=== PATIENT | male | born 1965 | race Two or more races ===

== ENCOUNTER 2018-05-19 11:34 | Emergency (ER) | payer MEDICAID ==
[~2018-05-19] VITALS: Ht 172.7 cm; Wt 121.5 kg
[~2018-05-19 11:34] MED LIST: BENA20TA82 PO; HCTZ25T PO; HYDR-4353 PO; POTA8CAP9 PO
[2018-05-19 11:40] VITALS: BP 173/113
[2018-05-19] MEDS ORDERED: normal saline 1000ML IV soln IVB ONE (12:20)
[2018-05-19] MEDS ORDERED: vancomycin/NS 1 GM ADD-VANTAGE 250 ML IV ONE (12:20)
--- NOTE | 2018-05-19 13:39 | NUR ---
CULTURE TAKEN FROM [facility] AND SENT TO LAB. PATIENT TOLLERATED ASPIRATION PROCEDURE WELL BY DR. TAPIA.
[2018-05-19] MEDS ORDERED: CEPH500C5 PO (13:45)
[2018-05-19] MEDS ORDERED: HYDROcodone/acetaminophen 10/325mg tab PO ONE (13:45)
[2018-05-19] MEDS ORDERED: HYDR-3965 PO (13:45)
[2018-05-19] MEDS ORDERED: SULF1TAB49 PO (13:45)
--- NOTE | 2018-05-19 14:39 | NUR ---
IV DC'D, DECREASED PAIN. IV DC'D CATH INTACT. DISCH TO HOME WITH SISTER DRIVING.
== END 2018-05-19 14:46 | disposition home or self-care (01) ==
LOC: ER 11:34
DX: L03.115 Cellulitis of right lower limb (principal); I10 Essential (primary) hypertension; E11.9 Type 2 diabetes mellitus without complications; F17.200 Nicotine dependence, unspecified, uncomplicated; Z98.890 Other specified postprocedural states; Z79.899 Other long term (current) drug therapy
CPT/HCPCS: 10060; 82948; 87070; 87077; 87186; 96365; 96366; 99284; J3370; J7030

== ENCOUNTER 2018-08-19 08:30 | Day surgery (SDC) | payer MEDICAID ==
[~2018-08-19 08:30] MED LIST changes: +CEPH500C5 PO; +SULF1TAB49 PO
--- NOTE | 2018-08-19 11:45 | NUR ---
Patient ambulated independently from [facility] and was admitted to outpatient wound care for physician visit with Naif Edwards MD. Dressing removed, wound cleansed and lidocaine applied per order. New patient assessment completed with review of patient's medical history and current medications. 0949 - blood glucose 245. Patient instructed that elevated blood sugars delay healing of the wound and can cause further complications including but not limited to amputation of toes or feet. 1025 - Dr. Edwards at bedside accompanied by RN. Wound assessed, time out performed by MD/RN. Wound debrided as detailed in the physician progress/procedure note. Plan of care discussed with patient. Dressings placed per MD orders. Pt instructed that they should not be disconnected from suction for more than 2 hours at a time. If they are not able to get the suction back on they need to remove the dressing and take all of the foam out of the wound, place hydrogel gauze on/in the wound, and change the dressing daily until someone can replace the dressing. Pt instructed to call the Wound Center or their Home Health Agency immediately if they notice a change in the color or amount of the fluid in the canister, their wound looks more red than usual or has a foul smell, the skin around their wound looks reddened or irritated, the dressing feels or appears loose, they experience pain or the alarm will not turn off. Pt instructed to call 911 or go to the ED if their canister fills rapidly with blood. Patient instructed on the signs and symptoms of infection and to call the Wound Center if any occur or to go to the ED if we are closed: Increased pain in wound Increase in drainage from the wound Redness in the skin surrounding the wound Bleeding from the wound Temperature of 101 or greater Patient instructed that the weight of their body puts a large amount of pressure on their wounds. This pressure keeps the new tissue from growing and inhibits new blood vessels from forming. Explained that, if they continue to bear weight on a body part that has a wound, the time it takes to heal the wound increases, the wound may get worse or the wound may not heal at all. Patient verbalized understanding of all discharge instructions and plan of care and ambulated independently out to [facility] in stable condition with no sign or symptom of distress at time of discharge
== END 2018-08-19 12:01 | disposition home or self-care (01) ==
LOC: WOUND CARE 08:30
PROVIDERS: ATTEND Surgery
DX: E11.622 Type 2 diabetes mellitus with other skin ulcer (principal); L98.492 Non-pressure chronic ulcer of skin of other sites with fat layer exposed; E11.65 Type 2 diabetes mellitus with hyperglycemia; I10 Essential (primary) hypertension; F12.90 Cannabis use, unspecified, uncomplicated; F17.200 Nicotine dependence, unspecified, uncomplicated; F15.90 Other stimulant use, unspecified, uncomplicated; Z98.890 Other specified postprocedural states; Z86.19 Personal history of other infectious and parasitic diseases
CPT/HCPCS: 36416; 82948; 97605

== ENCOUNTER 2018-08-23 08:59 | Day surgery (SDC) | payer OTHER, MEDICAID ==
[~2018-08-23 08:59] MED LIST changes: -CEPH500C5 PO; -HYDR-4353 PO
[2018-08-23] MEDS ORDERED: SULF1TAB49 PO (16:40)
--- NOTE | 2018-08-23 16:41 | NUR ---
Patient ambulated independently from [facility] and was admitted to outpatient wound care for physician visit with Naif Edwards MD. Dressing removed, wound cleansed and lidocaine applied per order. Patient assessed for changes in conditions, medications and medical history. 0910 - blood glucose 251. Patient instructed that elevated blood sugars delay healing of the wound and can cause further complications including but not limited to amputation of toes or feet. 1020 - Dr. Edwards at bedside accompanied by RN. Wound assessed, time out performed by MD/RN. Wound debrided as detailed in the physician progress/procedure note. Plan of care discussed with patient. Dressings placed per MD orders. Patient did not bring his wound vac dressing supplies so 1/2" iodoform was used as a dressing until next appointment . Per MD orders, procedure tech to bedside to place knee immobilizer. Patient instructed on the signs and symptoms of infection and to call the Wound Center if any occur or to go to the ED if we are closed: Increased pain in wound Increase in drainage from the wound Redness in the skin surrounding the wound Bleeding from the wound Temperature of 101 or greater Patient instructed that the weight of their body puts a large amount of pressure on their wounds. This pressure keeps the new tissue from growing and inhibits new blood vessels from forming. Explained that, if they continue to bear weight on a body part that has a wound, the time it takes to heal the wound increases, the wound may get worse or the wound may not heal at all. Patient verbalized understanding of all discharge instructions and plan of care and ambulated independently out to [facility] in stable condition with no sign or symptom of distress at time of discharge.
== END 2018-08-23 11:37 | disposition home or self-care (01) ==
LOC: WOUND CARE 08:59
PROVIDERS: ATTEND Surgery
DX: E11.622 Type 2 diabetes mellitus with other skin ulcer (principal); L98.492 Non-pressure chronic ulcer of skin of other sites with fat layer exposed; E11.65 Type 2 diabetes mellitus with hyperglycemia; I10 Essential (primary) hypertension; F12.90 Cannabis use, unspecified, uncomplicated; F17.200 Nicotine dependence, unspecified, uncomplicated; F15.90 Other stimulant use, unspecified, uncomplicated; Z98.890 Other specified postprocedural states; Z86.19 Personal history of other infectious and parasitic diseases
CPT/HCPCS: 11042; 36416; 82948; 97605; A6266; A6446

== ENCOUNTER 2018-08-26 08:36 | Day surgery (SDC) | payer MEDICAID, OTHER ==
--- NOTE | 2018-08-26 11:00 | NUR ---
Patient arrived from [facility] and was admitted to outpatient wound care for physician visit with Naif Edwards MD. Dressing removed, wound cleansed and lidocaine applied per order. Patient assessed for changes in conditions, medications and medical history. 0943 - blood glucose 216. Patient instructed that elevated blood sugars delay healing of the wound and can cause further complications including but not limited to amputation of toes or feet. 1000 - Dr. Edwards at bedside accompanied by RN. Wound assessed, time out performed by MD/RN. Wound debrided as detailed in the physician progress/procedure note. Plan of care discussed with patient. Dressings placed per MD orders. Pt instructed that they should not be disconnected from suction for more than 2 hours at a time. If they are not able to get the suction back on they need to remove the dressing and take all of the foam out of the wound, place hydrogel gauze on/in the wound, and change the dressing daily until someone can replace the dressing. Pt instructed to call the Wound Center or their Home Health Agency immediately if they notice a change in the color or amount of the fluid in the canister, their wound looks more red than usual or has a foul smell, the skin around their wound looks reddened or irritated, the dressing feels or appears loose, they experience pain or the alarm will not turn off. Pt instructed to call 911 or go to the ED if their canister fills rapidly with blood. Patient instructed on the signs and symptoms of infection and to call the Wound Center if any occur or to go to the ED if we are closed: Increased pain in wound Increase in drainage from the wound Redness in the skin surrounding the wound Bleeding from the wound Temperature of 101 or greater Patient instructed that the weight of their body puts a large amount of pressure on their wounds. This pressure keeps the new tissue from growing and inhibits new blood vessels from forming. Explained that, if they continue to bear weight on a body part that has a wound, the time it takes to heal the wound increases, the wound may get worse or the wound may not heal at all. Patient verbalized understanding of all discharge instructions and plan of care and exited independently out to [facility] in stable condition with no sign or symptom of distress at time of discharge.
== END 2018-08-26 11:15 | disposition home or self-care (01) ==
LOC: WOUND CARE 08:36
PROVIDERS: ATTEND Surgery
DX: E11.622 Type 2 diabetes mellitus with other skin ulcer (principal); L98.492 Non-pressure chronic ulcer of skin of other sites with fat layer exposed; E11.65 Type 2 diabetes mellitus with hyperglycemia; I10 Essential (primary) hypertension; F12.90 Cannabis use, unspecified, uncomplicated; F17.200 Nicotine dependence, unspecified, uncomplicated; F15.90 Other stimulant use, unspecified, uncomplicated; Z98.890 Other specified postprocedural states; Z86.19 Personal history of other infectious and parasitic diseases
CPT/HCPCS: 36416; 82948; 97605; A4456

== ENCOUNTER 2018-08-30 08:51 | Day surgery (SDC) | payer MEDICAID ==
--- NOTE | 2018-08-30 15:34 | NUR ---
0900 Patient ambulated safely into [facility]. Patient admitted to outpatient wound care clinic for follow-up visit with physician. Dressing removed, wound cleansed. Patient assessed for changes in conditions, medications and medical history. Patient showed no s/s of distress at time of assessment. 1045 at bedside accompanied by RN. Wounds assessed, time out performed and debridement done today as detailed in the physician progress/procedure note. Plan of care discussed with patient. Dressings placed per MD orders. Patient instructed on the signs and symptoms of infection and to call the Wound Center if any occur or to go to the ED if we are closed: Increased pain in wound Increase in drainage from the wound Redness in the skin surrounding the wound Bleeding from the wound Temperature of 101 or greater Pt instructed that they should not be disconnected from suction for more than 2 hours at a time. If they are not able to get the suction back on they need to remove the dressing and take all of the foam out of the wound, place hydrogel gauze on/in the wound, and change the dressing daily until someone can replace the dressing. Pt instructed to call the Wound Center or their Home Health Agency immediately if they notice a change in the color or amount of the fluid in the canister, their wound looks more red than usual or has a foul smell, the skin around their wound looks reddened or irritated, the dressing feels or appears loose, they experience pain or the alarm will not turn off. Pt instructed to call 911 or go to the ED if their canister fills rapidly with blood. Patient instructed that the weight of their body puts a large amount of pressure on their wounds. This pressure keeps the new tissue from growing and inhibits new blood vessels from forming. Explained that, if they continue to bear weight on a body part that has a wound, the time it takes to heal the wound increases, the wound may get worse or the wound may not heal at all. Patient verbalized understanding of all discharge instructions and plan of care. Patient ambulated independently out to [facility] and is in stable condition with no sign or symptom of distress at time of discharge.
== END 2018-08-30 11:46 | disposition home or self-care (01) ==
LOC: WOUND CARE 08:51
PROVIDERS: ATTEND Surgery
DX: E11.622 Type 2 diabetes mellitus with other skin ulcer (principal); L98.492 Non-pressure chronic ulcer of skin of other sites with fat layer exposed; E11.65 Type 2 diabetes mellitus with hyperglycemia; I10 Essential (primary) hypertension; F12.90 Cannabis use, unspecified, uncomplicated; F17.200 Nicotine dependence, unspecified, uncomplicated; F15.90 Other stimulant use, unspecified, uncomplicated; Z98.890 Other specified postprocedural states; Z86.19 Personal history of other infectious and parasitic diseases
CPT/HCPCS: 36416; 82948; 97605

== ENCOUNTER 2018-09-02 08:17 | Day surgery (SDC) | payer MEDICAID ==
--- NOTE | 2018-09-02 15:57 | NUR ---
Patient ambulated independently from [facility] and was admitted to outpatient wound care for physician visit with Naif Edwards MD. Dressing removed, wound cleansed and lidocaine applied per order. Patient assessed for changes in conditions, medications and medical history. Dr. Edwards at bedside accompanied by RN. Wound assessed, time out performed by MD/RN. Wound debrided as detailed in the physician progress/procedure note. Plan of care discussed with patient. Dressings placed per MD orders. Patient instructed on the signs and symptoms of infection and to call the Wound Center if any occur or to go to the ED if we are closed: Increased pain in wound Increase in drainage from the wound Redness in the skin surrounding the wound Bleeding from the wound Temperature of 101 or greater Patient instructed that elevated blood sugars delay healing of the wound and can cause further complications including but not limited to amputation of toes or feet. Patient instructed that the weight of their body puts a large amount of pressure on their wounds. This pressure keeps the new tissue from growing and inhibits new blood vessels from forming. Explained that, if they continue to bear weight on a body part that has a wound, the time it takes to heal the wound increases, the wound may get worse or the wound may not heal at all. Patient verbalized understanding of all discharge instructions and plan of care and ambulated independently out to [facility] in stable condition with no sign or symptom of distress at time of discharge. Addendum: 09/02/18 at 1557 by Bettie Rodríguez RN Amended: Links added.
== END 2018-09-02 10:34 | disposition home or self-care (01) ==
LOC: WOUND CARE 08:17
PROVIDERS: ATTEND Surgery
DX: E11.622 Type 2 diabetes mellitus with other skin ulcer (principal); L98.492 Non-pressure chronic ulcer of skin of other sites with fat layer exposed; E11.65 Type 2 diabetes mellitus with hyperglycemia; I10 Essential (primary) hypertension; F12.90 Cannabis use, unspecified, uncomplicated; F17.200 Nicotine dependence, unspecified, uncomplicated; F15.90 Other stimulant use, unspecified, uncomplicated; Z98.890 Other specified postprocedural states; Z86.19 Personal history of other infectious and parasitic diseases
CPT/HCPCS: 36416; 82948; 97597

== ENCOUNTER 2018-09-06 08:37 | Day surgery (SDC) | payer MEDICAID ==
--- NOTE | 2018-09-06 11:00 | NUR ---
Patient ambulated independently from [facility] and was admitted to outpatient wound care for physician visit with Naif Edwards MD. Dressing removed, wound cleansed and lidocaine applied per order. Patient assessed for changes in conditions, medications and medical history. 904 - blood glucose 198. Patient instructed that elevated blood sugars delay healing of the wound and can cause further complications including but not limited to amputation of toes or feet. 954 - Dr. Edwards at bedside accompanied by RN. Wound assessed, time out performed by MD/RN. Wound debrided as detailed in the physician progress/procedure note. Plan of care discussed with patient. Dressings placed per MD orders. Pt instructed that they should not be disconnected from suction for more than 2 hours at a time. If they are not able to get the suction back on they need to remove the dressing and take all of the foam out of the wound, place hydrogel gauze on/in the wound, and change the dressing daily until someone can replace the dressing. Pt instructed to call the Wound Center or their Home Health Agency immediately if they notice a change in the color or amount of the fluid in the canister, their wound looks more red than usual or has a foul smell, the skin around their wound looks reddened or irritated, the dressing feels or appears loose, they experience pain or the alarm will not turn off. Pt instructed to call 911 or go to the ED if their canister fills rapidly with blood. Patient instructed on the signs and symptoms of infection and to call the Wound Center if any occur or to go to the ED if we are closed: Increased pain in wound Increase in drainage from the wound Redness in the skin surrounding the wound Bleeding from the wound Temperature of 101 or greater Patient instructed that the weight of their body puts a large amount of pressure on their wounds. This pressure keeps the new tissue from growing and inhibits new blood vessels from forming. Explained that, if they continue to bear weight on a body part that has a wound, the time it takes to heal the wound increases, the wound may get worse or the wound may not heal at all. Patient verbalized understanding of all discharge instructions and plan of care and ambulated independently out to [facility] in stable condition with no sign or symptom of distress at time of discharge.
== END 2018-09-06 10:44 | disposition home or self-care (01) ==
LOC: WOUND CARE 08:37
PROVIDERS: ATTEND Surgery
DX: E11.622 Type 2 diabetes mellitus with other skin ulcer (principal); L98.492 Non-pressure chronic ulcer of skin of other sites with fat layer exposed; E11.65 Type 2 diabetes mellitus with hyperglycemia; I10 Essential (primary) hypertension; F12.90 Cannabis use, unspecified, uncomplicated; F17.200 Nicotine dependence, unspecified, uncomplicated; F15.90 Other stimulant use, unspecified, uncomplicated; Z98.890 Other specified postprocedural states; Z86.19 Personal history of other infectious and parasitic diseases
CPT/HCPCS: 36416; 82948; 97597; A4456

== ENCOUNTER 2018-09-09 08:15 | Day surgery (SDC) | payer MEDICAID ==
--- NOTE | 2018-09-09 14:22 | NUR ---
Patient ambulated independently from [facility] and was admitted to outpatient wound care for physician visit with Naif Edwards MD. Dressings and wound vac removed, wound cleansed and lidocaine applied per order. Patient assessed for changes in conditions, medications and medical history. Dr. Edwards at bedside accompanied by RN. Wound assessed, time out performed by MD/RN. Wound debrided as detailed in the physician progress/procedure note. Plan of care discussed with patient. Dressings placed per MD orders. Patient instructed on the signs and symptoms of infection and to call the Wound Center if any occur or to go to the ED if we are closed: Increased pain in wound Increase in drainage from the wound Redness in the skin surrounding the wound Bleeding from the wound Temperature of 101 or greater Patient instructed that elevated blood sugars delay healing of the wound and can cause further complications including but not limited to amputation of toes or feet. Pt instructed that they should not be disconnected from suction for more than 2 hours at a time. If they are not able to get the suction back on they need to remove the dressing and take all of the foam out of the wound, place hydrogel gauze on/in the wound, and change the dressing daily until someone can replace the dressing. Pt instructed to call the Wound Center or their Home Health Agency immediately if they notice a change in the color or amount of the fluid in the canister, their wound looks more red than usual or has a foul smell, the skin around their wound looks reddened or irritated, the dressing feels or appears loose, they experience pain or the alarm will not turn off. Pt instructed to call 911 or go to the ED if their canister fills rapidly with blood. Patient instructed that the weight of their body puts a large amount of pressure on their wounds. This pressure keeps the new tissue from growing and inhibits new blood vessels from forming. Explained that, if they continue to bear weight on a body part that has a wound, the time it takes to heal the wound increases, the wound may get worse or the wound may not heal at all. Patient verbalized understanding of all discharge instructions and plan of care and ambulated independently out to [facility] in stable condition with no sign or symptom of distress at time of discharge. Addendum: 09/09/18 at 1424 by Bettie Rodríguez RN Amended: Links added.
== END 2018-09-09 10:55 | disposition home or self-care (01) ==
LOC: WOUND CARE 08:15
PROVIDERS: ATTEND Surgery
DX: E11.622 Type 2 diabetes mellitus with other skin ulcer (principal); L98.492 Non-pressure chronic ulcer of skin of other sites with fat layer exposed; E11.65 Type 2 diabetes mellitus with hyperglycemia; I10 Essential (primary) hypertension; F12.90 Cannabis use, unspecified, uncomplicated; F17.200 Nicotine dependence, unspecified, uncomplicated; F15.90 Other stimulant use, unspecified, uncomplicated; Z98.890 Other specified postprocedural states; Z86.19 Personal history of other infectious and parasitic diseases
CPT/HCPCS: 36416; 82948; 97597; A4456; A6021

== ENCOUNTER 2018-09-13 09:50 | Day surgery (SDC) | payer MEDICAID ==
--- NOTE | 2018-09-13 16:22 | NUR ---
Patient ambulated independently from [facility] and was admitted to outpatient wound care for physician visit with Naif Edwards MD. Dressing removed, wound cleansed and Emla cream applied per order. Patient assessed for changes in conditions, medications and medical history. Dr. Edwards at bedside accompanied by RN. Wound assessed, time out performed by MD/RN. Wound debrided as detailed in the physician progress/procedure note. Plan of care discussed with patient. Dressings placed per MD orders. Patient instructed on the signs and symptoms of infection and to call the Wound Center if any occur or to go to the ED if we are closed: Increased pain in wound Increase in drainage from the wound Redness in the skin surrounding the wound Bleeding from the wound Temperature of 101 or greater Patient instructed that elevated blood sugars delay healing of the wound and can cause further complications including but not limited to amputation of toes or feet. Pt instructed that they should not be disconnected from suction for more than 2 hours at a time. If they are not able to get the suction back on they need to remove the dressing and take all of the foam out of the wound, place hydrogel gauze on/in the wound, and change the dressing daily until someone can replace the dressing. Pt instructed to call the Wound Center or their Home Health Agency immediately if they notice a change in the color or amount of the fluid in the canister, their wound looks more red than usual or has a foul smell, the skin around their wound looks reddened or irritated, the dressing feels or appears loose, they experience pain or the alarm will not turn off. Pt instructed to call 911 or go to the ED if their canister fills rapidly with blood. Patient instructed that the weight of their body puts a large amount of pressure on their wounds. This pressure keeps the new tissue from growing and inhibits new blood vessels from forming. Explained that, if they continue to bear weight on a body part that has a wound, the time it takes to heal the wound increases, the wound may get worse or the wound may not heal at all. Patient verbalized understanding of all discharge instructions and plan of care and ambulated independently out to [facility] in stable condition with no sign or symptom of distress at time of discharge. Addendum: 09/13/18 at 1624 by Bettie Rodríguez RN Amended: Links added.
== END 2018-09-13 12:36 | disposition home or self-care (01) ==
LOC: WOUND CARE 09:50
PROVIDERS: ATTEND Surgery
DX: E11.622 Type 2 diabetes mellitus with other skin ulcer (principal); L98.492 Non-pressure chronic ulcer of skin of other sites with fat layer exposed; E11.65 Type 2 diabetes mellitus with hyperglycemia; I10 Essential (primary) hypertension; F12.90 Cannabis use, unspecified, uncomplicated; F17.200 Nicotine dependence, unspecified, uncomplicated; F15.90 Other stimulant use, unspecified, uncomplicated; Z98.890 Other specified postprocedural states; Z86.19 Personal history of other infectious and parasitic diseases
CPT/HCPCS: 36416; 82948; 97605; A6021

== ENCOUNTER 2018-09-16 09:00 | Outpatient (CLI) | payer MEDICAID ==
--- NOTE | 2018-09-16 11:00 | NUR ---
Patient ambulated independently from [facility] and was admitted to outpatient wound care for nursing visit under the direct supervision of Naif Edwards MD. Dressing removed, wound cleansed and lidocaine applied per order. Patient assessed for changes in conditions, medications and medical history. Pt instructed that they should not be disconnected from suction for more than 2 hours at a time. If they are not able to get the suction back on they need to remove the dressing and take all of the foam out of the wound, place hydrogel gauze on/in the wound, and change the dressing daily until someone can replace the dressing. Pt instructed to call the Wound Center or their Home Health Agency immediately if they notice a change in the color or amount of the fluid in the canister, their wound looks more red than usual or has a foul smell, the skin around their wound looks reddened or irritated, the dressing feels or appears loose, they experience pain or the alarm will not turn off. Pt instructed to call 911 or go to the ED if their canister fills rapidly with blood. Dressings placed per MD orders. Patient instructed on the signs and symptoms of infection and to call the Wound Center if any occur or to go to the ED if we are closed: Increased pain in wound Increase in drainage from the wound Redness in the skin surrounding the wound Bleeding from the wound Temperature of 101 or greater Patient instructed that the weight of their body puts a large amount of pressure on their wounds. This pressure keeps the new tissue from growing and inhibits new blood vessels from forming. Explained that, if they continue to bear weight on a body part that has a wound, the time it takes to heal the wound increases, the wound may get worse or the wound may not heal at all. Patient verbalized understanding of all discharge instructions and plan of care and ambulated independently out to [facility] in stable condition with no sign or symptom of distress at time of discharge.
== END 2018-09-16 10:40 | disposition home or self-care (01) ==
LOC: WOUND CARE 09:00 → EDSTATUS 09:00 → WOUND CARE 10:40
PROVIDERS: ATTEND Surgery
DX: E11.622 Type 2 diabetes mellitus with other skin ulcer (principal); L98.492 Non-pressure chronic ulcer of skin of other sites with fat layer exposed; E11.65 Type 2 diabetes mellitus with hyperglycemia; I10 Essential (primary) hypertension; F12.90 Cannabis use, unspecified, uncomplicated; F17.200 Nicotine dependence, unspecified, uncomplicated; F15.90 Other stimulant use, unspecified, uncomplicated; Z98.890 Other specified postprocedural states; Z86.19 Personal history of other infectious and parasitic diseases
CPT/HCPCS: 97605; A4456; A6021

== ENCOUNTER 2018-09-21 08:30 | Day surgery (SDC) | payer MEDICAID ==
[~2018-09-21 08:30] MED LIST changes: -SULF1TAB49 PO
--- NOTE | 2018-09-21 10:45 | NUR ---
Patient ambulated independently from [facility] and was admitted to outpatient wound care for physician visit with Naif Edwards MD. Dressing removed, wound cleansed and lidocaine applied per order. Patient assessed for changes in conditions, medications and medical history. 1000 - Dr. Edwards at bedside accompanied by RN. Wound assessed, time out performed by MD/RN. Wound debrided as detailed in the physician progress/procedure note. Plan of care discussed with patient. Dressings placed per MD orders. Patient instructed on the signs and symptoms of infection and to call the Wound Center if any occur or to go to the ED if we are closed: Increased pain in wound Increase in drainage from the wound Redness in the skin surrounding the wound Bleeding from the wound Temperature of 101 or greater Patient instructed that the weight of their body puts a large amount of pressure on their wounds. This pressure keeps the new tissue from growing and inhibits new blood vessels from forming. Explained that, if they continue to bear weight on a body part that has a wound, the time it takes to heal the wound increases, the wound may get worse or the wound may not heal at all. Patient verbalized understanding of all discharge instructions and plan of care and ambulated independently out to [facility] in stable condition with no sign or symptom of distress at time of discharge.
[2018-09-21] MEDS ORDERED: mupirocin 2% ointment 22GM ONE (14:54)
[2018-09-21] MEDS ORDERED: CIPR-259 PO (15:06)
--- NOTE | 2018-09-21 15:08 | NUR ---
Blood glucose not assessed today. Addendum: 09/21/18 at 1508 by Sunitha Mcdonald RN Amended: Links added.
== END 2018-09-21 10:28 | disposition home or self-care (01) ==
LOC: WOUND CARE 08:30
PROVIDERS: ATTEND Surgery
DX: E11.622 Type 2 diabetes mellitus with other skin ulcer (principal); L98.492 Non-pressure chronic ulcer of skin of other sites with fat layer exposed; E11.65 Type 2 diabetes mellitus with hyperglycemia; I10 Essential (primary) hypertension; F12.90 Cannabis use, unspecified, uncomplicated; F17.200 Nicotine dependence, unspecified, uncomplicated; F15.90 Other stimulant use, unspecified, uncomplicated; Z98.890 Other specified postprocedural states; Z86.19 Personal history of other infectious and parasitic diseases
CPT/HCPCS: 97597; A6021; A6212

== ENCOUNTER 2018-09-27 08:36 | Day surgery (SDC) | payer MEDICAID ==
[~2018-09-27 08:36] MED LIST changes: +CIPR-259 PO
[2018-09-27] MEDS ORDERED: LIDOcaine/PRILOcaine 5gm cream TP ONE (09:26)
--- NOTE | 2018-09-27 11:00 | NUR ---
Patient ambulated independently from [facility] and was admitted to outpatient wound care for physician visit with Naif Edwards MD. Dressing removed, wound cleansed and Emla cream applied per order. Patient assessed for changes in conditions, medications and medical history. 09 - blood glucose 148. Patient instructed that elevated blood sugars delay healing of the wound and can cause further complications including but not limited to amputation of toes or feet. 1105 - Dr. Edwards at bedside accompanied by RN. Wound assessed, time out performed by MD/RN. Wound debrided as detailed in the physician progress/procedure note. Plan of care discussed with patient. Dressings placed per MD orders. Patient instructed on the signs and symptoms of infection and to call the Wound Center if any occur or to go to the ED if we are closed: Increased pain in wound Increase in drainage from the wound Redness in the skin surrounding the wound Bleeding from the wound Temperature of 101 or greater Patient instructed that the weight of their body puts a large amount of pressure on their wounds. This pressure keeps the new tissue from growing and inhibits new blood vessels from forming. Explained that, if they continue to bear weight on a body part that has a wound, the time it takes to heal the wound increases, the wound may get worse or the wound may not heal at all. Patient verbalized understanding of all discharge instructions and plan of care and ambulated independently out to [facility] in stable condition with no sign or symptom of distress at time of discharge.
== END 2018-09-27 10:35 | disposition home or self-care (01) ==
LOC: WOUND CARE 08:36
PROVIDERS: ATTEND Surgery
DX: E11.622 Type 2 diabetes mellitus with other skin ulcer (principal); L98.492 Non-pressure chronic ulcer of skin of other sites with fat layer exposed; S81.002D Unspecified open wound, left knee, subsequent encounter; E11.65 Type 2 diabetes mellitus with hyperglycemia; I10 Essential (primary) hypertension; F12.90 Cannabis use, unspecified, uncomplicated; F17.200 Nicotine dependence, unspecified, uncomplicated; F15.90 Other stimulant use, unspecified, uncomplicated; Z98.890 Other specified postprocedural states; Z86.19 Personal history of other infectious and parasitic diseases; X58.XXXD Exposure to other specified factors, subsequent encounter
CPT/HCPCS: 36416; 82948; 97597; A6021

== ENCOUNTER 2018-10-04 08:56 | Day surgery (SDC) | payer MEDICAID ==
--- NOTE | 2018-10-04 10:44 | NUR ---
Patient ambulated independently from [facility] and was admitted to outpatient wound care for physician visit with Naif Edwards MD. Dressing removed, wound cleansed and lidocaine applied per order. Patient assessed for changes in conditions, medications and medical history. 0935 - blood glucose 172. Patient instructed that elevated blood sugars delay healing of the wound and can cause further complications including but not limited to amputation of toes or feet. 1015 - Dr. Edwards at bedside accompanied by RN. Wound assessed, time out performed by MD/RN. Wound debrided as detailed in the physician progress/procedure note. Plan of care discussed with patient. Dressings placed per MD orders. Patient instructed on the signs and symptoms of infection and to call the Wound Center if any occur or to go to the ED if we are closed: Increased pain in wound Increase in drainage from the wound Redness in the skin surrounding the wound Bleeding from the wound Temperature of 101 or greater Patient instructed that the weight of their body puts a large amount of pressure on their wounds. This pressure keeps the new tissue from growing and inhibits new blood vessels from forming. Explained that, if they continue to bear weight on a body part that has a wound, the time it takes to heal the wound increases, the wound may get worse or the wound may not heal at all. Patient verbalized understanding of all discharge instructions and plan of care and ambulated independently out to [facility] in stable condition with no sign or symptom of distress at time of discharge.
== END 2018-10-04 10:56 | disposition home or self-care (01) ==
LOC: WOUND CARE 08:56
PROVIDERS: ATTEND Surgery
DX: E11.622 Type 2 diabetes mellitus with other skin ulcer (principal); L98.492 Non-pressure chronic ulcer of skin of other sites with fat layer exposed; S81.002D Unspecified open wound, left knee, subsequent encounter; E11.65 Type 2 diabetes mellitus with hyperglycemia; I10 Essential (primary) hypertension; F12.90 Cannabis use, unspecified, uncomplicated; F17.200 Nicotine dependence, unspecified, uncomplicated; F15.90 Other stimulant use, unspecified, uncomplicated; Z98.890 Other specified postprocedural states; Z86.19 Personal history of other infectious and parasitic diseases; Z87.442 Personal history of urinary calculi; X58.XXXD Exposure to other specified factors, subsequent encounter
CPT/HCPCS: 36416; 82948; 97597; A6021; A6212

== ENCOUNTER 2018-10-11 08:25 | Day surgery (SDC) | payer MEDICAID ==
[~2018-10-11 08:25] MED LIST changes: -CIPR-259 PO
[2018-10-11] MEDS ORDERED: LIDOcaine/PRILOcaine 5gm cream TP ONE (09:25)
--- NOTE | 2018-10-11 12:58 | NUR ---
Patient ambulated independently [facility] and was admitted to outpatient wound care for physician visit with Naif Edwards MD. Dressing removed, wound cleansed and Emla cream applied per order. Patient assessed for changes in conditions, medications and medical history. Dr. Edwards at bedside accompanied by RN. Wound assessed, time out performed by MD/RN. Wound debrided as detailed in the physician progress/procedure note. Plan of care discussed with patient. Dressings placed per MD orders. Patient instructed on the signs and symptoms of infection and to call the Wound Center if any occur or to go to the ED if we are closed: Increased pain in wound Increase in drainage from the wound Redness in the skin surrounding the wound Bleeding from the wound Temperature of 101 or greater Patient instructed that elevated blood sugars delay healing of the wound and can cause further complications including but not limited to amputation of toes or feet. Patient instructed that the weight of their body puts a large amount of pressure on their wounds. This pressure keeps the new tissue from growing and inhibits new blood vessels from forming. Explained that, if they continue to bear weight on a body part that has a wound, the time it takes to heal the wound increases, the wound may get worse or the wound may not heal at all. Patient verbalized understanding of all discharge instructions and plan of care and ambulated independently out to [facility] in stable condition with no sign or symptom of distress at time of discharge. Addendum: 10/11/18 at 1259 by Bettie Rodríguez RN Amended: Links added.
== END 2018-10-11 10:30 | disposition home or self-care (01) ==
LOC: WOUND CARE 08:25
PROVIDERS: ATTEND Surgery
DX: E11.622 Type 2 diabetes mellitus with other skin ulcer (principal); L98.492 Non-pressure chronic ulcer of skin of other sites with fat layer exposed; S81.002D Unspecified open wound, left knee, subsequent encounter; E11.65 Type 2 diabetes mellitus with hyperglycemia; I10 Essential (primary) hypertension; F12.90 Cannabis use, unspecified, uncomplicated; F17.200 Nicotine dependence, unspecified, uncomplicated; F15.90 Other stimulant use, unspecified, uncomplicated; Z98.890 Other specified postprocedural states; Z86.19 Personal history of other infectious and parasitic diseases; Z87.442 Personal history of urinary calculi; X58.XXXD Exposure to other specified factors, subsequent encounter
CPT/HCPCS: 36416; 82948; 97597; A6212; A6446

== ENCOUNTER 2019-04-05 18:08 | Emergency (ER) | payer MEDICAID ==
[~2019-04-05] VITALS: Ht 172.7 cm; Wt 105.0 kg
[~2019-04-05 18:08] MED LIST changes: +POTA8CAP20 PO; -POTA8CAP9 PO
[2019-04-05] MEDS ORDERED: sulfamethoxazole/trimethoprim DS (800/160mg) tablet PO ONE (19:50)
[2019-04-05] MEDS ORDERED: CefTRIAXone 2gm/D5W 50ml 50 ML IV ONE (19:50)
[2019-04-05] MEDS ORDERED: CefTRIAXone 1000mg IM Kit (w/lidocaine diluent) IM ONE (19:55)
[2019-04-05] MEDS ORDERED: BACDS PO (19:57)
[2019-04-05 20:07] VITALS: BP 238/119
== END 2019-04-05 20:10 | disposition home or self-care (01) ==
LOC: ER 18:09
DX: L03.116 Cellulitis of left lower limb (principal); I10 Essential (primary) hypertension; E11.9 Type 2 diabetes mellitus without complications; F10.99 Alcohol use, unspecified with unspecified alcohol-induced disorder; F12.90 Cannabis use, unspecified, uncomplicated; F15.90 Other stimulant use, unspecified, uncomplicated; Z86.19 Personal history of other infectious and parasitic diseases; Z98.890 Other specified postprocedural states; Z79.899 Other long term (current) drug therapy; Y90.9 Presence of alcohol in blood, level not specified
CPT/HCPCS: 96372; 99284; J0696

== ENCOUNTER 2019-08-19 22:05 | Emergency (ER) | payer MEDICAID ==
[~2019-08-19] VITALS: Ht 172.7 cm; Wt 109.1 kg
[2019-08-19] MEDS ORDERED: TETanus/Pertussis (Acell)/Diphther VAC/PF (Tdap-Adult) 0.5ml syringe IMVAC ONE (22:30)
[2019-08-19] MEDS ORDERED: LIDOcaine 1% W/epiNEPHrine 1:200,000 10ml vial IJ ONE ×2 (22:30→22:35)
--- NOTE | 2019-08-19 22:50 | NUR ---
aware of elevated BP. Pt. has hx. of HTN and ceased taking blood pressure/anti-diabetic medications. Education provided to pt. re med compliance. Pt. states that he needs to start going back to his primary care provider.
[2019-08-19 22:52] VITALS: BP 180/108
== END 2019-08-19 22:53 | disposition home or self-care (01) ==
LOC: ER 22:06
DX: S81.811A Laceration without foreign body, right lower leg, initial encounter (principal); I10 Essential (primary) hypertension; E11.9 Type 2 diabetes mellitus without complications; F12.90 Cannabis use, unspecified, uncomplicated; F15.90 Other stimulant use, unspecified, uncomplicated; Z98.890 Other specified postprocedural states; Z79.899 Other long term (current) drug therapy; W18.09XA Striking against other object with subsequent fall, initial encounter; Y93.89 Activity, other specified; Y92.89 Other specified places as the place of occurrence of the external cause; Y99.9 Unspecified external cause status
CPT/HCPCS: 12002; 90471; 90715; 99283

== ENCOUNTER 2019-09-02 12:12 | Emergency (ER) | payer MEDICAID ==
[~2019-09-02] VITALS: Ht 172.7 cm; Wt 106.0 kg
[2019-09-02 12:20] VITALS: BP 176/110
[2019-09-02] MEDS ORDERED: SULF1TAB49 PO (13:06)
[2019-09-02] MEDS ORDERED: CEPH500C5 PO (13:06)
[2019-09-02] MEDS ORDERED: CefTRIAXone 1000mg IM Kit (w/lidocaine diluent) IM ONE (13:10)
== END 2019-09-02 13:46 | disposition home or self-care (01) ==
LOC: ER 12:12
DX: T81.33XA Disruption of traumatic injury wound repair, initial encounter (principal); L03.115 Cellulitis of right lower limb; I10 Essential (primary) hypertension; E11.9 Type 2 diabetes mellitus without complications; F17.200 Nicotine dependence, unspecified, uncomplicated; F12.90 Cannabis use, unspecified, uncomplicated; F15.90 Other stimulant use, unspecified, uncomplicated; Z86.19 Personal history of other infectious and parasitic diseases; Z98.890 Other specified postprocedural states; Z79.2 Long term (current) use of antibiotics; Z79.899 Other long term (current) drug therapy; Y83.9 Surgical procedure, unspecified as the cause of abnormal reaction of the patient, or of later complication, without mention of misadventure at the time of the procedure; Y92.89 Other specified places as the place of occurrence of the external cause
CPT/HCPCS: 96372; 99284; J0696

== ENCOUNTER 2019-09-04 20:57 | Emergency (ER) | payer MEDICAID ==
[~2019-09-04] VITALS: Ht 172.7 cm; Wt 109.0 kg
[~2019-09-04 20:57] MED LIST changes: +CEPH500C5 PO; +SULF1TAB49 PO
[2019-09-04 21:49] VITALS: BP 179/115
== END 2019-09-04 21:54 | disposition home or self-care (01) ==
LOC: ER 20:57
DX: L03.818 Cellulitis of other sites (principal); I10 Essential (primary) hypertension; E11.9 Type 2 diabetes mellitus without complications; F17.200 Nicotine dependence, unspecified, uncomplicated; F12.90 Cannabis use, unspecified, uncomplicated; F15.90 Other stimulant use, unspecified, uncomplicated; Z48.02 Encounter for removal of sutures; Z86.19 Personal history of other infectious and parasitic diseases; Z98.890 Other specified postprocedural states; Z72.89 Other problems related to lifestyle; Z79.2 Long term (current) use of antibiotics; Z79.899 Other long term (current) drug therapy
CPT/HCPCS: 99281

== ENCOUNTER 2019-09-06 20:02 | Emergency (ER) | payer MEDICAID ==
[~2019-09-06] VITALS: Ht 172.7 cm; Wt 104.5 kg
[2019-09-06 20:08] VITALS: BP 144/75
[2019-09-06] MEDS ORDERED: CEPH500C5 PO (20:42)
[2019-09-06] MEDS ORDERED: DOXY100C76 PO (20:42)
== END 2019-09-06 20:57 | disposition home or self-care (01) ==
LOC: ER 20:03
DX: L53.9 Erythematous condition, unspecified (principal); I10 Essential (primary) hypertension; E11.9 Type 2 diabetes mellitus without complications; F12.90 Cannabis use, unspecified, uncomplicated; F15.90 Other stimulant use, unspecified, uncomplicated; Z98.890 Other specified postprocedural states; Z72.89 Other problems related to lifestyle; Z89.611 Acquired absence of right leg above knee; Z48.00 Encounter for change or removal of nonsurgical wound dressing; Z79.899 Other long term (current) drug therapy
CPT/HCPCS: 99281; 99283

== ENCOUNTER 2019-09-09 12:20 | Day surgery (SDC) | payer MEDICAID ==
[~2019-09-09 12:20] MED LIST changes: +DOXY100C76 PO
[2019-09-09] MEDS ORDERED: LIDOcaine 2% 5ml jelly ONE (12:46)
== END 2019-09-09 14:23 | disposition home or self-care (01) ==
LOC: WOUND CARE 12:20
PROVIDERS: ATTEND Nurse Practitioner
DX: E11.622 Type 2 diabetes mellitus with other skin ulcer (principal); L97.812 Non-pressure chronic ulcer of other part of right lower leg with fat layer exposed; E11.65 Type 2 diabetes mellitus with hyperglycemia; I10 Essential (primary) hypertension; F17.200 Nicotine dependence, unspecified, uncomplicated; F12.90 Cannabis use, unspecified, uncomplicated; F15.90 Other stimulant use, unspecified, uncomplicated; Z89.611 Acquired absence of right leg above knee; Z79.899 Other long term (current) drug therapy; Z98.890 Other specified postprocedural states; Z79.2 Long term (current) use of antibiotics; Z86.19 Personal history of other infectious and parasitic diseases
CPT/HCPCS: 11042; 11045; 36416; 82948; 93971

== ENCOUNTER 2019-09-15 09:03 | Day surgery (SDC) | payer MEDICAID ==
[2019-09-15] MEDS ORDERED: LIDOcaine 2% 5ml jelly ONE (09:37)
== END 2019-09-15 10:04 | disposition home or self-care (01) ==
LOC: WOUND CARE 09:03
PROVIDERS: ATTEND Nurse Practitioner
DX: E11.622 Type 2 diabetes mellitus with other skin ulcer (principal); L97.812 Non-pressure chronic ulcer of other part of right lower leg with fat layer exposed; E11.65 Type 2 diabetes mellitus with hyperglycemia; I10 Essential (primary) hypertension; F17.200 Nicotine dependence, unspecified, uncomplicated; F12.90 Cannabis use, unspecified, uncomplicated; F15.90 Other stimulant use, unspecified, uncomplicated; Z89.611 Acquired absence of right leg above knee; Z79.899 Other long term (current) drug therapy; Z98.890 Other specified postprocedural states; Z79.2 Long term (current) use of antibiotics; Z86.19 Personal history of other infectious and parasitic diseases
CPT/HCPCS: 82948; 97597

== ENCOUNTER 2019-09-20 09:52 | Day surgery (SDC) | payer MEDICAID ==
[~2019-09-20 09:52] MED LIST changes: -DOXY100C76 PO; -SULF1TAB49 PO
[2019-09-20] MEDS ORDERED: LIDOcaine 2% 5ml jelly ONE (10:06)
== END 2019-09-20 11:10 | disposition home or self-care (01) ==
LOC: WOUND CARE 09:52
PROVIDERS: ATTEND Nurse Practitioner
DX: E11.622 Type 2 diabetes mellitus with other skin ulcer (principal); L97.812 Non-pressure chronic ulcer of other part of right lower leg with fat layer exposed; E11.65 Type 2 diabetes mellitus with hyperglycemia; I10 Essential (primary) hypertension; F17.200 Nicotine dependence, unspecified, uncomplicated; F12.90 Cannabis use, unspecified, uncomplicated; F15.90 Other stimulant use, unspecified, uncomplicated; Z89.611 Acquired absence of right leg above knee; Z79.899 Other long term (current) drug therapy; Z98.890 Other specified postprocedural states; Z79.2 Long term (current) use of antibiotics; Z86.19 Personal history of other infectious and parasitic diseases
CPT/HCPCS: 82948; 97597

== ENCOUNTER 2019-09-26 08:35 | Day surgery (SDC) | payer MEDICAID ==
[2019-09-26] MEDS ORDERED: LIDOcaine 2% 5ml jelly ONE (09:04)
== END 2019-09-26 09:42 | disposition home or self-care (01) ==
LOC: WOUND CARE 08:35
PROVIDERS: ATTEND Nurse Practitioner
DX: E11.622 Type 2 diabetes mellitus with other skin ulcer (principal); L97.812 Non-pressure chronic ulcer of other part of right lower leg with fat layer exposed; E11.65 Type 2 diabetes mellitus with hyperglycemia; I10 Essential (primary) hypertension; F17.200 Nicotine dependence, unspecified, uncomplicated; F12.90 Cannabis use, unspecified, uncomplicated; F15.90 Other stimulant use, unspecified, uncomplicated; Z89.611 Acquired absence of right leg above knee; Z79.899 Other long term (current) drug therapy; Z98.890 Other specified postprocedural states; Z79.2 Long term (current) use of antibiotics; Z86.19 Personal history of other infectious and parasitic diseases
CPT/HCPCS: 36416; 82948; 97597

== ENCOUNTER 2019-09-30 09:17 | Day surgery (SDC) | payer MEDICAID ==
[2019-09-30] MEDS ORDERED: LIDOcaine 2% 5ml jelly ONE (09:56)
== END 2019-09-30 10:34 | disposition home or self-care (01) ==
LOC: WOUND CARE 09:17
PROVIDERS: ATTEND Nurse Practitioner
DX: E11.622 Type 2 diabetes mellitus with other skin ulcer (principal); L97.812 Non-pressure chronic ulcer of other part of right lower leg with fat layer exposed; E11.621 Type 2 diabetes mellitus with foot ulcer; L97.521 Non-pressure chronic ulcer of other part of left foot limited to breakdown of skin; E11.65 Type 2 diabetes mellitus with hyperglycemia; I10 Essential (primary) hypertension; F17.200 Nicotine dependence, unspecified, uncomplicated; F12.90 Cannabis use, unspecified, uncomplicated; F15.90 Other stimulant use, unspecified, uncomplicated; Z89.611 Acquired absence of right leg above knee; Z79.899 Other long term (current) drug therapy; Z98.890 Other specified postprocedural states; Z79.2 Long term (current) use of antibiotics; Z86.12 Personal history of poliomyelitis
CPT/HCPCS: 97597

== ENCOUNTER 2019-10-07 09:50 | Day surgery (SDC) | payer MEDICAID | END 2019-10-07 10:40 | disposition home or self-care (01) | LOC: WOUND CARE 09:50 | PROVIDERS: ATTEND Nurse Practitioner | DX: E11.622 Type 2 diabetes mellitus with other skin ulcer (principal); L97.812 Non-pressure chronic ulcer of other part of right lower leg with fat layer exposed; L84 Corns and callosities; B07.0 Plantar wart; E11.65 Type 2 diabetes mellitus with hyperglycemia; I10 Essential (primary) hypertension; F17.200 Nicotine dependence, unspecified, uncomplicated; F12.90 Cannabis use, unspecified, uncomplicated; F15.90 Other stimulant use, unspecified, uncomplicated; Z89.611 Acquired absence of right leg above knee; Z79.899 Other long term (current) drug therapy; Z98.890 Other specified postprocedural states; Z79.2 Long term (current) use of antibiotics; Z86.12 Personal history of poliomyelitis | CPT/HCPCS: 36416; 82948; 97597 ==

== ENCOUNTER 2019-10-14 10:07 | Day surgery (SDC) | payer MEDICAID ==
[2019-10-14] MEDS ORDERED: LIDOcaine 2% 5ml jelly ONE (10:38)
== END 2019-10-14 11:38 | disposition home or self-care (01) ==
LOC: WOUND CARE 10:07
PROVIDERS: ATTEND Nurse Practitioner
DX: E11.622 Type 2 diabetes mellitus with other skin ulcer (principal); L97.812 Non-pressure chronic ulcer of other part of right lower leg with fat layer exposed; L84 Corns and callosities; B07.0 Plantar wart; E11.65 Type 2 diabetes mellitus with hyperglycemia; I10 Essential (primary) hypertension; F17.200 Nicotine dependence, unspecified, uncomplicated; F12.90 Cannabis use, unspecified, uncomplicated; F15.90 Other stimulant use, unspecified, uncomplicated; Z89.611 Acquired absence of right leg above knee; Z79.899 Other long term (current) drug therapy; Z79.890 Hormone replacement therapy; Z79.2 Long term (current) use of antibiotics; Z86.12 Personal history of poliomyelitis
CPT/HCPCS: 36416; 82948; 97597

== ENCOUNTER 2019-10-16 05:54 | Inpatient (IN) | payer MEDICAID ==
[~2019-10-16] VITALS: Ht 172.7 cm; Wt 111.3 kg
[2019-10-16 07:08] LABS: BASOPHILS # (AUTO) 0.1 X10'3 (0-0.2); BASOPHILS % (AUTO) 1.1 % (0-1); EOSINOPHILS # (AUTO) 0.2 X10'3 (0-0.9); EOSINOPHILS % (AUTO) 3.3 % (0-6); HEMATOCRIT 43.2 % (42.0-52.0); HEMOGLOBIN 14.4 g/dl (14.0-17.9); LYMPHOCYTES # (AUTO) 0.9 X10'3 (1.1-4.8); LYMPHOCYTES % (AUTO) 16.8 % (21-51); MEAN CORPUSCULAR HEMOGLOBIN 31.4 PG (27.0-31.0); MEAN CORPUSCULAR HGB CONC 33.3 g/dL (33.0-36.5); MEAN CORPUSCULAR VOLUME 94.2 FL (78-98); MEAN PLATELET VOLUME 8.3 FL (7.4-10.4); MONOCYTES # (AUTO) 0.5 X10'3 (0-0.9); MONOCYTES % (AUTO) 9.3 % (2-12); NEUTROPHILS # (AUTO) 3.9 X10'3 (1.8-7.7); NEUTROPHILS % (AUTO) 69.5 % (42-75); PLATELET COUNT 92 X10'3 (140-440); RED BLOOD COUNT 4.59 X10'6 (4.70-6.10); RED CELL DISTRIBUTION WIDTH 13.7 % (11.5-14.5); WHITE BLOOD COUNT 5.5 X10'3 (4.5-11.0)
[2019-10-16 07:23] LABS: PARTIAL THROMBOPLASTIN TIME 30 SECONDS (22-32)
[2019-10-16 07:24] LABS: ALANINE AMINOTRANSFERASE 32 U/L (12-78); ALBUMIN 3.3 G/DL (3.4-5.0); ALBUMIN/GLOBULIN RATIO 0.8 (1.1-1.5); ALKALINE PHOSPHATASE 84 IU/L (46-116); ANION GAP 6 (8-16); ASPARTATE AMINO TRANSFERASE 35 U/L (10-37); BILIRUBIN,TOTAL 1.3 MG/DL (0.1-1.0); BLOOD UREA NITROGEN 8 MG/DL (7-18); BUN/CREATININE RATIO 7.8 (5.4-32.0); CALCIUM 8.6 MG/DL (8.5-10.1); CHLORIDE 106 MMOL/L (99-107); CREATININE 1.03 MG/DL (0.60-1.10); GLUCOSE 105 MG/DL (70-104); POTASSIUM 3.8 MMOL/L (3.5-5.1); SODIUM 143 MMOL/L (135-145); TOTAL CARBON DIOXIDE 31.3 MMOL/L (24-32); TOTAL PROTEIN 7.2 G/DL (6.4-8.2); eGFR 76 ML/MIN
[2019-10-16 07:32] LABS: LIPASE 77 U/L (73-393)
[2019-10-16] MEDS ORDERED: lisinopril 10 MG tablet PO ONE (07:50)
[2019-10-16] MEDS ORDERED: furosemide 10 MG/1 ML 10ml inj IV ONE (07:50)
[2019-10-16] MEDS ORDERED: magnesium Cl slow-release 64mg tablet PO PRN (08:25)
[2019-10-16] MEDS ORDERED: potassium CL 10mEq/100ml bag 100 ML IV PRN ×2 (08:25)
[2019-10-16] MEDS ORDERED: potassium Cl 20 mEq SR tablet PO PRN ×2 (08:25)
[2019-10-16] MEDS ORDERED: ondansetron/PF 4mg/2ml inj IV PRN (08:25)
[2019-10-16] MEDS ORDERED: magnesium 2GM in 50ml NS 50 ML IV PRN (08:25)
[2019-10-16] MEDS ORDERED: acetaminophen 325mg tablet PO PRN ×2 (08:25)
[2019-10-16] MEDS ORDERED: magnesium 4gm in 100ml NS 100 ML IV PRN (08:25)
[2019-10-16] MEDS ORDERED: bisacodyl 10mg suppository rectal RC PRN (08:25)
[2019-10-16] MEDS ORDERED: mag hydrox/Alum hydrox/simeth 30ml oral suspension PO PRN (08:25)
[2019-10-16 08:31] LABS: CLARITY,URINE CLEAR (Clear); COLOR,URINE YELLOW (Yellow); GLUCOSE, URINE NEGATIVE (Neg); KETONES,URINE NEGATIVE (Neg); LEUKOCYTE ESTERASE ,URINE NEGATIVE (Neg); NITRITES, URINE NEGATIVE (Neg); OCCULT BLOOD,URINE NEGATIVE (Neg); PH,URINE 7.5 (4.8-8.0); PROTEIN,URINE 30 mg/dl (Neg)
[2019-10-16 08:32] LABS: UA COLLECTION TYPE CLN CATCH MIDSTREAM
[2019-10-16 08:45] LABS: BACTERIA,URINE NONE SEEN /HPF (Neg); MUCUS STRANDS NONE SEEN /LPF (Neg); RBC,URINE NONE SEEN /HPF (0-2); SQUAMOUS EPITHELIAL CELL,UR FEW /LPF (FEW); WBC,URINE 0-4 /HPF (0-4)
[2019-10-16 09:07] LABS: HEMOGLOBIN A1C 5.9 % (4.5-6.2)
--- NOTE | 2019-10-16 10:51 | NUR ---
RECEIVED TELEPHONE REPORT FROM JESSE SHABAZZ
[2019-10-16 11:00] VITALS: BP 179/109
[2019-10-16] MEDS ORDERED: NO HOME MEDS (11:59)
[2019-10-16 15:00] VITALS: BP 158/89
[2019-10-16 18:00] VITALS: BP 164/100
--- NOTE | 2019-10-16 18:00 | NUR ---
Patient in room PCU 3019. I have received report from Maikel MOLINA and had the opportunity to ask questions and assume patient care.
--- NOTE | 2019-10-16 18:25 | NUR ---
Problems reprioritized. Patient report given, questions answered & plan of care reviewed with JESSE ZHENG.
[2019-10-16] MEDS: K and/or MAG REPLACEMENT MC SCH (20:00)
[2019-10-16] MEDS: furosemide 10 MG/1 ML 10ml inj IV SCH (20:00)
[2019-10-16] MEDS ORDERED: heparin, porcine 5000 units/ml vial SQ SCH (20:00)
[2019-10-16] MEDS: docusate sod 100mg capsule PO SCH (20:00)
[2019-10-16 22:00] VITALS: BP 160/106
[2019-10-16] MEDS: temazepam 15mg capsule PO PRN (22:05)
[2019-10-17 02:00] VITALS: BP 173/110
--- NOTE | 2019-10-17 03:26 | NUR ---
high blood pressure MD Quinteros notified of the 173/110 blood pressure, patient states that he "lives in the 160s and feels fine", patient is in no distress. No orders received, will continue to monitor patient.
[2019-10-17 06:01] LABS: BASOPHILS # (AUTO) 0.1 X10'3 (0-0.2); BASOPHILS % (AUTO) 0.9 % (0-1); EOSINOPHILS # (AUTO) 0.2 X10'3 (0-0.9); EOSINOPHILS % (AUTO) 3.5 % (0-6); HEMATOCRIT 46.3 % (42.0-52.0); HEMOGLOBIN 15.6 g/dl (14.0-17.9); LYMPHOCYTES % (AUTO) 16.8 % (21-51); MEAN CORPUSCULAR HEMOGLOBIN 31.5 PG (27.0-31.0); MEAN CORPUSCULAR HGB CONC 33.7 g/dL (33.0-36.5); MEAN CORPUSCULAR VOLUME 93.5 FL (78-98); MEAN PLATELET VOLUME 8.5 FL (7.4-10.4); MONOCYTES # (AUTO) 0.7 X10'3 (0-0.9); MONOCYTES % (AUTO) 11.3 % (2-12); NEUTROPHILS # (AUTO) 4.1 X10'3 (1.8-7.7); NEUTROPHILS % (AUTO) 67.5 % (42-75); PLATELET COUNT 93 X10'3 (140-440); RED BLOOD COUNT 4.96 X10'6 (4.70-6.10); RED CELL DISTRIBUTION WIDTH 13.6 % (11.5-14.5); WHITE BLOOD COUNT 6.1 X10'3 (4.5-11.0)
[2019-10-17 06:16] LABS: ALANINE AMINOTRANSFERASE 27 U/L (12-78); ALBUMIN 3.2 G/DL (3.4-5.0); ALBUMIN/GLOBULIN RATIO 0.8 (1.1-1.5); ALKALINE PHOSPHATASE 84 IU/L (46-116); ANION GAP 7 (8-16); ASPARTATE AMINO TRANSFERASE 35 U/L (10-37); BILIRUBIN,TOTAL 1.4 MG/DL (0.1-1.0); BLOOD UREA NITROGEN 9 MG/DL (7-18); CALCIUM 8.7 MG/DL (8.5-10.1); CHLORIDE 104 MMOL/L (99-107); CHOL/HDL RATIO 2.3 (0.00-4.99); CHOLESTEROL 152 MG/DL (0-200); CREATININE 1.12 MG/DL (0.60-1.10); GLUCOSE 108 MG/DL (70-104); HDL CHOLESTEROL 65 MG/DL (35-60); LDL CHOLESTEROL 81 MG/DL (50-100); POTASSIUM 3.5 MMOL/L (3.5-5.1); SODIUM 143 MMOL/L (135-145); TOTAL CARBON DIOXIDE 32.1 MMOL/L (24-32); TOTAL PROTEIN 7.1 G/DL (6.4-8.2); TRIGLYCERIDES 51 MG/DL (20-135); eGFR 69 ML/MIN
--- NOTE | 2019-10-17 06:20 | NUR ---
Problems reprioritized. Patient report given, questions answered & plan of care reviewed with Celso MOLINA.
--- NOTE | 2019-10-17 06:33 | NUR ---
Patient in room PCU 3019. I have received report from Shila MOLINA and had the opportunity to ask questions and assume patient care.
[2019-10-17 07:00] VITALS: BP 178/113
[2019-10-17] MEDS: docusate sod 100mg capsule PO SCH ×2 (07:20→20:00)
[2019-10-17] MEDS: furosemide 10 MG/1 ML 10ml inj IV SCH ×2 (07:21→20:00)
[2019-10-17] MEDS: nicotine 14mg patch - 24hr TD SCH (07:23)
[2019-10-17] MEDS: K and/or MAG REPLACEMENT MC SCH ×2 (08:00→20:00)
[2019-10-17 11:00] VITALS: BP 173/110
--- NOTE | 2019-10-17 12:09 | NUR ---
Sent page to Dr. Chambers: PAGER ID: [phone] MESSAGE: [phone] Marcel Houston: Patient is hypertensive, BP is 173/110. He received 60mg Lasix @ 0800, its ordered BID but no PRN's available. Please advise. Thanks, Carlee [phone]
[2019-10-17 15:00] VITALS: BP 148/98
[2019-10-17 18:00] VITALS: BP 169/101
--- NOTE | 2019-10-17 18:00 | NUR ---
Patient in room PCU 3019. I have received report from Celso MOLINA and had the opportunity to ask questions and assume patient care.
--- NOTE | 2019-10-17 18:22 | NUR ---
Problems reprioritized. Patient report given, questions answered & plan of care reviewed with Shila MOLINA.
[2019-10-17] MEDS: lisinopril 20mg tablet PO SCH (21:52)
[2019-10-17] MEDS: spironolactone 25 MG tablet PO SCH (21:52)
[2019-10-17 22:00] VITALS: BP 138/87
[2019-10-17] MEDS: temazepam 15mg capsule PO PRN (22:09)
[2019-10-17 22:18] LABS: URINE AMPHETAMINE SCREEN POSITIVE (Neg); URINE BARBITUATE SCREEN NEGATIVE (Neg); URINE BENZODIAZEPINES SCREEN NEGATIVE (Neg); URINE CANNABINOID SCREEN NEGATIVE (Neg); URINE COCAINE SCREEN NEGATIVE (Neg); URINE METHADONE SCREEN NEGATIVE (Neg); URINE OPIATE SCREEN NEGATIVE (Neg); URINE PHENCYCLIDINE SCREEN NEGATIVE (Neg)
[2019-10-18 02:00] VITALS: BP 143/104
[2019-10-18 05:47] LABS: BASOPHILS # (AUTO) 0.1 X10'3 (0-0.2); BASOPHILS % (AUTO) 1.1 % (0-1); EOSINOPHILS # (AUTO) 0.2 X10'3 (0-0.9); EOSINOPHILS % (AUTO) 3.4 % (0-6); HEMATOCRIT 46.7 % (42.0-52.0); LYMPHOCYTES % (AUTO) 18.2 % (21-51); MEAN CORPUSCULAR HEMOGLOBIN 31.7 PG (27.0-31.0); MEAN CORPUSCULAR HGB CONC 34.3 g/dL (33.0-36.5); MEAN CORPUSCULAR VOLUME 92.4 FL (78-98); MEAN PLATELET VOLUME 8.6 FL (7.4-10.4); MONOCYTES # (AUTO) 0.5 X10'3 (0-0.9); MONOCYTES % (AUTO) 9.3 % (2-12); NEUTROPHILS # (AUTO) 3.6 X10'3 (1.8-7.7); PLATELET COUNT 81 X10'3 (140-440); RED BLOOD COUNT 5.05 X10'6 (4.70-6.10); RED CELL DISTRIBUTION WIDTH 13.4 % (11.5-14.5); WHITE BLOOD COUNT 5.3 X10'3 (4.5-11.0)
[2019-10-18 05:57] LABS: ALANINE AMINOTRANSFERASE 24 U/L (12-78); ALBUMIN/GLOBULIN RATIO 0.8 (1.1-1.5); ALKALINE PHOSPHATASE 81 IU/L (46-116); ANION GAP 5 (8-16); ASPARTATE AMINO TRANSFERASE 30 U/L (10-37); BILIRUBIN,TOTAL 1.4 MG/DL (0.1-1.0); BLOOD UREA NITROGEN 12 MG/DL (7-18); BUN/CREATININE RATIO 11.7 (5.4-32.0); CALCIUM 8.8 MG/DL (8.5-10.1); CHLORIDE 104 MMOL/L (99-107); CREATININE 1.03 MG/DL (0.60-1.10); GLUCOSE 100 MG/DL (70-104); MAGNESIUM 1.8 MG/DL (1.5-2.4); POTASSIUM 3.5 MMOL/L (3.5-5.1); SODIUM 140 MMOL/L (135-145); TOTAL CARBON DIOXIDE 31.3 MMOL/L (24-32); eGFR 76 ML/MIN
[2019-10-18 06:00] VITALS: BP 161/104
--- NOTE | 2019-10-18 06:34 | NUR ---
Problems reprioritized. Patient report given, questions answered & plan of care reviewed with Inna MOLINA.
[2019-10-18] MEDS: K and/or MAG REPLACEMENT MC SCH (08:00)
[2019-10-18] MEDS ORDERED: metoprolol succinate 25mg (24-HOUR) SR. Tablet PO SCH (08:00)
[2019-10-18 08:46] VITALS: BP 147/90
[2019-10-18] MEDS: docusate sod 100mg capsule PO SCH (08:48)
[2019-10-18] MEDS: furosemide 10 MG/1 ML 10ml inj IV SCH (08:48)
[2019-10-18] MEDS: spironolactone 25 MG tablet PO SCH (08:48)
[2019-10-18] MEDS: nicotine 14mg patch - 24hr TD SCH (08:49)
[2019-10-18] MEDS: lisinopril 20mg tablet PO SCH (08:49)
[2019-10-18] MEDS ORDERED: ATOR20TA66 PO (10:00)
[2019-10-18] MEDS ORDERED: LISI-600 PO (10:00)
[2019-10-18] MEDS ORDERED: SPIR25TA PO (10:00)
[2019-10-18] MEDS ORDERED: ASPI-611 PO (10:00)
[2019-10-18] MEDS ORDERED: METO-395 PO (10:00)
[2019-10-18] MEDS ORDERED: NICO-631 TD (10:00)
[2019-10-18 11:00] VITALS: BP 145/96
[2019-10-18 13:11] LABS: HEP B CORE AB, IGM Negative (Negative)
== END 2019-10-18 13:27 | disposition home health service (06) | DRG 194 ==
LOC: ER 05:54 → ED HOLD 08:24 → EDBEDREQ 10:35 → PCU 3S 10:55
PROVIDERS: ADMIT Internal Medicine; ATTEND Family Medicine
DX: I11.0 Hypertensive heart disease with heart failure (principal); D69.6 Thrombocytopenia, unspecified; I27.81 Cor pulmonale (chronic); K76.6 Portal hypertension; L97.909 Non-pressure chronic ulcer of unspecified part of unspecified lower leg with unspecified severity; I50.21 Acute systolic (congestive) heart failure; K70.31 Alcoholic cirrhosis of liver with ascites; E11.9 Type 2 diabetes mellitus without complications; F17.210 Nicotine dependence, cigarettes, uncomplicated; Z83.3 Family history of diabetes mellitus; Z91.19 Patient's noncompliance with other medical treatment and regimen; F12.90 Cannabis use, unspecified, uncomplicated; F15.90 Other stimulant use, unspecified, uncomplicated; B19.20 Unspecified viral hepatitis C without hepatic coma; K56.41 Fecal impaction; I42.9 Cardiomyopathy, unspecified
CPT/HCPCS: 36415; 71045; 74176; 80053; 80061; 80305; 81001; 82948; 83036; 83690; 83735; 83880; 85025; 85610; 85730; 86705; 86706; 87081; 93306; 96374; 97110; 97161; 97530; 99285; G0378; J1940

== ENCOUNTER 2020-03-01 17:54 | Inpatient (IN) | payer MEDICAID ==
[~2020-03-01] VITALS: Ht 172.7 cm; Wt 112.0 kg
[~2020-03-01 17:54] MED LIST changes: +ATOR20TA66 PO; -BENA20TA82 PO; -CEPH500C5 PO; -HCTZ25T PO; +LISI-600 PO; +METO-395 PO; +NICO-631 TD; -POTA8CAP20 PO; +SPIR25TA PO
[2020-03-01 19:02] LABS: BASOPHILS # (AUTO) 0.1 X10'3 (0-0.2); EOSINOPHILS # (AUTO) 0.1 X10'3 (0-0.9); EOSINOPHILS % (AUTO) 2.1 % (0-6); HEMATOCRIT 39.8 % (42.0-52.0); HEMOGLOBIN 13.7 g/dl (14.0-17.9); LYMPHOCYTES # (AUTO) 0.7 X10'3 (1.1-4.8); LYMPHOCYTES % (AUTO) 12.7 % (21-51); MEAN CORPUSCULAR HEMOGLOBIN 32.2 PG (27.0-31.0); MEAN CORPUSCULAR HGB CONC 34.4 g/dL (33.0-36.5); MEAN CORPUSCULAR VOLUME 93.6 FL (78-98); MEAN PLATELET VOLUME 8.1 FL (7.4-10.4); MONOCYTES # (AUTO) 0.6 X10'3 (0-0.9); MONOCYTES % (AUTO) 10.7 % (2-12); NEUTROPHILS # (AUTO) 4.2 X10'3 (1.8-7.7); NEUTROPHILS % (AUTO) 73.5 % (42-75); PLATELET COUNT 101 X10'3 (140-440); RED BLOOD COUNT 4.25 X10'6 (4.70-6.10); RED CELL DISTRIBUTION WIDTH 13.2 % (11.5-14.5); WHITE BLOOD COUNT 5.7 X10'3 (4.5-11.0)
[2020-03-01 19:19] LABS: ALANINE AMINOTRANSFERASE 32 U/L (12-78); ALBUMIN 3.5 G/DL (3.4-5.0); ALBUMIN/GLOBULIN RATIO 0.9 (1.1-1.5); ALKALINE PHOSPHATASE 87 IU/L (46-116); ANION GAP 9 (8-16); ASPARTATE AMINO TRANSFERASE 45 U/L (10-37); BLOOD UREA NITROGEN 14 MG/DL (7-18); BUN/CREATININE RATIO 12.3 (5.4-32.0); CALCIUM 9.1 MG/DL (8.5-10.1); CHLORIDE 105 MMOL/L (99-107); CREATININE 1.14 MG/DL (0.60-1.10); GLUCOSE 89 MG/DL (70-104); POTASSIUM 3.7 MMOL/L (3.5-5.1); SODIUM 142 MMOL/L (135-145); TOTAL CARBON DIOXIDE 28.4 MMOL/L (24-32); TOTAL PROTEIN 7.6 G/DL (6.4-8.2); eGFR 67 ML/MIN
[2020-03-01] MEDS ORDERED: carVEDilol 12.5mg tablet PO SCH (21:15)
[2020-03-01] MEDS ORDERED: furosemide 10 MG/1 ML 10ml inj IV ONE (21:15)
[2020-03-01 21:42] LABS: PARTIAL THROMBOPLASTIN TIME 29 SECONDS (22-32)
[2020-03-01 21:43] LABS: TROPONIN I < 0.04 NG/ML (0.0-0.05)
[2020-03-01] MEDS ORDERED: magnesium 4gm in 100ml NS 100 ML IV PRN (22:30)
[2020-03-01] MEDS ORDERED: potassium CL 10mEq/100ml bag 100 ML IV PRN ×2 (22:30)
[2020-03-01] MEDS ORDERED: magnesium Cl slow-release 64mg tablet PO PRN (22:30)
[2020-03-01] MEDS ORDERED: ondansetron/PF 4mg/2ml inj IV PRN (22:30)
[2020-03-01] MEDS ORDERED: HYDROcodone/acetaminophen 10/325mg tab PO PRN (22:30)
[2020-03-01] MEDS ORDERED: potassium Cl 20 mEq SR tablet PO PRN (22:30)
[2020-03-01] MEDS ORDERED: HYDROcodone/acetaminophen 5mg/325mg tablet PO PRN (22:30)
[2020-03-01] MEDS ORDERED: magnesium 2GM in 50ml NS 50 ML IV PRN (22:30)
[2020-03-01] MEDS ORDERED: acetaminophen 325mg tablet PO PRN (22:30)
--- NOTE | 2020-03-02 02:29 | NUR ---
Brian stanley in [facility] - 03/02/20 at 0231 by OLEG pt moved onto a hospital bed. I gave her an extra warmed blanket.
--- NOTE | 2020-03-02 02:37 | NUR ---
pt moved onto a hospital bed, extra warmed blankets. He is hungry, so he was given food and drink.
[2020-03-02 03:11] LABS: BASOPHILS # (AUTO) 0.1 X10'3 (0-0.2); BASOPHILS % (AUTO) 1.4 % (0-1); EOSINOPHILS # (AUTO) 0.1 X10'3 (0-0.9); EOSINOPHILS % (AUTO) 2.6 % (0-6); HEMATOCRIT 37.8 % (42.0-52.0); HEMOGLOBIN 12.8 g/dl (14.0-17.9); LYMPHOCYTES # (AUTO) 0.7 X10'3 (1.1-4.8); LYMPHOCYTES % (AUTO) 17.7 % (21-51); MEAN CORPUSCULAR HEMOGLOBIN 32.1 PG (27.0-31.0); MEAN CORPUSCULAR VOLUME 94.6 FL (78-98); MEAN PLATELET VOLUME 7.9 FL (7.4-10.4); MONOCYTES # (AUTO) 0.4 X10'3 (0-0.9); MONOCYTES % (AUTO) 10.3 % (2-12); NEUTROPHILS # (AUTO) 2.6 X10'3 (1.8-7.7); PLATELET COUNT 82 X10'3 (140-440); RED CELL DISTRIBUTION WIDTH 13.5 % (11.5-14.5); WHITE BLOOD COUNT 3.8 X10'3 (4.5-11.0)
[2020-03-02 03:27] LABS: ANION GAP 5 (8-16); BLOOD UREA NITROGEN 12 MG/DL (7-18); BUN/CREATININE RATIO 10.6 (5.4-32.0); CALCIUM 8.6 MG/DL (8.5-10.1); CHLORIDE 108 MMOL/L (99-107); CREATININE 1.13 MG/DL (0.60-1.10); GLUCOSE 100 MG/DL (70-104); MAGNESIUM 1.8 MG/DL (1.5-2.4); SODIUM 144 MMOL/L (135-145); TOTAL CARBON DIOXIDE 30.9 MMOL/L (24-32); eGFR 68 ML/MIN
--- NOTE | 2020-03-02 06:55 | NUR ---
patient awake,sitting at the edge of the bed,denies discomfort.
[2020-03-02] MEDS: potassium Cl 20 mEq SR tablet PO PRN ×3 (07:44→17:09)
[2020-03-02] MEDS ORDERED: K and/or MAG REPLACEMENT MC SCH (08:00)
[2020-03-02] MEDS ORDERED: heparin, porcine 5000 units/ml vial SQ SCH (08:00)
[2020-03-02] MEDS ORDERED: furosemide 40mg/4ml inj IV SCH (08:00)
[2020-03-02 09:30] VITALS: BP 135/82
[2020-03-02 11:00] VITALS: BP 134/98
[2020-03-02] MEDS ORDERED: NO HOME MEDS (14:50)
[2020-03-02 14:55] VITALS: BP 148/108
[2020-03-02 15:00] VITALS: BP 141/82
[2020-03-02 15:13] LABS: HEMOGLOBIN A1C 5.6 % (4.5-6.2)
--- NOTE | 2020-03-02 15:59 | NUR ---
PAGER ID: [phone] MESSAGE: rm [phone]. pt. Marcel Houston. took pt. on walk and he was asymptomatic. BP upon return was 148/108. pt. BP at rest now is 141/82. MAP is in 100s even at rest. please advise. Soco [phone]
[2020-03-02] MEDS ORDERED: LISI-600 PO (17:15)
[2020-03-02] MEDS ORDERED: NICO1PAT36 TOP (17:15)
[2020-03-02] MEDS ORDERED: POTA20TA19 PO (17:15)
[2020-03-02] MEDS ORDERED: METO-395 PO (17:15)
[2020-03-02] MEDS ORDERED: FURO20TA4 PO (17:15)
--- NOTE | 2020-03-02 17:40 | NUR ---
PATIENT STATED HE FAILED TO ESTABLISH WITH [facility] POST LAST ADMISSION/DISCHARGE DUE TO INCREASED DEPRESSION/ANXIETY, RAN OUT OF MEDICATION DUE TO ONLY RECEIVING 1 MONTH SUPPLY UPON D/C. PATIENT STATED HE WILL CALL Thursday03/05/2020 FOR APPOINTMENT Addendum: 03/02/20 at 1742 by Adilia Orta RN Amended: Links added.
--- NOTE | 2020-03-02 18:29 | NUR ---
Patient in room MED 317. I have received report from Soco MOLINA and had the opportunity to ask questions and assume patient care.
--- NOTE | 2020-03-02 18:30 | NUR ---
Problems reprioritized. Patient report given, questions answered & plan of care reviewed with JESSE Salazar.
== END 2020-03-02 18:55 | disposition home or self-care (01) | DRG 194 ==
LOC: ER 17:54 → ED HOLD 22:30 → MED 3N 03-02 09:15
PROVIDERS: ADMIT Internal Medicine; ATTEND Family Medicine
DX: I11.0 Hypertensive heart disease with heart failure (principal); E11.9 Type 2 diabetes mellitus without complications; F15.10 Other stimulant abuse, uncomplicated; F17.210 Nicotine dependence, cigarettes, uncomplicated; I50.43 Acute on chronic combined systolic (congestive) and diastolic (congestive) heart failure; I42.0 Dilated cardiomyopathy; K74.60 Unspecified cirrhosis of liver; I42.7 Cardiomyopathy due to drug and external agent; B19.20 Unspecified viral hepatitis C without hepatic coma
CPT/HCPCS: 36415; 71045; 80048; 80053; 82948; 83036; 83735; 83880; 84484; 85025; 85610; 85730; 87081; 93005; 93306; 93308; 96372; 96374; 96376; 99285; G0378; J1644; J1940

== ENCOUNTER 2020-04-21 05:02 | Emergency (ER) | payer MEDICAID ==
[~2020-04-21] VITALS: Ht 172.7 cm; Wt 87.3 kg
[~2020-04-21 05:02] MED LIST changes: -ATOR20TA66 PO; +FURO20TA4 PO; -LISI-600 PO; -NICO-631 TD; +NICO1PAT36 TOP; +POTA20TA19 PO; -SPIR25TA PO
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
[2020-04-21] MEDS ORDERED: metoprolol succinate 25mg (24-HOUR) SR. Tablet PO SCH (05:45)
[2020-04-21] MEDS ORDERED: metoprolol succinate 25mg (24-HOUR) SR. Tablet PO ONE (05:45)
[2020-04-21] MEDS ORDERED: furosemide 20MG tablet PO ONE (05:45)
[2020-04-21] MEDS ORDERED: lisinopril 10 MG tablet PO ONE ×2 (05:45→06:00)
[2020-04-21] MEDS ORDERED: naproxen 500mg tablet PO ONE (05:45)
[2020-04-21] MEDS ORDERED: LORazepam 1 MG tablet PO ONE (05:45)
[2020-04-21] MEDS ORDERED: magnesium oxide 400mg tablet PO ONE (05:45)
[2020-04-21] MEDS ORDERED: potassium Cl 20 mEq SR tablet PO STA (05:45)
[2020-04-21] MEDS ORDERED: METO-395 PO (05:53)
[2020-04-21] MEDS ORDERED: FURO20TA4 PO (05:53)
[2020-04-21] MEDS ORDERED: POTA20TA19 PO (05:53)
[2020-04-21] MEDS ORDERED: LISI-600 PO (05:53)
[2020-04-21] MEDS ORDERED: NAPR-56 PO (05:53)
[2020-04-21] MEDS ORDERED: NICO1PAT36 TOP (06:40)
[2020-04-21 06:41] VITALS: BP 166/100
== END 2020-04-21 06:44 | disposition home or self-care (01) ==
LOC: ER 05:03
DX: S00.83XA Contusion of other part of head, initial encounter (principal); S20.212A Contusion of left front wall of thorax, initial encounter; I11.0 Hypertensive heart disease with heart failure; I50.9 Heart failure, unspecified; R10.12 Left upper quadrant pain; M54.2 Cervicalgia; F32.9 Major depressive disorder, single episode, unspecified; F12.90 Cannabis use, unspecified, uncomplicated; F15.90 Other stimulant use, unspecified, uncomplicated; Z91.14 Patient's other noncompliance with medication regimen; Z86.19 Personal history of other infectious and parasitic diseases; Z98.890 Other specified postprocedural states; Z72.89 Other problems related to lifestyle; Z79.899 Other long term (current) drug therapy; X58.XXXA Exposure to other specified factors, initial encounter; Y93.89 Activity, other specified; Y92.89 Other specified places as the place of occurrence of the external cause; Y99.8 Other external cause status
CPT/HCPCS: 71045; 99284

== ENCOUNTER 2020-05-21 06:13 | Inpatient (IN) | payer MEDICAID ==
[~2020-05-21] VITALS: Ht 170.2 cm; Wt 104.5 kg
[~2020-05-21 06:13] MED LIST changes: +LISI-600 PO; +NAPR-56 PO
[2020-05-21 07:10] LABS: BASOPHILS # (AUTO) 0.1 X10'3 (0-0.2); BASOPHILS % (AUTO) 1.2 % (0-1); EOSINOPHILS # (AUTO) 0.1 X10'3 (0-0.9); EOSINOPHILS % (AUTO) 1.3 % (0-6); HEMATOCRIT 41.1 % (42.0-52.0); HEMOGLOBIN 14.3 g/dl (14.0-17.9); LYMPHOCYTES # (AUTO) 0.5 X10'3 (1.1-4.8); LYMPHOCYTES % (AUTO) 5.5 % (21-51); MEAN CORPUSCULAR HEMOGLOBIN 31.9 PG (27.0-31.0); MEAN CORPUSCULAR HGB CONC 34.7 g/dL (33.0-36.5); MEAN CORPUSCULAR VOLUME 91.9 FL (78-98); MONOCYTES # (AUTO) 1.4 X10'3 (0-0.9); MONOCYTES % (AUTO) 15.6 % (2-12); NEUTROPHILS # (AUTO) 6.8 X10'3 (1.8-7.7); NEUTROPHILS % (AUTO) 76.4 % (42-75); PLATELET COUNT 195 X10'3 (140-440); RED BLOOD COUNT 4.47 X10'6 (4.70-6.10); RED CELL DISTRIBUTION WIDTH 13.8 % (11.5-14.5); WHITE BLOOD COUNT 8.9 X10'3 (4.5-11.0)
[2020-05-21 07:24] LABS: ALANINE AMINOTRANSFERASE 24 U/L (12-78); ALBUMIN 2.3 G/DL (3.4-5.0); ALBUMIN/GLOBULIN RATIO 0.5 (1.1-1.5); ALKALINE PHOSPHATASE 134 IU/L (46-116); ANION GAP 5 (8-16); BILIRUBIN,TOTAL 1.3 MG/DL (0.1-1.0); BLOOD UREA NITROGEN 16 MG/DL (7-18); BUN/CREATININE RATIO 18.2 (5.4-32.0); CALCIUM 8.4 MG/DL (8.5-10.1); CHLORIDE 102 MMOL/L (99-107); CREATININE 0.88 MG/DL (0.60-1.10); GLUCOSE 126 MG/DL (70-104); SODIUM 138 MMOL/L (135-145); TOTAL CARBON DIOXIDE 31.4 MMOL/L (24-32); TOTAL PROTEIN 7.1 G/DL (6.4-8.2); eGFR > 90 ML/MIN
[2020-05-21 07:31] LABS: ASPARTATE AMINO TRANSFERASE 43 U/L (10-37); POTASSIUM 4.5 MMOL/L (3.5-5.1)
[2020-05-21 08:13] LABS: PLATELET ESTIMATE NORMAL; TOTAL CELLS COUNTED 100
[2020-05-21] MEDS ORDERED: CefTRIAXone/D5W-Rocephin 1gm 50 ML IV ONE (08:55)
[2020-05-21] MEDS ORDERED: acetaminophen 325mg tablet PO PRN (09:15)
[2020-05-21] MEDS ORDERED: mag hydrox/Alum hydrox/simeth 30ml oral suspension PO PRN (09:15)
[2020-05-21] MEDS ORDERED: magnesium hydroxide 30ml (MOM) UD suspension PO PRN (09:15)
[2020-05-21] MEDS ORDERED: ondansetron/PF 4mg/2ml inj IV PRN (09:15)
[2020-05-21 10:03] LABS: LDH,BODY FLUID 121 U/L
[2020-05-21 10:23] LABS: BFAPPEAR HAZY
[2020-05-21 10:24] LABS: BFVOLUME 22 ML
[2020-05-21 10:27] LABS: BF MESOTHELIAL CELLS OCCASIONAL; BF RBC COUNT 7875 /CU MM; BF WBC COUNT 605 /CU MM (0-1000); EOSINOPHILS,BODY FLUID 1 %; MONOCYTES,BODY FLUID 21 %; NEUTROPHILS,BODY FLUID 52 %
[2020-05-21 10:28] LABS: OTHER CELLS,BODY FLUID MACROPHAGES
[2020-05-21 10:31] LABS: LYMPHOCYTES,BODY FLUID 26 %
[2020-05-21] MEDS ORDERED: NAPR-996 PO (12:45)
--- NOTE | 2020-05-21 12:53 | NUR ---
phoned ER for report, RN busy and will phone back.
--- NOTE | 2020-05-21 13:26 | NUR ---
Patient in room ED 12. I have received report from JESSE Allen and had the opportunity to ask questions and awaiting pt's arrival from ED.
--- NOTE | 2020-05-21 13:49 | NUR ---
RECEIVED REPORT FROM DERRICK MOLINA. PT ARRIVED TO PCU VIA GURNEY TO ROOM 3015X. PT A&OX4, DENIES PAIN/DISCOMFORT. NO S/SX DISTRESS. PT ORIENTED TO ROOM. PT ASSESSED.
[2020-05-21 13:50] VITALS: BP 129/83
--- NOTE | 2020-05-21 15:15 | NUR ---
pt refused 1500 VS. Pt educated on need for routine vitals, continues to refuse at this time. will continue to monitor.
[2020-05-21 18:00] VITALS: BP 163/95
--- NOTE | 2020-05-21 18:37 | NUR ---
Problems reprioritized. Patient report given, questions answered & plan of care reviewed with Nakia MOLINA.
[2020-05-21 20:27] LABS: HEMOGLOBIN A1C 5.8 % (4.5-6.2)
[2020-05-21] MEDS: HYDROcodone/acetaminophen 10/325mg tab PO PRN (20:59)
[2020-05-21 22:00] VITALS: BP 148/93
[2020-05-22] VITALS (8 sets, daily range): BP systolic 115–132; BP diastolic 62–88
[2020-05-22] MEDS: HYDROcodone/acetaminophen 10/325mg tab PO PRN ×2 (03:50→19:41)
--- NOTE | 2020-05-22 06:14 | NUR ---
Report given to Jamia MOLINA.
--- NOTE | 2020-05-22 06:14 | NUR ---
Patient in room PCU 3016. I have received report from servando chau and had the opportunity to ask questions and assume patient care.
[2020-05-22 06:32] LABS: BASOPHILS # (AUTO) 0.1 X10'3 (0-0.2); EOSINOPHILS # (AUTO) 0.1 X10'3 (0-0.9); EOSINOPHILS % (AUTO) 1.6 % (0-6); HEMATOCRIT 39.1 % (42.0-52.0); HEMOGLOBIN 13.5 g/dl (14.0-17.9); LYMPHOCYTES # (AUTO) 0.6 X10'3 (1.1-4.8); LYMPHOCYTES % (AUTO) 7.1 % (21-51); MEAN CORPUSCULAR HEMOGLOBIN 31.7 PG (27.0-31.0); MEAN CORPUSCULAR HGB CONC 34.5 g/dL (33.0-36.5); MEAN CORPUSCULAR VOLUME 91.9 FL (78-98); MEAN PLATELET VOLUME 7.6 FL (7.4-10.4); MONOCYTES # (AUTO) 1.1 X10'3 (0-0.9); MONOCYTES % (AUTO) 13.5 % (2-12); NEUTROPHILS # (AUTO) 6.3 X10'3 (1.8-7.7); NEUTROPHILS % (AUTO) 76.8 % (42-75); PLATELET COUNT 175 X10'3 (140-440); RED BLOOD COUNT 4.25 X10'6 (4.70-6.10); RED CELL DISTRIBUTION WIDTH 13.4 % (11.5-14.5); WHITE BLOOD COUNT 8.2 X10'3 (4.5-11.0)
[2020-05-22 06:48] LABS: ALANINE AMINOTRANSFERASE 21 U/L (12-78); ALBUMIN 2.1 G/DL (3.4-5.0); ALBUMIN/GLOBULIN RATIO 0.5 (1.1-1.5); ALKALINE PHOSPHATASE 124 IU/L (46-116); ANION GAP 5 (8-16); ASPARTATE AMINO TRANSFERASE 31 U/L (10-37); BILIRUBIN,TOTAL 1.3 MG/DL (0.1-1.0); BLOOD UREA NITROGEN 15 MG/DL (7-18); BUN/CREATININE RATIO 20.5 (5.4-32.0); CALCIUM 8.6 MG/DL (8.5-10.1); CHLORIDE 103 MMOL/L (99-107); CREATININE 0.73 MG/DL (0.60-1.10); GLUCOSE 124 MG/DL (70-104); POTASSIUM 4.4 MMOL/L (3.5-5.1); SODIUM 137 MMOL/L (135-145); TOTAL CARBON DIOXIDE 28.7 MMOL/L (24-32); TOTAL PROTEIN 6.6 G/DL (6.4-8.2); eGFR > 90 ML/MIN
[2020-05-22] MEDS: enoxaparin 40mg/0.4ml syringe SUBCUT SCH (07:56)
[2020-05-22] MEDS: metoprolol succinate 25mg (24-HOUR) SR. Tablet PO SCH (08:01)
[2020-05-22] MEDS: furosemide 20MG tablet PO SCH (08:01)
[2020-05-22] MEDS: lisinopril 20mg tablet PO SCH (08:01)
[2020-05-22] MEDS: CefTRIAXone/D5W-Rocephin 1gm 50 ML IV SCH (08:02)
[2020-05-22] MEDS: potassium Cl 20 mEq SR tablet PO SCH (08:02)
[2020-05-22] MEDS ORDERED: albumin (human) 25% 100 ML IV solution IV ONE ×2 (12:15)
--- NOTE | 2020-05-22 12:16 | NUR ---
PAGER ID: [phone] MESSAGE: BERHANE ON TELE@[phone], [facility] THE PARA IS DONE ON 3016B, 13L OFF, POSSIBLE TO DC?
--- NOTE | 2020-05-22 12:19 | NUR ---
PAGER ID: [phone] MESSAGE: BERHANE ON TELE@[phone], [facility] THE PARA IS DONE ON 3016B, 13L OFF, CAN HE DC?
--- NOTE | 2020-05-22 18:27 | NUR ---
Patient in room PCU 3017Q. I have received report from JESSE Lau and had the opportunity to ask questions and assume patient care.
--- NOTE | 2020-05-22 18:36 | NUR ---
Problems reprioritized. Patient report given, questions answered & plan of care reviewed with GREGORY MOLINA.
[2020-05-22] MEDS: lactobacillus rhamnosus 10,000 MMU CELLS/CAPSULE PO SCH (19:41)
[2020-05-23 02:00] VITALS: BP 127/69
[2020-05-23] MEDS: HYDROcodone/acetaminophen 10/325mg tab PO PRN ×3 (06:01→19:50)
--- NOTE | 2020-05-23 06:32 | NUR ---
Patient in room PCU 3016. I have received report from JESSE Woody and had the opportunity to ask questions and assume patient care.
--- NOTE | 2020-05-23 06:42 | NUR ---
Problems reprioritized. Patient report given, questions answered & plan of care reviewed with JESSE Gallagher.
[2020-05-23 06:43] LABS: BASOPHILS # (AUTO) 0.1 X10'3 (0-0.2); EOSINOPHILS # (AUTO) 0.2 X10'3 (0-0.9); EOSINOPHILS % (AUTO) 2.2 % (0-6); HEMATOCRIT 38.5 % (42.0-52.0); HEMOGLOBIN 13.4 g/dl (14.0-17.9); LYMPHOCYTES # (AUTO) 0.6 X10'3 (1.1-4.8); LYMPHOCYTES % (AUTO) 6.8 % (21-51); MEAN CORPUSCULAR HEMOGLOBIN 31.7 PG (27.0-31.0); MEAN CORPUSCULAR HGB CONC 34.9 g/dL (33.0-36.5); MEAN CORPUSCULAR VOLUME 90.9 FL (78-98); MEAN PLATELET VOLUME 7.6 FL (7.4-10.4); MONOCYTES # (AUTO) 1.3 X10'3 (0-0.9); MONOCYTES % (AUTO) 14.2 % (2-12); NEUTROPHILS # (AUTO) 6.8 X10'3 (1.8-7.7); NEUTROPHILS % (AUTO) 75.8 % (42-75); PLATELET COUNT 166 X10'3 (140-440); RED BLOOD COUNT 4.24 X10'6 (4.70-6.10); RED CELL DISTRIBUTION WIDTH 13.5 % (11.5-14.5)
[2020-05-23 07:00] VITALS: BP 116/74
[2020-05-23 07:01] LABS: ALANINE AMINOTRANSFERASE 16 U/L (12-78); ALBUMIN 2.4 G/DL (3.4-5.0); ALBUMIN/GLOBULIN RATIO 0.6 (1.1-1.5); ALKALINE PHOSPHATASE 105 IU/L (46-116); ANION GAP 6 (8-16); ASPARTATE AMINO TRANSFERASE 25 U/L (10-37); BILIRUBIN,TOTAL 0.9 MG/DL (0.1-1.0); BLOOD UREA NITROGEN 12 MG/DL (7-18); BUN/CREATININE RATIO 18.5 (5.4-32.0); CALCIUM 8.1 MG/DL (8.5-10.1); CHLORIDE 101 MMOL/L (99-107); CREATININE 0.65 MG/DL (0.60-1.10); GLUCOSE 141 MG/DL (70-104); POTASSIUM 4.2 MMOL/L (3.5-5.1); SODIUM 136 MMOL/L (135-145); TOTAL CARBON DIOXIDE 29.5 MMOL/L (24-32); TOTAL PROTEIN 6.2 G/DL (6.4-8.2); eGFR > 90 ML/MIN
[2020-05-23] MEDS: lactobacillus rhamnosus 10,000 MMU CELLS/CAPSULE PO SCH ×2 (08:44→19:51)
[2020-05-23] MEDS: potassium Cl 20 mEq SR tablet PO SCH (08:44)
[2020-05-23] MEDS: lisinopril 20mg tablet PO SCH (08:44)
[2020-05-23] MEDS: metoprolol succinate 25mg (24-HOUR) SR. Tablet PO SCH (08:44)
[2020-05-23] MEDS: furosemide 20MG tablet PO SCH (08:44)
[2020-05-23] MEDS: CefTRIAXone/D5W-Rocephin 1gm 50 ML IV SCH (08:45)
[2020-05-23] MEDS: enoxaparin 40mg/0.4ml syringe SUBCUT SCH (08:45)
[2020-05-23] MEDS: spironolactone 25 MG tablet PO SCH (09:45)
[2020-05-23 11:00] VITALS: BP 135/89
[2020-05-23 15:00] VITALS: BP 139/89
[2020-05-23 18:00] VITALS: BP 134/87
--- NOTE | 2020-05-23 18:19 | NUR ---
Problems reprioritized. Patient report given, questions answered & plan of care reviewed with JESSE Williamson.
[2020-05-23 22:00] VITALS: BP 110/75
[2020-05-24 02:00] VITALS: BP 119/78
[2020-05-24] MEDS: HYDROcodone/acetaminophen 10/325mg tab PO PRN ×3 (02:44→20:49)
[2020-05-24 06:00] VITALS: BP 122/79
[2020-05-24 06:20] LABS: BASOPHILS # (AUTO) 0.1 X10'3 (0-0.2); EOSINOPHILS # (AUTO) 0.3 X10'3 (0-0.9); EOSINOPHILS % (AUTO) 2.9 % (0-6); HEMATOCRIT 41.3 % (42.0-52.0); HEMOGLOBIN 14.2 g/dl (14.0-17.9); LYMPHOCYTES # (AUTO) 0.9 X10'3 (1.1-4.8); LYMPHOCYTES % (AUTO) 9.7 % (21-51); MEAN CORPUSCULAR HEMOGLOBIN 31.3 PG (27.0-31.0); MEAN CORPUSCULAR HGB CONC 34.4 g/dL (33.0-36.5); MEAN PLATELET VOLUME 7.5 FL (7.4-10.4); MONOCYTES # (AUTO) 1.5 X10'3 (0-0.9); MONOCYTES % (AUTO) 16.4 % (2-12); NEUTROPHILS # (AUTO) 6.6 X10'3 (1.8-7.7); PLATELET COUNT 190 X10'3 (140-440); RED BLOOD COUNT 4.54 X10'6 (4.70-6.10); RED CELL DISTRIBUTION WIDTH 13.3 % (11.5-14.5); WHITE BLOOD COUNT 9.4 X10'3 (4.5-11.0)
--- NOTE | 2020-05-24 06:31 | NUR ---
Problems reprioritized. Patient report given, questions answered & plan of care reviewed with Albert MOLINA. Patient sleeping comfortable and vitals are stable.
[2020-05-24 06:46] LABS: ALANINE AMINOTRANSFERASE 20 U/L (12-78); ALBUMIN 2.2 G/DL (3.4-5.0); ALBUMIN/GLOBULIN RATIO 0.5 (1.1-1.5); ALKALINE PHOSPHATASE 110 IU/L (46-116); ANION GAP 4 (8-16); ASPARTATE AMINO TRANSFERASE 29 U/L (10-37); BILIRUBIN,TOTAL 0.9 MG/DL (0.1-1.0); BLOOD UREA NITROGEN 13 MG/DL (7-18); BUN/CREATININE RATIO 20.6 (5.4-32.0); CALCIUM 8.4 MG/DL (8.5-10.1); CHLORIDE 102 MMOL/L (99-107); CREATININE 0.63 MG/DL (0.60-1.10); GLUCOSE 112 MG/DL (70-104); POTASSIUM 4.4 MMOL/L (3.5-5.1); SODIUM 136 MMOL/L (135-145); TOTAL PROTEIN 6.3 G/DL (6.4-8.2); eGFR > 90 ML/MIN
[2020-05-24] MEDS ORDERED: furosemide 40mg tablet PO SCH (08:00)
[2020-05-24 08:16] LABS: TOTAL CELLS COUNTED 100
[2020-05-24 08:18] LABS: PLATELET ESTIMATE NORMAL
[2020-05-24] MEDS: potassium Cl 20 mEq SR tablet PO SCH (08:56)
[2020-05-24] MEDS: CefTRIAXone/D5W-Rocephin 1gm 50 ML IV SCH (08:56)
[2020-05-24] MEDS: lactobacillus rhamnosus 10,000 MMU CELLS/CAPSULE PO SCH ×2 (08:57→20:49)
[2020-05-24] MEDS: lisinopril 20mg tablet PO SCH (08:57)
[2020-05-24] MEDS: spironolactone 25 MG tablet PO SCH (08:57)
[2020-05-24] MEDS: metoprolol succinate 25mg (24-HOUR) SR. Tablet PO SCH (08:57)
[2020-05-24] MEDS: enoxaparin 40mg/0.4ml syringe SUBCUT SCH (08:57)
[2020-05-24 11:47] VITALS: BP 127/80
[2020-05-24] MEDS: LORazepam 0.5 MG tablet PO PRN ×2 (12:37→20:49)
[2020-05-24 15:10] LABS: HIV ANTIBODY 1&2 RAPID NON-REACTIVE (Neg)
[2020-05-24 18:00] VITALS: BP 124/85
[2020-05-24] MEDS: furosemide 40mg/4ml inj IV SCH (20:49)
--- NOTE | 2020-05-24 21:05 | NUR ---
PAGER ID: [phone] MESSAGE: Marcel Houston #[phone]- Pt admitted for Massive Ascites and is having severe abdominal pain that isn't relieved by [place] 10/325mg. NKDA. Can anything be ordered via IV for pain for pt? Tiffanie Zuniga RN
[2020-05-24 22:00] VITALS: BP 117/78
[2020-05-24] MEDS: HYDROmorphone 1 mg/ml syringe IV PRN (22:59)
--- NOTE | 2020-05-25 06:43 | NUR ---
Patient in room PCU 3026. I have received report from NOC Shift and had the opportunity to ask questions and assume patient care.
[2020-05-25 06:44] LABS: BASOPHILS # (AUTO) 0.1 X10'3 (0-0.2); EOSINOPHILS # (AUTO) 0.3 X10'3 (0-0.9); EOSINOPHILS % (AUTO) 2.5 % (0-6); HEMATOCRIT 41.3 % (42.0-52.0); HEMOGLOBIN 14.2 g/dl (14.0-17.9); LYMPHOCYTES # (AUTO) 0.8 X10'3 (1.1-4.8); LYMPHOCYTES % (AUTO) 7.9 % (21-51); MEAN CORPUSCULAR HEMOGLOBIN 31.7 PG (27.0-31.0); MEAN CORPUSCULAR HGB CONC 34.3 g/dL (33.0-36.5); MEAN CORPUSCULAR VOLUME 92.5 FL (78-98); MEAN PLATELET VOLUME 7.9 FL (7.4-10.4); MONOCYTES # (AUTO) 1.7 X10'3 (0-0.9); MONOCYTES % (AUTO) 16.5 % (2-12); NEUTROPHILS # (AUTO) 7.4 X10'3 (1.8-7.7); NEUTROPHILS % (AUTO) 72.1 % (42-75); PLATELET COUNT 206 X10'3 (140-440); RED BLOOD COUNT 4.46 X10'6 (4.70-6.10); RED CELL DISTRIBUTION WIDTH 13.4 % (11.5-14.5); WHITE BLOOD COUNT 10.2 X10'3 (4.5-11.0)
[2020-05-25 06:51] VITALS: BP 134/74
[2020-05-25 07:07] LABS: ALANINE AMINOTRANSFERASE 17 U/L (12-78); ALBUMIN 2.1 G/DL (3.4-5.0); ALBUMIN/GLOBULIN RATIO 0.5 (1.1-1.5); ALKALINE PHOSPHATASE 116 IU/L (46-116); ANION GAP 5 (8-16); ASPARTATE AMINO TRANSFERASE 26 U/L (10-37); BLOOD UREA NITROGEN 17 MG/DL (7-18); BUN/CREATININE RATIO 23.6 (5.4-32.0); CHLORIDE 100 MMOL/L (99-107); CREATININE 0.72 MG/DL (0.60-1.10); GLUCOSE 109 MG/DL (70-104); POTASSIUM 4.2 MMOL/L (3.5-5.1); SODIUM 135 MMOL/L (135-145); TOTAL CARBON DIOXIDE 30.1 MMOL/L (24-32); TOTAL PROTEIN 6.2 G/DL (6.4-8.2); eGFR > 90 ML/MIN
[2020-05-25] MEDS: potassium Cl 20 mEq SR tablet PO SCH (07:29)
[2020-05-25] MEDS: lactobacillus rhamnosus 10,000 MMU CELLS/CAPSULE PO SCH ×2 (07:29→20:45)
[2020-05-25] MEDS: CefTRIAXone/D5W-Rocephin 1gm 50 ML IV SCH (07:29)
[2020-05-25] MEDS: metoprolol succinate 25mg (24-HOUR) SR. Tablet PO SCH (07:30)
[2020-05-25] MEDS: lisinopril 20mg tablet PO SCH (07:30)
[2020-05-25] MEDS: furosemide 40mg/4ml inj IV SCH ×2 (07:31→20:45)
[2020-05-25] MEDS: HYDROcodone/acetaminophen 10/325mg tab PO PRN ×2 (07:33→18:37)
[2020-05-25] MEDS: spironolactone 25 MG tablet PO SCH (07:34)
[2020-05-25] MEDS: enoxaparin 40mg/0.4ml syringe SUBCUT SCH (07:35)
--- NOTE | 2020-05-25 10:31 | NUR ---
Patient states that he had a large BM x2 last night on NOC shift. Addendum: 05/25/20 at 1033 by Anai Ray RN Amended: Links added.
[2020-05-25 11:39] VITALS: BP 118/69
[2020-05-25 15:14] VITALS: BP 118/82
--- NOTE | 2020-05-25 15:18 | NUR ---
Initial: Pt presented with cirrhosis, CHF, bacterial peritonitis, and massive ascites, s/p paracentesis with 13.2L removed per MD notes. Pt seems constipated last BM 05/24.Pt PO intake is 75-100% average of meals, meeting nutrient needs, receiving heart healthy diet. During nutrition education, pt is awake, reports having good appetite but eating a lot of chips and fast food at home and not taking any multivitamins. college intern discussed importance of reducing salt intake, taking multivitamins, following fluid restriction recommended by MD and eating lean proteins. Pt also received written cirrhosis nutrition therapy education. Pt expressed understanding and willingness to participate by asking more questions regarding sodium restriction,and reading through the given handout. Pt also received low-sodium education handout with RD contact info attached and ONS coupons. Will continue to monitor. Recommend: 1. Continue heart healthy diet 2. Bowel care as needed 3. Weight per rx Addendum: 05/25/20 at 1520 by Jamil Moreno [address] Amended: Links added. Addendum: 05/25/20 at [address] RD agree with legal internship note
[2020-05-25] MEDS: HYDROmorphone 1 mg/ml syringe IV PRN ×2 (15:19→20:46)
[2020-05-25 15:58] LABS: HBSAG SCREEN Negative (Negative); HEP A AB, IGM Negative (Negative); HEPATITIS C ANTIBODY 2.5 s/co ratio (0.0-0.9)
--- NOTE | 2020-05-25 18:09 | NUR ---
Problems reprioritized. Patient report given, questions answered & plan of care reviewed with NOC shift.
[2020-05-25] MEDS: LORazepam 0.5 MG tablet PO PRN (18:37)
[2020-05-25 18:46] VITALS: BP 115/82
[2020-05-25 22:00] VITALS: BP 121/84
[2020-05-26 03:35] VITALS: BP 114/79
[2020-05-26] MEDS: HYDROcodone/acetaminophen 10/325mg tab PO PRN (04:08)
[2020-05-26 06:00] VITALS: BP 103/59
[2020-05-26 06:25] LABS: BASOPHILS # (AUTO) 0.1 X10'3 (0-0.2); BASOPHILS % (AUTO) 1.1 % (0-1); EOSINOPHILS # (AUTO) 0.3 X10'3 (0-0.9); EOSINOPHILS % (AUTO) 2.4 % (0-6); HEMATOCRIT 39.6 % (42.0-52.0); HEMOGLOBIN 13.8 g/dl (14.0-17.9); LYMPHOCYTES # (AUTO) 0.8 X10'3 (1.1-4.8); LYMPHOCYTES % (AUTO) 7.3 % (21-51); MEAN CORPUSCULAR HGB CONC 34.9 g/dL (33.0-36.5); MEAN CORPUSCULAR VOLUME 91.6 FL (78-98); MEAN PLATELET VOLUME 7.5 FL (7.4-10.4); MONOCYTES # (AUTO) 1.7 X10'3 (0-0.9); MONOCYTES % (AUTO) 16.5 % (2-12); NEUTROPHILS # (AUTO) 7.7 X10'3 (1.8-7.7); NEUTROPHILS % (AUTO) 72.7 % (42-75); PLATELET COUNT 217 X10'3 (140-440); RED BLOOD COUNT 4.32 X10'6 (4.70-6.10); RED CELL DISTRIBUTION WIDTH 13.5 % (11.5-14.5); WHITE BLOOD COUNT 10.6 X10'3 (4.5-11.0)
--- NOTE | 2020-05-26 06:39 | NUR ---
Patient in room PCU 3026. I have received report from JESSE Moreno and had the opportunity to ask questions and assume patient care.
[2020-05-26 06:41] LABS: ANION GAP 4 (8-16); CHLORIDE 101 MMOL/L (99-107); GLUCOSE 116 MG/DL (70-104); POTASSIUM 4.5 MMOL/L (3.5-5.1); SODIUM 137 MMOL/L (135-145); TOTAL CARBON DIOXIDE 31.7 MMOL/L (24-32)
[2020-05-26 06:42] LABS: ALANINE AMINOTRANSFERASE 18 U/L (12-78); ALBUMIN 2.1 G/DL (3.4-5.0); ALBUMIN/GLOBULIN RATIO 0.5 (1.1-1.5); ALKALINE PHOSPHATASE 120 IU/L (46-116); ASPARTATE AMINO TRANSFERASE 26 U/L (10-37); BILIRUBIN,TOTAL 0.9 MG/DL (0.1-1.0); BLOOD UREA NITROGEN 23 MG/DL (7-18); BUN/CREATININE RATIO 29.5 (5.4-32.0); CALCIUM 8.4 MG/DL (8.5-10.1); CREATININE 0.78 MG/DL (0.60-1.10); TOTAL PROTEIN 6.3 G/DL (6.4-8.2); eGFR > 90 ML/MIN
[2020-05-26] MEDS: CefTRIAXone/D5W-Rocephin 1gm 50 ML IV SCH (08:51)
[2020-05-26] MEDS: lactobacillus rhamnosus 10,000 MMU CELLS/CAPSULE PO SCH (08:51)
[2020-05-26] MEDS: lisinopril 20mg tablet PO SCH (08:51)
[2020-05-26] MEDS: potassium Cl 20 mEq SR tablet PO SCH (08:51)
[2020-05-26] MEDS: metoprolol succinate 25mg (24-HOUR) SR. Tablet PO SCH (08:51)
[2020-05-26] MEDS: furosemide 40mg/4ml inj IV SCH (08:51)
[2020-05-26] MEDS: spironolactone 25 MG tablet PO SCH (08:51)
[2020-05-26] MEDS: enoxaparin 40mg/0.4ml syringe SUBCUT SCH (08:52)
[2020-05-26] MEDS: HYDROmorphone 1 mg/ml syringe IV PRN (08:56)
[2020-05-26] MEDS ORDERED: FURO20TA4 PO (10:52)
[2020-05-26] MEDS ORDERED: SPIR25TA PO (10:52)
[2020-05-26] MEDS ORDERED: LISI-600 PO (10:52)
[2020-05-26] MEDS ORDERED: HYDR-3972 PO (10:52)
[2020-05-26 11:00] VITALS: BP 117/73
== END 2020-05-26 12:20 | disposition home or self-care (01) ==
LOC: ER 06:14 → ED HOLD 09:15 → PCU 3S 13:50
PROVIDERS: ADMIT Family Medicine; ATTEND Family Medicine
PROC: 0W9G3ZZ Drainage of Peritoneal Cavity, Percutaneous Approach (ICD-10-PCS; principal; 2020-05-22)
DX: K74.60 Unspecified cirrhosis of liver (principal); I11.0 Hypertensive heart disease with heart failure; I50.23 Acute on chronic systolic (congestive) heart failure; F17.210 Nicotine dependence, cigarettes, uncomplicated; I31.3 Pericardial effusion (noninflammatory); F15.10 Other stimulant abuse, uncomplicated; R18.8 Other ascites; Z91.19 Patient's noncompliance with other medical treatment and regimen; E11.9 Type 2 diabetes mellitus without complications
CPT/HCPCS: 36415; 49083; 71045; 76700; 80053; 80074; 82042; 83036; 83615; 83880; 84443; 84484; 85007; 85025; 85610; 86592; 86703; 87070; 87081; 89051; 93005; 96365; 97116; 97161; 97530; 99285; G0378; J0696; J1170; J1650; J1940; P9047

== ENCOUNTER 2020-06-07 08:47 | Emergency (ER) | payer MEDICAID ==
[~2020-06-07] VITALS: Ht 172.7 cm; Wt 106.0 kg
[~2020-06-07 08:47] MED LIST changes: +HYDR-3972 PO; -NAPR-56 PO; +NAPR-996 PO; -NICO1PAT36 TOP; +SPIR25TA PO
[2020-06-07] MEDS ORDERED: LIDOcaine 1% W/epiNEPHrine 1:100,000 20ml vial SQ ONE (10:50)
[2020-06-07 11:52] LABS: BASOPHILS # (AUTO) 0.1 X10'3 (0-0.2); BASOPHILS % (AUTO) 0.7 % (0-1); EOSINOPHILS # (AUTO) 0.1 X10'3 (0-0.9); EOSINOPHILS % (AUTO) 1.4 % (0-6); HEMATOCRIT 40.4 % (42.0-52.0); HEMOGLOBIN 13.7 g/dl (14.0-17.9); LYMPHOCYTES # (AUTO) 0.6 X10'3 (1.1-4.8); LYMPHOCYTES % (AUTO) 5.8 % (21-51); MEAN CORPUSCULAR HEMOGLOBIN 31.7 PG (27.0-31.0); MEAN CORPUSCULAR VOLUME 93.2 FL (78-98); MEAN PLATELET VOLUME 7.6 FL (7.4-10.4); MONOCYTES # (AUTO) 1.2 X10'3 (0-0.9); MONOCYTES % (AUTO) 12.4 % (2-12); NEUTROPHILS # (AUTO) 7.8 X10'3 (1.8-7.7); NEUTROPHILS % (AUTO) 79.7 % (42-75); PLATELET COUNT 201 X10'3 (140-440); RED BLOOD COUNT 4.34 X10'6 (4.70-6.10); RED CELL DISTRIBUTION WIDTH 13.6 % (11.5-14.5); WHITE BLOOD COUNT 9.8 X10'3 (4.5-11.0)
[2020-06-07 12:05] LABS: ALANINE AMINOTRANSFERASE 37 U/L (12-78); ALBUMIN/GLOBULIN RATIO 0.4 (1.1-1.5); ALKALINE PHOSPHATASE 153 IU/L (46-116); ANION GAP 6 (8-16); ASPARTATE AMINO TRANSFERASE 62 U/L (10-37); BLOOD UREA NITROGEN 16 MG/DL (7-18); BUN/CREATININE RATIO 18.8 (5.4-32.0); CALCIUM 8.6 MG/DL (8.5-10.1); CHLORIDE 103 MMOL/L (99-107); CREATININE 0.85 MG/DL (0.60-1.10); GLUCOSE 105 MG/DL (70-104); MAGNESIUM 1.7 MG/DL (1.5-2.4); POTASSIUM 4.2 MMOL/L (3.5-5.1); SODIUM 140 MMOL/L (135-145); TOTAL CARBON DIOXIDE 31.4 MMOL/L (24-32); TOTAL PROTEIN 6.8 G/DL (6.4-8.2); eGFR > 90 ML/MIN
[2020-06-07 12:44] LABS: ALBUMIN,BODY FLUID 0.8 G/DL; TOTAL PROTEIN,BODY FLUID 2.4 G/DL
[2020-06-07 12:49] LABS: CHOLESTEROL,BODY FLUID 11 MG/DL; GLUCOSE,BODY FLUID 147 MG/DL; LDH,BODY FLUID 102 U/L
[2020-06-07 13:12] LABS: BF RBC COUNT 3675 /CU MM; BF WBC COUNT 400 /CU MM (0-1000); BFAPPEAR CLOUDY; BFCOLOR STRAW; BFVOLUME 6 ML; LYMPHOCYTES,BODY FLUID 20 %; MONOCYTES,BODY FLUID 2 %; NEUTROPHILS,BODY FLUID 78 %
[2020-06-07 13:13] LABS: BF MESOTHELIAL CELLS OCCASIONAL
[2020-06-07 15:17] VITALS: BP 137/68
== END 2020-06-07 15:20 | disposition home or self-care (01) ==
LOC: ER 08:48
DX: R18.8 Other ascites (principal); R14.0 Abdominal distension (gaseous); R91.1 Solitary pulmonary nodule; I11.0 Hypertensive heart disease with heart failure; I50.9 Heart failure, unspecified; E11.9 Type 2 diabetes mellitus without complications; F32.9 Major depressive disorder, single episode, unspecified; F12.90 Cannabis use, unspecified, uncomplicated; F15.90 Other stimulant use, unspecified, uncomplicated; Z86.19 Personal history of other infectious and parasitic diseases; Z98.890 Other specified postprocedural states; Z72.89 Other problems related to lifestyle; Z79.899 Other long term (current) drug therapy
CPT/HCPCS: 36415; 49083; 71045; 71250; 74176; 80053; 82042; 82465; 82945; 83605; 83615; 83735; 84145; 84157; 85025; 87040; 87070; 89051; 93005; 99285

== ENCOUNTER 2020-06-17 11:28 | Emergency (ER) | payer MEDICAID ==
[~2020-06-17] VITALS: Ht 172.7 cm; Wt 98.3 kg
[~2020-06-17 11:28] MED LIST changes: -LISI-600 PO; +LISI20TA28 PO
[2020-06-17] MEDS ORDERED: LIDOcaine 1% 30ml preserv. free vial IJ STA (12:30)
[2020-06-17 14:30] VITALS: BP 146/87
== END 2020-06-17 14:31 | disposition home or self-care (01) ==
LOC: ER 11:29
DX: R18.8 Other ascites (principal); K74.60 Unspecified cirrhosis of liver; I25.10 Atherosclerotic heart disease of native coronary artery without angina pectoris; I10 Essential (primary) hypertension; E11.9 Type 2 diabetes mellitus without complications; F12.90 Cannabis use, unspecified, uncomplicated; F15.90 Other stimulant use, unspecified, uncomplicated; Z72.89 Other problems related to lifestyle; Z86.19 Personal history of other infectious and parasitic diseases; Z79.899 Other long term (current) drug therapy
CPT/HCPCS: 49083; 99285; J2001

== ENCOUNTER 2020-06-28 12:04 | Emergency (ER) | payer MEDICAID ==
[~2020-06-28] VITALS: Ht 172.7 cm; Wt 95.7 kg
--- NOTE | 2020-06-28 13:15 | NUR ---
Dr. Coyle at bedside for paracentesis procedure.
[2020-06-28 14:12] VITALS: BP 110/80
== END 2020-06-28 14:08 | disposition home or self-care (01) ==
LOC: ER 12:04
DX: S20.211A Contusion of right front wall of thorax, initial encounter (principal); R18.8 Other ascites; R10.84 Generalized abdominal pain; I11.0 Hypertensive heart disease with heart failure; I50.9 Heart failure, unspecified; E11.9 Type 2 diabetes mellitus without complications; F32.9 Major depressive disorder, single episode, unspecified; F12.90 Cannabis use, unspecified, uncomplicated; F15.90 Other stimulant use, unspecified, uncomplicated; Z86.19 Personal history of other infectious and parasitic diseases; Z98.890 Other specified postprocedural states; Z72.89 Other problems related to lifestyle; Z79.899 Other long term (current) drug therapy; X58.XXXA Exposure to other specified factors, initial encounter; Y93.89 Activity, other specified; Y92.89 Other specified places as the place of occurrence of the external cause; Y99.8 Other external cause status
CPT/HCPCS: 49083; 71101; 99285

== ENCOUNTER 2020-06-29 23:14 | Emergency (ER) | payer MEDICAID ==
[~2020-06-29] VITALS: Ht 172.7 cm; Wt 96.4 kg
--- NOTE | 2020-06-30 00:01 | NUR ---
PT ON LEFT SIDE. 02 SAT 98%. WILL CONTINUE TO MONITOR
[2020-06-30 01:10] VITALS: BP 132/77
== END 2020-06-30 01:15 | disposition home or self-care (01) ==
LOC: ER 23:15
DX: R07.89 Other chest pain (principal); R06.02 Shortness of breath; I11.0 Hypertensive heart disease with heart failure; I50.9 Heart failure, unspecified; E11.9 Type 2 diabetes mellitus without complications; F32.9 Major depressive disorder, single episode, unspecified; F12.90 Cannabis use, unspecified, uncomplicated; F15.90 Other stimulant use, unspecified, uncomplicated; Z86.19 Personal history of other infectious and parasitic diseases; Z98.890 Other specified postprocedural states; Z72.89 Other problems related to lifestyle; Z79.899 Other long term (current) drug therapy
CPT/HCPCS: 36415; 71045; 84484; 99284

== ENCOUNTER 2020-07-05 17:19 | Emergency (ER) | payer MEDICAID ==
[~2020-07-05] VITALS: Ht 172.7 cm; Wt 94.5 kg
[2020-07-05 19:47] LABS: BASOPHILS # (AUTO) 0.1 X10'3 (0-0.2); BASOPHILS % (AUTO) 0.9 % (0-1); EOSINOPHILS # (AUTO) 0.2 X10'3 (0-0.9); EOSINOPHILS % (AUTO) 1.7 % (0-6); HEMATOCRIT 48.7 % (42.0-52.0); HEMOGLOBIN 16.4 g/dl (14.0-17.9); LYMPHOCYTES % (AUTO) 9.5 % (21-51); MEAN CORPUSCULAR HEMOGLOBIN 31.4 PG (27.0-31.0); MEAN CORPUSCULAR HGB CONC 33.6 g/dL (33.0-36.5); MEAN CORPUSCULAR VOLUME 93.3 FL (78-98); MEAN PLATELET VOLUME 7.4 FL (7.4-10.4); MONOCYTES # (AUTO) 1.2 X10'3 (0-0.9); MONOCYTES % (AUTO) 11.2 % (2-12); NEUTROPHILS # (AUTO) 8.5 X10'3 (1.8-7.7); NEUTROPHILS % (AUTO) 76.7 % (42-75); PLATELET COUNT 186 X10'3 (140-440); RED BLOOD COUNT 5.22 X10'6 (4.70-6.10); RED CELL DISTRIBUTION WIDTH 13.7 % (11.5-14.5)
[2020-07-05 20:00] LABS: ALANINE AMINOTRANSFERASE 44 U/L (12-78); ALBUMIN 1.9 G/DL (3.4-5.0); ALBUMIN/GLOBULIN RATIO 0.3 (1.1-1.5); ALKALINE PHOSPHATASE 207 IU/L (46-116); ANION GAP 4 (8-16); ASPARTATE AMINO TRANSFERASE 50 U/L (10-37); BILIRUBIN,TOTAL 1.2 MG/DL (0.1-1.0); BLOOD UREA NITROGEN 23 MG/DL (7-18); CHLORIDE 102 MMOL/L (99-107); CREATININE 1.28 MG/DL (0.60-1.10); GLUCOSE 129 MG/DL (70-104); LIPASE 338 U/L (73-393); POTASSIUM 4.9 MMOL/L (3.5-5.1); SODIUM 136 MMOL/L (135-145); TOTAL CARBON DIOXIDE 29.9 MMOL/L (24-32); TOTAL PROTEIN 7.5 G/DL (6.4-8.2); eGFR 59 ML/MIN
[2020-07-05 20:05] LABS: CALCIUM 8.7 MG/DL (8.5-10.1)
[2020-07-05 21:43] LABS: CLARITY,URINE SLIGHTLY CLOUDY (Clear); COLOR,URINE ORANGE (Yellow); GLUCOSE, URINE NEGATIVE (Neg); KETONES,URINE NEGATIVE (Neg); LEUKOCYTE ESTERASE ,URINE NEGATIVE (Neg); NITRITES, URINE NEGATIVE (Neg); OCCULT BLOOD,URINE NEGATIVE (Neg); PROTEIN,URINE TRACE mg/dl (Neg)
[2020-07-05 21:46] LABS: UA COLLECTION TYPE VOIDED
[2020-07-05 22:00] LABS: RBC,URINE 0-2 /HPF (0-2); WBC,URINE 0-4 /HPF (0-4)
[2020-07-05 22:01] LABS: MUCUS STRANDS MODERATE /LPF (Neg); SQUAMOUS EPITHELIAL CELL,UR MANY /LPF (FEW)
[2020-07-05 22:04] LABS: BACTERIA,URINE NONE SEEN /HPF (Neg)
[2020-07-05 22:38] VITALS: BP 134/101
== END 2020-07-05 22:42 | disposition home or self-care (01) ==
LOC: ER 17:19
DX: R18.8 Other ascites (principal); R10.84 Generalized abdominal pain; R14.0 Abdominal distension (gaseous); I11.0 Hypertensive heart disease with heart failure; I50.9 Heart failure, unspecified; E11.9 Type 2 diabetes mellitus without complications; F32.9 Major depressive disorder, single episode, unspecified; F12.90 Cannabis use, unspecified, uncomplicated; F15.90 Other stimulant use, unspecified, uncomplicated; Z86.19 Personal history of other infectious and parasitic diseases; Z98.890 Other specified postprocedural states; Z72.89 Other problems related to lifestyle; Z79.899 Other long term (current) drug therapy
CPT/HCPCS: 36415; 80053; 81001; 83690; 85025; 99284

== ENCOUNTER 2020-07-08 13:22 | Emergency (ER) | payer MEDICAID ==
[~2020-07-08] VITALS: Ht 172.7 cm; Wt 95.5 kg
--- NOTE | 2020-07-08 14:25 | NUR ---
PATIENT HAS AN APPT WITH [facility] FOR PARACENTESIS ON . THIS WILL BE HIS FIRST OUTPATIENT PARACENTESIS. PER DR FIELDS PATIENT HAS BEEN EDUCATED NOW AND IN THE PAST THAT HIS PARACENTESIS ARE NOT AN EMERGENCY. PATIENT WAS ADVISED TO CALL [facility] FIRST TH[facility] IN THE AM TO DISCUSS OBTAINING A PARACENTESIS ON THURSDAY. PATIENT RR RATE IS WNL SPO2 ON RA 98%, SOME EXPIRATORY WH: MD AWARE
[2020-07-08 15:03] VITALS: BP 142/99
== END 2020-07-08 14:38 | disposition home or self-care (01) ==
LOC: ER 13:23
DX: R18.8 Other ascites (principal); I11.0 Hypertensive heart disease with heart failure; I50.9 Heart failure, unspecified; E11.9 Type 2 diabetes mellitus without complications; F32.9 Major depressive disorder, single episode, unspecified; F12.90 Cannabis use, unspecified, uncomplicated; F15.90 Other stimulant use, unspecified, uncomplicated; Z86.19 Personal history of other infectious and parasitic diseases; Z98.890 Other specified postprocedural states; Z72.89 Other problems related to lifestyle; Z79.899 Other long term (current) drug therapy
CPT/HCPCS: 99281

== ENCOUNTER 2020-07-12 06:21 | Day surgery (SDC) | payer MEDICAID ==
[~2020-07-12] VITALS: Ht 172.7 cm; Wt 103.5 kg
[2020-07-12] VITALS (16 sets, daily range): BP systolic 114–151; BP diastolic 54–100
[2020-07-12] MEDS ORDERED: FURO-150 PO (06:42)
[2020-07-12] MEDS ORDERED: CARV25TA PO (06:43)
[2020-07-12] MEDS ORDERED: POTA20TA19 PO (06:44)
[2020-07-12] MEDS: albumin 25% 100mL bottle x 1 IV PRN ×4 (08:31→11:14)
== END 2020-07-12 12:20 | disposition home or self-care (01) ==
LOC: SSTAY O 06:21
PROVIDERS: ATTEND Radiology Vascular & Interventional Radiology
DX: R18.8 Other ascites (principal); F15.90 Other stimulant use, unspecified, uncomplicated; E78.5 Hyperlipidemia, unspecified; I11.0 Hypertensive heart disease with heart failure; I50.20 Unspecified systolic (congestive) heart failure; F17.210 Nicotine dependence, cigarettes, uncomplicated; Z86.19 Personal history of other infectious and parasitic diseases; Z79.899 Other long term (current) drug therapy
CPT/HCPCS: 49083; P9047

== ENCOUNTER 2020-07-23 06:25 | Day surgery (SDC) | payer MEDICAID ==
[2020-07-23] VITALS (10 sets, daily range): BP systolic 125–142; BP diastolic 68–92
[~2020-07-23] VITALS: Ht 172.7 cm; Wt 100.5 kg
[~2020-07-23 06:25] MED LIST changes: +CARV25TA PO; +FURO-150 PO; -FURO20TA4 PO; -HYDR-3972 PO; -LISI20TA28 PO; -METO-395 PO; -NAPR-996 PO; -SPIR25TA PO
[2020-07-23] MEDS: albumin 25% 100mL bottle x 1 IV PRN ×3 (08:50→10:39)
== END 2020-07-23 11:25 | disposition home or self-care (01) ==
LOC: SSTAY O 06:25
PROVIDERS: ATTEND Radiology Vascular & Interventional Radiology
DX: R18.8 Other ascites (principal); K74.60 Unspecified cirrhosis of liver; I11.0 Hypertensive heart disease with heart failure; I50.20 Unspecified systolic (congestive) heart failure; F15.90 Other stimulant use, unspecified, uncomplicated; E78.5 Hyperlipidemia, unspecified; F17.210 Nicotine dependence, cigarettes, uncomplicated; Z86.19 Personal history of other infectious and parasitic diseases; Z79.899 Other long term (current) drug therapy
CPT/HCPCS: 49083; P9047

== ENCOUNTER 2020-07-31 06:33 | Day surgery (SDC) | payer MEDICAID ==
[~2020-07-31] VITALS: Ht 172.7 cm; Wt 93.6 kg
[2020-07-31] VITALS (11 sets, daily range): BP systolic 99–126; BP diastolic 51–76
[2020-07-31] MEDS: albumin 25% 100mL bottle x 1 IV PRN ×3 (08:33→10:20)
== END 2020-07-31 11:10 | disposition home or self-care (01) ==
LOC: SSTAY O 06:33
PROVIDERS: ATTEND Radiology Vascular & Interventional Radiology
DX: R18.8 Other ascites (principal); K74.60 Unspecified cirrhosis of liver; I11.0 Hypertensive heart disease with heart failure; I50.20 Unspecified systolic (congestive) heart failure; E78.5 Hyperlipidemia, unspecified; F15.11 Other stimulant abuse, in remission; F17.210 Nicotine dependence, cigarettes, uncomplicated; Z86.19 Personal history of other infectious and parasitic diseases; Z79.899 Other long term (current) drug therapy
CPT/HCPCS: 49083; P9047

== ENCOUNTER 2020-08-11 21:18 | Emergency (ER) | payer MEDICAID ==
[~2020-08-11] VITALS: Ht 172.7 cm; Wt 89.1 kg
[2020-08-11 22:06] LABS: BASOPHILS # (AUTO) 0.1 X10'3 (0-0.2); BASOPHILS % (AUTO) 1.2 % (0-1); EOSINOPHILS # (AUTO) 0.5 X10'3 (0-0.9); EOSINOPHILS % (AUTO) 4.8 % (0-6); HEMATOCRIT 47.1 % (42.0-52.0); HEMOGLOBIN 16.1 g/dl (14.0-17.9); LYMPHOCYTES # (AUTO) 0.9 X10'3 (1.1-4.8); MEAN CORPUSCULAR HEMOGLOBIN 31.6 PG (27.0-31.0); MEAN CORPUSCULAR HGB CONC 34.1 g/dL (33.0-36.5); MEAN CORPUSCULAR VOLUME 92.6 FL (78-98); MEAN PLATELET VOLUME 7.1 FL (7.4-10.4); MONOCYTES # (AUTO) 1.1 X10'3 (0-0.9); MONOCYTES % (AUTO) 11.6 % (2-12); NEUTROPHILS % (AUTO) 73.4 % (42-75); PLATELET COUNT 194 X10'3 (140-440); RED BLOOD COUNT 5.09 X10'6 (4.70-6.10); RED CELL DISTRIBUTION WIDTH 14.6 % (11.5-14.5); WHITE BLOOD COUNT 9.5 X10'3 (4.5-11.0)
[2020-08-11 22:12] LABS: ALANINE AMINOTRANSFERASE 38 U/L (12-78); ALBUMIN 2.3 G/DL (3.4-5.0); ALBUMIN/GLOBULIN RATIO 0.5 (1.1-1.5); ALKALINE PHOSPHATASE 154 IU/L (46-116); ANION GAP 3 (8-16); ASPARTATE AMINO TRANSFERASE 48 U/L (10-37); BILIRUBIN,TOTAL 0.9 MG/DL (0.1-1.0); BLOOD UREA NITROGEN 23 MG/DL (7-18); BUN/CREATININE RATIO 18.4 (5.4-32.0); CALCIUM 8.9 MG/DL (8.5-10.1); CHLORIDE 103 MMOL/L (99-107); CREATININE 1.25 MG/DL (0.60-1.10); GLUCOSE 107 MG/DL (70-104); POTASSIUM 5.1 MMOL/L (3.5-5.1); SODIUM 138 MMOL/L (135-145); TOTAL CARBON DIOXIDE 31.6 MMOL/L (24-32); TOTAL PROTEIN 6.5 G/DL (6.4-8.2); eGFR 60 ML/MIN
[2020-08-11 22:19] LABS: TROPONIN I < 0.04 NG/ML (0.0-0.05)
[2020-08-11] MEDS ORDERED: albumin (human) 25% 100 ML IV solution IV ONE (23:35)
--- NOTE | 2020-08-12 05:03 | NUR ---
PT UP FOR D/C, PT HYPOTENSIVE AT THIS TIME 80/47 AND UNSAFE TO D/C, MD AWARE, NO NEW ORDERS AT THIS TIME.
[2020-08-12 08:33] VITALS: BP 99/68
== END 2020-08-12 08:35 | disposition home or self-care (01) ==
LOC: ER 21:19
DX: R18.8 Other ascites (principal); R07.89 Other chest pain; I11.0 Hypertensive heart disease with heart failure; I50.9 Heart failure, unspecified; E11.9 Type 2 diabetes mellitus without complications; F32.9 Major depressive disorder, single episode, unspecified; F12.90 Cannabis use, unspecified, uncomplicated; F15.90 Other stimulant use, unspecified, uncomplicated; Z98.890 Other specified postprocedural states; Z86.19 Personal history of other infectious and parasitic diseases; Z79.899 Other long term (current) drug therapy
CPT/HCPCS: 36415; 49083; 80053; 83880; 84484; 85025; 93005; 96365; 96366; 99285; P9047

== ENCOUNTER 2020-08-13 06:09 | Day surgery (SDC) | payer MEDICAID ==
[~2020-08-13] VITALS: Ht 172.7 cm; Wt 87.4 kg
[2020-08-13] VITALS (8 sets, daily range): BP systolic 87–118; BP diastolic 46–90
[2020-08-13] MEDS ORDERED: albumin 25% 100mL bottle x 1 IV PRN (06:30)
[2020-08-13] MEDS ORDERED: normal saline 1000ml 1,000 ML IV PRN (06:30)
== END 2020-08-13 09:40 | disposition home or self-care (01) ==
LOC: SSTAY O 06:09
PROVIDERS: ATTEND Radiology Diagnostic Radiology
DX: R18.8 Other ascites (principal); I11.0 Hypertensive heart disease with heart failure; I50.20 Unspecified systolic (congestive) heart failure; F15.90 Other stimulant use, unspecified, uncomplicated; E78.5 Hyperlipidemia, unspecified; F17.210 Nicotine dependence, cigarettes, uncomplicated; Z86.19 Personal history of other infectious and parasitic diseases; Z79.899 Other long term (current) drug therapy
CPT/HCPCS: 49083; P9047

== ENCOUNTER 2020-08-20 06:24 | Day surgery (SDC) | payer MEDICAID ==
[2020-08-20] VITALS (8 sets, daily range): BP systolic 111–131; BP diastolic 56–92
[~2020-08-20] VITALS: Ht 172.7 cm; Wt 82.7 kg
[2020-08-20] MEDS ORDERED: LISI-790 PO (06:45)
[2020-08-20] MEDS ORDERED: ASPI-1265 PO (06:45)
[2020-08-20] MEDS ORDERED: NICO-631 TOP (06:47)
[2020-08-20] MEDS ORDERED: ATOR20TA PO (06:47)
[2020-08-20] MEDS ORDERED: CARV3.122 PO (06:47)
[2020-08-20] MEDS ORDERED: SPIR25TA5 PO (06:47)
[2020-08-20] MEDS ORDERED: albumin 25% 100mL bottle x 1 IV PRN (07:05)
== END 2020-08-20 10:30 | disposition home or self-care (01) ==
LOC: SSTAY O 06:24
PROVIDERS: ATTEND Radiology Vascular & Interventional Radiology
DX: R18.8 Other ascites (principal); K74.60 Unspecified cirrhosis of liver; I11.0 Hypertensive heart disease with heart failure; I50.20 Unspecified systolic (congestive) heart failure; F15.90 Other stimulant use, unspecified, uncomplicated; E78.5 Hyperlipidemia, unspecified; F17.210 Nicotine dependence, cigarettes, uncomplicated; Z86.19 Personal history of other infectious and parasitic diseases; Z79.899 Other long term (current) drug therapy
CPT/HCPCS: 49083; P9047

== ENCOUNTER 2020-09-11 08:13 | Day surgery (SDC) | payer MEDICAID ==
[2020-09-11] VITALS (17 sets, daily range): BP systolic 82–122; BP diastolic 46–85
[~2020-09-11] VITALS: Ht 172.7 cm; Wt 85.8 kg
[~2020-09-11 08:13] MED LIST changes: +ASPI-1265 PO; +ATOR20TA PO; -CARV25TA PO; +CARV3.122 PO; +LISI-790 PO; +NICO-631 TOP; +SPIR25TA5 PO
[2020-09-11] MEDS: albumin 25% 100mL bottle x 1 IV PRN ×3 (10:42→11:30)
--- NOTE | 2020-09-11 14:05 | NUR ---
Called MD in regards to pt's BP, recd MD orders.
== END 2020-09-11 14:40 | disposition home or self-care (01) ==
LOC: SSTAY O 08:13
PROVIDERS: ATTEND Radiology Diagnostic Radiology
DX: R18.8 Other ascites (principal); K74.60 Unspecified cirrhosis of liver; I11.0 Hypertensive heart disease with heart failure; I50.20 Unspecified systolic (congestive) heart failure; F15.90 Other stimulant use, unspecified, uncomplicated; E78.5 Hyperlipidemia, unspecified; F17.210 Nicotine dependence, cigarettes, uncomplicated; Z86.19 Personal history of other infectious and parasitic diseases; Z79.899 Other long term (current) drug therapy
CPT/HCPCS: 49083; P9047

== ENCOUNTER 2020-09-18 06:22 | Day surgery (SDC) | payer MEDICAID ==
[~2020-09-18] VITALS: Ht 172.7 cm; Wt 79.9 kg
[2020-09-18] VITALS (11 sets, daily range): BP systolic 114–148; BP diastolic 57–91
[~2020-09-18 06:22] MED LIST changes: -ASPI-1265 PO; -ATOR20TA PO; -LISI-790 PO; -NICO-631 TOP; -SPIR25TA5 PO
[2020-09-18] MEDS: albumin 25% 100mL bottle x 1 IV PRN ×2 (08:48→09:25)
== END 2020-09-18 10:45 | disposition home or self-care (01) ==
LOC: SSTAY O 06:22
PROVIDERS: ATTEND Radiology Diagnostic Radiology
DX: R18.8 Other ascites (principal); K74.60 Unspecified cirrhosis of liver; I11.0 Hypertensive heart disease with heart failure; I50.20 Unspecified systolic (congestive) heart failure; E78.5 Hyperlipidemia, unspecified; F17.210 Nicotine dependence, cigarettes, uncomplicated; F15.11 Other stimulant abuse, in remission; Z86.19 Personal history of other infectious and parasitic diseases
CPT/HCPCS: 49083; P9047

== ENCOUNTER 2020-10-04 06:30 | Day surgery (SDC) | payer MEDICAID ==
[2020-10-04] VITALS (11 sets, daily range): BP systolic 123–161; BP diastolic 65–99
[~2020-10-04] VITALS: Ht 172.7 cm; Wt 83.5 kg
[2020-10-04] MEDS: albumin 25% 100mL bottle x 1 IV PRN ×2 (09:05→09:08)
== END 2020-10-04 11:30 | disposition home or self-care (01) ==
LOC: SSTAY O 06:30
PROVIDERS: ATTEND Radiology Diagnostic Radiology
DX: R18.8 Other ascites (principal); I11.0 Hypertensive heart disease with heart failure; I50.20 Unspecified systolic (congestive) heart failure; E78.5 Hyperlipidemia, unspecified; F17.210 Nicotine dependence, cigarettes, uncomplicated; F15.10 Other stimulant abuse, uncomplicated; Z86.19 Personal history of other infectious and parasitic diseases
CPT/HCPCS: 49083; P9047

== ENCOUNTER 2020-10-10 07:00 | Emergency (ER) | payer MEDICAID ==
[~2020-10-10] VITALS: Ht 172.7 cm; Wt 77.3 kg
[2020-10-10 07:29] LABS: BASOPHILS # (AUTO) 0.1 X10'3 (0-0.2); BASOPHILS % (AUTO) 1.2 % (0-1); EOSINOPHILS # (AUTO) 0.2 X10'3 (0-0.9); EOSINOPHILS % (AUTO) 2.9 % (0-6); HEMATOCRIT 42.4 % (42.0-52.0); HEMOGLOBIN 14.5 g/dl (14.0-17.9); LYMPHOCYTES # (AUTO) 0.7 X10'3 (1.1-4.8); LYMPHOCYTES % (AUTO) 9.5 % (21-51); MEAN CORPUSCULAR HEMOGLOBIN 31.8 PG (27.0-31.0); MEAN CORPUSCULAR HGB CONC 34.1 g/dL (33.0-36.5); MEAN CORPUSCULAR VOLUME 93.2 FL (78-98); MEAN PLATELET VOLUME 6.6 FL (7.4-10.4); MONOCYTES # (AUTO) 0.9 X10'3 (0-0.9); MONOCYTES % (AUTO) 11.5 % (2-12); NEUTROPHILS # (AUTO) 5.8 X10'3 (1.8-7.7); NEUTROPHILS % (AUTO) 74.9 % (42-75); PLATELET COUNT 171 X10'3 (140-440); RED BLOOD COUNT 4.55 X10'6 (4.70-6.10); RED CELL DISTRIBUTION WIDTH 14.7 % (11.5-14.5); WHITE BLOOD COUNT 7.7 X10'3 (4.5-11.0)
[2020-10-10 07:43] LABS: ALBUMIN 2.2 G/DL (3.4-5.0); GLUCOSE 98 MG/DL (70-104); TOTAL CARBON DIOXIDE 26.8 MMOL/L (24-32)
[2020-10-10 07:45] LABS: CLARITY,URINE CLEAR (Clear); COLOR,URINE YELLOW (Yellow); GLUCOSE, URINE NEGATIVE (Neg); KETONES,URINE NEGATIVE (Neg); LEUKOCYTE ESTERASE ,URINE NEGATIVE (Neg); NITRITES, URINE NEGATIVE (Neg); OCCULT BLOOD,URINE NEGATIVE (Neg); PH,URINE 5.5 (4.8-8.0); PROTEIN,URINE NEGATIVE (Neg); UA COLLECTION TYPE URINAL
[2020-10-10 07:58] LABS: ANION GAP 4 (8-16); CHLORIDE 102 MMOL/L (99-107); POTASSIUM 4.6 MMOL/L (3.5-5.1); SODIUM 133 MMOL/L (135-145)
[2020-10-10 08:21] LABS: ALANINE AMINOTRANSFERASE 32 U/L (12-78); ALBUMIN/GLOBULIN RATIO 0.6 (1.1-1.5); ALKALINE PHOSPHATASE 92 IU/L (46-116); ASPARTATE AMINO TRANSFERASE 41 U/L (10-37); BILIRUBIN,TOTAL 0.5 MG/DL (0.1-1.0); BLOOD UREA NITROGEN 27 MG/DL (7-18); BUN/CREATININE RATIO 17.8 (5.4-32.0); CALCIUM 8.1 MG/DL (8.5-10.1); CREATININE 1.52 MG/DL (0.60-1.10); LIPASE 170 U/L (73-393); TOTAL PROTEIN 5.6 G/DL (6.4-8.2); eGFR 48 ML/MIN
[2020-10-10 09:11] LABS: PARTIAL THROMBOPLASTIN TIME 32 SECONDS (22-32)
[2020-10-10] MEDS ORDERED: albumin (human) 25% 100 ML IV solution IV ONE (11:30)
--- NOTE | 2020-10-10 12:02 | NUR ---
started albumin iv.
[2020-10-10 14:39] VITALS: BP 146/88
== END 2020-10-10 14:57 | disposition home or self-care (01) ==
LOC: ER 07:01
DX: K72.90 Hepatic failure, unspecified without coma (principal); K70.31 Alcoholic cirrhosis of liver with ascites; R10.84 Generalized abdominal pain; R14.0 Abdominal distension (gaseous); I11.0 Hypertensive heart disease with heart failure; I50.9 Heart failure, unspecified; E11.9 Type 2 diabetes mellitus without complications; F32.9 Major depressive disorder, single episode, unspecified; F12.90 Cannabis use, unspecified, uncomplicated; F15.90 Other stimulant use, unspecified, uncomplicated; Z86.19 Personal history of other infectious and parasitic diseases; Z98.890 Other specified postprocedural states; Z72.89 Other problems related to lifestyle; Z79.899 Other long term (current) drug therapy
CPT/HCPCS: 36415; 49083; 76705; 80053; 81003; 83690; 85025; 85610; 85730; 93005; 96365; 99285; P9047

== ENCOUNTER 2020-10-14 00:10 | Emergency (ER) | payer MEDICAID ==
[~2020-10-14] VITALS: Ht 172.7 cm; Wt 79.5 kg
[2020-10-14 00:50] VITALS: BP 142/98
== END 2020-10-14 00:54 | disposition home or self-care (01) ==
LOC: ER 00:10
DX: K40.90 Unilateral inguinal hernia, without obstruction or gangrene, not specified as recurrent (principal); R10.31 Right lower quadrant pain; I11.0 Hypertensive heart disease with heart failure; I50.9 Heart failure, unspecified; E11.9 Type 2 diabetes mellitus without complications; F32.9 Major depressive disorder, single episode, unspecified; F12.90 Cannabis use, unspecified, uncomplicated; F15.90 Other stimulant use, unspecified, uncomplicated; Z86.19 Personal history of other infectious and parasitic diseases; Z98.890 Other specified postprocedural states; Z72.89 Other problems related to lifestyle; Z59.0 Homelessness; Z79.899 Other long term (current) drug therapy
CPT/HCPCS: 99283

== ENCOUNTER 2020-10-17 04:08 | Emergency (ER) | payer MEDICAID ==
[~2020-10-17] VITALS: Ht 172.7 cm; Wt 77.3 kg
[2020-10-17 04:47] LABS: BASOPHILS # (AUTO) 0.1 X10'3 (0-0.2); BASOPHILS % (AUTO) 0.6 % (0-1); EOSINOPHILS # (AUTO) 0.1 X10'3 (0-0.9); EOSINOPHILS % (AUTO) 0.6 % (0-6); HEMATOCRIT 39.4 % (42.0-52.0); HEMOGLOBIN 13.9 g/dl (14.0-17.9); LYMPHOCYTES # (AUTO) 0.7 X10'3 (1.1-4.8); LYMPHOCYTES % (AUTO) 5.4 % (21-51); MEAN CORPUSCULAR HEMOGLOBIN 31.8 PG (27.0-31.0); MEAN CORPUSCULAR HGB CONC 35.2 g/dL (33.0-36.5); MEAN CORPUSCULAR VOLUME 90.3 FL (78-98); MEAN PLATELET VOLUME 6.9 FL (7.4-10.4); MONOCYTES # (AUTO) 1.5 X10'3 (0-0.9); MONOCYTES % (AUTO) 12.7 % (2-12); NEUTROPHILS # (AUTO) 9.8 X10'3 (1.8-7.7); NEUTROPHILS % (AUTO) 80.7 % (42-75); PLATELET COUNT 126 X10'3 (140-440); RED BLOOD COUNT 4.36 X10'6 (4.70-6.10); RED CELL DISTRIBUTION WIDTH 13.9 % (11.5-14.5); WHITE BLOOD COUNT 12.2 X10'3 (4.5-11.0)
[2020-10-17 04:56] LABS: ALANINE AMINOTRANSFERASE 32 U/L (12-78); ALBUMIN 2.3 G/DL (3.4-5.0); ALBUMIN/GLOBULIN RATIO 0.6 (1.1-1.5); ALKALINE PHOSPHATASE 116 IU/L (46-116); ANION GAP 7 (8-16); ASPARTATE AMINO TRANSFERASE 53 U/L (10-37); BILIRUBIN,TOTAL 1.2 MG/DL (0.1-1.0); BLOOD UREA NITROGEN 17 MG/DL (7-18); CALCIUM 8.2 MG/DL (8.5-10.1); CHLORIDE 97 MMOL/L (99-107); CREATININE 1.06 MG/DL (0.60-1.10); GLUCOSE 102 MG/DL (70-104); POTASSIUM 4.3 MMOL/L (3.5-5.1); SODIUM 131 MMOL/L (135-145); TOTAL CARBON DIOXIDE 27.3 MMOL/L (24-32); eGFR 73 ML/MIN
[2020-10-17 05:03] LABS: TROPONIN I < 0.04 NG/ML (0.0-0.05)
[2020-10-17] MEDS ORDERED: furosemide 10 MG/1 ML 10ml inj IV ONE (06:45)
[2020-10-17] MEDS ORDERED: carvedilol 6.25mg tablet PO SCH (06:45)
[2020-10-17] MEDS ORDERED: furosemide 40mg/4ml inj IV ONE (06:50)
[2020-10-17] MEDS ORDERED: dexamethasone sod phosphate 10mg/ml inj IV STA ×2 (07:31→14:06)
[2020-10-17] MEDS ORDERED: nitroGLYCERIN 0.2mg/hour patch TD ONE (07:35)
[2020-10-17] MEDS ORDERED: iohexol 300mg/ml 100ml inj. ONE (07:44)
--- NOTE | 2020-10-17 08:16 | NUR ---
BP 122/[address] nitro patch per Dr. Liu
[2020-10-17] MEDS ORDERED: piperacillin/tazo 3.375gm/50ml 50 ML IV ONE ×2 (09:00→14:10)
[2020-10-17 09:21] LABS: ETHANOL < 0.010 GM/DL (0.0-0.010); MAGNESIUM 1.8 MG/DL (1.5-2.4)
[2020-10-17 09:38] LABS: PARTIAL THROMBOPLASTIN TIME 34 SECONDS (22-32)
[2020-10-17 09:56] LABS: URINE AMPHETAMINE SCREEN NEGATIVE (Neg); URINE BARBITUATE SCREEN NEGATIVE (Neg); URINE BENZODIAZEPINES SCREEN NEGATIVE (Neg); URINE CANNABINOID SCREEN POSITIVE (Neg); URINE COCAINE SCREEN NEGATIVE (Neg); URINE METHADONE SCREEN NEGATIVE (Neg); URINE OPIATE SCREEN NEGATIVE (Neg); URINE PHENCYCLIDINE SCREEN NEGATIVE (Neg)
[2020-10-17] MEDS ORDERED: carVEDilol 3.125mg tablet PO SCH ×2 (15:05→20:00)
[2020-10-17] MEDS ORDERED: carVEDilol 3.125mg tablet PO ONE (15:05)
[2020-10-17 15:35] VITALS: BP 127/96
== END 2020-10-17 15:15 | disposition short-term general hospital (02) ==
LOC: ER 04:08
DX: J36 Peritonsillar abscess (principal); Z20.822 Contact with and (suspected) exposure to COVID-19; I50.33 Acute on chronic diastolic (congestive) heart failure; I50.9 Heart failure, unspecified; I11.0 Hypertensive heart disease with heart failure; E11.9 Type 2 diabetes mellitus without complications; F17.200 Nicotine dependence, unspecified, uncomplicated; F12.90 Cannabis use, unspecified, uncomplicated; F15.90 Other stimulant use, unspecified, uncomplicated; Z59.0 Homelessness; Z86.19 Personal history of other infectious and parasitic diseases; Z79.899 Other long term (current) drug therapy
CPT/HCPCS: 36415; 70491; 71045; 80053; 80305; 80320; 83605; 83735; 83880; 84145; 84484; 85025; 85610; 85730; 87040; 87635; 93005; 96365; 96375; 96376; 99291; C9803; J1100; J1940; J2543; Q9967

== ENCOUNTER 2020-10-21 20:50 | Emergency (ER) | payer MEDICAID ==
[~2020-10-21] VITALS: Ht 172.7 cm; Wt 79.0 kg
--- NOTE | 2020-10-21 21:43 | NUR ---
pt is resting quietly on gurney,
[2020-10-21] MEDS ORDERED: normal saline 1000ML IV soln IVB ONE (23:35)
[2020-10-22] MEDS ORDERED: normal saline 1000ml 1,000 ML IV ONE (00:05)
[2020-10-22 00:49] LABS: BASOPHILS # (AUTO) 0.2 X10'3 (0-0.2); BASOPHILS % (AUTO) 1.1 % (0-1); EOSINOPHILS # (AUTO) 0.5 X10'3 (0-0.9); EOSINOPHILS % (AUTO) 3.1 % (0-6); HEMATOCRIT 37.8 % (42.0-52.0); HEMOGLOBIN 13.4 g/dl (14.0-17.9); LYMPHOCYTES # (AUTO) 1.3 X10'3 (1.1-4.8); LYMPHOCYTES % (AUTO) 8.8 % (21-51); MEAN CORPUSCULAR HEMOGLOBIN 32.7 PG (27.0-31.0); MEAN CORPUSCULAR HGB CONC 35.6 g/dL (33.0-36.5); MEAN PLATELET VOLUME 7.2 FL (7.4-10.4); MONOCYTES % (AUTO) 13.4 % (2-12); NEUTROPHILS # (AUTO) 11.1 X10'3 (1.8-7.7); NEUTROPHILS % (AUTO) 73.6 % (42-75); PLATELET COUNT 225 X10'3 (140-440); RED BLOOD COUNT 4.11 X10'6 (4.70-6.10); RED CELL DISTRIBUTION WIDTH 14.3 % (11.5-14.5); WHITE BLOOD COUNT 15.1 X10'3 (4.5-11.0)
[2020-10-22 00:52] LABS: ALANINE AMINOTRANSFERASE 41 U/L (12-78); ALBUMIN 1.7 G/DL (3.4-5.0); ALBUMIN/GLOBULIN RATIO 0.5 (1.1-1.5); ALKALINE PHOSPHATASE 107 IU/L (46-116); ANION GAP 3 (8-16); ASPARTATE AMINO TRANSFERASE 39 U/L (10-37); BILIRUBIN,TOTAL 0.3 MG/DL (0.1-1.0); BLOOD UREA NITROGEN 45 MG/DL (7-18); BUN/CREATININE RATIO 23.6 (5.4-32.0); CALCIUM 7.6 MG/DL (8.5-10.1); CHLORIDE 102 MMOL/L (99-107); CREATININE 1.91 MG/DL (0.60-1.10); GLUCOSE 88 MG/DL (70-104); MAGNESIUM 2.1 MG/DL (1.5-2.4); POTASSIUM 4.5 MMOL/L (3.5-5.1); SODIUM 133 MMOL/L (135-145); TOTAL CARBON DIOXIDE 27.9 MMOL/L (24-32); eGFR 37 ML/MIN
[2020-10-22 00:54] LABS: LACTIC SEPSIS 1.4 MMOL/L (0.4-2.0)
[2020-10-22 01:38] LABS: URINE AMPHETAMINE SCREEN NEGATIVE (Neg); URINE BARBITUATE SCREEN NEGATIVE (Neg); URINE BENZODIAZEPINES SCREEN NEGATIVE (Neg); URINE CANNABINOID SCREEN POSITIVE (Neg); URINE COCAINE SCREEN NEGATIVE (Neg); URINE METHADONE SCREEN NEGATIVE (Neg); URINE OPIATE SCREEN NEGATIVE (Neg); URINE PHENCYCLIDINE SCREEN NEGATIVE (Neg)
[2020-10-22 01:48] LABS: CLARITY,URINE CLEAR (Clear); COLOR,URINE YELLOW (Yellow); GLUCOSE, URINE NEGATIVE (Neg); KETONES,URINE TRACE mg/dl (Neg); LEUKOCYTE ESTERASE ,URINE NEGATIVE (Neg); NITRITES, URINE NEGATIVE (Neg); OCCULT BLOOD,URINE NEGATIVE (Neg); PROTEIN,URINE TRACE mg/dl (Neg)
[2020-10-22 02:00] LABS: UA COLLECTION TYPE URINAL
[2020-10-22 02:01] LABS: BACTERIA,URINE FEW /HPF (Neg); HYALINE CASTS 0-3 /LPF (NEGATIVE); RBC,URINE 0-2 /HPF (0-2); SQUAMOUS EPITHELIAL CELL,UR FEW /LPF (FEW); WBC,URINE 0-4 /HPF (0-4)
--- NOTE | 2020-10-22 02:21 | NUR ---
Per MD patient SBP too low for therapeutic paracentisis. 1.5 L NS ordered, and fluid drawn from peritoneum for lab analysis and sent to lab. Pt tolerated procedure well.
[2020-10-22] MEDS ORDERED: magnesium hydroxide 30ml (MOM) UD suspension PO PRN (03:15)
[2020-10-22] MEDS ORDERED: ondansetron/PF 4mg/2ml inj IV PRN (03:15)
[2020-10-22] MEDS ORDERED: mag hydrox/Alum hydrox/simeth 30ml oral suspension PO PRN (03:15)
[2020-10-22] MEDS ORDERED: potassium Cl 20 mEq SR tablet PO PRN ×2 (03:15)
[2020-10-22] MEDS ORDERED: potassium Cl 40MEQ/1/2NS 520ml 520 ML IV PRN ×2 (03:15)
[2020-10-22] MEDS ORDERED: diphenhydrAMINE 50 mg/ml inj IV ONE (03:35)
[2020-10-22] MEDS ORDERED: LISI-790 PO (03:54)
[2020-10-22] MEDS ORDERED: AMOX-580 PO (03:54)
[2020-10-22 03:59] LABS: LYMPHOCYTES,BODY FLUID 61 %; MONOCYTES,BODY FLUID 8 %; NEUTROPHILS,BODY FLUID 31 %
[2020-10-22 04:02] LABS: BFAPPEAR CLOUDY
[2020-10-22 04:03] LABS: BF RBC COUNT 13750 /CU MM; BF WBC COUNT 120 /CU MM (0-1000); BFCOLOR YELLOW; BFVOLUME 30 ML
[2020-10-22 04:04] LABS: BF MESOTHELIAL CELLS FEW
[2020-10-22] MEDS ORDERED: potassium Cl 20 mEq SR tablet PO SCH (08:00)
[2020-10-22] MEDS ORDERED: amox tr/potassium clavulanate 875/125mg TAB PO SCH (08:00)
[2020-10-22] MEDS ORDERED: carVEDilol 3.125mg tablet PO SCH (08:00)
[2020-10-22] MEDS ORDERED: K and/or MAG REPLACEMENT MC SCH (08:00)
[2020-10-22] MEDS ORDERED: furosemide 20MG tablet PO SCH (08:00)
[2020-10-22] MEDS ORDERED: lisinopril 5mg tablet PO SCH (08:00)
[2020-10-22] MEDS ORDERED: PERFLUTREN PROTEIN-A MICROSPHR (Optison) 0.22 MG/ML 3ML VIAL IV ONE (10:00)
[2020-10-22 11:00] VITALS: BP 126/78
[2020-10-22] MEDS ORDERED: albumin (human) 25% 100 ML IV solution IV ONE (11:45)
[2020-10-22 11:55] VITALS: BP 92/56
--- NOTE | 2020-10-22 14:00 | NUR ---
Pt had paracentesis and is requesting to be dc'd. Hospitalist Dr. May called and MD to come and eval pt
[2020-10-22 14:09] VITALS: BP 102/63
--- NOTE | 2020-10-22 14:15 | NUR ---
Pt was seen by Dr. May and received report pt will be discharged. wood room supervisor notified of no need for bed assignment. Requested resource RN to assist with DC as unaware of admitted pt hospital discharge process
[2020-10-22] MEDS ORDERED: lactobacillus rhamnosus 10,000 MMU CELLS/CAPSULE PO SCH (20:00)
== END 2020-10-22 17:19 | disposition home or self-care (01) ==
LOC: ER 20:51 → UNDOADMOB 10-22 03:12 → ED HOLD 10-22 03:12 → UNDODISOB 10-22 17:19
DX: R18.8 Other ascites (principal); R06.02 Shortness of breath; I10 Essential (primary) hypertension; N25.89 Other disorders resulting from impaired renal tubular function; I50.9 Heart failure, unspecified; E11.9 Type 2 diabetes mellitus without complications; K74.60 Unspecified cirrhosis of liver; F17.200 Nicotine dependence, unspecified, uncomplicated; F12.90 Cannabis use, unspecified, uncomplicated; F15.90 Other stimulant use, unspecified, uncomplicated; Z86.19 Personal history of other infectious and parasitic diseases; Z98.890 Other specified postprocedural states; Z59.0 Homelessness; Z79.2 Long term (current) use of antibiotics; Z79.899 Other long term (current) drug therapy
CPT/HCPCS: 36415; 49083; 71045; 80053; 80305; 81001; 82140; 83605; 83735; 84145; 85025; 87040; 87070; 87081; 89051; 93005; 93306; 96361; 96365; 96375; 99285; J1200; J7030; P9047; 96366; G0378

== ENCOUNTER → 2020-10-27 | Emergency (ER) | payer MEDICAID ==
[~2020-10-27] VITALS: Ht 172.7 cm; Wt 80.0 kg
[~2020-10-27] MED LIST changes: +AMOX-580 PO; +LISI-790 PO
[2020-10-27 00:41] VITALS: BP 123/80
[2020-10-27 04:41] LABS: BASOPHILS # (AUTO) 0.1 X10'3 (0-0.2); BASOPHILS % (AUTO) 0.8 % (0-1); EOSINOPHILS # (AUTO) 0.4 X10'3 (0-0.9); EOSINOPHILS % (AUTO) 3.6 % (0-6); HEMATOCRIT 36.9 % (42.0-52.0); HEMOGLOBIN 12.6 g/dl (14.0-17.9); LYMPHOCYTES % (AUTO) 9.3 % (21-51); MEAN CORPUSCULAR HEMOGLOBIN 31.7 PG (27.0-31.0); MEAN CORPUSCULAR HGB CONC 34.2 g/dL (33.0-36.5); MEAN CORPUSCULAR VOLUME 92.6 FL (78-98); MEAN PLATELET VOLUME 6.8 FL (7.4-10.4); MONOCYTES # (AUTO) 1.1 X10'3 (0-0.9); MONOCYTES % (AUTO) 10.5 % (2-12); NEUTROPHILS # (AUTO) 8.2 X10'3 (1.8-7.7); NEUTROPHILS % (AUTO) 75.8 % (42-75); PLATELET COUNT 167 X10'3 (140-440); RED BLOOD COUNT 3.99 X10'6 (4.70-6.10); RED CELL DISTRIBUTION WIDTH 14.8 % (11.5-14.5); WHITE BLOOD COUNT 10.8 X10'3 (4.5-11.0)
[2020-10-27 04:48] LABS: ALANINE AMINOTRANSFERASE 53 U/L (12-78); ALBUMIN 2.3 G/DL (3.4-5.0); ALBUMIN/GLOBULIN RATIO 0.7 (1.1-1.5); ALKALINE PHOSPHATASE 109 IU/L (46-116); ANION GAP 3 (8-16); ASPARTATE AMINO TRANSFERASE 57 U/L (10-37); BILIRUBIN,TOTAL 0.4 MG/DL (0.1-1.0); BLOOD UREA NITROGEN 21 MG/DL (7-18); BUN/CREATININE RATIO 19.6 (5.4-32.0); CALCIUM 7.9 MG/DL (8.5-10.1); CHLORIDE 104 MMOL/L (99-107); CREATININE 1.07 MG/DL (0.60-1.10); GLUCOSE 110 MG/DL (70-104); POTASSIUM 4.6 MMOL/L (3.5-5.1); SODIUM 134 MMOL/L (135-145); TOTAL CARBON DIOXIDE 27.2 MMOL/L (24-32); TOTAL PROTEIN 5.4 G/DL (6.4-8.2); eGFR 72 ML/MIN
== END | disposition home or self-care (01) ==
LOC: ER 00:35
DX: R18.8 Other ascites (principal); R06.02 Shortness of breath; I11.0 Hypertensive heart disease with heart failure; I50.9 Heart failure, unspecified; E11.9 Type 2 diabetes mellitus without complications; F32.9 Major depressive disorder, single episode, unspecified; F12.90 Cannabis use, unspecified, uncomplicated; F15.90 Other stimulant use, unspecified, uncomplicated; Z59.0 Homelessness; Z72.89 Other problems related to lifestyle; Z86.19 Personal history of other infectious and parasitic diseases; Z98.890 Other specified postprocedural states; Z79.899 Other long term (current) drug therapy
CPT/HCPCS: 80053; 85025; 99283

== ENCOUNTER 2020-10-30 09:40 | Day surgery (SDC) | payer MEDICAID ==
[~2020-10-30] VITALS: Ht 172.7 cm; Wt 78.4 kg
[2020-10-30] VITALS (10 sets, daily range): BP systolic 119–167; BP diastolic 66–108
[2020-10-30] MEDS ORDERED: albumin 25% 100mL bottle x 1 IV PRN (10:05)
== END 2020-10-30 13:25 | disposition home or self-care (01) ==
LOC: SSTAY O 09:40
PROVIDERS: ATTEND Radiology Vascular & Interventional Radiology
DX: K70.31 Alcoholic cirrhosis of liver with ascites (principal); I11.0 Hypertensive heart disease with heart failure; I50.9 Heart failure, unspecified; E78.5 Hyperlipidemia, unspecified; F15.90 Other stimulant use, unspecified, uncomplicated; Z86.19 Personal history of other infectious and parasitic diseases; Z79.899 Other long term (current) drug therapy
CPT/HCPCS: 49083

== ENCOUNTER 2020-11-06 07:12 | Day surgery (SDC) | payer MEDICAID ==
[~2020-11-06] VITALS: Ht 172.7 cm; Wt 78.2 kg
[2020-11-06] VITALS (7 sets, daily range): BP systolic 126–141; BP diastolic 76–90
[2020-11-06] MEDS ORDERED: albumin 25% 100mL bottle x 1 IV PRN (07:40)
[2020-11-06] MEDS ORDERED: normal saline 1000ml 1,000 ML IV PRN (07:40)
== END 2020-11-06 10:25 | disposition home or self-care (01) ==
LOC: SSTAY O 07:12
PROVIDERS: ATTEND Radiology Vascular & Interventional Radiology
DX: R18.8 Other ascites (principal); K74.60 Unspecified cirrhosis of liver; I11.0 Hypertensive heart disease with heart failure; I50.20 Unspecified systolic (congestive) heart failure; F15.90 Other stimulant use, unspecified, uncomplicated; E78.5 Hyperlipidemia, unspecified; F17.210 Nicotine dependence, cigarettes, uncomplicated; Z86.19 Personal history of other infectious and parasitic diseases; Z79.899 Other long term (current) drug therapy
CPT/HCPCS: 49083; P9047

== ENCOUNTER 2020-11-13 07:13 | Day surgery (SDC) | payer MEDICAID ==
[2020-11-13] VITALS (8 sets, daily range): BP systolic 125–148; BP diastolic 68–111
[~2020-11-13] VITALS: Ht 172.7 cm; Wt 77.7 kg
[~2020-11-13 07:13] MED LIST changes: -AMOX-580 PO
[2020-11-13] MEDS ORDERED: albumin 25% 100mL bottle x 1 IV PRN (07:30)
== END 2020-11-13 10:55 | disposition short-term general hospital (02) ==
LOC: SSTAY O 07:13
PROVIDERS: ATTEND Radiology Diagnostic Radiology
DX: K70.31 Alcoholic cirrhosis of liver with ascites (principal); I11.0 Hypertensive heart disease with heart failure; I50.20 Unspecified systolic (congestive) heart failure; F15.90 Other stimulant use, unspecified, uncomplicated; E78.5 Hyperlipidemia, unspecified; Z86.19 Personal history of other infectious and parasitic diseases; F17.290 Nicotine dependence, other tobacco product, uncomplicated; Z79.899 Other long term (current) drug therapy
CPT/HCPCS: 49083; P9047

== ENCOUNTER 2020-11-21 06:22 | Day surgery (SDC) | payer MEDICAID ==
[~2020-11-21] VITALS: Ht 172.7 cm; Wt 82.0 kg
[2020-11-21] VITALS (10 sets, daily range): BP systolic 110–155; BP diastolic 57–94
[2020-11-21] MEDS ORDERED: normal saline 1000ml 1,000 ML IV PRN (06:55)
[2020-11-21] MEDS: albumin 25% 100mL bottle x 1 IV PRN ×2 (09:13→09:59)
== END 2020-11-21 11:00 | disposition home or self-care (01) ==
LOC: SSTAY O 06:22
PROVIDERS: ATTEND Radiology Diagnostic Radiology
DX: K70.31 Alcoholic cirrhosis of liver with ascites (principal); I11.0 Hypertensive heart disease with heart failure; I50.9 Heart failure, unspecified; F15.90 Other stimulant use, unspecified, uncomplicated; E78.5 Hyperlipidemia, unspecified; Z86.19 Personal history of other infectious and parasitic diseases; F17.210 Nicotine dependence, cigarettes, uncomplicated; Z79.899 Other long term (current) drug therapy
CPT/HCPCS: 49083; P9047

== ENCOUNTER 2020-11-29 06:12 | Day surgery (SDC) | payer MEDICAID ==
[2020-11-29] VITALS (10 sets, daily range): BP systolic 102–134; BP diastolic 53–94
[~2020-11-29] VITALS: Ht 172.7 cm; Wt 79.7 kg
[2020-11-29] MEDS ORDERED: SPIR100T5 PO (06:32)
[2020-11-29] MEDS: albumin 25% 100mL bottle x 1 IV PRN (09:15)
== END 2020-11-29 10:50 | disposition home or self-care (01) ==
LOC: SSTAY O 06:12
PROVIDERS: ATTEND Radiology Vascular & Interventional Radiology
DX: R18.8 Other ascites (principal); R14.0 Abdominal distension (gaseous); I11.0 Hypertensive heart disease with heart failure; I50.20 Unspecified systolic (congestive) heart failure; E78.5 Hyperlipidemia, unspecified; F15.90 Other stimulant use, unspecified, uncomplicated; F17.210 Nicotine dependence, cigarettes, uncomplicated; Z86.19 Personal history of other infectious and parasitic diseases
CPT/HCPCS: 49083; P9047

== ENCOUNTER 2020-12-06 06:13 | Day surgery (SDC) | payer MEDICAID ==
[~2020-12-06] VITALS: Ht 172.7 cm; Wt 80.5 kg
[2020-12-06] VITALS (9 sets, daily range): BP systolic 118–140; BP diastolic 74–95
[~2020-12-06 06:13] MED LIST changes: +SPIR100T5 PO
[2020-12-06] MEDS: albumin 25% 100mL bottle x 1 IV PRN ×2 (08:24→08:25)
== END 2020-12-06 10:45 | disposition home or self-care (01) ==
LOC: SSTAY O 06:13
PROVIDERS: ATTEND Radiology Diagnostic Radiology
DX: R18.8 Other ascites (principal); I11.0 Hypertensive heart disease with heart failure; I50.20 Unspecified systolic (congestive) heart failure; E78.5 Hyperlipidemia, unspecified; F15.10 Other stimulant abuse, uncomplicated; F17.210 Nicotine dependence, cigarettes, uncomplicated; Z86.19 Personal history of other infectious and parasitic diseases; Z79.899 Other long term (current) drug therapy
CPT/HCPCS: 49083; P9047

== ENCOUNTER → 2020-12-10 | Emergency (ER) | payer MEDICAID | END | disposition left against medical advice (07) | LOC: ER 00:11 | DX: Z53.21 Procedure and treatment not carried out due to patient leaving prior to being seen by health care provider (principal) ==

== ENCOUNTER 2020-12-13 07:16 | Day surgery (SDC) | payer MEDICAID ==
[~2020-12-13] VITALS: Ht 172.7 cm; Wt 80.1 kg
[2020-12-13] VITALS (9 sets, daily range): BP systolic 119–142; BP diastolic 68–86
[2020-12-13] MEDS ORDERED: albumin 25% 100mL bottle x 1 IV PRN (07:50)
== END 2020-12-13 11:05 | disposition home or self-care (01) ==
LOC: SSTAY O 07:16
PROVIDERS: ATTEND Radiology Diagnostic Radiology
DX: K70.31 Alcoholic cirrhosis of liver with ascites (principal); I11.0 Hypertensive heart disease with heart failure; I50.9 Heart failure, unspecified; F15.90 Other stimulant use, unspecified, uncomplicated; E78.5 Hyperlipidemia, unspecified; F17.210 Nicotine dependence, cigarettes, uncomplicated; Z86.19 Personal history of other infectious and parasitic diseases; Z79.899 Other long term (current) drug therapy
CPT/HCPCS: 49083; P9047

== ENCOUNTER 2020-12-28 08:32 | Day surgery (SDC) | payer MEDICAID ==
[2020-12-28] VITALS (9 sets, daily range): BP systolic 126–149; BP diastolic 74–91
[~2020-12-28] VITALS: Ht 172.7 cm; Wt 78.9 kg
[~2020-12-28 08:32] MED LIST changes: -LISI-790 PO
[2020-12-28] MEDS ORDERED: albumin 25% 100mL bottle x 1 IV PRN (08:50)
[2020-12-28] MEDS ORDERED: CEPH750C9 PO (09:03)
== END 2020-12-28 12:00 | disposition home or self-care (01) ==
LOC: SSTAY O 08:32
PROVIDERS: ATTEND Radiology Diagnostic Radiology
DX: R18.8 Other ascites (principal); R14.0 Abdominal distension (gaseous); I11.0 Hypertensive heart disease with heart failure; I50.20 Unspecified systolic (congestive) heart failure; E78.5 Hyperlipidemia, unspecified; F15.90 Other stimulant use, unspecified, uncomplicated; F17.210 Nicotine dependence, cigarettes, uncomplicated; Z72.89 Other problems related to lifestyle; Z79.899 Other long term (current) drug therapy
CPT/HCPCS: 49083; P9047

== ENCOUNTER 2021-01-04 08:07 | Day surgery (SDC) | payer MEDICAID ==
[2021-01-04] VITALS (9 sets, daily range): BP systolic 109–133; BP diastolic 69–84
[~2021-01-04] VITALS: Ht 172.7 cm; Wt 78.2 kg
[~2021-01-04 08:07] MED LIST changes: +CEPH750C9 PO
[2021-01-04] MEDS ORDERED: albumin 25% 100mL bottle x 1 IV PRN (08:50)
== END 2021-01-04 11:00 | disposition home or self-care (01) ==
LOC: SSTAY O 08:07
PROVIDERS: ATTEND Radiology Vascular & Interventional Radiology
DX: R18.8 Other ascites (principal); R14.0 Abdominal distension (gaseous); I11.0 Hypertensive heart disease with heart failure; I50.20 Unspecified systolic (congestive) heart failure; F15.90 Other stimulant use, unspecified, uncomplicated; E78.5 Hyperlipidemia, unspecified; F17.210 Nicotine dependence, cigarettes, uncomplicated; Z86.19 Personal history of other infectious and parasitic diseases; Z79.899 Other long term (current) drug therapy
CPT/HCPCS: 49083; P9047

== ENCOUNTER 2021-01-11 07:35 | Day surgery (SDC) | payer MEDICAID ==
[2021-01-11] VITALS (11 sets, daily range): BP systolic 108–136; BP diastolic 48–92
[~2021-01-11] VITALS: Ht 172.7 cm; Wt 82.5 kg
[~2021-01-11 07:35] MED LIST changes: -CEPH750C9 PO
[2021-01-11] MEDS ORDERED: albumin 25% 100mL bottle x 1 IV PRN (08:00)
== END 2021-01-11 11:25 | disposition home or self-care (01) ==
LOC: SSTAY O 07:35
PROVIDERS: ATTEND Radiology Vascular & Interventional Radiology
DX: R18.8 Other ascites (principal); R14.0 Abdominal distension (gaseous); I11.0 Hypertensive heart disease with heart failure; I50.20 Unspecified systolic (congestive) heart failure; E78.5 Hyperlipidemia, unspecified; F15.90 Other stimulant use, unspecified, uncomplicated; F17.210 Nicotine dependence, cigarettes, uncomplicated; Z86.19 Personal history of other infectious and parasitic diseases; Z79.899 Other long term (current) drug therapy
CPT/HCPCS: 49083; P9047

== ENCOUNTER 2021-01-18 07:29 | Day surgery (SDC) | payer MEDICAID ==
[2021-01-18] VITALS (10 sets, daily range): BP systolic 111–140; BP diastolic 54–94
[~2021-01-18] VITALS: Ht 172.7 cm; Wt 83.2 kg
[~2021-01-18 07:29] MED LIST changes: -SPIR100T5 PO
[2021-01-18] MEDS: albumin 25% 100mL bottle x 1 IV PRN ×2 (10:02→10:08)
== END 2021-01-18 12:00 | disposition home or self-care (01) ==
LOC: SSTAY O 07:29
PROVIDERS: ATTEND Radiology Diagnostic Radiology
DX: K70.31 Alcoholic cirrhosis of liver with ascites (principal); I11.0 Hypertensive heart disease with heart failure; I50.20 Unspecified systolic (congestive) heart failure; F15.90 Other stimulant use, unspecified, uncomplicated; E78.5 Hyperlipidemia, unspecified; F17.210 Nicotine dependence, cigarettes, uncomplicated; Z86.19 Personal history of other infectious and parasitic diseases; Z79.899 Other long term (current) drug therapy
CPT/HCPCS: 49083; P9047

== ENCOUNTER 2021-01-24 06:47 | Day surgery (SDC) | payer MEDICAID ==
[~2021-01-24] VITALS: Ht 172.7 cm; Wt 83.6 kg
[2021-01-24] VITALS (9 sets, daily range): BP systolic 131–160; BP diastolic 77–108
[2021-01-24] MEDS ORDERED: albumin 25% 100mL bottle x 1 IV PRN (07:40)
== END 2021-01-24 10:35 | disposition home or self-care (01) ==
LOC: SSTAY O 06:47
PROVIDERS: ATTEND Radiology Diagnostic Radiology
DX: R18.8 Other ascites (principal); R14.0 Abdominal distension (gaseous); I11.0 Hypertensive heart disease with heart failure; I50.20 Unspecified systolic (congestive) heart failure; E78.5 Hyperlipidemia, unspecified; F15.90 Other stimulant use, unspecified, uncomplicated; F17.210 Nicotine dependence, cigarettes, uncomplicated; Z86.19 Personal history of other infectious and parasitic diseases; Z79.899 Other long term (current) drug therapy
CPT/HCPCS: 49083; P9047

== ENCOUNTER 2021-02-01 06:18 | Day surgery (SDC) | payer MEDICAID ==
[2021-02-01] VITALS (11 sets, daily range): BP systolic 113–151; BP diastolic 62–99
[~2021-02-01] VITALS: Ht 172.7 cm; Wt 86.6 kg
[2021-02-01] MEDS: albumin 25% 100mL bottle x 1 IV PRN ×2 (08:36→09:15)
== END 2021-02-01 10:46 | disposition home or self-care (01) ==
LOC: SSTAY O 06:18
PROVIDERS: ATTEND Radiology Vascular & Interventional Radiology
DX: R18.8 Other ascites (principal); R14.0 Abdominal distension (gaseous); I11.0 Hypertensive heart disease with heart failure; I50.20 Unspecified systolic (congestive) heart failure; E78.5 Hyperlipidemia, unspecified; F12.90 Cannabis use, unspecified, uncomplicated; F17.210 Nicotine dependence, cigarettes, uncomplicated; Z79.899 Other long term (current) drug therapy
CPT/HCPCS: 49083; P9047

== ENCOUNTER 2021-02-08 06:05 | Day surgery (SDC) | payer MEDICAID ==
[2021-02-08] VITALS (9 sets, daily range): BP systolic 111–149; BP diastolic 65–99
[~2021-02-08] VITALS: Ht 172.7 cm; Wt 86.7 kg
[2021-02-08] MEDS ORDERED: normal saline 1000ml 1,000 ML IV PRN (06:25)
[2021-02-08] MEDS: albumin 25% 100mL bottle x 1 IV PRN ×2 (08:36→09:20)
== END 2021-02-08 10:28 | disposition home or self-care (01) ==
LOC: SSTAY O 06:05
PROVIDERS: ATTEND Preventive Medicine Aerospace Medicine
DX: R18.8 Other ascites (principal); R14.0 Abdominal distension (gaseous); I11.0 Hypertensive heart disease with heart failure; I50.20 Unspecified systolic (congestive) heart failure; E78.5 Hyperlipidemia, unspecified; F15.90 Other stimulant use, unspecified, uncomplicated; F17.210 Nicotine dependence, cigarettes, uncomplicated; Z86.19 Personal history of other infectious and parasitic diseases; Z79.899 Other long term (current) drug therapy
CPT/HCPCS: 49083; P9047

== ENCOUNTER 2021-02-15 06:13 | Day surgery (SDC) | payer MEDICAID ==
[2021-02-15] VITALS (7 sets, daily range): BP systolic 107–151; BP diastolic 73–93
[~2021-02-15] VITALS: Ht 172.7 cm; Wt 90.4 kg
[2021-02-15] MEDS ORDERED: albumin 25% 100mL bottle x 1 IV PRN (06:45)
[2021-02-15] MEDS ORDERED: normal saline 1000ml 1,000 ML IV PRN (06:45)
== END 2021-02-15 11:10 | disposition home or self-care (01) ==
LOC: SSTAY O 06:13
PROVIDERS: ATTEND Radiology Vascular & Interventional Radiology
DX: R18.8 Other ascites (principal); R14.0 Abdominal distension (gaseous); I11.0 Hypertensive heart disease with heart failure; I50.9 Heart failure, unspecified; E78.5 Hyperlipidemia, unspecified; F12.90 Cannabis use, unspecified, uncomplicated; F17.210 Nicotine dependence, cigarettes, uncomplicated; Z86.19 Personal history of other infectious and parasitic diseases; Z79.899 Other long term (current) drug therapy
CPT/HCPCS: 49083; P9047

== ENCOUNTER 2021-02-22 06:04 | Day surgery (SDC) | payer MEDICAID ==
[~2021-02-22] VITALS: Ht 172.7 cm; Wt 91.7 kg
[2021-02-22] VITALS (11 sets, daily range): BP systolic 117–154; BP diastolic 62–100
[~2021-02-22 06:04] MED LIST changes: +POTA-207 PO; -POTA20TA19 PO
[2021-02-22] MEDS: albumin 25% 100mL bottle x 1 IV PRN ×2 (08:40→09:52)
== END 2021-02-22 11:00 | disposition home or self-care (01) ==
LOC: SSTAY O 06:04
PROVIDERS: ATTEND Preventive Medicine Aerospace Medicine
DX: R18.8 Other ascites (principal); K74.69 Other cirrhosis of liver; I11.0 Hypertensive heart disease with heart failure; I50.20 Unspecified systolic (congestive) heart failure; F15.90 Other stimulant use, unspecified, uncomplicated; E78.5 Hyperlipidemia, unspecified; F17.210 Nicotine dependence, cigarettes, uncomplicated; Z86.19 Personal history of other infectious and parasitic diseases; Z79.899 Other long term (current) drug therapy
CPT/HCPCS: 49083; P9047

== ENCOUNTER 2021-03-01 08:43 | Day surgery (SDC) | payer MEDICAID ==
[2021-03-01] VITALS (10 sets, daily range): BP systolic 121–148; BP diastolic 61–96
[~2021-03-01] VITALS: Ht 172.7 cm; Wt 92.8 kg
[2021-03-01] MEDS ORDERED: LIDOcaine 1% 30ml preserv. free vial IJ STA (09:06)
[2021-03-01] MEDS ORDERED: normal saline 1000ml 1,000 ML IV PRN (09:10)
[2021-03-01] MEDS: albumin 25% 100mL bottle x 1 IV PRN ×2 (10:28→10:54)
== END 2021-03-01 12:30 | disposition home or self-care (01) ==
LOC: SSTAY O 08:43
PROVIDERS: ATTEND Radiology Vascular & Interventional Radiology
DX: R18.8 Other ascites (principal); R14.0 Abdominal distension (gaseous); K74.60 Unspecified cirrhosis of liver; E78.5 Hyperlipidemia, unspecified; I11.0 Hypertensive heart disease with heart failure; I50.20 Unspecified systolic (congestive) heart failure; F15.90 Other stimulant use, unspecified, uncomplicated; F17.210 Nicotine dependence, cigarettes, uncomplicated; Z79.899 Other long term (current) drug therapy; Z86.19 Personal history of other infectious and parasitic diseases
CPT/HCPCS: 49083; P9047

== ENCOUNTER 2021-03-08 05:46 | Day surgery (SDC) | payer MEDICAID ==
[~2021-03-08] VITALS: Ht 172.7 cm; Wt 93.4 kg
[2021-03-08] VITALS (11 sets, daily range): BP systolic 111–161; BP diastolic 67–103
[2021-03-08] MEDS ORDERED: normal saline 1000ml 1,000 ML IV PRN (06:10)
[2021-03-08] MEDS ORDERED: LIDOcaine 1% 30ml preserv. free vial IJ STA (06:32)
[2021-03-08] MEDS: albumin 25% 100mL bottle x 1 IV PRN ×3 (08:38→10:11)
== END 2021-03-08 11:10 | disposition home or self-care (01) ==
LOC: SSTAY O 05:46
PROVIDERS: ATTEND Radiology Vascular & Interventional Radiology
DX: R18.8 Other ascites (principal); R14.0 Abdominal distension (gaseous); I11.0 Hypertensive heart disease with heart failure; I50.20 Unspecified systolic (congestive) heart failure; E78.5 Hyperlipidemia, unspecified; F17.210 Nicotine dependence, cigarettes, uncomplicated; F15.90 Other stimulant use, unspecified, uncomplicated; Z86.19 Personal history of other infectious and parasitic diseases; Z79.899 Other long term (current) drug therapy
CPT/HCPCS: 49083; P9047

== ENCOUNTER 2021-03-15 05:51 | Day surgery (SDC) | payer MEDICAID ==
[2021-03-15] VITALS (9 sets, daily range): BP systolic 130–170; BP diastolic 77–98
[~2021-03-15] VITALS: Ht 172.7 cm; Wt 93.4 kg
[2021-03-15] MEDS ORDERED: LIDOcaine 1% 30ml preserv. free vial SQ STA (06:05)
[2021-03-15] MEDS: albumin 25% 100mL bottle x 1 IV PRN ×2 (06:21→06:22)
== END 2021-03-15 10:15 | disposition home or self-care (01) ==
LOC: SSTAY O 05:51
PROVIDERS: ATTEND Preventive Medicine Aerospace Medicine
DX: R18.8 Other ascites (principal); R14.0 Abdominal distension (gaseous); K74.69 Other cirrhosis of liver; I11.0 Hypertensive heart disease with heart failure; I50.20 Unspecified systolic (congestive) heart failure; E78.5 Hyperlipidemia, unspecified; F15.90 Other stimulant use, unspecified, uncomplicated; F17.210 Nicotine dependence, cigarettes, uncomplicated; Z79.899 Other long term (current) drug therapy
CPT/HCPCS: 49083; J2001; P9047

== ENCOUNTER 2021-03-25 06:20 | Day surgery (SDC) | payer MEDICAID ==
[~2021-03-25] VITALS: Ht 172.7 cm; Wt 97.1 kg
[2021-03-25] VITALS (11 sets, daily range): BP systolic 129–170; BP diastolic 75–103
[2021-03-25] MEDS ORDERED: LIDOcaine 1% 30ml preserv. free vial SQ STA (06:48)
[2021-03-25] MEDS ORDERED: normal saline 1000ml 1,000 ML IV PRN (06:50)
[2021-03-25] MEDS: albumin 25% 100mL bottle x 1 IV PRN ×2 (08:27→09:07)
--- NOTE | 2021-03-25 08:53 | NUR ---
Pt resting in bed with eyes closed, VS stable as charted. Draining from paracentesis and albumin infusing as ordered.
--- NOTE | 2021-03-25 10:04 | NUR ---
Pt albumin infusion complete. Pt sitting up in bed. VS stable as charted. Pt waiting for breakfast to arrive.
--- NOTE | 2021-03-25 10:27 | NUR ---
Pt sitting up in bed eat breakfast
== END 2021-03-25 10:45 | disposition home or self-care (01) ==
LOC: SSTAY O 06:20
PROVIDERS: ATTEND Preventive Medicine Aerospace Medicine
DX: R18.8 Other ascites (principal); R14.0 Abdominal distension (gaseous); I11.0 Hypertensive heart disease with heart failure; I50.20 Unspecified systolic (congestive) heart failure; F12.90 Cannabis use, unspecified, uncomplicated; E78.5 Hyperlipidemia, unspecified; F17.210 Nicotine dependence, cigarettes, uncomplicated; F15.90 Other stimulant use, unspecified, uncomplicated; Z72.89 Other problems related to lifestyle; Z86.19 Personal history of other infectious and parasitic diseases; Z79.899 Other long term (current) drug therapy
CPT/HCPCS: 49083; P9047

== ENCOUNTER 2021-04-01 05:51 | Day surgery (SDC) | payer MEDICAID ==
[~2021-04-01] VITALS: Ht 172.7 cm; Wt 96.2 kg
[2021-04-01] VITALS (8 sets, daily range): BP systolic 112–158; BP diastolic 60–103
[2021-04-01] MEDS ORDERED: LIDOcaine 1% 30ml preserv. free vial SQ STA (06:08)
[2021-04-01] MEDS: albumin 25% 100mL bottle x 1 IV PRN ×2 (08:27→09:04)
--- NOTE | 2021-04-01 09:34 | NUR ---
Pt sitting up in bed eating breakfast tray, watching TV.
== END 2021-04-01 10:05 | disposition home or self-care (01) ==
LOC: SSTAY O 05:51
PROVIDERS: ATTEND Preventive Medicine Aerospace Medicine
DX: R18.8 Other ascites (principal); R14.0 Abdominal distension (gaseous); K74.60 Unspecified cirrhosis of liver; I11.0 Hypertensive heart disease with heart failure; I50.9 Heart failure, unspecified; E78.5 Hyperlipidemia, unspecified; F15.90 Other stimulant use, unspecified, uncomplicated; F17.210 Nicotine dependence, cigarettes, uncomplicated; Z86.19 Personal history of other infectious and parasitic diseases; Z79.899 Other long term (current) drug therapy
CPT/HCPCS: 49083; J3490; P9047

== ENCOUNTER 2021-04-08 05:49 | Day surgery (SDC) | payer MEDICAID ==
[~2021-04-08] VITALS: Ht 172.7 cm; Wt 98.6 kg
[2021-04-08] VITALS (11 sets, daily range): BP systolic 124–156; BP diastolic 62–98
[2021-04-08] MEDS ORDERED: LIDOcaine 1% 30ml preserv. free vial SQ STA ×2 (06:26→09:01)
[2021-04-08] MEDS: albumin 25% 100mL bottle x 1 IV PRN ×2 (09:06→09:45)
--- NOTE | 2021-04-08 09:55 | NUR ---
Pt sitting up in bed, eating breakfast tray. 350ml oral fluid intake. IV fluids running as ordered.
== END 2021-04-08 11:05 | disposition home or self-care (01) ==
LOC: SSTAY O 05:49
PROVIDERS: ATTEND Preventive Medicine Aerospace Medicine
DX: R18.8 Other ascites (principal); R14.0 Abdominal distension (gaseous); K74.60 Unspecified cirrhosis of liver; I11.0 Hypertensive heart disease with heart failure; I50.20 Unspecified systolic (congestive) heart failure; F15.90 Other stimulant use, unspecified, uncomplicated; E78.5 Hyperlipidemia, unspecified; F17.210 Nicotine dependence, cigarettes, uncomplicated; Z79.899 Other long term (current) drug therapy
CPT/HCPCS: 49083; P9047

== ENCOUNTER 2021-04-15 05:49 | Day surgery (SDC) | payer MEDICAID ==
[~2021-04-15] VITALS: Ht 172.7 cm; Wt 94.9 kg
[2021-04-15] VITALS (8 sets, daily range): BP systolic 135–162; BP diastolic 70–105
[2021-04-15] MEDS: albumin 25% 100mL bottle x 1 IV PRN ×2 (08:25→08:58)
== END 2021-04-15 10:30 | disposition home or self-care (01) ==
LOC: SSTAY O 05:49
PROVIDERS: ATTEND Radiology Diagnostic Radiology
DX: R18.8 Other ascites (principal); R14.0 Abdominal distension (gaseous); I11.0 Hypertensive heart disease with heart failure; I50.20 Unspecified systolic (congestive) heart failure; F15.90 Other stimulant use, unspecified, uncomplicated; E78.5 Hyperlipidemia, unspecified; Z86.19 Personal history of other infectious and parasitic diseases; F17.210 Nicotine dependence, cigarettes, uncomplicated; Z79.899 Other long term (current) drug therapy
CPT/HCPCS: 49083; P9047

== ENCOUNTER 2021-04-23 06:16 | Day surgery (SDC) | payer MEDICAID ==
[2021-04-23] VITALS (10 sets, daily range): BP systolic 125–163; BP diastolic 68–112
[~2021-04-23] VITALS: Ht 172.7 cm; Wt 91.0 kg
[2021-04-23] MEDS ORDERED: LIDOcaine 1% 30ml preserv. free vial SQ STA (06:38)
[2021-04-23] MEDS ORDERED: normal saline 1000ml 1,000 ML IV PRN (06:40)
[2021-04-23] MEDS: albumin 25% 100mL bottle x 1 IV PRN ×2 (08:46→09:26)
== END 2021-04-23 10:55 | disposition home or self-care (01) ==
LOC: SSTAY O 06:16
PROVIDERS: ATTEND Radiology Diagnostic Radiology
DX: R18.8 Other ascites (principal); R14.0 Abdominal distension (gaseous); I11.0 Hypertensive heart disease with heart failure; I50.20 Unspecified systolic (congestive) heart failure; E78.5 Hyperlipidemia, unspecified; F15.90 Other stimulant use, unspecified, uncomplicated; F17.210 Nicotine dependence, cigarettes, uncomplicated; Z86.19 Personal history of other infectious and parasitic diseases
CPT/HCPCS: 49083; P9047

== ENCOUNTER 2021-05-03 06:29 | Day surgery (SDC) | payer MEDICAID ==
[2021-05-03] VITALS (13 sets, daily range): BP systolic 136–161; BP diastolic 70–110
[~2021-05-03] VITALS: Ht 172.7 cm; Wt 91.6 kg
[2021-05-03] MEDS ORDERED: LIDOcaine 1% 30ml preserv. free vial IJ STA (07:10)
[2021-05-03] MEDS: albumin 25% 100mL bottle x 1 IV PRN (08:22)
== END 2021-05-03 10:40 | disposition home or self-care (01) ==
LOC: SSTAY O 06:29
PROVIDERS: ATTEND Radiology Vascular & Interventional Radiology
DX: R18.8 Other ascites (principal); R14.0 Abdominal distension (gaseous); I11.0 Hypertensive heart disease with heart failure; I50.20 Unspecified systolic (congestive) heart failure; F12.90 Cannabis use, unspecified, uncomplicated; E78.5 Hyperlipidemia, unspecified; F17.210 Nicotine dependence, cigarettes, uncomplicated; Z86.19 Personal history of other infectious and parasitic diseases
CPT/HCPCS: 49083; J3490; P9047

== ENCOUNTER 2021-05-10 06:27 | Day surgery (SDC) | payer MEDICAID ==
[~2021-05-10] VITALS: Ht 172.7 cm; Wt 91.2 kg
[2021-05-10] VITALS (11 sets, daily range): BP systolic 110–162; BP diastolic 71–97
[2021-05-10] MEDS ORDERED: LIDOcaine 1% 30ml preserv. free vial SQ STA (07:49)
[2021-05-10] MEDS: albumin 25% 100mL bottle x 1 IV PRN ×2 (08:30→09:36)
== END 2021-05-10 11:05 | disposition home or self-care (01) ==
LOC: SSTAY O 06:27
PROVIDERS: ATTEND Radiology Vascular & Interventional Radiology
DX: R18.8 Other ascites (principal); R14.0 Abdominal distension (gaseous); I11.0 Hypertensive heart disease with heart failure; I50.20 Unspecified systolic (congestive) heart failure; E78.5 Hyperlipidemia, unspecified; F15.90 Other stimulant use, unspecified, uncomplicated; Z86.19 Personal history of other infectious and parasitic diseases; F17.210 Nicotine dependence, cigarettes, uncomplicated; Z79.899 Other long term (current) drug therapy
CPT/HCPCS: 49083; P9047

== ENCOUNTER 2021-05-17 06:05 | Day surgery (SDC) | payer MEDICAID ==
[~2021-05-17] VITALS: Ht 172.7 cm; Wt 93.1 kg
[2021-05-17] VITALS (7 sets, daily range): BP systolic 126–160; BP diastolic 67–95
[2021-05-17] MEDS ORDERED: albumin 25% 100mL bottle x 1 IV PRN (06:25)
[2021-05-17] MEDS: albumin 25% 100mL bottle x 1 IV PRN ×2 (09:07→09:53)
== END 2021-05-17 10:50 | disposition home or self-care (01) ==
LOC: SSTAY O 06:05
PROVIDERS: ATTEND Preventive Medicine Aerospace Medicine
DX: R18.8 Other ascites (principal); R14.0 Abdominal distension (gaseous); I11.0 Hypertensive heart disease with heart failure; I50.20 Unspecified systolic (congestive) heart failure; E78.5 Hyperlipidemia, unspecified; F17.210 Nicotine dependence, cigarettes, uncomplicated; F15.90 Other stimulant use, unspecified, uncomplicated; Z86.19 Personal history of other infectious and parasitic diseases; Z79.899 Other long term (current) drug therapy
CPT/HCPCS: 49083; P9047

== ENCOUNTER 2021-05-24 06:02 | Day surgery (SDC) | payer MEDICAID ==
[~2021-05-24] VITALS: Ht 172.7 cm; Wt 92.4 kg
[2021-05-24] VITALS (8 sets, daily range): BP systolic 130–158; BP diastolic 68–96
[2021-05-24] MEDS ORDERED: LIDOcaine 1% 30ml preserv. free vial SQ STA (06:28)
[2021-05-24] MEDS: albumin 25% 100mL bottle x 1 IV PRN ×2 (08:27→09:04)
== END 2021-05-24 10:21 | disposition home or self-care (01) ==
LOC: SSTAY O 06:02
PROVIDERS: ATTEND Preventive Medicine Aerospace Medicine
DX: R18.8 Other ascites (principal); R14.0 Abdominal distension (gaseous); I11.0 Hypertensive heart disease with heart failure; I50.20 Unspecified systolic (congestive) heart failure; E78.5 Hyperlipidemia, unspecified; F15.90 Other stimulant use, unspecified, uncomplicated; F17.210 Nicotine dependence, cigarettes, uncomplicated; Z86.19 Personal history of other infectious and parasitic diseases
CPT/HCPCS: 49083; J3490; P9047

== ENCOUNTER 2021-05-25 15:01 | Emergency (ER) | payer MEDICAID ==
[~2021-05-25] VITALS: Ht 172.7 cm; Wt 84.0 kg
[2021-05-25 15:34] LABS: BASOPHILS # (AUTO) 0.1 X10'3 (0-0.2); BASOPHILS % (AUTO) 0.9 % (0-1); EOSINOPHILS # (AUTO) 0.8 X10'3 (0-0.9); EOSINOPHILS % (AUTO) 11.4 % (0-6); HEMATOCRIT 39.7 % (42.0-52.0); HEMOGLOBIN 13.9 g/dl (14.0-17.9); LYMPHOCYTES # (AUTO) 0.5 X10'3 (1.1-4.8); LYMPHOCYTES % (AUTO) 6.4 % (21-51); MEAN CORPUSCULAR VOLUME 88.5 FL (78-98); MEAN PLATELET VOLUME 6.7 FL (7.4-10.4); MONOCYTES # (AUTO) 0.7 X10'3 (0-0.9); MONOCYTES % (AUTO) 9.2 % (2-12); NEUTROPHILS # (AUTO) 5.4 X10'3 (1.8-7.7); NEUTROPHILS % (AUTO) 72.1 % (42-75); PLATELET COUNT 160 X10'3 (140-440); RED BLOOD COUNT 4.48 X10'6 (4.70-6.10); RED CELL DISTRIBUTION WIDTH 14.3 % (11.5-14.5); WHITE BLOOD COUNT 7.4 X10'3 (4.5-11.0)
[2021-05-25 15:49] LABS: ALANINE AMINOTRANSFERASE 26 U/L (12-78); ALBUMIN 2.8 G/DL (3.4-5.0); ALBUMIN/GLOBULIN RATIO 0.7 (1.1-1.5); ALKALINE PHOSPHATASE 100 IU/L (46-116); ANION GAP 3 (8-16); ASPARTATE AMINO TRANSFERASE 33 U/L (10-37); BLOOD UREA NITROGEN 13 MG/DL (7-18); BUN/CREATININE RATIO 15.7 (5.4-32.0); CALCIUM 8.5 MG/DL (8.5-10.1); CHLORIDE 103 MMOL/L (99-107); CREATININE 0.83 MG/DL (0.60-1.10); GLUCOSE 110 MG/DL (70-104); LIPASE 97 U/L (73-393); POTASSIUM 3.9 MMOL/L (3.5-5.1); SODIUM 138 MMOL/L (135-145); TOTAL PROTEIN 6.6 G/DL (6.4-8.2); eGFR > 90 ML/MIN
[2021-05-25] MEDS ORDERED: morphine 4 MG/ML inj SYRINge IV ONE (16:05)
[2021-05-25 18:27] VITALS: BP 185/91
== END 2021-05-25 18:28 | disposition home or self-care (01) ==
LOC: ER 15:02
DX: K42.9 Umbilical hernia without obstruction or gangrene (principal); R18.8 Other ascites; K74.60 Unspecified cirrhosis of liver; I11.0 Hypertensive heart disease with heart failure; E11.9 Type 2 diabetes mellitus without complications; F12.10 Cannabis abuse, uncomplicated; F15.10 Other stimulant abuse, uncomplicated
CPT/HCPCS: 36415; 74176; 80053; 83690; 85025; 96374; 99284; J2270

== ENCOUNTER 2021-05-31 06:11 | Day surgery (SDC) | payer MEDICAID ==
[2021-05-31] VITALS (8 sets, daily range): BP systolic 127–162; BP diastolic 74–102
[~2021-05-31] VITALS: Ht 172.7 cm; Wt 93.9 kg
[2021-05-31] MEDS ORDERED: LIDOcaine 1% 30ml preserv. free vial SQ STA (06:34)
[2021-05-31] MEDS: albumin 25% 100mL bottle x 1 IV PRN ×2 (08:20→09:15)
== END 2021-05-31 10:25 | disposition home or self-care (01) ==
LOC: SSTAY O 06:11
PROVIDERS: ATTEND Radiology Diagnostic Radiology
DX: R18.8 Other ascites (principal); R14.0 Abdominal distension (gaseous); I11.0 Hypertensive heart disease with heart failure; I50.20 Unspecified systolic (congestive) heart failure; F15.90 Other stimulant use, unspecified, uncomplicated; E78.5 Hyperlipidemia, unspecified; F12.90 Cannabis use, unspecified, uncomplicated; F17.210 Nicotine dependence, cigarettes, uncomplicated; Z86.19 Personal history of other infectious and parasitic diseases; Z79.899 Other long term (current) drug therapy
CPT/HCPCS: 49083; P9047

== ENCOUNTER 2021-06-07 06:04 | Day surgery (SDC) | payer MEDICAID ==
[~2021-06-07] VITALS: Ht 172.7 cm; Wt 95.1 kg
[2021-06-07] VITALS (11 sets, daily range): BP systolic 129–149; BP diastolic 65–97
[2021-06-07] MEDS ORDERED: famotidine 20mg tablet PO ONE (08:20)
[2021-06-07] MEDS: albumin 25% 100mL bottle x 1 IV PRN ×2 (08:27→08:33)
== END 2021-06-07 11:00 | disposition home or self-care (01) ==
LOC: SSTAY O 06:04
PROVIDERS: ATTEND Radiology Vascular & Interventional Radiology
DX: R18.8 Other ascites (principal); R14.0 Abdominal distension (gaseous); I11.0 Hypertensive heart disease with heart failure; I50.20 Unspecified systolic (congestive) heart failure; E78.5 Hyperlipidemia, unspecified; F15.90 Other stimulant use, unspecified, uncomplicated; F17.210 Nicotine dependence, cigarettes, uncomplicated; Z86.19 Personal history of other infectious and parasitic diseases; Z79.899 Other long term (current) drug therapy
CPT/HCPCS: 49083; P9047

== ENCOUNTER 2021-06-07 16:05 | Emergency (ER) | payer MEDICAID ==
[~2021-06-07] VITALS: Ht 172.7 cm; Wt 90.9 kg
[2021-06-07 16:07] VITALS: BP 156/122
== END 2021-06-07 16:35 | disposition home or self-care (01) ==
LOC: ER 16:05
DX: K42.9 Umbilical hernia without obstruction or gangrene (principal); R10.84 Generalized abdominal pain; F15.10 Other stimulant abuse, uncomplicated; I11.0 Hypertensive heart disease with heart failure; F32.9 Major depressive disorder, single episode, unspecified; E11.9 Type 2 diabetes mellitus without complications
CPT/HCPCS: 99283

== ENCOUNTER 2021-06-14 06:16 | Day surgery (SDC) | payer MEDICAID ==
[2021-06-14] VITALS (9 sets, daily range): BP systolic 137–165; BP diastolic 70–102
[~2021-06-14] VITALS: Ht 172.7 cm; Wt 95.8 kg
[2021-06-14] MEDS ORDERED: LIDOcaine 1% 30ml preserv. free vial IJ STA (06:32)
[2021-06-14] MEDS: albumin 25% 100mL bottle x 1 IV PRN ×2 (09:09→09:15)
== END 2021-06-14 10:41 | disposition home or self-care (01) ==
LOC: SSTAY O 06:16
PROVIDERS: ATTEND Radiology Vascular & Interventional Radiology
DX: R18.8 Other ascites (principal); R14.0 Abdominal distension (gaseous); K74.60 Unspecified cirrhosis of liver; I11.0 Hypertensive heart disease with heart failure; I50.20 Unspecified systolic (congestive) heart failure; E78.5 Hyperlipidemia, unspecified; F17.210 Nicotine dependence, cigarettes, uncomplicated; F15.90 Other stimulant use, unspecified, uncomplicated; Z86.19 Personal history of other infectious and parasitic diseases; Z79.899 Other long term (current) drug therapy
CPT/HCPCS: 49083; J3490; P9047

== ENCOUNTER 2021-06-25 06:09 | Day surgery (SDC) | payer MEDICAID ==
[2021-06-25] VITALS (8 sets, daily range): BP systolic 125–169; BP diastolic 71–95
[~2021-06-25] VITALS: Ht 172.7 cm; Wt 94.7 kg
[2021-06-25] MEDS ORDERED: albumin 25% 100mL bottle x 1 IV PRN (06:40)
[2021-06-25] MEDS ORDERED: CARV3.122 PO (06:48)
[2021-06-25] MEDS ORDERED: Clindamycin PO (06:51)
[2021-06-25] MEDS ORDERED: Bactrim PO (06:51)
[2021-06-25] MEDS ORDERED: LIDOcaine 1% 30ml preserv. free vial SQ STA (08:11)
== END 2021-06-25 10:55 | disposition home or self-care (01) ==
LOC: SSTAY O 06:09
PROVIDERS: ATTEND Radiology Vascular & Interventional Radiology
DX: R18.8 Other ascites (principal); R14.0 Abdominal distension (gaseous); I11.0 Hypertensive heart disease with heart failure; I50.20 Unspecified systolic (congestive) heart failure; E78.5 Hyperlipidemia, unspecified; F17.210 Nicotine dependence, cigarettes, uncomplicated; F15.10 Other stimulant abuse, uncomplicated
CPT/HCPCS: 49083; J3490; P9047

== ENCOUNTER 2021-06-26 02:59 | Emergency (ER) | payer MEDICAID ==
[~2021-06-26] VITALS: Ht 172.7 cm; Wt 90.9 kg
[~2021-06-26 02:59] MED LIST changes: +Bactrim PO; +Clindamycin PO
[2021-06-26 03:00] VITALS: BP 171/119
[2021-06-26] MEDS ORDERED: ondansetron/PF 4mg/2ml inj IV ONE (03:55)
[2021-06-26] MEDS ORDERED: morphine 4 MG/ML inj SYRINge IV PRN (03:55)
[2021-06-26] MEDS ORDERED: normal saline 1000ML IV soln IVB ONE (03:55)
[2021-06-26 04:54] LABS: URINE AMPHETAMINE SCREEN POSITIVE (Neg); URINE BARBITUATE SCREEN NEGATIVE (Neg); URINE BENZODIAZEPINES SCREEN NEGATIVE (Neg); URINE CANNABINOID SCREEN POSITIVE (Neg); URINE COCAINE SCREEN NEGATIVE (Neg); URINE METHADONE SCREEN NEGATIVE (Neg); URINE OPIATE SCREEN POSITIVE (Neg); URINE PHENCYCLIDINE SCREEN NEGATIVE (Neg)
[2021-06-26 05:07] LABS: CLARITY,URINE SLIGHTLY CLOUDY (Clear); GLUCOSE, URINE NEGATIVE (Neg); KETONES,URINE TRACE mg/dl (Neg); LEUKOCYTE ESTERASE ,URINE NEGATIVE (Neg); NITRITES, URINE NEGATIVE (Neg); OCCULT BLOOD,URINE NEGATIVE (Neg); PROTEIN,URINE NEGATIVE (Neg)
[2021-06-26 05:10] LABS: BASOPHILS % (AUTO) 0.5 % (0-1); EOSINOPHILS # (AUTO) 0.2 X10'3 (0-0.9); EOSINOPHILS % (AUTO) 2.5 % (0-6); HEMATOCRIT 39.3 % (42.0-52.0); HEMOGLOBIN 13.7 g/dl (14.0-17.9); LYMPHOCYTES # (AUTO) 0.3 X10'3 (1.1-4.8); LYMPHOCYTES % (AUTO) 3.8 % (21-51); MEAN CORPUSCULAR HEMOGLOBIN 30.8 PG (27.0-31.0); MEAN CORPUSCULAR HGB CONC 34.9 g/dL (33.0-36.5); MEAN CORPUSCULAR VOLUME 88.4 FL (78-98); MEAN PLATELET VOLUME 7.1 FL (7.4-10.4); MONOCYTES # (AUTO) 0.7 X10'3 (0-0.9); MONOCYTES % (AUTO) 8.8 % (2-12); NEUTROPHILS # (AUTO) 6.7 X10'3 (1.8-7.7); NEUTROPHILS % (AUTO) 84.4 % (42-75); PLATELET COUNT 178 X10'3 (140-440); RED BLOOD COUNT 4.45 X10'6 (4.70-6.10); RED CELL DISTRIBUTION WIDTH 13.4 % (11.5-14.5); WHITE BLOOD COUNT 7.9 X10'3 (4.5-11.0)
[2021-06-26 05:20] LABS: COLOR,URINE DARK YELLOW (Yellow); UA COLLECTION TYPE URINAL
[2021-06-26 05:21] LABS: ALANINE AMINOTRANSFERASE 21 U/L (12-78); ALBUMIN 2.5 G/DL (3.4-5.0); ALBUMIN/GLOBULIN RATIO 0.8 (1.1-1.5); ALKALINE PHOSPHATASE 104 IU/L (46-116); ANION GAP 5 (8-16); ASPARTATE AMINO TRANSFERASE 33 U/L (10-37); BILIRUBIN,TOTAL 0.9 MG/DL (0.1-1.0); BLOOD UREA NITROGEN 13 MG/DL (7-18); BUN/CREATININE RATIO 14.1 (5.4-32.0); CALCIUM 8.3 MG/DL (8.5-10.1); CHLORIDE 103 MMOL/L (99-107); CREATININE 0.92 MG/DL (0.60-1.10); GLUCOSE 120 MG/DL (70-104); LIPASE 58 U/L (73-393); POTASSIUM 4.2 MMOL/L (3.5-5.1); SODIUM 138 MMOL/L (135-145); TOTAL CARBON DIOXIDE 29.8 MMOL/L (24-32); TOTAL PROTEIN 5.8 G/DL (6.4-8.2); eGFR 85 ML/MIN
[2021-06-26 05:22] LABS: BACTERIA,URINE NONE SEEN /HPF (Neg); CAL OXALATE CRYSTALS 2+ /HPF (NEGATIVE); HYALINE CASTS 0-3 /LPF (NEGATIVE); MUCUS STRANDS MANY /LPF (Neg); RBC,URINE NONE SEEN /HPF (0-2); SQUAMOUS EPITHELIAL CELL,UR FEW /LPF (FEW); WBC,URINE 0-4 /HPF (0-4)
== END 2021-06-26 06:22 | disposition home or self-care (01) ==
LOC: ER 03:00
DX: K43.9 Ventral hernia without obstruction or gangrene (principal); K42.9 Umbilical hernia without obstruction or gangrene; K70.31 Alcoholic cirrhosis of liver with ascites; R10.84 Generalized abdominal pain; R20.0 Anesthesia of skin; I11.0 Hypertensive heart disease with heart failure; I50.9 Heart failure, unspecified; E11.9 Type 2 diabetes mellitus without complications; F32.A Depression, unspecified; F12.90 Cannabis use, unspecified, uncomplicated; Z86.19 Personal history of other infectious and parasitic diseases; Z98.890 Other specified postprocedural states; Z72.89 Other problems related to lifestyle; Z79.2 Long term (current) use of antibiotics; Z59.00 Homelessness unspecified; Z79.899 Other long term (current) drug therapy
CPT/HCPCS: 36415; 74176; 80053; 80305; 81001; 83605; 83690; 85025; 96374; 96375; 99284; J2270; J2405; J7030

== ENCOUNTER 2021-06-27 02:08 | Emergency (ER) | payer MEDICAID ==
[~2021-06-27] VITALS: Ht 170.2 cm; Wt 90.9 kg
[2021-06-27] MEDS ORDERED: ketorolac tromethamine 15mg/ml inj. IM ONE (02:15)
[2021-06-27 02:28] VITALS: BP 216/112
== END 2021-06-27 03:35 | disposition home or self-care (01) ==
LOC: ER 02:09
DX: K42.9 Umbilical hernia without obstruction or gangrene (principal); K43.9 Ventral hernia without obstruction or gangrene; I13.0 Hypertensive heart and chronic kidney disease with heart failure and stage 1 through stage 4 chronic kidney disease, or unspecified chronic kidney disease; E13.22 Other specified diabetes mellitus with diabetic chronic kidney disease; N18.9 Chronic kidney disease, unspecified; F32.9 Major depressive disorder, single episode, unspecified; F12.10 Cannabis abuse, uncomplicated
CPT/HCPCS: 96372; 99283; J1885

== ENCOUNTER 2021-07-12 14:05 | Emergency (ER) | payer MEDICAID ==
[~2021-07-12] VITALS: Ht 172.7 cm; Wt 81.0 kg
[2021-07-12 15:06] VITALS: BP 152/81
[2021-07-12] MEDS ORDERED: HYDROcodone/acetaminophen 10/325mg tab PO ONE (15:10)
[2021-07-12] MEDS ORDERED: HYDR-3973 PO (15:18)
== END 2021-07-12 15:45 | disposition home or self-care (01) ==
LOC: ER 14:06
DX: R10.9 Unspecified abdominal pain (principal); G89.18 Other acute postprocedural pain; I11.0 Hypertensive heart disease with heart failure; I50.9 Heart failure, unspecified; E11.9 Type 2 diabetes mellitus without complications; F32.A Depression, unspecified; F12.90 Cannabis use, unspecified, uncomplicated; Z86.19 Personal history of other infectious and parasitic diseases; Z98.890 Other specified postprocedural states; Z72.89 Other problems related to lifestyle; Z59.00 Homelessness unspecified; Z79.899 Other long term (current) drug therapy
CPT/HCPCS: 99283

== ENCOUNTER 2021-07-18 06:47 | Day surgery (SDC) | payer MEDICAID ==
[~2021-07-18] VITALS: Ht 172.7 cm; Wt 89.9 kg
[2021-07-18] VITALS (7 sets, daily range): BP systolic 141–172; BP diastolic 79–112
[~2021-07-18 06:47] MED LIST changes: +HYDR-3973 PO
[2021-07-18] MEDS ORDERED: HYDR-3972 PO (07:13)
[2021-07-18] MEDS ORDERED: LIDOcaine 1%/PF 5ML 10 MG/ML VIAL IJ ONE (08:15)
[2021-07-18] MEDS: albumin 25% 100mL bottle x 1 IV PRN ×2 (09:00→10:02)
== END 2021-07-18 11:28 | disposition home or self-care (01) ==
LOC: SSTAY O 06:47
PROVIDERS: ATTEND Preventive Medicine Aerospace Medicine
DX: R18.8 Other ascites (principal); R14.0 Abdominal distension (gaseous); K74.60 Unspecified cirrhosis of liver; I11.0 Hypertensive heart disease with heart failure; I50.20 Unspecified systolic (congestive) heart failure; F15.90 Other stimulant use, unspecified, uncomplicated; E78.5 Hyperlipidemia, unspecified; F17.210 Nicotine dependence, cigarettes, uncomplicated; Z79.899 Other long term (current) drug therapy; Z86.19 Personal history of other infectious and parasitic diseases
CPT/HCPCS: 49083; J3490; P9047

== ENCOUNTER 2021-07-24 05:38 | Emergency (ER) | payer MEDICAID ==
[~2021-07-24] VITALS: Ht 172.7 cm; Wt 88.0 kg
[~2021-07-24 05:38] MED LIST changes: -Bactrim PO; -CARV3.122 PO; -Clindamycin PO; +HYDR-3972 PO; -HYDR-3973 PO
[2021-07-24 05:46] VITALS: BP 181/105
== END 2021-07-24 06:05 | disposition home or self-care (01) ==
LOC: ER 05:39
DX: Z48.02 Encounter for removal of sutures (principal); I11.0 Hypertensive heart disease with heart failure; I50.9 Heart failure, unspecified; F32.A Depression, unspecified; E11.9 Type 2 diabetes mellitus without complications; F12.90 Cannabis use, unspecified, uncomplicated; Z86.19 Personal history of other infectious and parasitic diseases; Z98.890 Other specified postprocedural states; Z72.89 Other problems related to lifestyle; Z59.00 Homelessness unspecified; Z79.899 Other long term (current) drug therapy
CPT/HCPCS: 99281

== ENCOUNTER 2021-07-25 05:43 | Day surgery (SDC) | payer MEDICAID ==
[~2021-07-25] VITALS: Ht 172.7 cm; Wt 88.9 kg
[2021-07-25 06:30] VITALS: BP 157/104
[2021-07-25] MEDS ORDERED: albumin 25% 100mL bottle x 1 IV PRN (06:40)
[2021-07-25] MEDS ORDERED: LIDOcaine 1%/PF 5ML 10 MG/ML VIAL SQ ONE (07:40)
[2021-07-25 08:43] VITALS: BP 147/81
[2021-07-25 08:58] VITALS: BP 159/75
[2021-07-25 09:13] VITALS: BP 130/74
[2021-07-25 09:28] VITALS: BP 140/71
== END 2021-07-25 09:35 | disposition home or self-care (01) ==
LOC: SSTAY O 05:43
PROVIDERS: ATTEND Preventive Medicine Aerospace Medicine
DX: R18.8 Other ascites (principal); R14.0 Abdominal distension (gaseous); I11.0 Hypertensive heart disease with heart failure; I50.20 Unspecified systolic (congestive) heart failure; F15.90 Other stimulant use, unspecified, uncomplicated; Z86.19 Personal history of other infectious and parasitic diseases; E78.5 Hyperlipidemia, unspecified; F17.210 Nicotine dependence, cigarettes, uncomplicated; Z98.890 Other specified postprocedural states; Z79.899 Other long term (current) drug therapy
CPT/HCPCS: 49083; P9047

== ENCOUNTER 2021-07-26 13:39 | Emergency (ER) | payer MEDICAID ==
[~2021-07-26] VITALS: Ht 172.7 cm; Wt 88.0 kg
[2021-07-26 13:51] VITALS: BP 173/104
--- NOTE | 2021-07-26 16:30 | NUR ---
WOUND CLEANED WITH 100ML NACL, PACKED WITH STERILE GAUZ AND DRESSED. PT EDUCATION GIVEN ON WOUND CARE. PT UNDERSTOOD WITH RETURN DEMO.
== END 2021-07-26 16:33 | disposition home or self-care (01) ==
LOC: ER 13:40
DX: T81.89XA Other complications of procedures, not elsewhere classified, initial encounter (principal); I11.0 Hypertensive heart disease with heart failure; E11.9 Type 2 diabetes mellitus without complications; F32.9 Major depressive disorder, single episode, unspecified; F12.10 Cannabis abuse, uncomplicated
CPT/HCPCS: 99281

== ENCOUNTER 2021-08-01 06:19 | Day surgery (SDC) | payer MEDICAID ==
[2021-08-01] VITALS (8 sets, daily range): BP systolic 132–161; BP diastolic 75–106
[~2021-08-01] VITALS: Ht 172.7 cm; Wt 90.7 kg
[2021-08-01] MEDS ORDERED: CARV3.122 PO (07:35)
[2021-08-01] MEDS ORDERED: LIDOcaine 1%/PF 5ML 10 MG/ML VIAL SQ ONE (07:40)
[2021-08-01] MEDS: albumin 25% 100mL bottle x 1 IV PRN ×2 (08:58→09:32)
== END 2021-08-01 09:50 | disposition home or self-care (01) ==
LOC: SSTAY O 06:19
PROVIDERS: ATTEND Preventive Medicine Aerospace Medicine
DX: R18.8 Other ascites (principal); R14.0 Abdominal distension (gaseous); I11.0 Hypertensive heart disease with heart failure; I50.20 Unspecified systolic (congestive) heart failure; F17.210 Nicotine dependence, cigarettes, uncomplicated; F15.90 Other stimulant use, unspecified, uncomplicated; E78.5 Hyperlipidemia, unspecified; Z86.19 Personal history of other infectious and parasitic diseases; Z98.890 Other specified postprocedural states; Z79.899 Other long term (current) drug therapy
CPT/HCPCS: 49083; J3490; P9047

== ENCOUNTER 2021-08-08 05:48 | Day surgery (SDC) | payer MEDICAID ==
[~2021-08-08] VITALS: Ht 172.7 cm; Wt 92.9 kg
[2021-08-08] VITALS (11 sets, daily range): BP systolic 117–156; BP diastolic 65–93
[~2021-08-08 05:48] MED LIST changes: +CARV3.122 PO
[2021-08-08] MEDS ORDERED: albumin 25% 100mL bottle x 1 IV PRN (06:15)
[2021-08-08] MEDS ORDERED: LIDOcaine 1%/PF 5ML 10 MG/ML VIAL SQ ONE (06:25)
== END 2021-08-08 10:30 | disposition home or self-care (01) ==
LOC: SSTAY O 05:48
PROVIDERS: ATTEND Radiology Vascular & Interventional Radiology
DX: R18.8 Other ascites (principal); R14.0 Abdominal distension (gaseous); I11.0 Hypertensive heart disease with heart failure; I50.20 Unspecified systolic (congestive) heart failure; E78.5 Hyperlipidemia, unspecified; F17.210 Nicotine dependence, cigarettes, uncomplicated; Z86.19 Personal history of other infectious and parasitic diseases; F15.90 Other stimulant use, unspecified, uncomplicated; Z98.890 Other specified postprocedural states; Z79.899 Other long term (current) drug therapy
CPT/HCPCS: 49083; J3490; P9047

== ENCOUNTER 2021-08-15 06:08 | Day surgery (SDC) | payer MEDICAID ==
[~2021-08-15] VITALS: Ht 172.7 cm; Wt 93.3 kg
[2021-08-15] VITALS (9 sets, daily range): BP systolic 146–163; BP diastolic 79–106
[2021-08-15] MEDS ORDERED: LIDOcaine 1%/PF 5ML 10 MG/ML VIAL IJ ONE (06:15)
[2021-08-15] MEDS: albumin 25% 100mL bottle x 1 IV PRN ×2 (08:24→09:17)
== END 2021-08-15 10:45 | disposition home or self-care (01) ==
LOC: SSTAY O 06:08
PROVIDERS: ATTEND Radiology Vascular & Interventional Radiology
DX: R18.8 Other ascites (principal); R14.0 Abdominal distension (gaseous); I11.0 Hypertensive heart disease with heart failure; I50.20 Unspecified systolic (congestive) heart failure; E78.5 Hyperlipidemia, unspecified; F17.210 Nicotine dependence, cigarettes, uncomplicated; F15.90 Other stimulant use, unspecified, uncomplicated; Z86.19 Personal history of other infectious and parasitic diseases; Z98.890 Other specified postprocedural states; Z79.899 Other long term (current) drug therapy
CPT/HCPCS: 49083; P9047

== ENCOUNTER 2021-08-22 06:06 | Day surgery (SDC) | payer MEDICAID ==
[2021-08-22] VITALS (11 sets, daily range): BP systolic 139–161; BP diastolic 74–100
[~2021-08-22] VITALS: Ht 172.7 cm; Wt 90.0 kg
[2021-08-22] MEDS ORDERED: LIDOcaine 1%/PF 5ML 10 MG/ML VIAL SQ ONE (06:20)
[2021-08-22] MEDS: albumin 25% 100mL bottle x 1 IV PRN ×2 (08:52→09:04)
== END 2021-08-22 10:55 | disposition home or self-care (01) ==
LOC: SSTAY O 06:06
PROVIDERS: ATTEND Radiology Vascular & Interventional Radiology
DX: R18.8 Other ascites (principal); R14.0 Abdominal distension (gaseous); I11.0 Hypertensive heart disease with heart failure; I50.9 Heart failure, unspecified; F15.90 Other stimulant use, unspecified, uncomplicated; E78.5 Hyperlipidemia, unspecified; F17.210 Nicotine dependence, cigarettes, uncomplicated; Z86.19 Personal history of other infectious and parasitic diseases; Z98.890 Other specified postprocedural states; Z79.899 Other long term (current) drug therapy
CPT/HCPCS: 49083; J3490; P9047

== ENCOUNTER 2021-08-29 06:19 | Day surgery (SDC) | payer MEDICAID ==
[2021-08-29] VITALS (8 sets, daily range): BP systolic 140–161; BP diastolic 77–99
[~2021-08-29] VITALS: Ht 172.7 cm; Wt 90.4 kg
[2021-08-29] MEDS ORDERED: LIDOcaine 1%/PF 5ML 10 MG/ML VIAL SQ ONE (06:30)
[2021-08-29] MEDS ORDERED: normal saline 1000ml 1,000 ML IV PRN (06:35)
[2021-08-29] MEDS: albumin 25% 100mL bottle x 1 IV PRN ×3 (06:57→10:04)
== END 2021-08-29 11:08 | disposition home or self-care (01) ==
LOC: SSTAY O 06:19
PROVIDERS: ATTEND Radiology Diagnostic Radiology
DX: R18.8 Other ascites (principal); R14.0 Abdominal distension (gaseous); I11.0 Hypertensive heart disease with heart failure; I50.20 Unspecified systolic (congestive) heart failure; E78.5 Hyperlipidemia, unspecified; F17.210 Nicotine dependence, cigarettes, uncomplicated; F12.90 Cannabis use, unspecified, uncomplicated; Z86.19 Personal history of other infectious and parasitic diseases; Z98.890 Other specified postprocedural states; Z79.899 Other long term (current) drug therapy
CPT/HCPCS: 49083; J3490; P9047

== ENCOUNTER 2021-09-05 05:43 | Day surgery (SDC) | payer MEDICAID ==
[2021-09-05] VITALS (9 sets, daily range): BP systolic 115–145; BP diastolic 60–82
[~2021-09-05] VITALS: Ht 172.7 cm; Wt 90.9 kg
[~2021-09-05 05:43] MED LIST changes: -CARV3.122 PO
[2021-09-05] MEDS ORDERED: LIDOcaine 1%/PF 5ML 10 MG/ML VIAL SQ ONE (06:20)
[2021-09-05] MEDS: albumin 25% 100mL bottle x 1 IV PRN (08:40)
== END 2021-09-05 10:20 | disposition home or self-care (01) ==
LOC: SSTAY O 05:43
PROVIDERS: ATTEND Radiology Vascular & Interventional Radiology
DX: R18.8 Other ascites (principal); R14.0 Abdominal distension (gaseous); I11.0 Hypertensive heart disease with heart failure; I50.20 Unspecified systolic (congestive) heart failure; E78.5 Hyperlipidemia, unspecified; Z86.19 Personal history of other infectious and parasitic diseases; F15.90 Other stimulant use, unspecified, uncomplicated; F17.210 Nicotine dependence, cigarettes, uncomplicated; Z98.890 Other specified postprocedural states; Z79.899 Other long term (current) drug therapy
CPT/HCPCS: 49083; J3490; P9047

== ENCOUNTER 2021-09-12 06:18 | Day surgery (SDC) | payer MEDICAID ==
[~2021-09-12] VITALS: Ht 160 cm; Wt 93.5 kg
[2021-09-12] VITALS (12 sets, daily range): BP systolic 111–156; BP diastolic 69–96
[2021-09-12] MEDS ORDERED: LIDOcaine 1%/PF 5ML 10 MG/ML VIAL SQ ONE (07:25)
[2021-09-12] MEDS: albumin 25% 100mL bottle x 1 IV PRN ×2 (08:24→08:25)
== END 2021-09-12 11:35 | disposition home or self-care (01) ==
LOC: SSTAY O 06:18
PROVIDERS: ATTEND Radiology Vascular & Interventional Radiology
DX: R18.8 Other ascites (principal); R14.0 Abdominal distension (gaseous); I11.0 Hypertensive heart disease with heart failure; I50.20 Unspecified systolic (congestive) heart failure; E78.5 Hyperlipidemia, unspecified; F17.210 Nicotine dependence, cigarettes, uncomplicated; F15.90 Other stimulant use, unspecified, uncomplicated; Z86.19 Personal history of other infectious and parasitic diseases; Z98.890 Other specified postprocedural states; Z79.899 Other long term (current) drug therapy
CPT/HCPCS: 49083; J3490; P9047

== ENCOUNTER 2021-09-18 07:28 | Day surgery (SDC) | payer MEDICAID ==
[~2021-09-18] VITALS: Ht 172.7 cm; Wt 94.3 kg
[2021-09-18 08:00] VITALS: BP 141/93
[2021-09-18] MEDS ORDERED: LIDOcaine 1% 30ml preserv. free vial SQ STA (08:05)
[2021-09-18] MEDS: albumin 25% 100mL bottle x 1 IV PRN ×2 (10:55→11:57)
[2021-09-18 11:15] VITALS: BP 147/91
[2021-09-18 11:30] VITALS: BP 169/81
[2021-09-18 11:45] VITALS: BP 156/83
[2021-09-18 12:00] VITALS: BP 151/86
== END 2021-09-18 12:35 | disposition home or self-care (01) ==
LOC: SSTAY O 07:28
PROVIDERS: ATTEND Radiology Vascular & Interventional Radiology
DX: R18.8 Other ascites (principal); I11.0 Hypertensive heart disease with heart failure; I50.20 Unspecified systolic (congestive) heart failure; F15.90 Other stimulant use, unspecified, uncomplicated; E78.5 Hyperlipidemia, unspecified; F17.210 Nicotine dependence, cigarettes, uncomplicated; Z86.19 Personal history of other infectious and parasitic diseases; Z98.890 Other specified postprocedural states; Z79.899 Other long term (current) drug therapy
CPT/HCPCS: 49083; J3490; P9047

== ENCOUNTER 2021-09-26 06:50 | Day surgery (SDC) | payer MEDICAID ==
[~2021-09-26] VITALS: Ht 172.7 cm; Wt 97.3 kg
[2021-09-26] VITALS (11 sets, daily range): BP systolic 141–157; BP diastolic 71–101
[~2021-09-26 06:50] MED LIST changes: +LIDOcaine 1%/PF 5ML 10 MG/ML VIAL IJ ONE
[2021-09-26] MEDS: albumin 25% 100mL bottle x 1 IV PRN ×2 (10:37→10:38)
== END 2021-09-26 11:55 | disposition home or self-care (01) ==
LOC: SSTAY O 06:50
PROVIDERS: ATTEND Radiology Vascular & Interventional Radiology
DX: R18.8 Other ascites (principal); I11.0 Hypertensive heart disease with heart failure; I50.20 Unspecified systolic (congestive) heart failure; E78.5 Hyperlipidemia, unspecified; F15.90 Other stimulant use, unspecified, uncomplicated; F17.210 Nicotine dependence, cigarettes, uncomplicated; Z86.19 Personal history of other infectious and parasitic diseases; Z98.890 Other specified postprocedural states; Z79.899 Other long term (current) drug therapy
CPT/HCPCS: 49083; J3490; P9047

== ENCOUNTER 2021-10-03 06:39 | Day surgery (SDC) | payer MEDICAID ==
[2021-10-03] VITALS (7 sets, daily range): BP systolic 133–159; BP diastolic 69–97
[~2021-10-03] VITALS: Ht 172.7 cm; Wt 93.3 kg
[~2021-10-03 06:39] MED LIST changes: -LIDOcaine 1%/PF 5ML 10 MG/ML VIAL IJ ONE
[2021-10-03] MEDS ORDERED: LIDOcaine 1%/PF 5ML 10 MG/ML VIAL SQ ONE (07:05)
[2021-10-03] MEDS: albumin 25% 100mL bottle x 1 IV PRN ×2 (08:41→09:59)
== END 2021-10-03 10:35 | disposition home or self-care (01) ==
LOC: SSTAY O 06:39
PROVIDERS: ATTEND Radiology Vascular & Interventional Radiology
DX: R18.8 Other ascites (principal); R14.0 Abdominal distension (gaseous); K74.60 Unspecified cirrhosis of liver; I11.0 Hypertensive heart disease with heart failure; I50.20 Unspecified systolic (congestive) heart failure; E78.5 Hyperlipidemia, unspecified; F15.90 Other stimulant use, unspecified, uncomplicated; F17.210 Nicotine dependence, cigarettes, uncomplicated; Z86.19 Personal history of other infectious and parasitic diseases; Z98.890 Other specified postprocedural states; Z79.899 Other long term (current) drug therapy
CPT/HCPCS: 49083; J3490; P9047; Z7610; A6258

== ENCOUNTER 2021-10-11 05:56 | Day surgery (SDC) | payer MEDICAID ==
[2021-10-11] VITALS (8 sets, daily range): BP systolic 138–173; BP diastolic 74–109
[~2021-10-11] VITALS: Ht 172.7 cm; Wt 94.0 kg
[2021-10-11] MEDS: albumin 25% 100mL bottle x 1 IV PRN ×2 (08:36→09:15)
== END 2021-10-11 10:00 | disposition home or self-care (01) ==
LOC: SSTAY O 05:56
PROVIDERS: ATTEND Radiology Vascular & Interventional Radiology
DX: R18.8 Other ascites (principal); R14.0 Abdominal distension (gaseous); K74.60 Unspecified cirrhosis of liver; I11.0 Hypertensive heart disease with heart failure; I50.20 Unspecified systolic (congestive) heart failure; E78.5 Hyperlipidemia, unspecified; F17.210 Nicotine dependence, cigarettes, uncomplicated; F15.90 Other stimulant use, unspecified, uncomplicated; Z86.19 Personal history of other infectious and parasitic diseases; Z98.890 Other specified postprocedural states; Z79.899 Other long term (current) drug therapy
CPT/HCPCS: 49083; P9047; Z7610

== ENCOUNTER 2021-10-18 05:59 | Day surgery (SDC) | payer MEDICAID ==
[~2021-10-18] VITALS: Ht 172.7 cm; Wt 92.8 kg
[2021-10-18] VITALS (14 sets, daily range): BP systolic 121–174; BP diastolic 39–114
[2021-10-18] MEDS ORDERED: LIDOcaine 1%/PF 5ML 10 MG/ML VIAL IJ ONE (07:00)
[2021-10-18] MEDS: albumin 25% 100mL bottle x 1 IV PRN ×2 (10:08→10:09)
== END 2021-10-18 11:30 | disposition home or self-care (01) ==
LOC: SSTAY O 05:59
PROVIDERS: ATTEND Radiology Diagnostic Radiology
DX: R18.8 Other ascites (principal); R14.0 Abdominal distension (gaseous); I11.0 Hypertensive heart disease with heart failure; I50.9 Heart failure, unspecified; E78.5 Hyperlipidemia, unspecified; F15.90 Other stimulant use, unspecified, uncomplicated; F17.210 Nicotine dependence, cigarettes, uncomplicated; Z98.890 Other specified postprocedural states; Z79.899 Other long term (current) drug therapy
CPT/HCPCS: 49083; J3490; P9047; Z7610; A6258

== ENCOUNTER 2021-10-24 06:08 | Day surgery (SDC) | payer MEDICAID ==
[2021-10-24] VITALS (7 sets, daily range): BP systolic 132–156; BP diastolic 70–94
[~2021-10-24] VITALS: Ht 172.7 cm; Wt 90.4 kg
[2021-10-24] MEDS ORDERED: LIDOcaine 1% 30ml preserv. free vial SQ STA (09:28)
[2021-10-24] MEDS: albumin 25% 100mL bottle x 1 IV PRN ×2 (11:10→11:11)
== END 2021-10-24 11:40 | disposition home or self-care (01) ==
LOC: SSTAY O 06:08
PROVIDERS: ATTEND Radiology Vascular & Interventional Radiology
DX: R18.8 Other ascites (principal); I11.0 Hypertensive heart disease with heart failure; I50.20 Unspecified systolic (congestive) heart failure; E78.5 Hyperlipidemia, unspecified; F15.90 Other stimulant use, unspecified, uncomplicated; F17.210 Nicotine dependence, cigarettes, uncomplicated; Z98.890 Other specified postprocedural states; Z79.899 Other long term (current) drug therapy
CPT/HCPCS: 49083; P9047; A6258

== ENCOUNTER 2021-11-01 06:20 | Day surgery (SDC) | payer MEDICAID ==
[~2021-11-01] VITALS: Ht 172.7 cm; Wt 91.2 kg
[2021-11-01] VITALS (10 sets, daily range): BP systolic 134–170; BP diastolic 68–90
[2021-11-01] MEDS ORDERED: LIDOcaine 1%/PF 5ML 10 MG/ML VIAL SQ ONE (07:35)
[2021-11-01] MEDS: albumin 25% 100mL bottle x 1 IV PRN ×2 (08:36→08:37)
== END 2021-11-01 11:43 | disposition home or self-care (01) ==
LOC: SSTAY O 06:20
PROVIDERS: ATTEND Preventive Medicine Aerospace Medicine
DX: R18.8 Other ascites (principal); F12.90 Cannabis use, unspecified, uncomplicated; I11.0 Hypertensive heart disease with heart failure; I50.20 Unspecified systolic (congestive) heart failure; E78.5 Hyperlipidemia, unspecified; F17.210 Nicotine dependence, cigarettes, uncomplicated; Z79.899 Other long term (current) drug therapy; Z72.9 Problem related to lifestyle, unspecified; Z98.890 Other specified postprocedural states
CPT/HCPCS: 49083; J3490; P9047; Z7610; A6258; A6449

== ENCOUNTER 2021-11-07 06:10 | Day surgery (SDC) | payer MEDICAID ==
[2021-11-07] VITALS (9 sets, daily range): BP systolic 138–174; BP diastolic 77–107
[~2021-11-07] VITALS: Ht 172.7 cm; Wt 90.7 kg
[~2021-11-07 06:10] MED LIST changes: +LIDOcaine 1%/PF 5ML 10 MG/ML VIAL SQ ONE
[2021-11-07] MEDS ORDERED: LIDOcaine 1%/PF 5ML 10 MG/ML VIAL IJ ONE (06:30)
[2021-11-07] MEDS ORDERED: NO HOME MEDS (07:13)
[2021-11-07] MEDS: albumin 25% 100mL bottle x 1 IV PRN ×2 (10:20→11:12)
== END 2021-11-07 12:15 | disposition home or self-care (01) ==
LOC: SSTAY O 06:10
PROVIDERS: ATTEND Radiology Diagnostic Radiology
DX: R18.8 Other ascites (principal); K74.60 Unspecified cirrhosis of liver; I11.0 Hypertensive heart disease with heart failure; F15.90 Other stimulant use, unspecified, uncomplicated; I50.20 Unspecified systolic (congestive) heart failure; E78.5 Hyperlipidemia, unspecified; Z86.19 Personal history of other infectious and parasitic diseases; Z79.899 Other long term (current) drug therapy; Z98.890 Other specified postprocedural states; F17.210 Nicotine dependence, cigarettes, uncomplicated
CPT/HCPCS: 49083; J3490; P9047; Z7610; A6258

== ENCOUNTER 2021-11-12 19:42 | Emergency (ER) | payer MEDICAID ==
[~2021-11-12] VITALS: Ht 172.7 cm; Wt 88.6 kg
[~2021-11-12 19:42] MED LIST changes: -FURO-150 PO; -HYDR-3972 PO; -LIDOcaine 1%/PF 5ML 10 MG/ML VIAL SQ ONE; +NO HOME MEDS; -POTA-207 PO
[2021-11-12 20:04] VITALS: BP 193/105
[2021-11-12 20:30] LABS: BASOPHILS % (AUTO) 0.6 % (0-1); EOSINOPHILS # (AUTO) 0.6 X10'3 (0-0.9); EOSINOPHILS % (AUTO) 8.8 % (0-6); HEMATOCRIT 35.1 % (42.0-52.0); HEMOGLOBIN 11.8 g/dl (14.0-17.9); LYMPHOCYTES # (AUTO) 0.4 X10'3 (1.1-4.8); LYMPHOCYTES % (AUTO) 5.9 % (21-51); MEAN CORPUSCULAR HEMOGLOBIN 29.6 PG (27.0-31.0); MEAN CORPUSCULAR HGB CONC 33.6 g/dL (33.0-36.5); MEAN CORPUSCULAR VOLUME 88.1 FL (78-98); MEAN PLATELET VOLUME 6.7 FL (7.4-10.4); MONOCYTES # (AUTO) 0.9 X10'3 (0-0.9); MONOCYTES % (AUTO) 13.7 % (2-12); NEUTROPHILS # (AUTO) 4.9 X10'3 (1.8-7.7); PLATELET COUNT 211 X10'3 (140-440); RED BLOOD COUNT 3.98 X10'6 (4.70-6.10); RED CELL DISTRIBUTION WIDTH 13.6 % (11.5-14.5); WHITE BLOOD COUNT 6.9 X10'3 (4.5-11.0)
[2021-11-12 20:41] LABS: ALANINE AMINOTRANSFERASE 29 U/L (12-78); ALBUMIN/GLOBULIN RATIO 0.4 (1.1-1.5); ALKALINE PHOSPHATASE 155 IU/L (46-116); ANION GAP 5 (8-16); ASPARTATE AMINO TRANSFERASE 43 U/L (10-37); BILIRUBIN,TOTAL 0.7 MG/DL (0.1-1.0); BLOOD UREA NITROGEN 11 MG/DL (7-18); BUN/CREATININE RATIO 10.1 (5.4-32.0); CALCIUM 8.1 MG/DL (8.5-10.1); CHLORIDE 102 MMOL/L (99-107); CREATININE 1.09 MG/DL (0.60-1.10); GLUCOSE 128 MG/DL (70-104); LIPASE 97 U/L (73-393); POTASSIUM 3.6 MMOL/L (3.5-5.1); SODIUM 135 MMOL/L (135-145); TOTAL CARBON DIOXIDE 27.9 MMOL/L (24-32); TOTAL PROTEIN 7.5 G/DL (6.4-8.2); eGFR 70 ML/MIN
[2021-11-12 20:48] LABS: TOTAL CELLS COUNTED 100
[2021-11-12 20:49] LABS: PLATELET ESTIMATE NORMAL
[2021-11-15] MEDS ORDERED: POTA-192 PO (06:39)
== END 2021-11-13 01:44 | disposition left against medical advice (07) ==
LOC: ER 19:43
DX: R60.0 Localized edema (principal); Z53.21 Procedure and treatment not carried out due to patient leaving prior to being seen by health care provider
CPT/HCPCS: 80053; 83690; 85007; 85025

== ENCOUNTER 2021-11-22 09:26 | Day surgery (SDC) | payer MEDICAID ==
[~2021-11-22] VITALS: Ht 172.7 cm; Wt 91.4 kg
[2021-11-22] VITALS (7 sets, daily range): BP systolic 143–167; BP diastolic 81–107
[~2021-11-22 09:26] MED LIST changes: -NO HOME MEDS; +POTA-192 PO
[2021-11-22] MEDS ORDERED: FURO20TA4 PO (09:35)
[2021-11-22] MEDS ORDERED: LIDOcaine 1%/PF 5ML 10 MG/ML VIAL SQ ONE (09:45)
[2021-11-22] MEDS ORDERED: albumin 25% 100mL bottle x 1 IV PRN (09:50)
== END 2021-11-22 12:54 | disposition home or self-care (01) ==
LOC: SSTAY O 09:26
PROVIDERS: ATTEND Preventive Medicine Aerospace Medicine
DX: R18.8 Other ascites (principal); K74.60 Unspecified cirrhosis of liver; E78.5 Hyperlipidemia, unspecified; F17.210 Nicotine dependence, cigarettes, uncomplicated; I11.0 Hypertensive heart disease with heart failure; I50.20 Unspecified systolic (congestive) heart failure; Z86.19 Personal history of other infectious and parasitic diseases; Z79.899 Other long term (current) drug therapy; Z98.890 Other specified postprocedural states
CPT/HCPCS: 49083; J3490; P9047; A6258

== ENCOUNTER 2021-11-28 06:42 | Inpatient (IN) | payer MEDICAID ==
[~2021-11-28] VITALS: Ht 172.7 cm; Wt 100.0 kg
[~2021-11-28 06:42] MED LIST changes: +FURO20TA4 PO
[2021-11-28] MEDS ORDERED: naloxone 2mg/2ml inj IV STA (06:45)
[2021-11-28 07:15] LABS: BASOPHILS % (AUTO) 0.2 % (0-1); EOSINOPHILS # (AUTO) 0.1 X10'3 (0-0.9); EOSINOPHILS % (AUTO) 0.6 % (0-6); HEMATOCRIT 35.6 % (42.0-52.0); HEMOGLOBIN 11.9 g/dl (14.0-17.9); LYMPHOCYTES # (AUTO) 0.3 X10'3 (1.1-4.8); LYMPHOCYTES % (AUTO) 2.4 % (21-51); MEAN CORPUSCULAR HEMOGLOBIN 30.2 PG (27.0-31.0); MEAN CORPUSCULAR HGB CONC 33.5 g/dL (33.0-36.5); MEAN CORPUSCULAR VOLUME 90.1 FL (78-98); MEAN PLATELET VOLUME 6.8 FL (7.4-10.4); MONOCYTES # (AUTO) 1.5 X10'3 (0-0.9); MONOCYTES % (AUTO) 11.5 % (2-12); NEUTROPHILS # (AUTO) 11.2 X10'3 (1.8-7.7); NEUTROPHILS % (AUTO) 85.3 % (42-75); PLATELET COUNT 226 X10'3 (140-440); RED BLOOD COUNT 3.95 X10'6 (4.70-6.10); RED CELL DISTRIBUTION WIDTH 14.5 % (11.5-14.5); WHITE BLOOD COUNT 13.2 X10'3 (4.5-11.0)
[2021-11-28 07:28] LABS: ALANINE AMINOTRANSFERASE 21 U/L (12-78); ALBUMIN 1.8 G/DL (3.4-5.0); ALBUMIN/GLOBULIN RATIO 0.3 (1.1-1.5); ALKALINE PHOSPHATASE 144 IU/L (46-116); ANION GAP 15 (8-16); ASPARTATE AMINO TRANSFERASE 70 U/L (10-37); BILIRUBIN,TOTAL 0.7 MG/DL (0.1-1.0); BLOOD UREA NITROGEN 12 MG/DL (7-18); BUN/CREATININE RATIO 8.6 (5.4-32.0); CALCIUM 7.2 MG/DL (8.5-10.1); CHLORIDE 107 MMOL/L (99-107); CREATININE 1.39 MG/DL (0.60-1.10); GLUCOSE 113 MG/DL (70-104); POTASSIUM 4.6 MMOL/L (3.5-5.1); SODIUM 143 MMOL/L (135-145); TOTAL CARBON DIOXIDE 21.4 MMOL/L (24-32); TOTAL PROTEIN 7.5 G/DL (6.4-8.2); eGFR 53 ML/MIN
[2021-11-28 07:45] LABS: TOTAL CELLS COUNTED 100
[2021-11-28 07:46] LABS: LARGE PLATELETS FEW; PLATELET ESTIMATE NORMAL
[2021-11-28 07:58] LABS: ETHANOL < 0.010 GM/DL (0.0-0.010)
[2021-11-28 08:27] LABS: LACTIC SEPSIS 3.3 MMOL/L (0.4-2.0)
--- NOTE | 2021-11-28 09:36 | NUR ---
SPOKE TO REECE TRAN (PT'S SON) AND UPDATED WITH PLAN OF CARE
[2021-11-28] MEDS ORDERED: ketamine 50 mg/ml 10ml vial IV ONE (10:25)
[2021-11-28] MEDS ORDERED: mag hydrox/Alum hydrox/simeth 30ml oral suspension PO PRN (10:40)
[2021-11-28] MEDS ORDERED: magnesium hydroxide 30ml (MOM) UD suspension PO PRN (10:40)
[2021-11-28] MEDS ORDERED: PERFLUTREN PROTEIN-A MICROSPHR (Optison) 0.22 MG/ML 3ML VIAL IV ONE (10:40)
[2021-11-28] MEDS ORDERED: magnesium 4gm in 100ml NS 100 ML IV PRN (10:40)
[2021-11-28] MEDS ORDERED: POTASSIUM BICARB 20meq eff tab 20 MEQ TABLET.EFF PO PRN ×2 (10:40)
[2021-11-28] MEDS ORDERED: ondansetron/PF 4mg/2ml inj IV PRN (10:40)
[2021-11-28] MEDS ORDERED: potassium CL 10mEq/100ml bag 100 ML IV PRN (10:40)
[2021-11-28] MEDS ORDERED: magnesium 2GM in 50ml NS 50 ML IV PRN (10:40)
--- NOTE | 2021-11-28 11:26 | NUR ---
CONTACTED PHARMACY FOR PT'S CIPRO DOSE
[2021-11-28] MEDS: normal saline 1000ml 1,000 ML IV SCH ×2 (11:40→20:40)
[2021-11-28] MEDS: ciprofloxacin/D5W 200mg/100mL 100 ML IV SCH ×2 (11:42→22:16)
[2021-11-28] MEDS: lactulose 20gm/30ml cup PO SCH ×2 (12:45→16:42)
[2021-11-28] MEDS ORDERED: haloperidol 5mg tablet PO PRN (14:25)
[2021-11-28] MEDS ORDERED: LORazepam 2 mg/ml vial IV PRN (14:25)
[2021-11-28] MEDS ORDERED: haloperidol lactate 5mg/ml inj IM PRN (14:25)
[2021-11-28] MEDS: metroNIDAZOLE-Flagyl 500mg/NS 100 ML IV SCH (16:42)
[2021-11-28 18:54] LABS: HEMOGLOBIN A1C 5.2 % (4.5-6.2)
--- NOTE | 2021-11-28 19:19 | NUR ---
ATTEMPTED REPORT, NURSE WILL CALL BACK
--- NOTE | 2021-11-28 19:32 | NUR ---
REPORT GIVEN TO BABAK RN, ROOM IS NOT CLEAN YET, THEY WILL CALL WHEN ROOM IS CLEAN IN APPROX 30 MINUTES
[2021-11-28 20:00] VITALS: BP 137/98
[2021-11-28] MEDS: K and/or MAG REPLACEMENT MC SCH (20:00)
[2021-11-28 22:00] VITALS: BP 124/70
[2021-11-28] MEDS: docusate sod 100mg capsule PO SCH (22:16)
[2021-11-28] MEDS: enoxaparin 40mg/0.4ml syringe SQ SCH (22:16)
[2021-11-29] MEDS: metroNIDAZOLE-Flagyl 500mg/NS 100 ML IV SCH ×3 (00:39→16:40)
[2021-11-29] MEDS: normal saline 1000ml 1,000 ML IV SCH ×2 (05:29→16:40)
[2021-11-29 06:00] VITALS: BP 129/86
--- NOTE | 2021-11-29 06:00 | NUR ---
Patient in room PCU 3015. I have received report from JESSE Kendall and had the opportunity to ask questions and assume patient care.
[2021-11-29 06:38] LABS: BASOPHILS % (AUTO) 0.5 % (0-1); EOSINOPHILS # (AUTO) 0.2 X10'3 (0-0.9); PLATELET COUNT 119 X10'3 (140-440)
[2021-11-29 06:42] LABS: EOSINOPHILS % (AUTO) 1.8 % (0-6); HEMATOCRIT 39.1 % (42.0-52.0); HEMOGLOBIN 13.2 g/dl (14.0-17.9); LYMPHOCYTES # (AUTO) 0.4 X10'3 (1.1-4.8); LYMPHOCYTES % (AUTO) 4.3 % (21-51); MEAN CORPUSCULAR HEMOGLOBIN 30.4 PG (27.0-31.0); MEAN CORPUSCULAR HGB CONC 33.7 g/dL (33.0-36.5); MEAN CORPUSCULAR VOLUME 90.1 FL (78-98); MONOCYTES # (AUTO) 1.3 X10'3 (0-0.9); MONOCYTES % (AUTO) 12.8 % (2-12); NEUTROPHILS % (AUTO) 80.6 % (42-75); RED BLOOD COUNT 4.34 X10'6 (4.70-6.10); RED CELL DISTRIBUTION WIDTH 14.2 % (11.5-14.5); WHITE BLOOD COUNT 9.9 X10'3 (4.5-11.0)
[2021-11-29] MEDS ORDERED: naloxone 0.4 mg/ml inj ONE (06:45)
[2021-11-29 06:57] LABS: ALANINE AMINOTRANSFERASE 54 U/L (12-78); ALBUMIN 1.7 G/DL (3.4-5.0); ALBUMIN/GLOBULIN RATIO 0.3 (1.1-1.5); ALKALINE PHOSPHATASE 119 IU/L (46-116); ANION GAP 7 (8-16); ASPARTATE AMINO TRANSFERASE 190 U/L (10-37); BILIRUBIN,TOTAL 0.7 MG/DL (0.1-1.0); BLOOD UREA NITROGEN 16 MG/DL (7-18); BUN/CREATININE RATIO 14.5 (5.4-32.0); CALCIUM 7.8 MG/DL (8.5-10.1); CHLORIDE 103 MMOL/L (99-107); CHOL/HDL RATIO 2.6 (0.00-4.99); CHOLESTEROL 102 MG/DL (0-200); GLUCOSE 125 MG/DL (70-104); HDL CHOLESTEROL 40 MG/DL (35-60); LDL CHOLESTEROL 57 MG/DL (50-100); LIPASE 392 U/L (73-393); MAGNESIUM 1.9 MG/DL (1.5-2.4); PHOSPHORUS 3.5 MG/DL (2.3-4.5); SODIUM 135 MMOL/L (135-145); TOTAL CARBON DIOXIDE 25.2 MMOL/L (24-32); TOTAL PROTEIN 7.3 G/DL (6.4-8.2); TRIGLYCERIDES 49 MG/DL (20-135); eGFR 69 ML/MIN
[2021-11-29 06:58] LABS: POTASSIUM 4.5 MMOL/L (3.5-5.1)
[2021-11-29] MEDS: multivitamins, therapeutics tablet PO SCH (08:00)
[2021-11-29] MEDS: K and/or MAG REPLACEMENT MC SCH ×2 (08:00→20:00)
--- NOTE | 2021-11-29 09:14 | NUR ---
Nutrition consult: Pt denied wt loss or decreased appetite per malnutrition risk screen with RN. Per EMR pt with T2DM though no DM medications listed in home med list in physician notes and A1c 5.2%, DM education not warranted at this time. Pt admit for toxic and metabolic encephalopathy, type II W[place], and sepsis. Noted pt with EtOH hx, currently receiving routine Thiamine, Folic acid, and MVI. Pending documentation of PO intake on clear liquid diet. Pt s/p BSS with ST who reports pt with difficulty chewing d/t lack of teeth but RN reports pt may have peritonitis therefore pt to remain on clear liquid diet at this time. LBM 11/28, receiving routine bowel care. Will continue to follow closely and make recommendations as appropriate. Recommendations: 1) Advance to regular diet as medically indicated; monitor need for texture modification given difficulty chewing d/t lack of teeth per ST note 2) Monitor need for ONS/additional protein with diet advancement 3) Continue routine Thiamine, Folic acid, and MVI for EtOH hx 4) Routine bowel care per physician 5) Scaled weight this admit; subsequent weekly scaled weights Addendum: 11/29/21 at [address] Amended: Links added.
[2021-11-29] MEDS: vancomycin/NS 1 GM ADD-VANTAGE 250 ML IV SCH ×2 (09:37→22:56)
[2021-11-29] MEDS: ciprofloxacin/D5W 200mg/100mL 100 ML IV SCH ×2 (09:46→20:24)
[2021-11-29] MEDS: lactulose 20gm/30ml cup PO SCH ×3 (09:50→17:19)
[2021-11-29] MEDS: docusate sod 100mg capsule PO SCH ×2 (09:50→20:24)
[2021-11-29] MEDS: acetaminophen 325mg tablet PO PRN (09:50)
[2021-11-29 11:00] VITALS: BP 143/93
[2021-11-29 11:34] VITALS: BP 153/100
[2021-11-29 12:00] VITALS: BP 140/93
[2021-11-29] MEDS ORDERED: albumin (human) 25% 100 ML IV solution IV ONE (12:30)
--- NOTE | 2021-11-29 14:33 | NUR ---
Per Dr Moreno advance patients diet to Full Liquid diet.
[2021-11-29 15:00] VITALS: BP 124/74
--- NOTE | 2021-11-29 18:00 | NUR ---
Problems reprioritized. Patient report given, questions answered & plan of care reviewed with JESSE Kendall. MD Moreno rounded this morning, ordered paracentesis. Paracentesis done at bedside around noon, 5.2 L out; albumin given, vital signs stable. Pt refusing to work with PT this afternoon, will re-attempt tomorrow. railroad yard worker came to see pt, pt to go to [facility] at discharge, SW concerned with pt's jaw as it looks drooped; pt did state that when he fell he did hit his jaw on concrete. Reviewed CT head results and Paged MD Moreno about this and asked if further imaging necessary, no orders received. Pt otherwise neurologically intact, notified propellant charge loader Ashley. Addendum: 11/29/21 at 1850 by Phylicia Thapa RN Report given to JESSE Calderon.
[2021-11-29] MEDS: enoxaparin 40mg/0.4ml syringe SQ SCH (20:24)
[2021-11-29 22:00] VITALS: BP 125/72
[2021-11-30] MEDS: metroNIDAZOLE-Flagyl 500mg/NS 100 ML IV SCH ×2 (00:50→07:58)
[2021-11-30 02:00] VITALS: BP 150/92
[2021-11-30] MEDS: normal saline 1000ml 1,000 ML IV SCH ×2 (02:59→12:56)
[2021-11-30] MEDS: acetaminophen 325mg tablet PO PRN (03:00)
[2021-11-30 06:00] VITALS: BP 127/93
[2021-11-30] MEDS: ciprofloxacin/D5W 200mg/100mL 100 ML IV SCH (07:58)
[2021-11-30] MEDS: lactulose 20gm/30ml cup PO SCH (07:58)
[2021-11-30] MEDS: docusate sod 100mg capsule PO SCH (07:59)
[2021-11-30] MEDS: multivitamins, therapeutics tablet PO SCH (07:59)
[2021-11-30] MEDS: K and/or MAG REPLACEMENT MC SCH (08:00)
[2021-11-30 08:10] LABS: ALANINE AMINOTRANSFERASE 46 U/L (12-78); ALBUMIN 1.6 G/DL (3.4-5.0); ALBUMIN/GLOBULIN RATIO 0.4 (1.1-1.5); ALKALINE PHOSPHATASE 92 IU/L (46-116); ANION GAP 6 (8-16); ASPARTATE AMINO TRANSFERASE 124 U/L (10-37); BLOOD UREA NITROGEN 8 MG/DL (7-18); BUN/CREATININE RATIO 10.8 (5.4-32.0); CALCIUM 7.6 MG/DL (8.5-10.1); CHLORIDE 106 MMOL/L (99-107); CREATININE 0.74 MG/DL (0.60-1.10); GLUCOSE 100 MG/DL (70-104); LIPASE 98 U/L (73-393); MAGNESIUM 1.5 MG/DL (1.5-2.4); PHOSPHORUS 2.3 MG/DL (2.3-4.5); SODIUM 136 MMOL/L (135-145); TOTAL CARBON DIOXIDE 24.5 MMOL/L (24-32); eGFR > 90 ML/MIN
[2021-11-30 08:25] LABS: BASOPHILS % (AUTO) 0.6 % (0-1); EOSINOPHILS # (AUTO) 0.2 X10'3 (0-0.9); HEMATOCRIT 35.2 % (42.0-52.0); HEMOGLOBIN 12.2 g/dl (14.0-17.9); LYMPHOCYTES # (AUTO) 0.4 X10'3 (1.1-4.8); LYMPHOCYTES % (AUTO) 4.4 % (21-51); MEAN CORPUSCULAR HEMOGLOBIN 30.2 PG (27.0-31.0); MEAN CORPUSCULAR HGB CONC 34.6 g/dL (33.0-36.5); MEAN CORPUSCULAR VOLUME 87.3 FL (78-98); MEAN PLATELET VOLUME 7.3 FL (7.4-10.4); MONOCYTES # (AUTO) 1.1 X10'3 (0-0.9); MONOCYTES % (AUTO) 12.7 % (2-12); NEUTROPHILS # (AUTO) 6.7 X10'3 (1.8-7.7); NEUTROPHILS % (AUTO) 80.3 % (42-75); PLATELET COUNT 167 X10'3 (140-440); RED BLOOD COUNT 4.03 X10'6 (4.70-6.10); RED CELL DISTRIBUTION WIDTH 14.2 % (11.5-14.5); WHITE BLOOD COUNT 8.4 X10'3 (4.5-11.0)
[2021-11-30 11:00] VITALS: BP 139/96
[2021-11-30] MEDS: vancomycin/NS 1 GM ADD-VANTAGE 250 ML IV SCH (11:05)
[2021-11-30] MEDS ORDERED: LACT10SO32 PO (11:43)
[2021-11-30] MEDS ORDERED: LEVO500T90 PO (11:43)
[2021-11-30] MEDS ORDERED: LORazepam 2 mg/ml vial IV PRN (14:25)
[2021-11-30] MEDS ORDERED: LORazepam 1 MG tablet PO PRN (14:25)
--- NOTE | 2021-11-30 14:53 | NUR ---
Pt stable for discharge per Dr. Kevin. Pt does not have a home to go to. [facility]. They are going to stay in a hotel for a few nights before [facility] to [facility]. All discharge instructions reviewed with patient and all questions answered. Pt verbalized understanding. New prescriptions e scripted to pharmacy. PIV's discontinued, cannulas intact. Tele discontinued. Wheeled to lobby via nursing staff and picked up by son.
[2021-11-30] MEDS ORDERED: VANCOMYCIN LEVEL IV ONE (19:30)
[2021-12-02] MEDS ORDERED: LORazepam 1 MG tablet PO PRN (14:25)
[2021-12-02] MEDS ORDERED: LORazepam 2 mg/ml vial IV PRN (14:25)
[2021-12-03] MEDS ORDERED: thiamine 100mg tablet PO SCH (08:00)
[2021-12-03] MEDS ORDERED: folic acid 1mg tablet PO SCH (08:00)
== END 2021-11-30 14:30 | disposition home or self-care (01) | DRG 720 ==
LOC: ER 06:43 → ED HOLD 10:46 → PCU 3S 20:45
PROVIDERS: ADMIT Family Medicine; ATTEND Internal Medicine
PROC: 0W9G3ZZ Drainage of Peritoneal Cavity, Percutaneous Approach (ICD-10-PCS; principal; 2021-11-29)
DX: A41.9 Sepsis, unspecified organism (principal); J96.01 Acute respiratory failure with hypoxia; K72.00 Acute and subacute hepatic failure without coma; N17.0 Acute kidney failure with tubular necrosis; G92.8 Other toxic encephalopathy; R18.8 Other ascites; K65.2 Spontaneous bacterial peritonitis; I21.A1 Myocardial infarction type 2; I50.32 Chronic diastolic (congestive) heart failure; I11.0 Hypertensive heart disease with heart failure; B18.2 Chronic viral hepatitis C; E11.9 Type 2 diabetes mellitus without complications; W07.XXXA Fall from chair, initial encounter; F15.90 Other stimulant use, unspecified, uncomplicated; F17.200 Nicotine dependence, unspecified, uncomplicated; F32.A Depression, unspecified; F12.90 Cannabis use, unspecified, uncomplicated; G89.4 Chronic pain syndrome; K74.60 Unspecified cirrhosis of liver; T40.411A Poisoning by fentanyl or fentanyl analogs, accidental (unintentional), initial encounter; Z59.00 Homelessness unspecified; Z83.3 Family history of diabetes mellitus; Y93.89 Activity, other specified; Y92.89 Other specified places as the place of occurrence of the external cause; Y99.8 Other external cause status; Z79.899 Other long term (current) drug therapy
CPT/HCPCS: 36415; 70450; 71045; 80053; 80061; 80320; 82140; 82948; 83036; 83605; 83690; 83735; 83880; 84100; 84484; 85007; 85025; 85610; 87040; 87077; 87081; 92508; 92616; 93005; 93306; 99291; G0378; J0744; J1650; J2310; J3370; J3490; J7030; J7040; P9047

== ENCOUNTER 2021-12-17 05:56 | Day surgery (SDC) | payer MEDICAID ==
[2021-12-17] VITALS (7 sets, daily range): BP systolic 147–175; BP diastolic 86–105
[~2021-12-17] VITALS: Ht 172.7 cm; Wt 99.0 kg
[~2021-12-17 05:56] MED LIST changes: +LACT10SO67 PO
[2021-12-17] MEDS ORDERED: albumin 25% 100mL bottle x 1 IV PRN (06:15)
[2021-12-17] MEDS ORDERED: LIDOcaine 1% 30ml preserv. free vial SQ STA (07:41)
--- NOTE | 2021-12-17 09:25 | NUR ---
Pt sitting up in bed, eating breakfast tray. VS stable as charted.
== END 2021-12-17 09:50 | disposition home or self-care (01) ==
LOC: SSTAY O 05:56
PROVIDERS: ATTEND Radiology Vascular & Interventional Radiology
DX: R18.8 Other ascites (principal); I11.0 Hypertensive heart disease with heart failure; I50.20 Unspecified systolic (congestive) heart failure; F15.90 Other stimulant use, unspecified, uncomplicated; E78.5 Hyperlipidemia, unspecified; Z98.890 Other specified postprocedural states; F19.90 Other psychoactive substance use, unspecified, uncomplicated; F17.210 Nicotine dependence, cigarettes, uncomplicated
CPT/HCPCS: 49083; P9047; A6258; A6449

== ENCOUNTER 2021-12-23 06:15 | Day surgery (SDC) | payer MEDICAID ==
[2021-12-23] VITALS (9 sets, daily range): BP systolic 137–167; BP diastolic 68–96
[~2021-12-23] VITALS: Ht 172.7 cm; Wt 100.1 kg
[2021-12-23] MEDS ORDERED: LIDOcaine 1% 30ml preserv. free vial SQ STA (07:10)
[2021-12-23] MEDS: albumin 25% 100mL bottle x 1 IV PRN ×2 (08:42→09:24)
== END 2021-12-23 10:40 | disposition home or self-care (01) ==
LOC: SSTAY O 06:15
PROVIDERS: ATTEND Radiology Vascular & Interventional Radiology
DX: R18.8 Other ascites (principal); K74.60 Unspecified cirrhosis of liver; I11.0 Hypertensive heart disease with heart failure; I50.20 Unspecified systolic (congestive) heart failure; E78.5 Hyperlipidemia, unspecified; F17.210 Nicotine dependence, cigarettes, uncomplicated; Z79.899 Other long term (current) drug therapy; Z98.890 Other specified postprocedural states
CPT/HCPCS: 49083; P9047; A6258

== ENCOUNTER 2021-12-31 06:16 | Day surgery (SDC) | payer MEDICAID ==
[~2021-12-31] VITALS: Ht 172.7 cm; Wt 99.1 kg
[2021-12-31 06:20] VITALS: BP 167/107
[2021-12-31] MEDS ORDERED: LIDOcaine 1% 30ml preserv. free vial SQ STA (06:20)
[2021-12-31] MEDS ORDERED: albumin 25% 100mL bottle x 1 IV PRN (06:35)
[2021-12-31] MEDS ORDERED: LIDOcaine 1%/PF 5ML 10 MG/ML VIAL SQ ONE (07:15)
[2021-12-31 08:20] VITALS: BP_SYST 130; BP_SYST 160; BP_DIAS 102; BP_DIAS 80
[2021-12-31 08:35] VITALS: BP 147/90
[2021-12-31 08:50] VITALS: BP 150/80
[2021-12-31 09:10] VITALS: BP 150/81
[2021-12-31 09:25] VITALS: BP 161/92
== END 2021-12-31 09:47 | disposition home or self-care (01) ==
LOC: SSTAY O 06:16
PROVIDERS: ATTEND Radiology Diagnostic Radiology
DX: R18.8 Other ascites (principal); E78.5 Hyperlipidemia, unspecified; I50.20 Unspecified systolic (congestive) heart failure; I11.0 Hypertensive heart disease with heart failure; Z98.890 Other specified postprocedural states; F17.210 Nicotine dependence, cigarettes, uncomplicated; F15.90 Other stimulant use, unspecified, uncomplicated; Z86.19 Personal history of other infectious and parasitic diseases
CPT/HCPCS: 49083; J3490; P9047; A6258; A6449; J7030

== ENCOUNTER 2022-01-09 06:12 | Day surgery (SDC) | payer MEDICAID ==
[~2022-01-09] VITALS: Ht 172.7 cm; Wt 101.0 kg
[2022-01-09] VITALS (10 sets, daily range): BP systolic 137–164; BP diastolic 84–99
[2022-01-09] MEDS ORDERED: LIDOcaine 1%/PF 5ML 10 MG/ML VIAL IJ ONE (06:45)
[2022-01-09] MEDS: albumin 25% 100mL bottle x 1 IV PRN ×2 (08:32→08:59)
== END 2022-01-09 10:25 | disposition home or self-care (01) ==
LOC: SSTAY O 06:12
PROVIDERS: ATTEND Radiology Vascular & Interventional Radiology
DX: R18.8 Other ascites (principal); I11.0 Hypertensive heart disease with heart failure; I50.20 Unspecified systolic (congestive) heart failure; E78.5 Hyperlipidemia, unspecified; F19.90 Other psychoactive substance use, unspecified, uncomplicated; F17.210 Nicotine dependence, cigarettes, uncomplicated; Z98.890 Other specified postprocedural states; Z83.3 Family history of diabetes mellitus; Z79.899 Other long term (current) drug therapy
CPT/HCPCS: 49083; J3490; P9047; A4615; A6258

== ENCOUNTER 2022-01-10 01:35 | Emergency (ER) | payer MEDICAID ==
[~2022-01-10] VITALS: Ht 172.7 cm; Wt 72.7 kg
[2022-01-10] MEDS ORDERED: ketorolac trometh. 30mg/ml inj. IV ONE (01:55)
[2022-01-10] MEDS ORDERED: dicyclomine 10mg/ml 2ml ampule IM ONE (01:55)
[2022-01-10] MEDS ORDERED: iohexol 350MG/ML 100ml bottle IV ONE (02:32)
[2022-01-10 02:59] LABS: BASOPHILS # (AUTO) 0.1 X10'3 (0-0.2); BASOPHILS % (AUTO) 0.9 % (0-1); EOSINOPHILS # (AUTO) 0.4 X10'3 (0-0.9); HEMATOCRIT 35.1 % (42.0-52.0); HEMOGLOBIN 11.8 g/dl (14.0-17.9); LYMPHOCYTES # (AUTO) 0.3 X10'3 (1.1-4.8); LYMPHOCYTES % (AUTO) 3.3 % (21-51); MEAN CORPUSCULAR HEMOGLOBIN 29.5 PG (27.0-31.0); MEAN CORPUSCULAR HGB CONC 33.7 g/dL (33.0-36.5); MEAN CORPUSCULAR VOLUME 87.5 FL (78-98); MEAN PLATELET VOLUME 6.5 FL (7.4-10.4); MONOCYTES # (AUTO) 0.9 X10'3 (0-0.9); MONOCYTES % (AUTO) 12.1 % (2-12); NEUTROPHILS # (AUTO) 6.1 X10'3 (1.8-7.7); NEUTROPHILS % (AUTO) 78.7 % (42-75); PLATELET COUNT 209 X10'3 (140-440); RED BLOOD COUNT 4.01 X10'6 (4.70-6.10); RED CELL DISTRIBUTION WIDTH 13.7 % (11.5-14.5); WHITE BLOOD COUNT 7.8 X10'3 (4.5-11.0)
[2022-01-10 03:01] LABS: ALANINE AMINOTRANSFERASE 18 U/L (12-78); ALBUMIN 2.1 G/DL (3.4-5.0); ALBUMIN/GLOBULIN RATIO 0.4 (1.1-1.5); ALKALINE PHOSPHATASE 123 IU/L (46-116); ANION GAP 2 (8-16); ASPARTATE AMINO TRANSFERASE 38 U/L (10-37); BILIRUBIN,TOTAL 0.9 MG/DL (0.1-1.0); BLOOD UREA NITROGEN 9 MG/DL (7-18); BUN/CREATININE RATIO 11.1 (5.4-32.0); CHLORIDE 103 MMOL/L (99-107); CREATININE 0.81 MG/DL (0.60-1.10); GLUCOSE 109 MG/DL (70-104); LIPASE 70 U/L (73-393); POTASSIUM 3.9 MMOL/L (3.5-5.1); SODIUM 136 MMOL/L (135-145); TOTAL CARBON DIOXIDE 31.4 MMOL/L (24-32); TOTAL PROTEIN 7.1 G/DL (6.4-8.2); eGFR > 90 ML/MIN
[2022-01-10 03:34] LABS: CLARITY,URINE CLEAR (Clear); COLOR,URINE YELLOW (Yellow); GLUCOSE, URINE NEGATIVE (Neg); KETONES,URINE TRACE mg/dl (Neg); LEUKOCYTE ESTERASE ,URINE NEGATIVE (Neg); NITRITES, URINE NEGATIVE (Neg); OCCULT BLOOD,URINE NEGATIVE (Neg); PH,URINE 5.5 (4.8-8.0); PROTEIN,URINE NEGATIVE (Neg); UROBILINOGEN,URINE 0.2 E.U/dL (0.2-1.0)
[2022-01-10 03:47] LABS: UA COLLECTION TYPE URINAL
[2022-01-10 04:46] VITALS: BP 161/87
== END 2022-01-10 04:38 | disposition home or self-care (01) ==
LOC: ER 01:36
DX: R10.84 Generalized abdominal pain (principal); I11.0 Hypertensive heart disease with heart failure; E11.9 Type 2 diabetes mellitus without complications; F32.A Depression, unspecified; F15.10 Other stimulant abuse, uncomplicated; F12.10 Cannabis abuse, uncomplicated; Z88.8 Allergy status to other drugs, medicaments and biological substances
CPT/HCPCS: 36415; 74177; 80053; 81003; 83690; 84145; 84484; 85025; 96372; 96374; 99285; J0500; J1885; J3490; Q9967

== ENCOUNTER 2022-01-21 08:42 | Emergency (ER) | payer MEDICAID ==
[~2022-01-21] VITALS: Ht 172.7 cm; Wt 86.4 kg
[2022-01-21 08:47] VITALS: BP 176/96
[2022-01-22] MEDS ORDERED: DOXY100C76 PO (05:12)
== END 2022-01-21 11:06 | disposition left against medical advice (07) ==
LOC: ER 08:43
DX: R10.9 Unspecified abdominal pain (principal); Z53.21 Procedure and treatment not carried out due to patient leaving prior to being seen by health care provider

== ENCOUNTER 2022-01-21 18:57 | Emergency (ER) | payer MEDICAID ==
[~2022-01-21] VITALS: Ht 172.7 cm; Wt 86.4 kg
[2022-01-21 20:15] LABS: BASOPHILS # (AUTO) 0.1 X10'3 (0-0.2); EOSINOPHILS # (AUTO) 0.2 X10'3 (0-0.9); EOSINOPHILS % (AUTO) 3.5 % (0-6); HEMATOCRIT 33.4 % (42.0-52.0); HEMOGLOBIN 11.5 g/dl (14.0-17.9); LYMPHOCYTES # (AUTO) 0.3 X10'3 (1.1-4.8); LYMPHOCYTES % (AUTO) 4.6 % (21-51); MEAN CORPUSCULAR HEMOGLOBIN 29.7 PG (27.0-31.0); MEAN CORPUSCULAR HGB CONC 34.4 g/dL (33.0-36.5); MEAN CORPUSCULAR VOLUME 86.4 FL (78-98); MEAN PLATELET VOLUME 6.4 FL (7.4-10.4); MONOCYTES # (AUTO) 0.8 X10'3 (0-0.9); NEUTROPHILS % (AUTO) 78.9 % (42-75); PLATELET COUNT 163 X10'3 (140-440); RED BLOOD COUNT 3.87 X10'6 (4.70-6.10); RED CELL DISTRIBUTION WIDTH 13.7 % (11.5-14.5); WHITE BLOOD COUNT 6.3 X10'3 (4.5-11.0)
[2022-01-21 20:29] LABS: ALANINE AMINOTRANSFERASE 14 U/L (12-78); ALBUMIN 1.7 G/DL (3.4-5.0); ALBUMIN/GLOBULIN RATIO 0.3 (1.1-1.5); ALKALINE PHOSPHATASE 141 IU/L (46-116); ANION GAP 4 (8-16); ASPARTATE AMINO TRANSFERASE 40 U/L (10-37); BILIRUBIN,TOTAL 1.1 MG/DL (0.1-1.0); BLOOD UREA NITROGEN 7 MG/DL (7-18); BUN/CREATININE RATIO 8.2 (5.4-32.0); CALCIUM 8.2 MG/DL (8.5-10.1); CHLORIDE 102 MMOL/L (99-107); CREATININE 0.85 MG/DL (0.60-1.10); GLUCOSE 109 MG/DL (70-104); POTASSIUM 3.6 MMOL/L (3.5-5.1); SODIUM 137 MMOL/L (135-145); TOTAL CARBON DIOXIDE 31.2 MMOL/L (24-32); TOTAL PROTEIN 7.4 G/DL (6.4-8.2); eGFR > 90 ML/MIN
[2022-01-21 20:33] LABS: LIPASE 70 U/L (73-393)
--- NOTE | 2022-01-22 00:54 | NUR ---
paracentesis fluid culture sent to lab x2
[2022-01-22 01:42] VITALS: BP 178/99
[2022-01-22 02:18] LABS: BF WBC COUNT 33 /CU MM (0-1000); BFAPPEAR CLOUDY; BFCOLOR AMBER; BFVOLUME 18 ML
[2022-01-22 02:19] LABS: BF RBC COUNT 2125 /CU MM; LYMPHOCYTES,BODY FLUID 56 %; MONOCYTES,BODY FLUID 25 %; NEUTROPHILS,BODY FLUID 9 %
[2022-01-22 02:20] LABS: EOSINOPHILS,BODY FLUID 10 %
[2022-01-22] MEDS ORDERED: DOXY100C76 PO (05:12)
== END 2022-01-22 01:47 | disposition home or self-care (01) ==
LOC: ER 18:58
DX: R18.8 Other ascites (principal); I11.0 Hypertensive heart disease with heart failure; E11.9 Type 2 diabetes mellitus without complications; F32.A Depression, unspecified; F15.10 Other stimulant abuse, uncomplicated; Z79.899 Other long term (current) drug therapy
CPT/HCPCS: 36415; 49083; 80053; 83690; 84484; 85025; 85610; 87070; 89051; 93005; 99285; A4565

== ENCOUNTER 2022-02-04 06:23 | Day surgery (SDC) | payer MEDICAID ==
[~2022-02-04] VITALS: Ht 172.7 cm; Wt 96.5 kg
[2022-02-04] VITALS (8 sets, daily range): BP systolic 157–178; BP diastolic 80–120
[2022-02-04] MEDS ORDERED: albumin 25% 100mL bottle x 1 IV PRN (06:40)
== END 2022-02-04 10:05 | disposition home or self-care (01) ==
LOC: SSTAY O 06:23
PROVIDERS: ATTEND Radiology Vascular & Interventional Radiology
DX: R18.8 Other ascites (principal); K74.60 Unspecified cirrhosis of liver; I11.0 Hypertensive heart disease with heart failure; I50.20 Unspecified systolic (congestive) heart failure; E78.5 Hyperlipidemia, unspecified; F17.210 Nicotine dependence, cigarettes, uncomplicated; Z79.899 Other long term (current) drug therapy; Z98.890 Other specified postprocedural states
CPT/HCPCS: 49083; C1729; P9047; A6258; A6402

== ENCOUNTER 2022-02-13 05:52 | Day surgery (SDC) | payer MEDICAID ==
[~2022-02-13] VITALS: Ht 172.7 cm; Wt 91.3 kg
[2022-02-13 06:20] VITALS: BP 164/109
[2022-02-13] MEDS ORDERED: albumin 25% 100mL bottle x 1 IV PRN (06:20)
[2022-02-13 08:18] VITALS: BP 154/90
[2022-02-13] MEDS ORDERED: lactulose 20gm/30ml cup PO ONE (08:30)
[2022-02-13 08:33] VITALS: BP 158/92
[2022-02-13 08:48] VITALS: BP 161/90
[2022-02-13 09:03] VITALS: BP 159/81
[2022-02-13 09:15] VITALS: BP 150/80
== END 2022-02-13 09:55 | disposition home or self-care (01) ==
LOC: SSTAY O 05:52
PROVIDERS: ATTEND Radiology Vascular & Interventional Radiology
DX: R18.8 Other ascites (principal); I11.0 Hypertensive heart disease with heart failure; I50.20 Unspecified systolic (congestive) heart failure; E78.5 Hyperlipidemia, unspecified; F17.210 Nicotine dependence, cigarettes, uncomplicated; Z79.899 Other long term (current) drug therapy; Z98.890 Other specified postprocedural states; Z83.3 Family history of diabetes mellitus
CPT/HCPCS: 49083; C1729; P9047; A6258

== ENCOUNTER 2022-02-20 06:15 | Day surgery (SDC) | payer MEDICAID ==
[~2022-02-20] VITALS: Ht 172.7 cm; Wt 90.3 kg
[2022-02-20] MEDS ORDERED: LIDOcaine 1% 30ml preserv. free vial IJ STA (06:36)
[2022-02-20] MEDS ORDERED: LIDOcaine 1% (10mg/ml) 2ml vial ONE (06:38)
[2022-02-20] MEDS ORDERED: albumin 25% 100mL bottle x 1 IV PRN (06:40)
[2022-02-20 07:22] VITALS: BP 164/91
[2022-02-20 08:38] VITALS: BP 155/101
[2022-02-20 08:53] VITALS: BP 148/95
[2022-02-20 09:06] VITALS: BP 132/86
== END 2022-02-20 10:06 | disposition home or self-care (01) ==
LOC: SSTAY O 06:15
PROVIDERS: ATTEND Radiology Diagnostic Radiology
DX: R18.8 Other ascites (principal); K74.60 Unspecified cirrhosis of liver; I50.20 Unspecified systolic (congestive) heart failure; I11.0 Hypertensive heart disease with heart failure; E78.5 Hyperlipidemia, unspecified; Z98.890 Other specified postprocedural states; F17.210 Nicotine dependence, cigarettes, uncomplicated; Z79.899 Other long term (current) drug therapy
CPT/HCPCS: 49083; J3490; P9047; A6258

== ENCOUNTER 2022-02-28 06:11 | Day surgery (SDC) | payer MEDICAID ==
[~2022-02-28] VITALS: Ht 172.7 cm; Wt 96.9 kg
[2022-02-28] MEDS ORDERED: LIDOcaine 1% 30ml preserv. free vial SQ STA (06:41)
[2022-02-28] MEDS ORDERED: albumin 25% 100mL bottle x 1 IV PRN (07:00)
[2022-02-28 07:08] VITALS: BP 163/94
[2022-02-28 08:20] VITALS: BP 143/76
[2022-02-28 08:28] VITALS: BP 158/97
[2022-02-28 08:48] VITALS: BP 166/68
[2022-02-28 08:58] VITALS: BP 149/81
[2022-02-28 09:13] VITALS: BP 144/75
== END 2022-02-28 09:45 | disposition home or self-care (01) ==
LOC: SSTAY O 06:11
PROVIDERS: ATTEND Radiology Vascular & Interventional Radiology
DX: R18.8 Other ascites (principal); I11.0 Hypertensive heart disease with heart failure; I50.20 Unspecified systolic (congestive) heart failure; E78.5 Hyperlipidemia, unspecified; F15.90 Other stimulant use, unspecified, uncomplicated; F17.210 Nicotine dependence, cigarettes, uncomplicated; Z86.19 Personal history of other infectious and parasitic diseases; Z79.899 Other long term (current) drug therapy; Z98.890 Other specified postprocedural states
CPT/HCPCS: 49083; A6258

== ENCOUNTER 2022-03-07 05:49 | Day surgery (SDC) | payer MEDICAID ==
[~2022-03-07] VITALS: Ht 172.7 cm; Wt 98.1 kg
[2022-03-07] MEDS ORDERED: LIDOcaine 1% 30ml preserv. free vial IJ STA (06:11)
[2022-03-07] MEDS ORDERED: albumin 25% 100mL bottle x 1 IV PRN (06:15)
[2022-03-07 06:56] VITALS: BP 157/93
[2022-03-07 08:28] VITALS: BP 209/113
[2022-03-07 08:42] VITALS: BP 153/79
[2022-03-07 08:57] VITALS: BP 160/78
[2022-03-07 09:06] VITALS: BP 168/77
[2022-03-07 09:12] VITALS: BP 157/93
== END 2022-03-07 09:38 | disposition home or self-care (01) ==
LOC: SSTAY O 05:49
PROVIDERS: ATTEND Radiology Diagnostic Radiology
DX: K70.31 Alcoholic cirrhosis of liver with ascites (principal); I11.0 Hypertensive heart disease with heart failure; I50.20 Unspecified systolic (congestive) heart failure; E78.5 Hyperlipidemia, unspecified; Z79.899 Other long term (current) drug therapy; F17.210 Nicotine dependence, cigarettes, uncomplicated; Z98.890 Other specified postprocedural states; Z86.19 Personal history of other infectious and parasitic diseases
CPT/HCPCS: 36558; 49083; 76937; 77001; 99152; 99153; A6258

== ENCOUNTER 2022-03-14 05:57 | Day surgery (SDC) | payer MEDICAID ==
[~2022-03-14] VITALS: Ht 172.7 cm; Wt 95.1 kg
[2022-03-14] MEDS ORDERED: CARV-50 PO (06:16)
[2022-03-14] MEDS ORDERED: albumin 25% 100mL bottle x 1 IV PRN (06:30)
[2022-03-14 07:00] VITALS: BP 149/77
[2022-03-14] MEDS ORDERED: LIDOcaine 1% 30ml preserv. free vial SQ STA (07:11)
--- NOTE | 2022-03-14 08:30 | NUR ---
Limited US performed. Not enough fluid to drain per Juan Ramon CORONADO. Procedure cancelled.
== END 2022-03-14 08:45 | disposition home or self-care (01) ==
LOC: SSTAY O 05:57
PROVIDERS: ATTEND Radiology Diagnostic Radiology
DX: R18.8 Other ascites (principal); I11.0 Hypertensive heart disease with heart failure; I50.20 Unspecified systolic (congestive) heart failure; Z86.19 Personal history of other infectious and parasitic diseases; E78.5 Hyperlipidemia, unspecified; F17.210 Nicotine dependence, cigarettes, uncomplicated; Z79.899 Other long term (current) drug therapy; Z98.890 Other specified postprocedural states
CPT/HCPCS: 76705; A6258; A6402

== ENCOUNTER 2022-04-01 06:12 | Day surgery (SDC) | payer MEDICAID ==
[~2022-04-01] VITALS: Ht 172.7 cm; Wt 96.0 kg
[~2022-04-01 06:12] MED LIST changes: +CARV-50 PO; -LACT10SO67 PO
[2022-04-01] MEDS ORDERED: albumin 25% 100mL bottle x 1 IV PRN (06:30)
[2022-04-01] MEDS ORDERED: normal saline 1000ml 1,000 ML IV PRN (06:35)
[2022-04-01 06:38] VITALS: BP 184/99
[2022-04-01] MEDS ORDERED: LIDOcaine 1% 30ml preserv. free vial SQ STA (07:27)
--- NOTE | 2022-04-01 08:10 | NUR ---
pt voided 50ml clear, dark leida
[2022-04-01 08:27] VITALS: BP 152/72
--- NOTE | 2022-04-01 08:30 | NUR ---
pt voided 50ml , clear dark leida
[2022-04-01 08:42] VITALS: BP 150/75
[2022-04-01 08:57] VITALS: BP 157/83
[2022-04-01 09:05] VITALS: BP 158/76
[2022-04-01 09:13] VITALS: BP 183/82
== END 2022-04-01 09:40 | disposition home or self-care (01) ==
LOC: SSTAY O 06:12
PROVIDERS: ATTEND Radiology Diagnostic Radiology
DX: K70.31 Alcoholic cirrhosis of liver with ascites (principal); I11.0 Hypertensive heart disease with heart failure; I50.20 Unspecified systolic (congestive) heart failure; Z83.3 Family history of diabetes mellitus; E78.5 Hyperlipidemia, unspecified; Z98.890 Other specified postprocedural states; Z79.899 Other long term (current) drug therapy
CPT/HCPCS: 49083; A6258; A6449

== ENCOUNTER 2022-04-08 06:01 | Day surgery (SDC) | payer MEDICAID ==
[~2022-04-08] VITALS: Ht 172.7 cm; Wt 96.9 kg
[2022-04-08] MEDS ORDERED: LIDOcaine 1% 30ml preserv. free vial SQ STA (06:06)
[2022-04-08 06:30] VITALS: BP 165/93
[2022-04-08] MEDS ORDERED: albumin 25% 100mL bottle x 1 IV PRN (06:30)
[2022-04-08 08:22] VITALS: BP 158/92
[2022-04-08 08:37] VITALS: BP 168/92
[2022-04-08 08:52] VITALS: BP 176/95
[2022-04-08 09:20] VITALS: BP 173/99
== END 2022-04-08 09:25 | disposition home or self-care (01) ==
LOC: SSTAY O 06:01
PROVIDERS: ATTEND Radiology Vascular & Interventional Radiology
DX: K70.31 Alcoholic cirrhosis of liver with ascites (principal); I50.9 Heart failure, unspecified; I50.20 Unspecified systolic (congestive) heart failure; I11.0 Hypertensive heart disease with heart failure; E78.5 Hyperlipidemia, unspecified; Z86.19 Personal history of other infectious and parasitic diseases
CPT/HCPCS: 49083; J3490; A6258; A6449

== ENCOUNTER 2022-04-15 06:03 | Day surgery (SDC) | payer MEDICAID ==
[~2022-04-15] VITALS: Ht 172.7 cm; Wt 92.5 kg
[2022-04-15] MEDS ORDERED: LIDOcaine 1% 30ml preserv. free vial SQ STA (06:31)
[2022-04-15] MEDS ORDERED: FURO40TA4 PO (06:40)
[2022-04-15] MEDS ORDERED: albumin 25% 100mL bottle x 1 IV PRN (06:50)
[2022-04-15 07:16] VITALS: BP 155/92
--- NOTE | 2022-04-15 08:30 | NUR ---
Limited US only. Procedure not indicated as there is not enough fluid to drain.
== END 2022-04-15 08:52 | disposition home or self-care (01) ==
LOC: SSTAY O 06:03
PROVIDERS: ATTEND Radiology Vascular & Interventional Radiology
DX: R18.8 Other ascites (principal); K74.60 Unspecified cirrhosis of liver; I11.0 Hypertensive heart disease with heart failure; I50.20 Unspecified systolic (congestive) heart failure; E78.5 Hyperlipidemia, unspecified; Z79.899 Other long term (current) drug therapy; Z98.890 Other specified postprocedural states
CPT/HCPCS: 76705; A6258; A6402

== ENCOUNTER 2022-04-22 06:02 | Day surgery (SDC) | payer MEDICAID ==
[~2022-04-22] VITALS: Ht 172.7 cm; Wt 91.8 kg
[~2022-04-22 06:02] MED LIST changes: -FURO20TA4 PO; +FURO40TA4 PO
[2022-04-22] MEDS ORDERED: LIDOcaine 1% 30ml preserv. free vial SQ STA (06:15)
[2022-04-22] MEDS ORDERED: albumin 25% 100mL bottle x 1 IV PRN (06:25)
[2022-04-22 06:51] VITALS: BP 154/92
== END 2022-04-22 09:10 | disposition home or self-care (01) ==
LOC: SSTAY O 06:02
PROVIDERS: ATTEND Radiology Diagnostic Radiology
DX: K70.31 Alcoholic cirrhosis of liver with ascites (principal); Z86.19 Personal history of other infectious and parasitic diseases; I50.20 Unspecified systolic (congestive) heart failure; E78.5 Hyperlipidemia, unspecified; F17.210 Nicotine dependence, cigarettes, uncomplicated
CPT/HCPCS: 76705; A6258

== ENCOUNTER 2022-05-02 05:40 | Day surgery (SDC) | payer MEDICAID ==
[~2022-05-02] VITALS: Ht 172.7 cm; Wt 91.6 kg
[2022-05-02] MEDS ORDERED: LIDOcaine 1% 30ml preserv. free vial SQ STA (05:56)
[2022-05-02] MEDS ORDERED: albumin 25% 100mL bottle x 1 IV PRN (06:15)
[2022-05-02 06:30] VITALS: BP 161/94
== END 2022-05-02 08:40 | disposition home or self-care (01) ==
LOC: SSTAY O 05:40
PROVIDERS: ATTEND Radiology Diagnostic Radiology
DX: R18.8 Other ascites (principal); Z53.8 Procedure and treatment not carried out for other reasons; K74.69 Other cirrhosis of liver; I11.0 Hypertensive heart disease with heart failure; I50.20 Unspecified systolic (congestive) heart failure; B19.20 Unspecified viral hepatitis C without hepatic coma; F15.90 Other stimulant use, unspecified, uncomplicated; E78.5 Hyperlipidemia, unspecified; F17.210 Nicotine dependence, cigarettes, uncomplicated; Z79.899 Other long term (current) drug therapy; Z98.890 Other specified postprocedural states; Z83.3 Family history of diabetes mellitus
CPT/HCPCS: 76705; A6258

== ENCOUNTER 2022-05-09 06:03 | Day surgery (SDC) | payer MEDICAID ==
[~2022-05-09] VITALS: Ht 172.7 cm; Wt 93.9 kg
[~2022-05-09 06:03] MED LIST changes: +LIDOcaine 1% 30ml preserv. free vial SQ STA; -POTA-192 PO
[2022-05-09] MEDS ORDERED: albumin 25% 100mL bottle x 1 IV PRN (06:20)
[2022-05-09 07:51] VITALS: BP 142/81
[2022-05-09 08:30] VITALS: BP 144/76
[2022-05-09 09:09] VITALS: BP 144/76
== END 2022-05-09 09:09 | disposition home or self-care (01) ==
LOC: SSTAY O 06:03
PROVIDERS: ATTEND Radiology Vascular & Interventional Radiology
DX: R18.8 Other ascites (principal); Z53.8 Procedure and treatment not carried out for other reasons; K74.60 Unspecified cirrhosis of liver; B19.20 Unspecified viral hepatitis C without hepatic coma; I11.0 Hypertensive heart disease with heart failure; I50.20 Unspecified systolic (congestive) heart failure; E78.5 Hyperlipidemia, unspecified; F15.90 Other stimulant use, unspecified, uncomplicated; F17.290 Nicotine dependence, other tobacco product, uncomplicated; Z98.890 Other specified postprocedural states; Z79.899 Other long term (current) drug therapy
CPT/HCPCS: 76705; A6258; A6449

== ENCOUNTER 2022-05-23 06:01 | Day surgery (SDC) | payer MEDICAID ==
[~2022-05-23] VITALS: Ht 172.7 cm; Wt 93.3 kg
[~2022-05-23 06:01] MED LIST changes: -LIDOcaine 1% 30ml preserv. free vial SQ STA
[2022-05-23] MEDS ORDERED: LIDOcaine 1% 30ml preserv. free vial SQ STA (06:05)
[2022-05-23 06:20] VITALS: BP 155/94
[2022-05-23] MEDS ORDERED: albumin 25% 100mL bottle x 1 IV PRN (06:50)
== END 2022-05-23 08:45 | disposition home or self-care (01) ==
LOC: SSTAY O 06:01
PROVIDERS: ATTEND Radiology Vascular & Interventional Radiology
DX: R18.8 Other ascites (principal); Z53.8 Procedure and treatment not carried out for other reasons; K74.60 Unspecified cirrhosis of liver; I11.0 Hypertensive heart disease with heart failure; I50.20 Unspecified systolic (congestive) heart failure; F15.90 Other stimulant use, unspecified, uncomplicated; E78.5 Hyperlipidemia, unspecified; F17.210 Nicotine dependence, cigarettes, uncomplicated; Z86.19 Personal history of other infectious and parasitic diseases; Z98.890 Other specified postprocedural states
CPT/HCPCS: 76705; A6258

== ENCOUNTER 2022-06-17 05:56 | Day surgery (SDC) | payer MEDICAID ==
[~2022-06-17] VITALS: Ht 172.7 cm; Wt 95.0 kg
[2022-06-17 06:13] VITALS: BP 168/86
[2022-06-17] MEDS ORDERED: albumin 25% 100mL bottle x 1 IV PRN (06:15)
--- NOTE | 2022-06-17 08:48 | NUR ---
Procedure cancelled due to no fluid. Pt discharged.
== END 2022-06-17 08:50 | disposition home or self-care (01) ==
LOC: SSTAY O 05:56
PROVIDERS: ATTEND Radiology Diagnostic Radiology
DX: R18.8 Other ascites (principal); Z53.8 Procedure and treatment not carried out for other reasons; R14.0 Abdominal distension (gaseous); K74.60 Unspecified cirrhosis of liver; I11.0 Hypertensive heart disease with heart failure; I50.20 Unspecified systolic (congestive) heart failure; B19.20 Unspecified viral hepatitis C without hepatic coma; E78.5 Hyperlipidemia, unspecified; Z98.890 Other specified postprocedural states; F15.10 Other stimulant abuse, uncomplicated; F17.210 Nicotine dependence, cigarettes, uncomplicated; Z79.899 Other long term (current) drug therapy; Z83.3 Family history of diabetes mellitus
CPT/HCPCS: 76705; C1729

== ENCOUNTER 2023-06-29 13:22 | Emergency (ER) | payer MEDICAID ==
[~2023-06-29] VITALS: Ht 172.7 cm; Wt 94.1 kg
[~2023-06-29 13:22] MED LIST changes: -CARV-50 PO; +FURO20TA4 PO; -FURO40TA4 PO; +LISI20TA28 PO; +SPIR25TA PO
[2023-06-29 13:59] VITALS: TEMP 97.6
[2023-06-29] MEDS: ondansetron/PF 4mg/2ml inj IV ONE (15:35)
[2023-06-29] MEDS: morphine 4 MG/ML inj SYRINge IV ONE (15:35)
[2023-06-29] MEDS: normal saline 1000ml 1,000 ML IV ONE (15:38)
[2023-06-29 15:43] LABS: BASOPHILS # (AUTO) 0.1 X10'3 (0-0.2); BASOPHILS % (AUTO) 1.2 % (0-1); EOSINOPHILS # (AUTO) 0.4 X10'3 (0-0.9); HEMATOCRIT 37.3 % (42.0-52.0); HEMOGLOBIN 12.9 g/dl (14.0-17.9); LYMPHOCYTES # (AUTO) 0.4 X10'3 (1.1-4.8); LYMPHOCYTES % (AUTO) 7.2 % (21-51); MEAN CORPUSCULAR HEMOGLOBIN 32.3 PG (27.0-31.0); MEAN CORPUSCULAR HGB CONC 34.6 g/dL (33.0-36.5); MEAN CORPUSCULAR VOLUME 93.4 FL (78-98); MONOCYTES # (AUTO) 0.8 X10'3 (0-0.9); MONOCYTES % (AUTO) 12.3 % (2-12); NEUTROPHILS # (AUTO) 4.5 X10'3 (1.8-7.7); NEUTROPHILS % (AUTO) 73.3 % (42-75); PLATELET COUNT 112 X10'3 (140-440); RED CELL DISTRIBUTION WIDTH 14.2 % (11.5-14.5); WHITE BLOOD COUNT 6.1 X10'3 (4.5-11.0)
[2023-06-29 15:58] LABS: ALANINE AMINOTRANSFERASE 33 U/L (12-78); ALBUMIN 2.4 G/DL (3.4-5.0); ALBUMIN/GLOBULIN RATIO 0.5 (1.1-1.5); ALKALINE PHOSPHATASE 120 IU/L (46-116); ANION GAP 6 (8-16); ASPARTATE AMINO TRANSFERASE 56 U/L (10-37); BILIRUBIN,TOTAL 1.5 MG/DL (0.1-1.0); BLOOD UREA NITROGEN 12 MG/DL (7-18); BUN/CREATININE RATIO 12.9 (10.0-20.0); CALCIUM 8.1 MG/DL (8.5-10.1); CHLORIDE 107 MMOL/L (99-107); CREATININE 0.93 MG/DL (0.60-1.10); ETHANOL < 10 MG/DL (<10); GLUCOSE 149 MG/DL (70-104); POTASSIUM 3.6 MMOL/L (3.5-5.1); SODIUM 141 MMOL/L (135-145); TOTAL CARBON DIOXIDE 27.6 MMOL/L (24-32); TOTAL PROTEIN 7.3 G/DL (6.4-8.2); eCRCL 85 ML/MIN; eGFR 84 ML/MIN
[2023-06-29] MEDS ORDERED: LACT10SO67 (16:31)
[2023-06-29] MEDS ORDERED: SULF1TAB49 PO (19:12)
[2023-06-29] MEDS ORDERED: HYDR-3965 PO (19:12)
[2023-06-29] MEDS ORDERED: CEPH-585 PO (19:12)
[2023-06-29 19:31] LABS: BILIRUBIN,URINE NEGATIVE (Neg); CLARITY,URINE CLEAR (Clear); COLOR,URINE YELLOW (Yellow); GLUCOSE, URINE NEGATIVE (Neg); KETONES,URINE NEGATIVE (Neg); LEUKOCYTE ESTERASE ,URINE TRACE (Neg); NITRITES, URINE NEGATIVE (Neg); OCCULT BLOOD,URINE MODERATE (Neg); PH,URINE 6.5 (4.8-8.0); PROTEIN,URINE NEGATIVE (Neg)
[2023-06-29 19:35] LABS: UA COLLECTION TYPE VOIDED
[2023-06-29 19:36] LABS: BACTERIA,URINE NONE SEEN /HPF (Neg); MUCUS STRANDS NONE SEEN /LPF (Neg); SQUAMOUS EPITHELIAL CELL,UR FEW /LPF (FEW); WBC CLUMPS,URINE FEW /HPF (NEGATIVE)
[2023-06-29 19:42] LABS: URINE AMPHETAMINE SCREEN POSITIVE (Neg); URINE BARBITUATE SCREEN NEGATIVE (Neg); URINE BENZODIAZEPINES SCREEN NEGATIVE (Neg); URINE CANNABINOID SCREEN NEGATIVE (Neg); URINE COCAINE SCREEN NEGATIVE (Neg); URINE METHADONE SCREEN NEGATIVE (Neg); URINE OPIATE SCREEN POSITIVE (Neg); URINE PHENCYCLIDINE SCREEN NEGATIVE (Neg)
[2023-06-29] MEDS ORDERED: LACT10SO7 PO (21:14)
[2023-06-29] MEDS: lactulose 20gm/30ml cup PO ONE (21:44)
[2023-06-29 22:04] VITALS: BP 184/84; PULSE 90; RESP 18; O2SAT 90
== END 2023-06-29 22:07 | disposition home or self-care (01) ==
LOC: ER 13:23
DX: S40.012A Contusion of left shoulder, initial encounter (principal); S70.02XA Contusion of left hip, initial encounter; K76.82 Hepatic encephalopathy; N48.22 Cellulitis of corpus cavernosum and penis; I11.0 Hypertensive heart disease with heart failure; I50.9 Heart failure, unspecified; E11.9 Type 2 diabetes mellitus without complications; Z79.2 Long term (current) use of antibiotics; Z79.899 Other long term (current) drug therapy; W19.XXXA Unspecified fall, initial encounter; Y93.89 Activity, other specified; Y92.89 Other specified places as the place of occurrence of the external cause; Y99.8 Other external cause status
CPT/HCPCS: 36415; 70450; 73030; 73502; 80053; 80305; 80320; 81001; 82140; 85025; 96361; 96374; 96375; 99285; J2270; J2405; J7030

== ENCOUNTER 2024-04-11 15:19 | Inpatient (IN) | payer MEDICAID ==
[~2024-04-11] VITALS: Ht 170.2 cm; Wt 81.4 kg
[~2024-04-11 15:19] MED LIST changes: +LACT10SO67; +LACT10SO7 PO
[2024-04-11 16:38] LABS: BASOPHILS # (AUTO) 0.1 X10'3 (0-0.2); BASOPHILS % (AUTO) 1.1 % (0-1); EOSINOPHILS # (AUTO) 0.5 X10'3 (0-0.9); EOSINOPHILS % (AUTO) 5.6 % (0-6); HEMATOCRIT 41.2 % (42.0-52.0); HEMOGLOBIN 14.4 g/dl (14.0-17.9); LYMPHOCYTES # (AUTO) 0.9 X10'3 (1.1-4.8); LYMPHOCYTES % (AUTO) 10.9 % (21-51); MEAN CORPUSCULAR HEMOGLOBIN 33.6 PG (27.0-31.0); MEAN CORPUSCULAR VOLUME 96.3 FL (78-98); MEAN PLATELET VOLUME 7.6 FL (7.4-10.4); MONOCYTES # (AUTO) 1.3 X10'3 (0-0.9); MONOCYTES % (AUTO) 15.6 % (2-12); NEUTROPHILS # (AUTO) 5.7 X10'3 (1.8-7.7); NEUTROPHILS % (AUTO) 66.8 % (42-75); PLATELET COUNT 170 X10'3 (140-440); RED BLOOD COUNT 4.28 X10'6 (4.70-6.10); RED CELL DISTRIBUTION WIDTH 14.2 % (11.5-14.5); WHITE BLOOD COUNT 8.6 X10'3 (4.5-11.0)
[2024-04-11 17:00] LABS: ALANINE AMINOTRANSFERASE 41 U/L (12-78); ALBUMIN 2.4 G/DL (3.4-5.0); ALBUMIN/GLOBULIN RATIO 0.4 (1.1-1.5); ALKALINE PHOSPHATASE 145 IU/L (46-116); ANION GAP 5 (8-16); APTT 31 SECONDS (22-32); ASPARTATE AMINO TRANSFERASE 55 U/L (10-37); BILIRUBIN,TOTAL 1.2 MG/DL (0.1-1.0); BLOOD UREA NITROGEN 25 MG/DL (7-18); BUN/CREATININE RATIO 21.2 (10.0-20.0); CALCIUM 8.3 MG/DL (8.5-10.1); CHLORIDE 104 MMOL/L (99-107); CREATININE 1.18 MG/DL (0.60-1.10); INR 1.2 INR; POTASSIUM 5.1 MMOL/L (3.5-5.1); PROTHROMBIN TIME 12.2 SECONDS (9.0-12.0); SODIUM 138 MMOL/L (135-145); TOTAL CARBON DIOXIDE 29.5 MMOL/L (24-32); TOTAL PROTEIN 8.5 G/DL (6.4-8.2); eCRCL 65 ML/MIN; eGFR 64 ML/MIN
[2024-04-11 17:05] LABS: GLUCOSE 189 MG/DL (70-104)
[2024-04-11 17:07] LABS: PLATELET ESTIMATE NORMAL; TOTAL CELLS COUNTED 100
[2024-04-11 17:08] LABS: LIPASE 50 U/L (16-77); PRO BRAIN NATRIURETIC PEPTIDE 207 PG/ML (0-125)
[2024-04-11] MEDS: normal saline 1000ml 1,000 ML IV ONE (21:22)
[2024-04-11] MEDS ORDERED: magnesium hydroxide 30ml (MOM) UD suspension PO PRN (22:30)
[2024-04-11] MEDS ORDERED: magnesium sulf-water 2g/50mL 50 ML IV PRN (22:30)
[2024-04-11] MEDS ORDERED: magnesium Cl slow-release 64mg tablet PO PRN (22:30)
[2024-04-11] MEDS ORDERED: acetaminophen 325mg tablet PO PRN (22:30)
[2024-04-11] MEDS ORDERED: magnesium sulf-water 4G/100mL 100 ML IV PRN (22:30)
[2024-04-11] MEDS ORDERED: potassium Cl 20 mEq SR tablet PO PRN ×2 (22:30)
[2024-04-11] MEDS ORDERED: potassium Cl 40MEQ/1/2NS 520ml 520 ML IV PRN (22:30)
[2024-04-11] MEDS ORDERED: HYDROcodone/acetaminophen 5mg/325mg tablet PO PRN (22:30)
[2024-04-11] MEDS ORDERED: mag hydrox/Alum hydrox/simeth 30ml oral suspension PO PRN (22:30)
[2024-04-11] MEDS: lactulose 20gm/30ml cup PO SCH (22:35)
[2024-04-11] MEDS ORDERED: haloperidol lactate 5mg/ml inj IM PRN (22:35)
[2024-04-11] MEDS: OLANZapine **IM** 10 mg inj. IM ONE (22:46)
[2024-04-11 23:10] LABS: ETHANOL < 10 MG/DL (<10); MAGNESIUM 1.8 MG/DL (1.5-2.4)
[2024-04-12] MEDS: spironolactone 25 MG tablet PO SCH (00:25)
[2024-04-12] MEDS: folic acid 1mg/0.2ml inj IV SCH (00:34)
[2024-04-12] MEDS: furosemide 10 MG/1 ML 10ml inj IV SCH (01:03)
[2024-04-12 02:46] LABS: BASOPHILS # (AUTO) 0.1 X10'3 (0-0.2); BASOPHILS % (AUTO) 1.1 % (0-1); EOSINOPHILS # (AUTO) 0.4 X10'3 (0-0.9); EOSINOPHILS % (AUTO) 6.1 % (0-6); HEMATOCRIT 38.8 % (42.0-52.0); HEMOGLOBIN 13.7 g/dl (14.0-17.9); LYMPHOCYTES # (AUTO) 0.8 X10'3 (1.1-4.8); LYMPHOCYTES % (AUTO) 11.3 % (21-51); MEAN CORPUSCULAR HEMOGLOBIN 33.4 PG (27.0-31.0); MEAN CORPUSCULAR HGB CONC 35.2 g/dL (33.0-36.5); MEAN CORPUSCULAR VOLUME 94.8 FL (78-98); MEAN PLATELET VOLUME 7.8 FL (7.4-10.4); MONOCYTES % (AUTO) 14.9 % (2-12); NEUTROPHILS # (AUTO) 4.5 X10'3 (1.8-7.7); NEUTROPHILS % (AUTO) 66.6 % (42-75); PLATELET COUNT 136 X10'3 (140-440); RED CELL DISTRIBUTION WIDTH 13.9 % (11.5-14.5); WHITE BLOOD COUNT 6.8 X10'3 (4.5-11.0)
[2024-04-12 02:52] LABS: APTT 30 SECONDS (22-32); INR 1.2 INR; PROTHROMBIN TIME 12.2 SECONDS (9.0-12.0)
[2024-04-12 03:05] LABS: ALANINE AMINOTRANSFERASE 34 U/L (12-78); ALBUMIN 2.3 G/DL (3.4-5.0); ALBUMIN/GLOBULIN RATIO 0.4 (1.1-1.5); ALKALINE PHOSPHATASE 127 IU/L (46-116); ANION GAP 9 (8-16); ASPARTATE AMINO TRANSFERASE 48 U/L (10-37); BILIRUBIN,TOTAL 1.2 MG/DL (0.1-1.0); BLOOD UREA NITROGEN 24 MG/DL (7-18); BUN/CREATININE RATIO 25.3 (10.0-20.0); CALCIUM 8.5 MG/DL (8.5-10.1); CHLORIDE 106 MMOL/L (99-107); CHOL/HDL RATIO 2.9 (0.00-4.99); CHOLESTEROL 147 MG/DL (0-200); CREATININE 0.95 MG/DL (0.60-1.10); GLUCOSE 119 MG/DL (70-104); HDL CHOLESTEROL 51 MG/DL (35-60); LDL CHOLESTEROL 86 MG/DL (50-100); MAGNESIUM 1.7 MG/DL (1.5-2.4); POTASSIUM 4.3 MMOL/L (3.5-5.1); SODIUM 141 MMOL/L (135-145); TOTAL CARBON DIOXIDE 26.5 MMOL/L (24-32); TOTAL PROTEIN 7.9 G/DL (6.4-8.2); TRIGLYCERIDES 31 MG/DL (20-135); eCRCL 80 ML/MIN; eGFR 82 ML/MIN
[2024-04-12] MEDS: CefTRIAXone/D5W-Rocephin 1gm 50 ML IV SCH (03:55)
[2024-04-12] MEDS: LORazepam 1 MG tablet PO PRN (06:54)
[2024-04-12] MEDS: haloperidol 5mg tablet PO PRN (06:54)
[2024-04-12] MEDS: morphine 2 MG/ML inj. syringe IV PRN ×2 (06:55→20:31)
[2024-04-12] MEDS: K and/or MAG REPLACEMENT MC SCH (08:00)
[2024-04-12] MEDS: enoxaparin 40mg/0.4ml syringe SUBCUT SCH (08:00)
[2024-04-12] MEDS: pantoprazole 40 MG vial IV SCH (08:26)
[2024-04-12] MEDS: lisinopril 20mg tablet PO SCH (08:29)
[2024-04-12] MEDS: multivitamins, therapeutics tablet PO SCH (08:30)
[2024-04-12] MEDS: docusate sod 100mg capsule PO SCH (08:30)
[2024-04-12] MEDS: thiamine 100mg/ml 2ml inj. IV SCH (08:30)
[2024-04-12] MEDS ORDERED: DOPamine 400mg/D5W 250ml 250 ML IV SCH (11:00)
[2024-04-12] MEDS ORDERED: DOPamine 400MG/D5W 250ML CRITICAL CARE IV SCH (11:10)
[2024-04-12] MEDS: normal saline 1000ml 1,000 ML IV ONE (11:14)
[2024-04-12 21:57] VITALS: BP 156/87; PULSE 69; RESP 17; TEMP 98.1; O2SAT 98
[2024-04-13 06:00] VITALS: BP 157/76; PULSE 69; RESP 14; TEMP 98; O2SAT 96
[2024-04-13 06:22] LABS: BASOPHILS % (AUTO) 0.8 % (0-1); EOSINOPHILS # (AUTO) 0.3 X10'3 (0-0.9); EOSINOPHILS % (AUTO) 5.7 % (0-6); HEMATOCRIT 40.3 % (42.0-52.0); HEMOGLOBIN 14.1 g/dl (14.0-17.9); LYMPHOCYTES # (AUTO) 0.6 X10'3 (1.1-4.8); LYMPHOCYTES % (AUTO) 10.6 % (21-51); MEAN CORPUSCULAR HEMOGLOBIN 33.5 PG (27.0-31.0); MEAN CORPUSCULAR HGB CONC 34.9 g/dL (33.0-36.5); MEAN PLATELET VOLUME 7.8 FL (7.4-10.4); MONOCYTES # (AUTO) 0.8 X10'3 (0-0.9); MONOCYTES % (AUTO) 15.2 % (2-12); NEUTROPHILS # (AUTO) 3.7 X10'3 (1.8-7.7); NEUTROPHILS % (AUTO) 67.7 % (42-75); PLATELET COUNT 125 X10'3 (140-440); RED CELL DISTRIBUTION WIDTH 13.9 % (11.5-14.5); WHITE BLOOD COUNT 5.4 X10'3 (4.5-11.0)
[2024-04-13 06:35] LABS: APTT 32 SECONDS (22-32); INR 1.2 INR; PROTHROMBIN TIME 12.8 SECONDS (9.0-12.0)
[2024-04-13 06:42] LABS: ALANINE AMINOTRANSFERASE 31 U/L (12-78); ALBUMIN 2.2 G/DL (3.4-5.0); ALBUMIN/GLOBULIN RATIO 0.4 (1.1-1.5); ALKALINE PHOSPHATASE 120 IU/L (46-116); ANION GAP 6 (8-16); ASPARTATE AMINO TRANSFERASE 44 U/L (10-37); BILIRUBIN,TOTAL 2.1 MG/DL (0.1-1.0); BLOOD UREA NITROGEN 30 MG/DL (7-18); BUN/CREATININE RATIO 21.9 (10.0-20.0); CALCIUM 8.3 MG/DL (8.5-10.1); CHLORIDE 107 MMOL/L (99-107); CREATININE 1.37 MG/DL (0.60-1.10); GLUCOSE 94 MG/DL (70-104); MAGNESIUM 1.9 MG/DL (1.5-2.4); POTASSIUM 4.8 MMOL/L (3.5-5.1); SODIUM 141 MMOL/L (135-145); TOTAL CARBON DIOXIDE 28.1 MMOL/L (24-32); TOTAL PROTEIN 8.4 G/DL (6.4-8.2); eCRCL 56 ML/MIN; eGFR 54 ML/MIN
[2024-04-13 10:00] VITALS: BP 137/62; PULSE 102; RESP 14; TEMP 97.9; O2SAT 94
[2024-04-13] MEDS: lactose-reduced food (Ensure High Protein) 237ml bottle PO SCH (13:04)
[2024-04-13 15:57] LABS: BILIRUBIN,URINE NEGATIVE (Neg); CLARITY,URINE CLEAR (Clear); COLOR,URINE YELLOW (Yellow); GLUCOSE, URINE NEGATIVE (Neg); KETONES,URINE NEGATIVE (Neg); LEUKOCYTE ESTERASE ,URINE NEGATIVE (Neg); NITRITES, URINE NEGATIVE (Neg); OCCULT BLOOD,URINE NEGATIVE (Neg); PROTEIN,URINE NEGATIVE (Neg); UROBILINOGEN,URINE >=8.0 E.U/dL (0.2-1.0)
[2024-04-13 16:01] LABS: UA COLLECTION TYPE OTHER
[2024-04-13 16:49] LABS: SODIUM,URINE RANDOM 98 MEQ/L; TOTAL PROTEIN,URINE RANDOM 19.5 MG/DL; URINE AMPHETAMINE SCREEN NEGATIVE (Neg); URINE BARBITUATE SCREEN NEGATIVE (Neg); URINE BENZODIAZEPINES SCREEN NEGATIVE (Neg); URINE CANNABINOID SCREEN POSITIVE (Neg); URINE COCAINE SCREEN NEGATIVE (Neg); URINE METHADONE SCREEN NEGATIVE (Neg); URINE OPIATE SCREEN POSITIVE (Neg); URINE PHENCYCLIDINE SCREEN NEGATIVE (Neg)
[2024-04-13 17:04] LABS: OSMOLALITY UA 559 MOSM/K (50-1400)
[2024-04-13 18:00] VITALS: BP 132/72; PULSE 91; RESP 18; TEMP 97.8; O2SAT 96
[2024-04-13] MEDS: HYDROcodone/acetaminophen 10/325mg tab PO PRN (18:52)
[2024-04-13] MEDS: LORazepam 2 mg/ml vial IV PRN (20:57)
[2024-04-13 22:00] VITALS: BP 159/82; PULSE 84; RESP 15; TEMP 97.5; O2SAT 97
[2024-04-14 06:00] VITALS: BP 175/81; PULSE 110; RESP 16; TEMP 98.3; O2SAT 97
[2024-04-14 06:04] LABS: BASOPHILS # (AUTO) 0.1 X10'3 (0-0.2); BASOPHILS % (AUTO) 1.2 % (0-1); EOSINOPHILS # (AUTO) 0.6 X10'3 (0-0.9); EOSINOPHILS % (AUTO) 8.3 % (0-6); HEMATOCRIT 38.4 % (42.0-52.0); HEMOGLOBIN 13.4 g/dl (14.0-17.9); LYMPHOCYTES # (AUTO) 0.7 X10'3 (1.1-4.8); LYMPHOCYTES % (AUTO) 9.3 % (21-51); MEAN CORPUSCULAR HEMOGLOBIN 33.3 PG (27.0-31.0); MEAN CORPUSCULAR VOLUME 95.1 FL (78-98); MEAN PLATELET VOLUME 8.2 FL (7.4-10.4); MONOCYTES # (AUTO) 1.1 X10'3 (0-0.9); MONOCYTES % (AUTO) 14.9 % (2-12); NEUTROPHILS # (AUTO) 4.8 X10'3 (1.8-7.7); NEUTROPHILS % (AUTO) 66.3 % (42-75); PLATELET COUNT 132 X10'3 (140-440); RED BLOOD COUNT 4.04 X10'6 (4.70-6.10); RED CELL DISTRIBUTION WIDTH 13.6 % (11.5-14.5); WHITE BLOOD COUNT 7.3 X10'3 (4.5-11.0)
[2024-04-14 06:10] LABS: APTT 33 SECONDS (22-32); INR 1.2 INR; PROTHROMBIN TIME 12.3 SECONDS (9.0-12.0)
[2024-04-14 06:31] LABS: ALANINE AMINOTRANSFERASE 25 U/L (12-78); ALBUMIN 2.1 G/DL (3.4-5.0); ALBUMIN/GLOBULIN RATIO 0.4 (1.1-1.5); ALKALINE PHOSPHATASE 117 IU/L (46-116); ANION GAP 6 (8-16); ASPARTATE AMINO TRANSFERASE 41 U/L (10-37); BILIRUBIN,TOTAL 1.7 MG/DL (0.1-1.0); BLOOD UREA NITROGEN 25 MG/DL (7-18); BUN/CREATININE RATIO 22.3 (10.0-20.0); CALCIUM 8.4 MG/DL (8.5-10.1); CHLORIDE 103 MMOL/L (99-107); CREATININE 1.12 MG/DL (0.60-1.10); GLUCOSE 139 MG/DL (70-104); MAGNESIUM 1.7 MG/DL (1.5-2.4); POTASSIUM 4.6 MMOL/L (3.5-5.1); SODIUM 136 MMOL/L (135-145); TOTAL CARBON DIOXIDE 27.5 MMOL/L (24-32); TOTAL PROTEIN 7.7 G/DL (6.4-8.2); eCRCL 68 ML/MIN; eGFR 68 ML/MIN
[2024-04-14 08:00] VITALS: RESP 16; O2SAT 97
[2024-04-14 10:00] VITALS: BP 132/100; PULSE 98; RESP 14; TEMP 99; O2SAT 94
[2024-04-14 18:00] VITALS: BP 143/60; PULSE 86; RESP 14; TEMP 98.1; O2SAT 94
[2024-04-14] MEDS: rifaximin 550mg tablet PO SCH (20:27)
[2024-04-15 06:30] VITALS: BP 97/57; PULSE 87; RESP 16; TEMP 97.7; O2SAT 93
[2024-04-15 07:32] LABS: INR 1.2 INR; PROTHROMBIN TIME 12.2 SECONDS (9.0-12.0)
[2024-04-15 07:45] LABS: BASOPHILS # (AUTO) 0.1 X10'3 (0-0.2); BASOPHILS % (AUTO) 0.8 % (0-1); EOSINOPHILS # (AUTO) 0.6 X10'3 (0-0.9); EOSINOPHILS % (AUTO) 7.9 % (0-6); HEMATOCRIT 39.2 % (42.0-52.0); HEMOGLOBIN 13.9 g/dl (14.0-17.9); LYMPHOCYTES # (AUTO) 0.6 X10'3 (1.1-4.8); LYMPHOCYTES % (AUTO) 8.2 % (21-51); MEAN CORPUSCULAR HEMOGLOBIN 33.8 PG (27.0-31.0); MEAN CORPUSCULAR HGB CONC 35.6 g/dL (33.0-36.5); MEAN CORPUSCULAR VOLUME 95.1 FL (78-98); MEAN PLATELET VOLUME 8.4 FL (7.4-10.4); MONOCYTES % (AUTO) 13.3 % (2-12); NEUTROPHILS # (AUTO) 5.2 X10'3 (1.8-7.7); NEUTROPHILS % (AUTO) 69.8 % (42-75); PLATELET COUNT 145 X10'3 (140-440); RED BLOOD COUNT 4.12 X10'6 (4.70-6.10); RED CELL DISTRIBUTION WIDTH 13.6 % (11.5-14.5); WHITE BLOOD COUNT 7.4 X10'3 (4.5-11.0)
[2024-04-15 07:52] LABS: ALANINE AMINOTRANSFERASE 23 U/L (12-78); ALBUMIN 2.1 G/DL (3.4-5.0); ALBUMIN/GLOBULIN RATIO 0.4 (1.1-1.5); ALKALINE PHOSPHATASE 117 IU/L (46-116); ANION GAP 5 (8-16); ASPARTATE AMINO TRANSFERASE 40 U/L (10-37); BILIRUBIN,TOTAL 1.1 MG/DL (0.1-1.0); BLOOD UREA NITROGEN 26 MG/DL (7-18); BUN/CREATININE RATIO 22.6 (10.0-20.0); CALCIUM 8.6 MG/DL (8.5-10.1); CHLORIDE 103 MMOL/L (99-107); CREATININE 1.15 MG/DL (0.60-1.10); GLUCOSE 158 MG/DL (70-104); MAGNESIUM 1.8 MG/DL (1.5-2.4); POTASSIUM 4.5 MMOL/L (3.5-5.1); SODIUM 136 MMOL/L (135-145); TOTAL PROTEIN 7.9 G/DL (6.4-8.2); eCRCL 66 ML/MIN; eGFR 66 ML/MIN
[2024-04-15 08:00] VITALS: RESP 16; O2SAT 93
[2024-04-15] MEDS: pantoprazole 40mg Tablet.DR PO SCH (08:10)
[2024-04-15] MEDS: lactulose 20gm/30ml cup PO SCH (08:30)
[2024-04-15 18:00] VITALS: BP 148/79; PULSE 94; RESP 16; TEMP 98.6; O2SAT 94
[2024-04-15 22:00] VITALS: BP 146/80; PULSE 85; RESP 16; TEMP 98; O2SAT 95
[2024-04-16] MEDS: ondansetron/PF 4mg/2ml inj IV PRN (00:38)
[2024-04-16 06:00] VITALS: BP 134/86; PULSE 100; RESP 16; TEMP 98; O2SAT 94
[2024-04-16 07:22] LABS: BASOPHILS % (AUTO) 0.3 % (0-1); EOSINOPHILS # (AUTO) 0.1 X10'3 (0-0.9); HEMATOCRIT 40.9 % (42.0-52.0); HEMOGLOBIN 14.5 g/dl (14.0-17.9); LYMPHOCYTES # (AUTO) 0.5 X10'3 (1.1-4.8); LYMPHOCYTES % (AUTO) 5.1 % (21-51); MEAN CORPUSCULAR HEMOGLOBIN 33.5 PG (27.0-31.0); MEAN CORPUSCULAR HGB CONC 35.4 g/dL (33.0-36.5); MEAN CORPUSCULAR VOLUME 94.4 FL (78-98); MEAN PLATELET VOLUME 8.4 FL (7.4-10.4); MONOCYTES # (AUTO) 1.1 X10'3 (0-0.9); MONOCYTES % (AUTO) 11.5 % (2-12); NEUTROPHILS # (AUTO) 7.5 X10'3 (1.8-7.7); NEUTROPHILS % (AUTO) 82.1 % (42-75); PLATELET COUNT 156 X10'3 (140-440); RED BLOOD COUNT 4.33 X10'6 (4.70-6.10); RED CELL DISTRIBUTION WIDTH 13.7 % (11.5-14.5); WHITE BLOOD COUNT 9.2 X10'3 (4.5-11.0)
[2024-04-16 07:25] LABS: INR 1.2 INR; PROTHROMBIN TIME 12.2 SECONDS (9.0-12.0)
[2024-04-16 07:58] LABS: ALANINE AMINOTRANSFERASE 23 U/L (12-78); ALBUMIN 2.3 G/DL (3.4-5.0); ALBUMIN/GLOBULIN RATIO 0.4 (1.1-1.5); ALKALINE PHOSPHATASE 123 IU/L (46-116); ANION GAP 9 (8-16); ASPARTATE AMINO TRANSFERASE 40 U/L (10-37); BILIRUBIN,TOTAL 1.2 MG/DL (0.1-1.0); BLOOD UREA NITROGEN 28 MG/DL (7-18); BUN/CREATININE RATIO 26.4 (10.0-20.0); CHLORIDE 100 MMOL/L (99-107); CREATININE 1.06 MG/DL (0.60-1.10); GLUCOSE 156 MG/DL (70-104); POTASSIUM 4.6 MMOL/L (3.5-5.1); SODIUM 136 MMOL/L (135-145); TOTAL CARBON DIOXIDE 27.2 MMOL/L (24-32); TOTAL PROTEIN 8.5 G/DL (6.4-8.2); eCRCL 72 ML/MIN; eGFR 72 ML/MIN
[2024-04-16 10:00] VITALS: BP 165/100; PULSE 99; RESP 20; TEMP 97.7; O2SAT 93
[2024-04-16 12:48] VITALS: RESP 14
[2024-04-16] MEDS ORDERED: LISI20TA28 PO (14:06)
[2024-04-16] MEDS ORDERED: FURO20TA4 PO (14:06)
[2024-04-16] MEDS ORDERED: LACT10SO7 PO (14:06)
[2024-04-16] MEDS ORDERED: SPIR25TA PO (14:06)
== END 2024-04-16 15:20 | disposition home or self-care (01) ==
LOC: ER 15:21 → ED HOLD 22:34 → ORTHO 4S 04-12 21:15
PROVIDERS: ADMIT Internal Medicine Critical Care Medicine; ATTEND Internal Medicine
DX: K76.82 Hepatic encephalopathy (principal); I50.33 Acute on chronic diastolic (congestive) heart failure; E87.20 Acidosis, unspecified; K72.10 Chronic hepatic failure without coma; N18.6 End stage renal disease; R18.8 Other ascites; E72.20 Disorder of urea cycle metabolism, unspecified; I13.2 Hypertensive heart and chronic kidney disease with heart failure and with stage 5 chronic kidney disease, or end stage renal disease; E11.22 Type 2 diabetes mellitus with diabetic chronic kidney disease; Z83.3 Family history of diabetes mellitus; B19.20 Unspecified viral hepatitis C without hepatic coma; F32.A Depression, unspecified; Z79.84 Long term (current) use of oral hypoglycemic drugs; Z59.00 Homelessness unspecified
CPT/HCPCS: 36415; 70450; 71045; 76705; 80053; 80061; 80305; 80320; 81003; 82140; 82570; 83036; 83605; 83690; 83735; 83880; 83930; 83935; 84133; 84145; 84156; 84300; 84484; 85007; 85025; 85610; 85730; 87040; 87081; 87207; 87502; 87503; 92508; 92616; 93005; 96360; 97116; 97161; 97530; 97535; 99285; A6446; A6590; G0378; J0696; J1650; J1940; J2060; J2270; J2405; J2470; J3411; J3490; J7030; J7040

== ENCOUNTER 2024-08-24 16:39 | Inpatient (IN) | payer MEDICAID ==
[~2024-08-24] VITALS: Ht 167.6 cm; Wt 95.5 kg
--- NOTE | 2024-08-24 17:01 | Physician Documentation ---
History of Present Illness Chief Complaint: Abdominal Pain Stated Complaint: ABDOMINAL PAIN Time Seen by MD: 16:58 OK to notify your PCP?: Yes Primary Medical Doctor: Zurdo Petersen Source: patient Exam Limitations: no limitations HPI This 59-year-old male with history of liver disease and ventral hernia presents with one day of upper abdominal pain in the area of his ventral hernia. Patient reports no fever, chills, or other systemic symptoms. Patient reports that his pain is 10/10 and very severe. It radiates from the area of his hernia hours the rest of his abdomen. He denies any nausea or vomiting. Denies any constipation or diarrhea. He does admit to using a lot of methamphetamines over the past several weeks. 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 CONST: Patient looks disheveled and unkempt. He is moaning in pain HENT: Head Atraumatic EYES: Pupils are equal, round and reactive to light. Normal conjunctiva NECK: Normal range of motion. Supple. CARDIO: Normal rate and regular rhythm. No murmurs, rubs, or gallops. S1, S2. PULM/CHEST: No respiratory distress. Lungs clear to auscultation. No wheeze ABD: Abdomen is distended with a large central hernia. There is significant diffuse tenderness to palpation. : Exam deferred MSK: No edema. No deformity. NEURO: Alert and oriented to person, place and time. Moving all extremities SKIN: Skin is jaundiced PSYCH: Normal mood and affect. Good eye contact. Progress Progress Note 184: Hospitalist paged. 1936: Case discussed with Dr. Palacios, internal medicine resident, who is concerned about patient's lung mass and requests surgeon consultation. 1939: Case discussed with Dr. Barajas, surgeon, who believes patient's lung mass can be evaluated as an outpatient and recommends referral to [facility]. 1940: Updated Dr. Palacios, who agrees to evaluate the patient for admission. Results/Orders Reviewed/noted all lab results: Yes Results/Orders Vital Signs 08/24/24 16:45 Temp 97.6 Pulse 96 Resp 18 B/P (MAP) 221/115 Pulse Ox 96 EKG/XRAY/CT/US/VASC/MRI EKG : Additional Comment Test Date: 2024-08-24 Test Time: 17:51:19 Pat Name: OJ TRAN Department: 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 Papito Liu Measurements Intervals [place] Rate: 87 P: 62 KS: 193 QRS: 20 QRSD: 114 T: 61 QT: 423 QTc: 509 Interpretive Statements Sinus rhythm Abnormal R-wave progression, early transition Probable left ventricular hypertrophy Prolonged QT interval Electronically Signed On 08-24-2024 18:18:[address] Papito Liu [address] : Impression Exam: CT CT ABDOMEN PELVIS History: ABDOMINAL PAIN AND SWELLING Comparison Study: None available at time of dictation. TECHNIQUE: Multidetector CT of the abdomen was performed from lung bases to pubic symphysis. Imaging was performed without IV contrast. Axial, coronal and sagittal multiplanar reformats were obtained from the axial data set by the technologist. Radiation Dose Information: CT Dose: CTDI volume is 31.42 mGy. Dose-length product is 1669.45 mGy*cm FINDINGS: Evaluation of solid organs is limited due to lack of intravenous contrast use. Findings: Lung Bases: Complex mass right lower lung field just above the right diaphragm with a small pleural effusion. May represent an abscess or pulmonary cyst. It appears to contain both air and soft tissue material which has a tissue tissue density of 56 Hounsfield units. Normal heart size. No pleural or pericardial effusion. Liver: The liver is normal in size. No focal lesions. Gallbladder and Biliary Tree: Calcified gallstones Spleen: Enlarged measuring 18 cm. Pancreas: The pancreas is grossly normal in appearance. Adrenal Glands: Unremarkable Kidneys: Kidneys are grossly normal without calculi or hydronephrosis. Bladder: Grossly unremarkable for degree of distention. Bowel: The stomach is grossly normal in appearance. Small bowel and colon are normal in caliber and distribution. The appendix is not visualized; however, no secondary findings of acute appendicitis identified. Ascites: Throughout the abdomen and pelvis Lymphadenopathy: No mesenteric, retroperitoneal or periportal lymphadenopathy. Abdominal Wall and Mesentery: 5.9 x 1.8 cm ventral hernia in the area of the umbilicus containing bowel and ascites. 2.2 cm right inguinal hernia containing ascites. 2.5 cm left inguinal hernia containing small amount of ascites. Vasculature: The visualized abdominal aorta is normal in size and caliber. Evaluation of abdominal and pelvic vessels is limited due to lack of intravenous contrast. Pelvic Organs: Unremarkable Musculoskeletal: No aggressive focal bony lesions, acute fractures or dislocation. Soft tissues: Unremarkable IMPRESSION: 1. 5.9 cm complex mass in the right lower lung field just above the diaphragm which contains both air and soft tissue material with density of 56 Hounsfield units. This may represent a complex cyst or abscess. 2. Small right pleural effusion. 3. Splenomegaly measuring 18 cm. Lymph nodes in the upper abdomen multiple between 1 and 2 cm greatest on the left in the area of the spleen. Questionable lymphoma or leukemia. 4. Moderate amount of ascites in the abdomen and pelvis. 5. Small bilateral inguinal hernias containing ascites as well as a bili cul hernia containing bowel. 6. Multiple small calcified gallstones Departure Time of Disposition: 18:47 Disposition: ADMITTED INPATIENT Admitted to Inpatient Unit: yes, to hospitalist Impression: Primary Impression: Hepatic encephalopathy Additional Impressions: Methamphetamine use Accelerated hypertension Abdominal pain Splenomegaly Condition: Guarded Referrals: NO PRIMARY CARE PROVIDER (PCP) Signature Scribe Signature: Scribed for Papito Liu MD by Ness Reese . 08/24/24 19:23 JOSSELIN GOODWIN Aug 24, 2024 17:01 KATHRYN MERA MD Aug 24, 2024 17:40 PAPITO LIU MD Aug 24, 2024 18:49 NESS CORTEZ Aug 24, 2024 19:24
[2024-08-24 17:22] LABS: BASOPHILS % (AUTO) 0.8 % (0-1); EOSINOPHILS # (AUTO) 0.1 X10'3 (0-0.9); EOSINOPHILS % (AUTO) 2.1 % (0-6); HEMATOCRIT 42.8 % (42.0-52.0); HEMOGLOBIN 15.1 g/dl (14.0-17.9); LYMPHOCYTES # (AUTO) 0.4 X10'3 (1.1-4.8); LYMPHOCYTES % (AUTO) 6.9 % (21-51); MEAN CORPUSCULAR HEMOGLOBIN 32.2 PG (27.0-31.0); MEAN CORPUSCULAR HGB CONC 35.3 g/dL (33.0-36.5); MEAN PLATELET VOLUME 7.5 FL (7.4-10.4); MONOCYTES # (AUTO) 0.4 X10'3 (0-0.9); MONOCYTES % (AUTO) 8.1 % (2-12); NEUTROPHILS # (AUTO) 4.3 X10'3 (1.8-7.7); NEUTROPHILS % (AUTO) 82.1 % (42-75); PLATELET COUNT 88 X10'3 (140-440); RED BLOOD COUNT 4.71 X10'6 (4.70-6.10); WHITE BLOOD COUNT 5.2 X10'3 (4.5-11.0)
[2024-08-24 17:34] LABS: ALANINE AMINOTRANSFERASE 25 U/L (12-78); ALBUMIN 3.1 G/DL (3.4-5.0); ALBUMIN/GLOBULIN RATIO 0.7 (1.1-1.5); ALKALINE PHOSPHATASE 128 IU/L (46-116); AMYLASE 56 U/L (25-115); ANION GAP 5 (8-16); ASPARTATE AMINO TRANSFERASE 30 U/L (10-37); BILIRUBIN,TOTAL 2.2 MG/DL (0.1-1.0); BLOOD UREA NITROGEN 12 MG/DL (7-18); BUN/CREATININE RATIO 15.2 (10.0-20.0); CALCIUM 8.5 MG/DL (8.5-10.1); CHLORIDE 106 MMOL/L (99-107); CREATININE 0.79 MG/DL (0.60-1.10); GLUCOSE 135 MG/DL (70-104); LIPASE 25 U/L (16-77); SODIUM 138 MMOL/L (135-145); TOTAL CARBON DIOXIDE 27.5 MMOL/L (24-32); TOTAL PROTEIN 7.8 G/DL (6.4-8.2); eCRCL 92 ML/MIN; eGFR > 90 ML/MIN
[2024-08-24] MEDS: ondansetron/PF 4mg/2ml inj IV ONE (17:35)
[2024-08-24] MEDS: morphine 4 MG/ML inj SYRINge IV ONE (17:35)
[2024-08-24 17:44] LABS: BILIRUBIN,URINE NEGATIVE (Neg); CLARITY,URINE CLOUDY (Clear); COLOR,URINE YELLOW (Yellow); GLUCOSE, URINE NEGATIVE (Neg); KETONES,URINE NEGATIVE (Neg); LEUKOCYTE ESTERASE ,URINE NEGATIVE (Neg); NITRITES, URINE NEGATIVE (Neg); OCCULT BLOOD,URINE TRACE-INTACT (Neg); PH,URINE 7.5 (4.8-8.0); PROTEIN,URINE TRACE mg/dl (Neg)
--- NOTE | 2024-08-24 17:54 | ELECTROCARDIOGRAPH REPORT ---
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 Papito Liu Measurements Intervals [place] Rate: 87 P: 62 PA: 193 QRS: 20 QRSD: 114 T: 61 QT: 423 QTc: 509 Interpretive Statements Sinus rhythm Abnormal R-wave progression, early transition Probable left ventricular hypertrophy Prolonged QT interval Electronically Signed On 08-24-2024 18:18:[address] Papito Liu Please click the below link to view image of tracing.
[2024-08-24 17:57] LABS: APTT 32 SECONDS (22-32); INR 1.1 INR; PROTHROMBIN TIME 11.6 SECONDS (9.0-12.0)
[2024-08-24 18:01] LABS: UA COLLECTION TYPE NON-SPECIFIED
[2024-08-24 18:03] LABS: AMORPHOUS PHOSPHATES 4+; BACTERIA,URINE FEW /HPF (Neg); MUCUS STRANDS NONE SEEN /LPF (Neg); RBC,URINE 0-2 /HPF (0-2); SQUAMOUS EPITHELIAL CELL,UR NONE SEEN /LPF (FEW); WBC,URINE NONE SEEN /HPF (0-4)
[2024-08-24 18:11] LABS: CREATINE KINASE 53 U/L (39-308); ETHANOL < 10 MG/DL (<10); LACTATE DEHYDROGENASE 220 U/L (85-227); PHOSPHORUS 3.2 MG/DL (2.3-4.5)
[2024-08-24] MEDS: piperacillin/tazo 3.375gm/50ml 50 ML IV ONE (18:12)
[2024-08-24 18:14] LABS: URINE AMPHETAMINE SCREEN POSITIVE (Neg); URINE BARBITUATE SCREEN NEGATIVE (Neg); URINE BENZODIAZEPINES SCREEN NEGATIVE (Neg); URINE CANNABINOID SCREEN POSITIVE (Neg); URINE COCAINE SCREEN NEGATIVE (Neg); URINE METHADONE SCREEN NEGATIVE (Neg); URINE OPIATE SCREEN NEGATIVE (Neg); URINE PHENCYCLIDINE SCREEN NEGATIVE (Neg)
[2024-08-24] MEDS: normal saline 500ml IV soln 500 ML IV ONE (18:14)
--- NOTE | 2024-08-24 18:20 | RADIOLOGY REPORT ---
Exam: CT CT ABDOMEN PELVIS History: ABDOMINAL PAIN AND SWELLING Comparison Study: None available at time of dictation. TECHNIQUE: Multidetector CT of the abdomen was performed from lung bases to pubic symphysis. Imaging was performed without IV contrast. Axial, coronal and sagittal multiplanar reformats were obtained fr om the axial data set by the technologist. Radiation Dose Information: CT Dose: CTDI volume is 31.42 mGy. Dose-length product is 1669.45 mGy*cm FINDINGS: Evaluation of solid organs is limited due to lack of intravenous contrast use. Findings: Lung Bases: Complex mass right lower lung field just above the right diaphragm with a small pleural e ffusion. May represent an abscess or pulmonary cyst. It appears to contain both air and soft tissue m aterial which has a tissue tissue density of 56 Hounsfield units. Normal heart size. No pleural or pericardial effusion. Liver: The liver is normal in size. No focal lesions. Gallbladder and Biliary Tree: Calcified gallstones Spleen: Enlarged measuring 18 cm. Pancreas: The pancreas is grossly normal in appearance. Adrenal Glands: Unremarkable Kidneys: Kidneys are grossly normal without calculi or hydronephrosis. Bladder: Grossly unremarkable for degree of distention. Bowel: The stomach is grossly normal in appearance. Small bowel and colon are normal in caliber and d istribution. The appendix is not visualized; however, no secondary findings of acute appendicitis id entified. Ascites: Throughout the abdomen and pelvis Lymphadenopathy: No mesenteric, retroperitoneal or periportal lymphadenopathy. Abdominal Wall and Mesentery: 5.9 x 1.8 cm ventral hernia in the area of the umbilicus containing bow el and ascites. 2.2 cm right inguinal hernia containing ascites. 2.5 cm left inguinal hernia contain ing small amount of ascites. Vasculature: The visualized abdominal aorta is normal in size and caliber. Evaluation of abdominal a nd pelvic vessels is limited due to lack of intravenous contrast. Pelvic Organs: Unremarkable Musculoskeletal: No aggressive focal bony lesions, acute fractures or dislocation. Soft tissues: Unremarkable IMPRESSION: 1. 5.9 cm complex mass in the right lower lung field just above the diaphragm which contains both air and soft tissue material with density of 56 Hounsfield units. This may represent a complex cyst or a bscess. 2. Small right pleural effusion. 3. Splenomegaly measuring 18 cm. Lymph nodes in the upper abdomen multiple between 1 and [address] on the left in the area of the spleen. Questionable lymphoma or leukemia. 4. Moderate amount of ascites in the abdomen and pelvis. 5. Small bilateral inguinal hernias containing ascites as well as a bili cul hernia containing bowel. 6. Multiple small calcified gallstones Radiation optimization: All CT scans at this facility use at least one of these dose optimization pablito hniques: automated exposure control mA and/or kV adjustment per patient size (includes targeted exam s where dose is matched to clinical indication) or iterative reconstruction.
[2024-08-24] MEDS ORDERED: spironolactone 25 MG tablet PO STA (18:44)
[2024-08-24] MEDS: diazepam 5mg tablet PO ONE (19:10)
[2024-08-24] MEDS: lisinopril 10 MG tablet PO ONE (19:11)
[2024-08-24] MEDS: furosemide 10 MG/1 ML 10ml inj IV ONE (19:13)
[2024-08-24] MEDS: spironolactone 50 MG tablet PO STA (19:26)
[2024-08-24] MEDS ORDERED: magnesium Cl slow-release 64mg tablet PO PRN (19:50)
[2024-08-24] MEDS ORDERED: ondansetron/PF 4mg/2ml inj IV PRN (19:50)
[2024-08-24] MEDS ORDERED: acetaminophen 325mg tablet PO PRN (19:50)
[2024-08-24] MEDS ORDERED: mag hydrox/Alum hydrox/simeth 30ml oral suspension PO PRN (19:50)
[2024-08-24] MEDS ORDERED: magnesium sulf-water 4G/100mL 100 ML IV PRN (19:50)
[2024-08-24] MEDS ORDERED: potassium Cl 40MEQ/1/2NS 520ml 520 ML IV PRN (19:50)
[2024-08-24] MEDS ORDERED: magnesium hydroxide 30ml (MOM) UD suspension PO PRN (19:50)
[2024-08-24] MEDS ORDERED: potassium Cl 20 mEq SR tablet PO PRN ×2 (19:50)
[2024-08-24] MEDS ORDERED: magnesium sulf-water 2g/50mL 50 ML IV PRN (19:50)
[2024-08-24] MEDS: K and/or MAG REPLACEMENT MC SCH (20:00)
[2024-08-24] MEDS: docusate sod 100mg capsule PO SCH (20:00)
[2024-08-24] MEDS: heparin, porcine 5000 units/ml vial SQ SCH (20:00)
[2024-08-24] MEDS: HYDROmorphone 1 mg/ml syringe IV ONE (20:26)
[2024-08-24] MEDS ORDERED: lactulose 20gm/30ml cup PO SCH ×2 (20:50→22:40)
--- NOTE | 2024-08-24 21:15 | HISTORY AND PHYSICAL-Residence ---
History & Physical Providers to CC Resident Creating Document: MCCAIN ANIARIAS JORDAN CC: ZAKIYA MCGHEE MD ~ History of Present Illness Primary Medical Doctor: Zurdo Petersen Reason for Admit\Complaint: Abdominal pain History of Present Illness Patient was a 59-year-old male with history of cirrhosis, hypertension and type 2 diabetes who came into the ED due to abdominal pain. Patient was drowsy and obtaining history is challenging, but he does wake up and answer some questions. Patient's reports diffuse abdominal pain which started yesterday, slowly increasing in severity, up to 02/03. He denies nausea, vomiting, fever or chills. He does report that he is currently homeless and has not been able to take any of his medications. His last bowel movement was yesterday. Allergies: Coded Allergies: No Known Allergies (Unverified , 08/24/24) Home Medications Home Medications Active Lactulose 20 Gram/30 Ml Solution 30 Ml PO QID Furosemide 20 Mg Tablet 1 Tab PO DAILY 30 Days Aldactone (Spironolactone) 25 Mg Tablet 25 Mg PO DAILY@0830 30 Days Lisinopril 20 Mg Tablet 20 Mg PO DAILY 30 Days Reported Constulose (Lactulose) 10 Gram/15 Ml Solution Past Medical History Past Medical History Cirrhosis, meth induced per patient Hypertension Type 2 diabetes Past Surgical History Surgical History Comment Right arm surgery Exploratory laparotomy, unspecified Family History Family History: FH: diabetes mellitus MOTHER, , Age: 72, Cause: of unknown cause Past Social History Smoking: Cigarettes (6 cigarettes a day for the last several years) Alcohol Use: Sober Drug Use: Marijuana, Methamphetamine Lives In: Homeless Past Social History: History of methamphetamine use, currently sober ROS ROS All systems were reviewed and found negative except for pertinent positives mentioned in the HPI Exam Vitals: Vital Signs Date Time Temp Pulse Resp B/P (MAP) Pulse Ox O2 Delivery O2 Flow Rate FiO2 08/24/24 20:26 15 08/24/24 20:04 98 172/89 (116) 97 0 08/24/24 16:45 97.6 General: General: Drowsy, forgetful, but cooperative with care. Oriented to person and place HEENT: No pallor present, no icterus, dry mucous membranes Neck: No masses and tenderness Resp: Unlabored. Lungs clear to auscultation bilaterally. Heart: Regular Rate and rhythm, normal S1 and S2 without murmur, rub or gallop Abdomen: Distended and diffusely tender. Soft and non tender no organomegaly, no guarding and rigidity, bowel sounds present Neuro: No focal weakness in the upper and lower limb muscles, power of the muscles 4/5 bilateral upper and lower muscles, knee reflex present bilaterally. Cranial nerves intact Extremities: Chronic stasis changes in lower extremities. 2+ pedal edema. No cyanosis or clubbing Skin: Warm and Dry. Diagnostic Data Last Recorded Lab Results: 08/24/24 1703 08/24/24 1703 Diagnostic Data: Laboratory Tests Test 08/24/24 17:03 Prothrombin Time 11.6 SECONDS (9.0-12.0) INR International Normalized Ratio 1.1 INR Activated Partial Thromboplast Time 32 SECONDS (22-32) Coagulation Comments Advance Care Planning Advanced Care plannin - 30 Minutes Additional Plan Patient was a 59-year-old male with history of cirrhosis, hypertension and type 2 diabetes who came into the ED due to abdominal pain. Admitted for evaluation and management of metabolic encephalopathy secondary to liver cirrhosis. Hepatic encephalopathy, grade 1-2 Liver cirrhosis, , MELD-Na score 12, Child-sun C Ascites, possible SBP Splenomegaly Medication noncompliance Patient is somnolent but wakes up and answers some questions, no obvious asterixis observed Patient did receive diazepam in ED which could be worsening his drowsiness He does have significant abdominal tenderness Tolerating room air Bilirubin is 2.2, albumin 3.1, INR 1.1, platelets 88, alk phosphatase is 128 ETOH levels are <10 AST and ALT are unremarkable Ammonia is 32 CT abdomen and pelvis shows moderate ascites Will start patient on lactulose q.6, spironolactone 25 mg daily and IV Lasix 40 mg daily Per ED physician, unable to perform paracentesis due to loculated ascites. Will consult ICU in AM Will start empiric Rocephin Lung mass Small right pleural effusion CT abdomen showed 5.9 cm complex mass in the right lower lung field just above the diaphragm which contains both air and soft tissue material with density of 56 Hounsfield units. This may represent a complex cyst or abscess. 3. Splenomegaly measuring 18 cm. Lymph nodes in the upper abdomen multiple between 1 and 2 cm greatest on the left in the area of the spleen. Questionable lymphoma or leukemia. Last chest CT per our records was in 2020 which did not show above findings Patient is an IV drug user and abscess is a concerned. However, white count and lactic acid are unremarkable Splenomegaly and presence of lymphadenopathy raises concerns of malignancy ED physician did consult Dr. Barajas, who expressed patient can be worked out on an outpatient basis However, if further concerns for abscess, patient may need drainage Will obtain CT chest Hypertensive urgency Type 2 diabetes Patient reported being diabetic, however, A1c from 04/19 was 5. Will not start insulin Received lisinopril, Lasix and diazepam in ED with improvement Continue home lisinopril Code Status: Full code DVT prophylaxis: SCDs. Not doing heparin in view of thrombocytopenia Analgesia/sedation: Morphine Nutrition: Regular diet PT: Ordered Prognosis: Guarded Disposition: Admit to PCU with tele monitoring. Continue medical management Arias Palacios MD Internal Medicine Resident PGY-1 Date of Service: Aug 24, 2024 Billing Provider: ZAKIYA MCGHEE MD Common Visit Codes: 93043-[id number] INP/OBS CARE (HIGH) Assessment/Plan Assessment Evaluated with the help of residents. Discussed with the etam at length. Reviewed note sby the resident. Agree with his assessments and plans. I also reviewed patients's record. Reviewed labs,notes and radiology. No additional points at this time ARIAS NAJERA Aug 24, 2024 21:15 ZAKIYA MCGHEE MD August 25, 2024 05:12
[2024-08-24 22:10] VITALS: BP 186/100; PULSE 81; RESP 12; TEMP 98; O2SAT 92
[2024-08-24 22:30] VITALS: RESP 12; O2SAT 92
[2024-08-24] MEDS: lactulose 20gm/30ml cup PO SCH (22:48)
[2024-08-24 22:50] VITALS: BP 188/97; PULSE 84
[2024-08-24] MEDS: labetalol 20mg/4ml (5mg/ml) syringe IV ONE (23:30)
[2024-08-25] VITALS (8 sets, daily range): BP systolic 100–155; BP diastolic 59–82; PULSE 65–81; RESP 12–17; TEMP 97.2–98.1; O2SAT 81–99
[2024-08-25] MEDS: CefTRIAXone 2gm/D5W 50ml BAG 50 ML IV SCH (03:59)
[2024-08-25 06:40] LABS: BASOPHILS # (AUTO) 0.1 X10'3 (0-0.2); BASOPHILS % (AUTO) 1.3 % (0-1); EOSINOPHILS # (AUTO) 0.2 X10'3 (0-0.9); EOSINOPHILS % (AUTO) 3.6 % (0-6); HEMATOCRIT 41.5 % (42.0-52.0); HEMOGLOBIN 14.6 g/dl (14.0-17.9); LYMPHOCYTES # (AUTO) 0.4 X10'3 (1.1-4.8); LYMPHOCYTES % (AUTO) 6.3 % (21-51); MEAN CORPUSCULAR HEMOGLOBIN 32.2 PG (27.0-31.0); MEAN CORPUSCULAR HGB CONC 35.1 g/dL (33.0-36.5); MEAN CORPUSCULAR VOLUME 91.9 FL (78-98); MEAN PLATELET VOLUME 8.1 FL (7.4-10.4); MONOCYTES # (AUTO) 0.6 X10'3 (0-0.9); MONOCYTES % (AUTO) 9.7 % (2-12); NEUTROPHILS # (AUTO) 4.6 X10'3 (1.8-7.7); NEUTROPHILS % (AUTO) 79.1 % (42-75); PLATELET COUNT 95 X10'3 (140-440); RED BLOOD COUNT 4.52 X10'6 (4.70-6.10); RED CELL DISTRIBUTION WIDTH 14.5 % (11.5-14.5); WHITE BLOOD COUNT 5.8 X10'3 (4.5-11.0)
[2024-08-25 06:58] LABS: ALANINE AMINOTRANSFERASE 19 U/L (12-78); ALBUMIN 2.6 G/DL (3.4-5.0); ALBUMIN/GLOBULIN RATIO 0.6 (1.1-1.5); ALKALINE PHOSPHATASE 110 IU/L (46-116); ANION GAP 5 (8-16); ASPARTATE AMINO TRANSFERASE 25 U/L (10-37); BILIRUBIN,TOTAL 1.7 MG/DL (0.1-1.0); BLOOD UREA NITROGEN 14 MG/DL (7-18); BUN/CREATININE RATIO 17.5 (10.0-20.0); CALCIUM 8.3 MG/DL (8.5-10.1); CHLORIDE 108 MMOL/L (99-107); GLUCOSE 134 MG/DL (70-104); MAGNESIUM 2.3 MG/DL (1.5-2.4); POTASSIUM 3.9 MMOL/L (3.5-5.1); SODIUM 142 MMOL/L (135-145); TOTAL CARBON DIOXIDE 29.2 MMOL/L (24-32); TOTAL PROTEIN 6.9 G/DL (6.4-8.2); eCRCL 91 ML/MIN; eGFR > 90 ML/MIN
[2024-08-25] MEDS: lisinopril 20mg tablet PO SCH (08:20)
[2024-08-25] MEDS: furosemide 40mg/4ml inj IV SCH (08:20)
[2024-08-25] MEDS ORDERED: spironolactone 25 MG tablet PO SCH (08:30)
[2024-08-25 09:12] LABS: PRO BRAIN NATRIURETIC PEPTIDE 985 PG/ML (0-125)
--- NOTE | 2024-08-25 09:19 | RADIOLOGY REPORT ---
CHEST RADIOGRAPH Indication: Pleural effusion Technique: Single frontal view of the chest was obtained Comparison: DI CHEST,SINGLE VIEW on DOS: 04/24/24, DI CHEST,SINGLE VIEW on DOS: 04/11/24, CHEST,SINGL E VIEW on DOS: 11/10/22 FINDINGS: Lines and Tubes: None Lungs: No focal consolidation. Pleura: Small right pleural effusion No pneumothorax. Cardiomediastinal contours: Cardiomegaly with CHF. Bones: No acute osseous abnormality. IMPRESSION: Small right pleural effusion Cardiomegaly with CHF.
[2024-08-25] MEDS: spironolactone 50 MG tablet PO SCH (10:06)
[2024-08-25] MEDS: morphine 2 MG/ML inj. syringe IV PRN ×2 (13:56→18:00)
--- NOTE | 2024-08-25 15:10 | RADIOLOGY REPORT ---
Procedure: CT CT CHEST Reason for study/Clinical History: Lung mass Comparison Study: None available at time of dictation. Exam Date: 08/25/2024 11:43 AM TECHNIQUE: Multidetector CT of the chest was performed from the lung apices to the upper abdomen with out the use of intravenous contract. Axial, coronal and sagittal multiplanar reformats were performed . Radiation Dose Information: CT Dose: CTDI volume is 18.18 mGy. Dose-length product is 669.06 mGy*cm The dose indicators for CT are the volume Computed Tomography (CT) Dose Index (CTDIvol) and the Dose Length Product (DLP), and are measured in units of mGy and mGy-cm, respectively. These indicators are not patient dose, but values generated from the CT scanner acquisition factors. The report includes radiation exposure data for exposures received during this examination. FINDINGS: Lower neck: Normal thyroid. Lungs: Small right pleural effusion. 5.5 cm complex mass just above the right diaphragm right lower l obe containing both air and soft tissue material. Does not appear significantly changed from 08/25/19 25.. Infection versus neoplasm are both in the differential. Heart/Vascular Structures: Normal heart size. No pericardial effusion. Lymph Nodes: No adenopathy Pleura: No pleural effusion or significant pneumothorax. Musculoskeletal: No acute osseous abnormality. Soft tissues: Normal. Upper abdomen: Limited portions of the upper abdomen are unremarkable. IMPRESSION: 1. Unchanged 5.5 x 4.2 cm complex collection above the right diaphragm with small right pleural effus ion. Finding may be consistent with infection or neoplasm. 2. No other pulmonary masses or nodules are are present. 3. Small right pleural effusion Radiation optimization: All CT scans at this facility use at least one of these dose optimization pablito hniques: automated exposure control mA and/or kV adjustment per patient size (includes targeted exam s where dose is matched to clinical indication) or iterative reconstruction.
--- NOTE | 2024-08-25 18:31 | CARDIOLOGY REPORT ---
APPROVED REPORT EXAM: Comprehensive 2D, Doppler, and color-flow Echocardiogram. Patient Location: 3024B Blood Pressure: 148/79 mmHg Heart Rate: 69 bpm Rhythm: Sinus Indications Congestive Heart Failure NO ASSISTANT PROSECUTING ATTORNEY NO Previous ECHO 2D Dimensions LA Diam4.0 cm IVSd 1.2 (0.7-1.1cm) LVDd 4.6 cm PWd 1.1 (0.7-1.1cm) IVSs 1.7 (0.8-1.2cm) LVDs 2.5 (2.5-4.0cm) PWs 1.6 (0.8-1.2cm) LVOT Diameter 1.85 (1.8-2.4cm) LVEF(%) 77.8 (>50%) Ao Asc Diam.2.43 cm IVC 12.80 mmFS (%) 46.3 % SV 74.8 ml CO 5.8 L/min M-Mode Dimensions Left Atrium(MM) 3.27 (2.5-4.0cm) Aortic Root 3.27 (2.2-3.7cm) Aortic Cusp Exc 2.22 (1.5-2.0cm) MV EPSS 1.0 (<0.5cm) Aortic Valve AoV Peak Irvin. 189.8 cm/s AoV VTI 30.8 cm AO Peak GR. 14.4 mmHg AO Mean GR. 9 mmHg LVOT VTI 25.45 cm LVOT Peak Irvin. 133.6 cm/s JOSIAH(VTI)/BSA 2.23 cm2/m2 JOSIAH (VTI) 2.23 cm2 Mitral Valve MV E Velocity 58.4 cm/s MV DECEL TIME 196 ms MV A Velocity 74.0 cm/s E/A Ratio 0.8 TDI Lateral E' P. V5.38 cm/s E/Lateral E' 10.9 Tricuspid Valve TR P. Velocity 202 cm/s RAP ESTIMATE 10 mmHg TR Peak Gr. 16 mmHg RVSP 26 mmHg LEFT VENTRICLE The left ventricle is normal size with mild proximal septal thickening. LVEF is 75%. RIGHT VENTRICLE RV is normal size and function. ATRIA The left atrium size is normal. AORTIC VALVE Trileaflet AV appears mildly sclerotic without stenosis. No insufficiency. MITRAL VALVE Mitral valve leaflets are mildly thickened with mild annular calcification. No stenosis. Trace regurg itation. TRICUSPID VALVE The tricuspid valve is normal in structure with trace regurgitation. PULMONIC VALVE The pulmonary valve is normal in structure with physiologic insufficiency. GREAT VESSELS The aortic root is normal in size. The ascending aorta is normal in size. The IVC is normal in size a nd collapses >50% with inspiration. PERICARDIUM Normal pericardium. No effusion. Other Information Study Quality: Fair with poor parasternal views Conclusion The left ventricle is normal size with mild proximal septal thickening. LVEF is 75%. RV is normal size and function. The left atrium size is normal. Trileaflet AV appears mildly sclerotic without stenosis. No insufficiency. Mitral valve leaflets are mildly thickened with mild annular calcification. No stenosis. Trace regu rgitation. The tricuspid valve is normal in structure with trace regurgitation. Normal pericardium. No effusion.
[2024-08-25] MEDS: HYDROcodone/acetaminophen 5mg/325mg tablet PO PRN (19:19)
--- NOTE | 2024-08-25 19:53 | PROGRESS NOTE- Residence ---
Progress Note - Resident Providers to CC Resident Creating Document: ALAYNA MACEDO RES ~ Antibiotic Timeout Antibiotic Ordered?: Yes Subjective Patient was seen and examined at the bedside today. Continues to have abdominal distention or tenderness. Paracentesis tomorrow. Objective Vital Signs Date Time Temp Pulse Resp B/P (MAP) Pulse Ox O2 Delivery O2 Flow Rate FiO2 08/25/24 19:19 16 08/25/24 14:59 97.2 72 140/70 (93) 99 Room Air 08/24/24 20:04 0 Result Diagram: 08/25/24 0611 08/25/24 0611 General Awake, alert, but cooperative with care. Oriented to person and place HEENT: No pallor present, no icterus, dry mucous membranes Neck: No masses and tenderness Resp: Unlabored. Lungs clear to auscultation bilaterally. Heart: Regular Rate and rhythm, normal S1 and S2 without murmur, rub or gallop Abdomen: Distended and diffusely tender. Soft and non tender no organomegaly, no guarding and rigidity, bowel sounds present Neuro: No focal weakness in the upper and lower limb muscles, power of the muscles 4/5 bilateral upper and lower muscles, knee reflex present bilaterally. Cranial nerves intact Extremities: Chronic stasis changes in lower extremities. 2+ pedal edema. No cyanosis or clubbing Skin: Warm and Dry. Coagulation Studies Laboratory Tests Test 08/24/24 17:03 Prothrombin Time 11.6 SECONDS (9.0-12.0) INR International Normalized Ratio 1.1 INR Activated Partial Thromboplast Time 32 SECONDS (22-32) Coagulation Comments Plan Plan Patient was a 59-year-old male with history of cirrhosis, hypertension and type 2 diabetes who came into the ED due to abdominal pain. Admitted for evaluation and management of metabolic encephalopathy secondary to liver cirrhosis. Hepatic encephalopathy, grade 1-2 Liver cirrhosis, , MELD-Na score 12, Child-sun C Ascites, possible SBP Splenomegaly Cirrhosis likely secondary to alcohol use vs hepatitis-C Bilirubin is 2.2, albumin 3.1, INR 1.1, platelets 88, alk phosphatase is 128 Hepatic encephalopathy -currently awake and alert, no asterixis, -ammonia level 32 -on lactulose 20 q.6 Ascites -abdominal tenderness present, possible SBP -on IV ceftriaxone -diagnostic and therapeutic paracentesis tomorrow. -CT abdomen and pelvis shows moderate ascites and splenomegaly -spironolactone 100 mg daily and IV Lasix 40 mg daily -sodium restricted diet and fluid restriction Lung mass Small right pleural effusion -CT abdomen showed 5.9 cm complex mass in the right lower lung field just above the diaphragm which contains both air and soft tissue material with density of 56 Hounsfield units. This may represent a complex cyst or abscess. Splenomegaly measuring 18 cm. Lymph nodes in the upper abdomen multiple between 1 and 2 cm greatest on the left in the area of the spleen. Questionable lymphoma or leukemia. -Last chest CT per our records was in 2020 which did not show above findings -repeat CT chest-Unchanged 5.5 x 4.2 cm complex collection above the right diaphragm with small right pleural effusion. Finding may be consistent with infection or neoplasm. -Patient is an IV drug user and abscess is a concerned. However, white count and lactic acid are unremarkable -Splenomegaly and presence of lymphadenopathy raises concerns of malignancy -ED physician did consult Dr. Barajas, who expressed patient can be worked out on an outpatient basis -However, if further concerns for abscess, patient may need drainage Chronic Congestive heart failure with preserved ejection fraction ProBNP 985 Echo showed a normal left ventricle size and function with an ejection fraction of 70%. Hypertensive urgency Medication noncompliance -currently blood pressure is controlled -continued patient's home medication lisinopril 20 mg, also on Lasix 40 mg Type 2 diabetes A1c from 04/19 was 5. Repeat A1c ordered Methamphetamine abuse U tox positive for methamphetamine Social service and substance use navigator consult Code Status: Full code DVT prophylaxis: SCDs. Not doing heparin in view of thrombocytopenia Analgesia/sedation: Morphine Nutrition: Regular diet PT: Ordered Prognosis: Guarded Disposition: Paracentesis tomorrow. Alayna Macedo M.D PGY1 Addendum pulmonary eval for lung mass paracentesis, rule out sbp Date of Service: August 25, 2024 Billing Provider: CLAUDIA LANCASTER MD Common Visit Codes: [id number] INP/OBS CARE(HIGH) ALAYNA MACEDO, RES August 25, 2024 19:53 CLAUDIA LANCASTER MD August 25, 2024 20:46
[2024-08-26 02:00] VITALS: BP 154/75; PULSE 80; RESP 15; TEMP 97.5; O2SAT 93
[2024-08-26 06:00] VITALS: BP 134/83; PULSE 85; RESP 14; TEMP 97.2; O2SAT 92
[2024-08-26 07:27] LABS: BASOPHILS # (AUTO) 0.1 X10'3 (0-0.2); BASOPHILS % (AUTO) 1.2 % (0-1); EOSINOPHILS # (AUTO) 0.3 X10'3 (0-0.9); EOSINOPHILS % (AUTO) 4.9 % (0-6); HEMATOCRIT 41.8 % (42.0-52.0); HEMOGLOBIN 14.7 g/dl (14.0-17.9); LYMPHOCYTES # (AUTO) 0.4 X10'3 (1.1-4.8); LYMPHOCYTES % (AUTO) 7.6 % (21-51); MEAN CORPUSCULAR HEMOGLOBIN 32.1 PG (27.0-31.0); MEAN CORPUSCULAR HGB CONC 35.2 g/dL (33.0-36.5); MEAN CORPUSCULAR VOLUME 91.1 FL (78-98); MEAN PLATELET VOLUME 7.9 FL (7.4-10.4); MONOCYTES # (AUTO) 0.8 X10'3 (0-0.9); MONOCYTES % (AUTO) 12.8 % (2-12); NEUTROPHILS # (AUTO) 4.3 X10'3 (1.8-7.7); NEUTROPHILS % (AUTO) 73.5 % (42-75); PLATELET COUNT 93 X10'3 (140-440); RED BLOOD COUNT 4.59 X10'6 (4.70-6.10); RED CELL DISTRIBUTION WIDTH 14.3 % (11.5-14.5); WHITE BLOOD COUNT 5.9 X10'3 (4.5-11.0)
[2024-08-26 07:38] LABS: ALANINE AMINOTRANSFERASE 19 U/L (12-78); ALBUMIN 2.5 G/DL (3.4-5.0); ALBUMIN/GLOBULIN RATIO 0.6 (1.1-1.5); ALKALINE PHOSPHATASE 110 IU/L (46-116); ANION GAP 2 (8-16); ASPARTATE AMINO TRANSFERASE 29 U/L (10-37); BILIRUBIN,TOTAL 1.8 MG/DL (0.1-1.0); BLOOD UREA NITROGEN 12 MG/DL (7-18); BUN/CREATININE RATIO 14.5 (10.0-20.0); CALCIUM 8.6 MG/DL (8.5-10.1); CHLORIDE 105 MMOL/L (99-107); CREATININE 0.83 MG/DL (0.60-1.10); GLUCOSE 122 MG/DL (70-104); MAGNESIUM 1.9 MG/DL (1.5-2.4); POTASSIUM 4.1 MMOL/L (3.5-5.1); SODIUM 139 MMOL/L (135-145); TOTAL CARBON DIOXIDE 32.5 MMOL/L (24-32); TOTAL PROTEIN 6.5 G/DL (6.4-8.2); eCRCL 88 ML/MIN; eGFR > 90 ML/MIN
[2024-08-26 10:00] VITALS: BP 148/72; PULSE 76; RESP 14; TEMP 97.6; O2SAT 94
--- NOTE | 2024-08-26 14:24 | PROGRESS NOTE- Residence ---
Progress Note - Resident Providers to CC Resident Creating Document: MIGUEL SHEN RES CC: CLAUDIA LANCASTER MD ~ Antibiotic Timeout Antibiotic Ordered?: Yes Subjective Patient was seen and examined at the bedside today. He continues to complain of pain in the abdomen which is 7/10 in severity. Paracentesis could not be done by the latex thread machine operator team due to less fluid on ultrasound. Objective Vital Signs Date Time Temp Pulse Resp B/P (MAP) Pulse Ox O2 Delivery O2 Flow Rate FiO2 08/26/24 14:05 Room Air 08/26/24 10:00 97.6 76 14 148/72 (97) 94 08/24/24 20:04 0 Result Diagram: 08/26/24 0647 08/26/24 0647 General: Alert, awake, oriented, not in acute distress HEENT: PERRLA, no icterus, pallor, lymphadenopathy, carotid bruit Respiratory system: Bilateral vesicular breath sounds heard, no adventitious breath sounds CVS: S1-S2 heard, no murmurs/rubs/gallop GI: Distended and diffusely tender. Soft and non tender no organomegaly, no guarding and rigidity, bowel sounds present Neuro: No focal neurological deficits present Extremities: No edema cyanosis clubbing/deformities Skin: Warm and dry Coagulation Studies Laboratory Tests Test 08/24/24 17:03 Prothrombin Time 11.6 SECONDS (9.0-12.0) INR International Normalized Ratio 1.1 INR Activated Partial Thromboplast Time 32 SECONDS (22-32) Coagulation Comments Assessment Assessment Patient was a 59-year-old male with history of cirrhosis, hypertension and type 2 diabetes who came into the ED due to abdominal pain. Admitted for evaluation and management of metabolic encephalopathy secondary to liver cirrhosis. Plan Plan Hepatic encephalopathy, grade 1-2 Liver cirrhosis, , MELD-Na score 12, Child-sun C Ascites, possible SBP Splenomegaly Cirrhosis likely secondary to alcohol use vs hepatitis-C 08/26/2024: Hepatic encephalopathy -currently awake and alert, no asterixis, -on lactulose 20 q.6 Ascites -abdominal tenderness present, possible SBP -on IV ceftriaxone -diagnostic and therapeutic paracentesis could not be done in view of less fluid on ultrasound -spironolactone 100 mg daily and IV Lasix 40 mg daily -sodium restricted diet and fluid restriction Lung mass Small right pleural effusion -CT abdomen showed 5.9 cm complex mass in the right lower lung field just above the diaphragm which contains both air and soft tissue material with density of 56 Hounsfield units. This may represent a complex cyst or abscess. Splenomegaly measuring 18 cm. Lymph nodes in the upper abdomen multiple between 1 and 2 cm greatest on the left in the area of the spleen. Questionable lymphoma or leukemia. -Last chest CT per our records was in 2020 which did not show above findings -repeat CT chest-Unchanged 5.5 x 4.2 cm complex collection above the right diaphragm with small right pleural effusion. Finding may be consistent with infection or neoplasm. -Patient is an IV drug user and abscess is a concerned. However, white count and lactic acid are unremarkable -Splenomegaly and presence of lymphadenopathy raises concerns of malignancy -ED physician did consult Dr. Barajas, who expressed patient can be worked out on an outpatient basis -However, if further concerns for abscess, patient may need drainage 08/26/24: Outpatient consult with regards to lung Chronic Congestive heart failure with preserved ejection fraction ProBNP 985 Echo showed a normal left ventricle size and function with an ejection fraction of 70%. Hypertensive urgency Medication noncompliance -currently blood pressure is controlled -continued patient's home medication lisinopril 20 mg, also on Lasix 40 mg Type 2 diabetes A1c from 04/19 was 5. Repeat A1c:5 Methamphetamine abuse U tox positive for methamphetamine Social service and substance use navigator consult Code Status: Full code DVT prophylaxis: SCDs. Not doing heparin in view of thrombocytopenia Analgesia/sedation: Morphine Nutrition: Regular diet PT: Ordered Prognosis: Guarded Disposition: Continue care in PCU, Probable discharge within a day or two Miguel Shen MD Internal Medicine, PGY 1 Date of Service: August 26, 2024 Billing Provider: CLAUDIA LANCASTER MD Common Visit Codes: [id number] INP/OBS CARE(HIGH) MIGUEL SHEN, RES August 26, 2024 14:24 CLAUDIA LANCASTER MD August 26, 2024 21:32
[2024-08-26 15:00] VITALS: BP 147/64; PULSE 85; RESP 16; TEMP 97.9; O2SAT 96
--- NOTE | 2024-08-26 16:24 | CONSULTATION REPORT - RESIDENT ---
Consult Providers to CC Resident Creating Document: JAY GARRIDO RES CC: FERNANDO HARTLEY MD History of Present Illness Primary Medical Doctor: DR. LANCASTER Reason for Admit\Complaint: Abdominal pain for two days History of Present Illness 59 year mild with past medical history of type 2 dm, HTN, cirrhosis presented to the ED with chief complaints of abdominal pain. CT abdomen obtained showed moderate ascites. And ICU team is consulted for diagnostic/therapeutic paracentesis. Patient continues to complain of abdominal pain, which is diffuse, with intensity of 7/10, nonradiating, denies any fever, denies nausea/vomiting. , denies hematemesis/melena. Allergies: Coded Allergies: No Known Allergies (Unverified , 08/24/24) Home Medications Home Medications Active Lactulose 20 Gram/30 Ml Solution 30 Ml PO QID Furosemide 20 Mg Tablet 1 Tab PO DAILY 30 Days Aldactone (Spironolactone) 25 Mg Tablet 25 Mg PO DAILY@0830 30 Days Lisinopril 20 Mg Tablet 20 Mg PO DAILY 30 Days Reported Constulose (Lactulose) 10 Gram/15 Ml Solution Past Medical History Past Medical History Cirrhosis, hypertension, type 2 DM Past Surgical History Surgical History Comment Right arm surgery Exploratory laparotomy Family History Family History: FH: diabetes mellitus FATHER (unknown history), MOTHER, , Age: 72, Cause: of unknown cause Past Social History Social History Comment Current cigarette smoker, smoking half to one pack cigarettes a day for the past 20 years Alcohol currently sober Uses marijuana, history of methamphetamine use, currently undomiciled ROS ROS All systems were reviewed and found negative except for pertinent positives mentioned in the HPI Exam Vitals: Vital Signs Date Time Temp Pulse Resp B/P (MAP) Pulse Ox O2 Delivery O2 Flow Rate FiO2 08/26/24 14:05 Room Air 08/26/24 10:00 97.6 76 14 148/72 (97) 94 08/24/24 20:04 0 General: General: Adult male, AAO x3, not in apparent distress Head: Normocephalic with an atraumatic Eyes: Pupils- 3mm, reacting to light, conjunctiva- anicteric Nose and throat: No polyps, septum- normal, no mucosal ulcers Neck: Supple, no lymphadenopathy, no carotid bruit Respiratory: No use of accessory muscles of respiration, Bilateral normal vesiscular breath sounds heard. No wheeze, rhochi or creps Cardiac: S1-S2 heard, rythm regular, no gallop/murmur Abdomen: tender and distended, shifting dullness present, no organomegaly, bowel sounds- heard Extremities: no clubbing, no pedal edema, no deformities, peripheral pulses- 2+ Skin: warm and dry, no rash, no purpura Neuro: No focal deficit, gross cranial nerve exam- normal Diagnostic Data Last Recorded Lab Results: 08/26/24 0647 08/26/24 0647 Diagnostic Data: Laboratory Tests Test 08/24/24 17:03 Prothrombin Time 11.6 SECONDS (9.0-12.0) INR International Normalized Ratio 1.1 INR Activated Partial Thromboplast Time 32 SECONDS (22-32) Coagulation Comments Additional Plan 53-year-old male history of cirrhosis, HTN, type 2 diabetes mellitus admitted for evaluation of abdominal pain, CT abdomen showed cirrhosis with moderate ascites, ICU team is consulted for evaluation of diagnostic/therapeutic paracentesis Plan Ascites Cirrhosis with MELD sodium of 12, CTP-c Grade 2 hepatic encephalopathy -CT abdomen images reviewed. Images showed small ascites of only 1 cm depth. Considering the benefits and risk of the procedure the risk of intestinal perforation is high as the fluid is only 1 cm. We are not proceeding with diagnostic paracentesis at this time. Thank you for this interesting consult. Jay Garrido MD ICU resident Plan of care discussed with attending Dr. Hartley who agreed with the assessment and plan Date of Service: August 26, 2024 Billing Provider: FERNANDO HARTLEY MD, HARIVARSHA, RES August 26, 2024 16:24
[2024-08-26 18:00] VITALS: BP 142/70; PULSE 75; RESP 12; TEMP 97.7; O2SAT 98
[2024-08-26 20:00] VITALS: BP 137/65; PULSE 78; RESP 12; RESP 19; TEMP 97.8; O2SAT 93; O2SAT 98
[2024-08-27] VITALS (10 sets, daily range): BP systolic 125–169; BP diastolic 69–86; PULSE 70–97; RESP 12–20; TEMP 97.3–97.9; O2SAT 94–98
[2024-08-27 06:55] LABS: BASOPHILS # (AUTO) 0.1 X10'3 (0-0.2); BASOPHILS % (AUTO) 1.1 % (0-1); EOSINOPHILS # (AUTO) 0.3 X10'3 (0-0.9); EOSINOPHILS % (AUTO) 5.1 % (0-6); HEMATOCRIT 42.7 % (42.0-52.0); LYMPHOCYTES # (AUTO) 0.6 X10'3 (1.1-4.8); LYMPHOCYTES % (AUTO) 9.4 % (21-51); MEAN CORPUSCULAR HGB CONC 35.2 g/dL (33.0-36.5); MEAN PLATELET VOLUME 8.2 FL (7.4-10.4); NEUTROPHILS # (AUTO) 4.5 X10'3 (1.8-7.7); NEUTROPHILS % (AUTO) 69.4 % (42-75); PLATELET COUNT 107 X10'3 (140-440); RED BLOOD COUNT 4.69 X10'6 (4.70-6.10); RED CELL DISTRIBUTION WIDTH 14.5 % (11.5-14.5); WHITE BLOOD COUNT 6.5 X10'3 (4.5-11.0)
[2024-08-27 07:16] LABS: ALANINE AMINOTRANSFERASE 18 U/L (12-78); ALBUMIN 2.6 G/DL (3.4-5.0); ALBUMIN/GLOBULIN RATIO 0.6 (1.1-1.5); ALKALINE PHOSPHATASE 119 IU/L (46-116); ANION GAP 4 (8-16); ASPARTATE AMINO TRANSFERASE 27 U/L (10-37); BILIRUBIN,TOTAL 1.3 MG/DL (0.1-1.0); BLOOD UREA NITROGEN 12 MG/DL (7-18); CALCIUM 8.4 MG/DL (8.5-10.1); CHLORIDE 104 MMOL/L (99-107); CREATININE 0.86 MG/DL (0.60-1.10); GLUCOSE 123 MG/DL (70-104); MAGNESIUM 1.9 MG/DL (1.5-2.4); POTASSIUM 3.9 MMOL/L (3.5-5.1); SODIUM 138 MMOL/L (135-145); TOTAL CARBON DIOXIDE 30.3 MMOL/L (24-32); TOTAL PROTEIN 6.8 G/DL (6.4-8.2); eCRCL 84 ML/MIN; eGFR > 90 ML/MIN
[2024-08-27] MEDS: ipratropium/albuterol 3ml nebule NEB STA (13:04)
[2024-08-27] MEDS ORDERED: ipratropium/albuterol 3ml nebule NEB PRN (13:05)
[2024-08-27] MEDS ORDERED: HYDROcodone/acetaminophen 10/325mg tab PO PRN (15:15)
--- NOTE | 2024-08-27 17:13 | PROGRESS NOTE- Residence ---
Progress Note - Resident Providers to CC Resident Creating Document: CAROLINA MONAE RES ~ Antibiotic Timeout Antibiotic Ordered?: Yes Subjective Patient was seen and examined at the bedside today. He has been complaining about the chronic central abdominal pain which is getting worse over two days, has been having loose bowel motions and requested for Imodium. He was explained that his bowel or supposed to be loose side to excrete out the hyper ammonia level in the blood. He also complained about the respiratory difficulty with the wheezing. Objective Vital Signs Date Time Temp Pulse Resp B/P (MAP) Pulse Ox O2 Delivery O2 Flow Rate FiO2 08/27/24 15:00 97.5 79 14 151/82 (105) 98 Room Air 08/24/24 20:04 0 Result Diagram: 08/27/24 0518 08/27/24 0518 Vitals were stable at the moment with temp 97.4 F, NC 78/minute, RR 18/minute, BP 145/77 mm Hg, pulse oximetry 94% on room air. General: Well alert, well oriented, not confused, not agitated, not in acute distress, well cooperated during the physical. HEENT: Conjunctive are pink, sclerae clear, no icterus, pupil is equal in both sides, reactive to light, no ear discharge, no pharyngeal erythema or an edema, mouth and lips are moist. Neck: Supple, no JVD, no lymphadenopathy and thyromegaly. Lungs:Equal air entry on both lungs, bilateral wheezing and rhonchi Heart: S1-S2 regular sinus rhythm and, regular rate, no gallops, no rubs, no murmurs Abdomen: Globally distended abdomen, No visible peristalsis, Bowel sounds present on auscultation slightly increased, soft, tender around the periumbilical area, no guarding, no rigidity Extremities: No obvious deformities, no pitting edema bilaterally, capillary refill intact, able to wiggle toes both sides, peripheral pulsations are intact on both sides COMMUNICATION COORDINATOR: No focal neurological deficits, no motor and sensory weakness in all 4 extremities, could move all 4 extremities Musculoskeletal: No joint swelling, deformities, inflammations, and no scoliosis and back tenderness Skin: No active skin lesions and rashes Coagulation Studies Laboratory Tests Test 08/24/24 17:03 Prothrombin Time 11.6 SECONDS (9.0-12.0) INR International Normalized Ratio 1.1 INR Activated Partial Thromboplast Time 32 SECONDS (22-32) Coagulation Comments Assessment Assessment Patient was a 59-year-old male with history of cirrhosis, hypertension and type 2 diabetes who came into the ED due to abdominal pain. Admitted for evaluation and management of metabolic encephalopathy secondary to liver cirrhosis. Plan Plan # Hepatic encephalopathy, grade 1-2 # Liver cirrhosis, , MELD-Na score 12, Child-sun C # Ascites, possible SBP # Splenomegaly Cirrhosis likely secondary to alcohol use vs hepatitis-C 08/26/2024: Hepatic encephalopathy -currently awake and alert, no asterixis, -on lactulose 20 q.6 Ascites -abdominal tenderness present, possible SBP -on IV ceftriaxone -diagnostic and therapeutic paracentesis could not be done in view of less fluid on ultrasound -spironolactone 100 mg daily and IV Lasix 40 mg daily -sodium restricted diet and fluid restriction 08/27/2024: Normal temperature, WBC 6.5, tender abdomen with ascites underlying cirrhosis of liver concern for SBP -continue IV ceftriaxone D2 -paracentesis was not achieved due to lesser amount of the ascites fluid collections, generally diuresis with IV Lasix, continue IV Lasix 40 mg daily and spironolactone 100 mg to reduce portal pressure -salt restricted diet and fluid restriction for the potential dilution hyponatremia -continue lactulose 20 mg q.6 hours, adjust accordingly as per bowel movement -recommended to consider for the possible liver transplantation -we will consider for IV albumin transfusion later accordingly # Lung mass # Small right pleural effusion -CT abdomen showed 5.9 cm complex mass in the right lower lung field just above the diaphragm which contains both air and soft tissue material with density of 56 Hounsfield units. This may represent a complex cyst or abscess. Splenomegaly measuring 18 cm. Lymph nodes in the upper abdomen multiple between 1 and 2 cm greatest on the left in the area of the spleen. Questionable lymphoma or leukemia. -Last chest CT per our records was in 2020 which did not show above findings -repeat CT chest-Unchanged 5.5 x 4.2 cm complex collection above the right diaphragm with small right pleural effusion. Finding may be consistent with infection or neoplasm. -Patient is an IV drug user and abscess is a concerned. However, white count and lactic acid are unremarkable -Splenomegaly and presence of lymphadenopathy raises concerns of malignancy -ED physician did consult Dr. Barajas, who expressed patient can be worked out on an outpatient basis -However, if further concerns for abscess, patient may need drainage 08/26/24: Outpatient consult with regards to lung # Chronic Congestive heart failure with preserved ejection fraction ProBNP 985 Echo showed a normal left ventricle size and function with an ejection fraction of 70%. 08/27/2024: Continue IV Lasix 40 mg b.i.d. # Hypertensive urgency # Medication noncompliance -currently blood pressure is controlled -continued patient's home medication lisinopril 20 mg, also on Lasix 40 mg 08/27/2024: Monitor BP accordingly, continue IV Lasix and lisinopril, with a concern of abdominal compartment syndrome/hepato cardiac syndrome for hypotension # Type 2 diabetes A1c from 04/19 was 5. Repeat A1c:5 08/27/2024: RBS ranging around 130s, on hypo hyperglycemic protocol for the concern of for vulnerable to get hyperglycemia from liver failure # Methamphetamine abuse U tox positive for methamphetamine Social service and substance use navigator consult Strongly encouraged to quit using substances Code Status: Full code DVT prophylaxis: SCDs. Not doing heparin in view of thrombocytopenia Analgesia/sedation: Morphine Nutrition: Regular diet PT: Ordered Prognosis: Guarded Disposition: Continue care in PCU, pain control, bowel movement monitoring, PT eval, Probable discharge within a day or two Resident MD attestation: Patient was seen and examined with attending MD, Dr. Puneet MONAE MD Internal Medicine Resident, PGY2 [facility] Addendum pt states abd pain improving, having some diarrhea Date of Service: August 27, 2024 Billing Provider: CLAUDIA LANCASTER MD Common Visit Codes: [id number] INP/OBS CARE(HIGH) CAROLINA MONAE RES August 27, 2024 17:13 CLAUDIA LANCASTER MD August 27, 2024 20:32
[2024-08-27] MEDS: HYDROcodone/acetaminophen 10/325mg tab PO PRN (17:38)
[2024-08-27] MEDS ORDERED: iohexol 300mg/ml 100ml inj. ONE (21:44)
--- NOTE | 2024-08-27 23:20 | RADIOLOGY REPORT ---
Procedure: CT CT CHEST W/ IV CONTRAST Reason for study/Clinical History: lung mass Comparison Study: None available at time of dictation. Exam Date: 08/27/2024 09:53 PM Radiation Dose Information: CT Dose: CTDI volume is 16.13 mGy. Dose-length product is 624.67 mGy*cm Contrast: Type of contrast: Omni 300 Contrast inject: 100 mL Contrast wasted:0 TECHNIQUE: CT chest with IV contrast . After the uneventful administration of intravenous contrast i ntravenously, CT imaging was performed through the chest. Coronal and sagittal reformations were perf ormed by the technologist. FINDINGS: Lower Neck: Visualized portions of the thyroid gland are unremarkable. Aorta and Vasculature: Normal caliber of thoracic aorta. Lymph Nodes: No enlarged intrathoracic lymph nodes. Mediastinum: Heart size is normal. There is no pericardial effusion. The esophagus is unremarkable. Lungs: 6 cm by 4.8 cm is a mass in the right lower lobe with a small right pleural effusion. Musculoskeletal: No acute osseous abnormality. Upper abdomen: Limited portions of the upper abdomen are unremarkable. Calcified gallstones Splenomegaly, scattered ascites IMPRESSION: 1. 6 x 4.8 cm mass right lower lobe small right pleural effusion. This mass appears to be supplied by the right lower lobe. Questionable sequestration. 2. Ascites in the upper abdomen around the liver and spleen. 3. Splenomegaly 4. Multiple calcified gallstones All CT scans at this medical facility are performed using dose modulation techniques as appropriate t o a performed exam including the following: Automated exposure control was utilized; adjustment of th e MA and/or KV according to patient size; and use of iterative reconstruction technique.
[2024-08-28] MEDS: Melatonin 3mg tablet PO ONE (00:26)
[2024-08-28 02:00] VITALS: BP 148/86; PULSE 84; RESP 20; TEMP 98.1; O2SAT 98
[2024-08-28 06:00] VITALS: BP 131/59; PULSE 94; RESP 15; TEMP 98.8; O2SAT 95
[2024-08-28 07:14] LABS: BASOPHILS # (AUTO) 0.1 X10'3 (0-0.2); EOSINOPHILS # (AUTO) 0.3 X10'3 (0-0.9); EOSINOPHILS % (AUTO) 5.8 % (0-6); HEMATOCRIT 41.2 % (42.0-52.0); HEMOGLOBIN 14.8 g/dl (14.0-17.9); LYMPHOCYTES # (AUTO) 0.6 X10'3 (1.1-4.8); LYMPHOCYTES % (AUTO) 10.2 % (21-51); MEAN CORPUSCULAR HEMOGLOBIN 32.1 PG (27.0-31.0); MEAN CORPUSCULAR HGB CONC 35.9 g/dL (33.0-36.5); MEAN CORPUSCULAR VOLUME 89.5 FL (78-98); MEAN PLATELET VOLUME 7.6 FL (7.4-10.4); MONOCYTES % (AUTO) 16.5 % (2-12); NEUTROPHILS # (AUTO) 3.9 X10'3 (1.8-7.7); NEUTROPHILS % (AUTO) 66.5 % (42-75); PLATELET COUNT 105 X10'3 (140-440); RED BLOOD COUNT 4.61 X10'6 (4.70-6.10); RED CELL DISTRIBUTION WIDTH 14.1 % (11.5-14.5); WHITE BLOOD COUNT 5.8 X10'3 (4.5-11.0)
[2024-08-28 07:28] LABS: ALANINE AMINOTRANSFERASE 19 U/L (12-78); ALBUMIN 2.6 G/DL (3.4-5.0); ALBUMIN/GLOBULIN RATIO 0.6 (1.1-1.5); ALKALINE PHOSPHATASE 133 IU/L (46-116); ANION GAP 3 (8-16); ASPARTATE AMINO TRANSFERASE 37 U/L (10-37); BILIRUBIN,TOTAL 1.5 MG/DL (0.1-1.0); BLOOD UREA NITROGEN 12 MG/DL (7-18); BUN/CREATININE RATIO 16.2 (10.0-20.0); CALCIUM 8.8 MG/DL (8.5-10.1); CHLORIDE 102 MMOL/L (99-107); CREATININE 0.74 MG/DL (0.60-1.10); GLUCOSE 123 MG/DL (70-104); MAGNESIUM 1.8 MG/DL (1.5-2.4); POTASSIUM 4.2 MMOL/L (3.5-5.1); SODIUM 136 MMOL/L (135-145); TOTAL CARBON DIOXIDE 30.9 MMOL/L (24-32); TOTAL PROTEIN 6.9 G/DL (6.4-8.2); eCRCL 98 ML/MIN; eGFR > 90 ML/MIN
[2024-08-28 09:00] VITALS: RESP 15; O2SAT 95
[2024-08-28 11:00] VITALS: BP 114/70; PULSE 91; RESP 17; TEMP 98.7; O2SAT 96
[2024-08-28] MEDS ORDERED: LEVO-65 PO (11:28)
[2024-08-28] MEDS ORDERED: HYDR-3973 PO (11:28)
[2024-08-28] MEDS ORDERED: SPIR50TA5 PO (13:11)
--- NOTE | 2024-08-28 15:40 | DISCHARGE SUMMARY-Residence ---
Discharge Summary Providers to CC Resident Creating Document: LAURAPHUHUYENSERGIO DEVINE ~ Discharge Summary Admission Diagnosis: Abdominal pain, Lung mass Hospital Course DATE OF ADMISSION: 08/24/2024 DATE OF DISCHARGE: 08/28/2024 Discharge Diagnosis\Comment: Liver cirrhosis with child Gibson score of C, meld Na score of 12; acute abdominal pain secondary to SBP versus acute on chronic mesenteric ischemia Hepatic encephalopathy, grade 1-2: Resolved Splenomegaly likely secondary to portal hypertension 5.9 cm complex right lower Lung mass: Benign versus malignant; small right- sided pleural effusion Chronic CHF with preserved EF Hypertensive urgency secondary to medication noncompliance: Resolved Methamphetamine abuse Operations\Procedures: None Consultants: Nursery Attendant for paracentesis Complications: None Condition on DC: Stable New Medications: Hydrocodone Bit/Acetaminophen (Hydrocodone-Apap 10-325 Tablet) 10mg/325mg Tablet 1 TAB PO QID PRN PRN for pain for 5 Days, #20 TAB Levofloxacin (Levofloxacin) 500 Mg Tablet 1 TAB PO DAILY for 7 Days, #7 TAB Spironolactone (Spironolactone) 50 Mg Tablet 100 MG PO DAILY@0830, #60 TAB Continued Medications: Furosemide (Furosemide) 20 Mg Tablet 1 TAB PO DAILY for 30 Days, #30 TAB Lactulose (Lactulose) 20 Gram/30 Ml Solution 30 ML PO QID for constipation, #4000 ML 0 Refills Lisinopril (Lisinopril) 20 Mg Tablet 20 MG PO DAILY for 30 Days, #30 TAB Discontinued Medications: Lactulose (Constulose) 10 Gram/15 Ml Solution Spironolactone (Aldactone) 25 Mg Tablet 25 MG PO DAILY@0830 for 30 Days, #30 TAB Discharge Summary: This is a 59-year-old male patient with a past medical history of hepatitis-C that has liver cirrhosis, hypertension and drug abuse who presents to the hospital with complaints of abdominal pain. He will also evaluated for a possible metabolic encephalopathy secondary to the liver cirrhosis. On exam, he was found to have diffuse abdominal tenderness, due to which he was suspicion of possible SBP was also made. The functional manager was consulted for performing diagnostic and therapeutic paracentesis, an ultrasound of the abdomen revealed minimal fluid accumulation for the procedure and hence it was for proceeded with. Home medications of lactulose was continued every 6 hours, IV Rocephin (2 days) was started, Aldactone was adjusted to 100 mg daily from 25 mg daily. IV Lasix 40 mg daily was also added. Patient was weaned to room sodium restricted and fluid-restricted diet. White count had remained normal throughout the stay. Highest suspicion for SBP worsened diffuse tenderness in the abdomen. Initially at presentation, a CT abdomen was performed which also additionally revealed an incidental right lower lung mass of 5.9 cm which was complex appearing containing with air and soft tissue material with a density of 56 Hounsfield units. Differential included a complex cyst versus abscess. He was also found to have a splenomegaly of 18 cm with lymph nodes of the upper abdomen between 1-2 cm around the spleen. These findings are new when compared to his [address] findings. Considering his IV drug abuse history, an abscess was of high suspicion but his labs were unremarkable including the lactic acid. Cardiothoracic surgery was consulted we are agreed to of the patient up in the outpatient basis. Admission also included hypertensive urgency which had resolved. Home medications including lisinopril were continued. Lasix and Aldactone were also given for the ascites which also helped improve the blood pressure. He has other chronic medical problems including heart failure with preserved EF was managed by monitoring and type 2 diabetes mellitus which was again well-controlled was continued with Accu-Cheks. Patient was counseled recurrently at admission, during the hospital stay as well as the discharge for abstaining from drug abuse. Discussed with family in great detail regarding patient's current condition. From the history as well as from the hospital stay, it was evident that the patient has lost hold in improvement due to which abusing drugs is coming into play. 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 Advised the family regarding considering outpatient psychiatric evaluation in medications for possible underlying depression which could improve compliance and personal care. Physical exam at discharge: General: Awake and Alert, no acute distress. HEENT: Conjunctiva pink, Sclera clear, Mucus Membranes moist. Resp: Unlabored. Lungs clear to auscultation bilaterally. Heart: Regular Rate and rhythm, normal S1 and S2 without murmur, rub or gallop. Abdomen: Soft, nontender. Bowel sounds present diffusely. Umbilical hernia which is soft and compressible, umbilicus removed from the prior hernia surgery. There is a scar extending from his bilateral under arms to his upper abdomen secondary to his muscle flap surgery. Extremities: No cyanosis,clubbing or edema. Skin: Warm and Dry. Labs at discharge: WBC 5.8, RBC 4.6, hemoglobin 14.8, platelets 105 Sodium 136, potassium 4.2, chloride 102, bicarb 30.9, BUN 12, creatinine 0.7, blood glucose 123, calcium 8.8, total bilirubin 1.5, AST 37, ALT 19, alkaline phosphatase 133, total protein 6.9, albumin 2.6 Medications at discharge: Malone 10 p.r.n. for five days, Levaquin 500 mg daily for seven days, Aldactone 100 mg daily, Lasix 20 mg daily, lactulose q.i.d., and lisinopril 20 mg daily *Problems/Diagnosis: (1) Liver cirrhosis (2) Methamphetamine use Status: Acute (3) Abdominal pain Status: Acute Total Time Spent on D/C: > 30 Minutes Counseling Services Smoking & Tobacco Cessation: 3-10 Minutes Date of Service: August 28, 2024 Billing Provider: CLAUDIA LANCASTER MD Common Visit Codes: 17599-MVG/OBS DISCH DAY >30min ALANA SANCHEZ, SERGIO August 28, 2024 15:40 CLAUDIA LANCASTER MD August 28, 2024 20:41
[2024-08-28] MEDS ORDERED: LACT10SO78 PO (15:47)
== END 2024-08-28 13:39 | disposition home or self-care (01) | DRG 246 ==
LOC: ER 16:39 → ED HOLD 19:51 → PCU 3S 22:05
PROVIDERS: ADMIT Internal Medicine Critical Care Medicine; ATTEND Internal Medicine
PROC: BW241ZZ Computerized Tomography (CT Scan) of Chest and Abdomen using Low Osmolar Contrast (ICD-10-PCS; principal; 2024-08-27)
DX: K55.019 Acute (reversible) ischemia of small intestine, extent unspecified (principal); G93.41 Metabolic encephalopathy; K65.2 Spontaneous bacterial peritonitis; K76.82 Hepatic encephalopathy; I11.0 Hypertensive heart disease with heart failure; R18.8 Other ascites; I50.32 Chronic diastolic (congestive) heart failure; K76.6 Portal hypertension; I16.0 Hypertensive urgency; K74.60 Unspecified cirrhosis of liver; F32.A Depression, unspecified; E11.9 Type 2 diabetes mellitus without complications; R16.1 Splenomegaly, not elsewhere classified; R91.8 Other nonspecific abnormal finding of lung field; F15.10 Other stimulant abuse, uncomplicated; Z79.899 Other long term (current) drug therapy; Z91.148 Patient's other noncompliance with medication regimen for other reason
CPT/HCPCS: 36415; 71045; 71250; 71260; 74176; 80053; 80305; 80320; 81001; 82140; 82150; 82550; 82553; 82948; 83036; 83605; 83615; 83690; 83735; 83880; 84100; 84145; 84484; 85025; 85610; 85730; 86885; 86900; 86901; 87040; 87081; 93005; 93306; 94760; 96365; 96375; 97116; 97161; 97530; 99285; G0378; J0696; J1171; J1644; J1938; J1940; J2270; J2405; J2543; J3490; J7030; J7040; Q9967

== ENCOUNTER 2024-09-15 01:50 | Inpatient (IN) | payer MEDICAID ==
[~2024-09-15] VITALS: Ht 188 cm; Wt 90.1 kg
[~2024-09-15 01:50] MED LIST changes: -LACT10SO67; +LACT10SO78 PO; -SPIR25TA PO; +SPIR50TA5 PO
[2024-09-15 02:28] LABS: BASOPHILS # (AUTO) 0.1 X10'3 (0-0.2); BASOPHILS % (AUTO) 0.6 % (0-1); EOSINOPHILS % (AUTO) 0.2 % (0-6); HEMATOCRIT 38.5 % (42.0-52.0); HEMOGLOBIN 13.7 g/dl (14.0-17.9); LYMPHOCYTES # (AUTO) 0.2 X10'3 (1.1-4.8); LYMPHOCYTES % (AUTO) 2.1 % (21-51); MEAN CORPUSCULAR HEMOGLOBIN 32.5 PG (27.0-31.0); MEAN CORPUSCULAR HGB CONC 35.5 g/dL (33.0-36.5); MEAN CORPUSCULAR VOLUME 91.7 FL (78-98); MEAN PLATELET VOLUME 7.8 FL (7.4-10.4); MONOCYTES # (AUTO) 0.8 X10'3 (0-0.9); MONOCYTES % (AUTO) 8.4 % (2-12); NEUTROPHILS # (AUTO) 8.6 X10'3 (1.8-7.7); NEUTROPHILS % (AUTO) 88.7 % (42-75); PLATELET COUNT 102 X10'3 (140-440); RED CELL DISTRIBUTION WIDTH 13.6 % (11.5-14.5); WHITE BLOOD COUNT 9.7 X10'3 (4.5-11.0)
--- NOTE | 2024-09-15 02:28 | Physician Documentation ---
History of Present Illness ~ Chief Complaint: Shortness of Breath Stated Complaint: ALL OVER BODY PAIN Time Seen by MD: 02:22 Primary Medical Doctor: DR. LANCASTER HPI Patient presents to the emergency room for evaluation dropped off by friend. Patient is altered and unknown last time known normal. He has history of cirrhosis with hyperammonemia. Upon review of last visit he had significantly elevated ammonia levels but it was refusing admission or prescription for lactulose as he stated he had plenty of lactulose at home. History is limited secondary to patient's clinical condition Medication Reconciliation Allergies: Coded Allergies: No Known Allergies (Unverified , 09/15/24) Discontinued Medications Furosemide (Furosemide), 1 TAB PO DAILY Discontinued Reason: patient no longer taking Lactulose (Lactulose), 30 ML PO QID Discontinued Reason: patient no longer taking Lactulose (Lactulose), 30 ML PO Q6H Discontinued Reason: patient no longer taking Lisinopril (Lisinopril), 20 MG PO DAILY Discontinued Reason: patient no longer taking Spironolactone (Spironolactone), 100 MG PO DAILY@0830 Discontinued Reason: patient no longer taking Past Medical History Past Medical History: Congestive Heart Failure, Hypertension, Cirrohsis, Hepatitis C, *HEMATOLOGY*, Liver Disease, Dialysis, Diabetes, Cellulitis, Depression Past Surgical History: orthopedic surgeries, other Other Past Surgical History: 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, herniography Patient History: FH: diabetes mellitus FATHER (unknown history), MOTHER, , Age: 72, Cause: of unknown cause Alcohol Use: Sober Drug Use: marijuana Lives In: Homeless Past Social History: History of methamphetamine use, currently sober Review of Systems All Other Systems at this time: Reviewed and Negative ROS Review of systems limited secondary to patient's clinical condition Constitutional: Reports: fever Physical Exam Vital Signs: Temperature: 97.6, Source: Temporal, Heart Rate: 95, Respiratory Rate: 20, BP: 127/76, Pulse Oximetry: 91 Physical Exam General: Patient is lethargic but responds to his name and that has responsive to questions Head: Normocephalic and atraumatic. Eyes: Conjunctival normal. EOMI. PERRL. ENT: Mucous membranes moist. Neck: Supple, trachea is midline. Chest: Clear to auscultation bilaterally without rales, rhonchi, or wheezes. There is no accessory muscle use or retractions. Cardiac: RRR without murmurs, gallops, or rubs. Abd: Soft, positive distention with no peritonitis : chronic appearing ulcers to base of penis measuring 2cm. No cellulitis. Progress Progress Note Consulted with inpatient hospitalist team who graciously accepted patient for admission and agree with treatment plan Results/Orders Results/Orders Orders - KARTHIK RODRIGUEZ MD Chest,Single View (09/15/24 02:15) Monitor (09/15/24 02:01) Saline Lock (09/15/24 02:01) Oxygen (09/15/24 02:01) Hs Troponin I W Calculations (09/15/24 05:01) Ct Head (09/15/24 03:50) Mixed Venous (09/15/24 ) Ct Chest Abdomen Pelvis (09/15/24 03:50) Covid19 Binax Poc Result Entry (09/15/24 04:51) Completed Orders - KARTHIK RODRIGUEZ MD Chest,Single View (09/15/24 02:15) Cbc/Diff (09/15/24 02:01) PBNP (09/15/24 02:01) Electrocardiogram (09/15/24 02:01) CMP (09/15/24 02:01) Hs Troponin I W Calculations (09/15/24 02:01) Hs Troponin I W Calculations (09/15/24 04:01) Ammonia (09/15/24 02:31) Naloxone 2mg/2ml Inj (Narcan 2mg/2ml Inj (09/15/24 03:05) Naloxone 0.4 Mg/Ml Inj (Narcan 0.4mg/Ml (09/15/24 03:25) Drug Screen, Urine (09/15/24 03:37) Ct Head (09/15/24 03:50) Ethanol (09/15/24 02:22) Ct Chest Abdomen Pelvis (09/15/24 03:50) Procalcitonin (09/15/24 04:03) Ketorolac Trometh 15mg/Ml Vial (Toradol (09/15/24 04:55) Normal Saline 1000ml (Sodium Chloride 10 (09/15/24 05:35) Azithromycin/Ns 500mg/250ml (Zithromax/N (09/15/24 06:00) Ceftriaxone/R9q-[id number] 1gm (Rocephin 1 (09/15/24 06:00) Ua W/Microscopic, Cult If Ind (09/15/24 07:30) Vital Signs 09/15/24 09/15/24 09/15/24 09/15/24 01:55 02:35 03:35 04:53 Temp 97.6 102.1 Pulse 95 91 95 99 Resp B/P (MAP) 127/76 169/76 (107) 169/92 (117) 170/90 (116) Pulse Ox 91 97 92 98 O2 Flow Rate 0 2.0 2.0 09/15/24 09/15/24 09/15/24 09/15/24 04:54 05:00 05:59 07:13 Temp 100.7 100.7 Pulse 94 91 Resp B/P (MAP) 169/85 (113) 148/90 (109) Pulse Ox 93 98 O2 Flow Rate 0 0 Laboratory Tests Test 09/15/24 02:22 09/15/24 02:41 09/15/24 04:51 09/15/24 05:07 White Blood Count 9.7 Red Blood Count 4.20 L Hemoglobin 13.7 L Hematocrit 38.5 L Mean Corpuscular Volume 91.7 Mean Corpuscular Hemoglobin 32.5 H Mean Corpuscular Hemoglobin Concent 35.5 Red Cell Distribution Width 13.6 Platelet Count 102 L Mean Platelet Volume 7.8 Neutrophils (%) (Auto) 88.7 H Lymphocytes (%) (Auto) 2.1 L Monocytes (%) (Auto) 8.4 Eosinophils (%) (Auto) 0.2 Basophils (%) (Auto) 0.6 Neutrophils # (Auto) 8.6 H Lymphocytes # (Auto) 0.2 L Monocytes # (Auto) 0.8 Eosinophils # (Auto) 0.0 Basophils # (Auto) 0.1 CBC Comment Sodium Level 135 Potassium Level 3.6 Chloride Level 101 Carbon Dioxide Level 26.0 Anion Gap 8 Blood Urea Nitrogen 9 Creatinine 1.14 H Estimated GFR/1.73 m2 66 BUN/Creatinine Ratio 7.9 L Glucose Level 166 H Calcium Level 8.4 L Total Bilirubin 2.1 H Aspartate Amino Transf (AST/SGOT) 42 H Alanine Aminotransferase (ALT/SGPT) 28 Alkaline Phosphatase 120 H Troponin I High Sensitivity 16 Pro-B-Type Natriuretic Peptide 2061 H Total Protein 7.2 Albumin 2.6 L Globulin 4.6 H Albumin/Globulin Ratio 0.6 L Procalcitonin 0.39 Chemistry Comments Ethyl Alcohol Level < 10 Ammonia 22 Blood Gas Specimen Type Mixed venous Mixed Venous PO2 (Temp Corrected) 57.4 H Mixed Venous Blood O2 Saturation 85.2 H SARS-CoV-2 Antigen (Rapid) Negative Test 09/15/24 06:26 09/15/24 07:30 Troponin I High Sensitivity 18 Troponin I High Sens Percent Delta 12 Troponin I Hi Sens Absolute Change 2 Urine Specimen Description Straight cath Urine Color Yellow Urine Clarity Clear Urine pH 7.0 Urine Specific [place] 1.015 Urine Protein Negative Urine Glucose (UA) 100 H Urine Ketones Negative Urine Occult Blood Negative Urine Nitrite Positive H Urine Bilirubin Negative Urine Urobilinogen >=8.0 H Urine Leukocyte Esterase Negative Urine RBC 0-2 Urine WBC 5-10 H Urine Squamous Epithelial Cells None seen Urine Bacteria 4+ Urine Culture Indicated Indicated Volume Urine Centrifuged 10 ml Urine Comment Urine Opiates Screen Negative Urine Methadone Screen Negative Urine Fentanyl Screen Negative Urine Barbiturates Screen Negative Urine Phencyclidine Screen Negative Urine Amphetamines Screen Positive Urine Benzodiazepines Screen Negative Urine Cocaine Screen Negative Urine Cannabinoids Screen Positive Drug Screen Comment EKG/XRAY/CT/US/VASC/MRI Ultrasound : Impression Bedside ultrasound performed which showed no ascites Medical Decision Making Findings Patient presents to the emergency room with altered mental status. Patient with complicated medical history therefore differentials were broad including infectious process, hepatic encephalopathy, drug intoxication. He began experiencing a fever while here however no elevation of white blood cell count and negative procalcitonin. Possible viral syndrome. our influenza machine is broken. COVID negative. CT scan positive for pneumonia. He will require admission. IV fluids and IV antibiotics initiated. Departure Disposition: ADMITTED INPATIENT Admitted to Inpatient Unit: to hospitalist Impression: Primary Impression: Metabolic encephalopathy Additional Impressions: Pneumonia Urinary tract infection Condition: Guarded Referrals: NO PRIMARY CARE PROVIDER (PCP) Signature Scribe Signature: No scribe Attestation: The note accurately reflects work and decisions made by me.Karthik Rodriguez MD 09/15/24 05:45 KARTHIK RODRIGUEZ MD September 15, 2024 02:28 JORGE RENEE MD September 15, 2024 10:51
--- NOTE | 2024-09-15 02:33 | ELECTROCARDIOGRAPH REPORT ---
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 Papito Liu Measurements Intervals [place] Rate: 92 P: -5 CT: 140 QRS: 1 QRSD: 100 T: 20 QT: 378 QTc: 468 Interpretive Statements A-V dual-paced complexes w/ some inhibition No further analysis attempted due to paced rhythm Electronically Signed On 09-16-2024 6:41:[address] Papito Liu Please click the below link to view image of tracing.
[2024-09-15 02:45] LABS: ALANINE AMINOTRANSFERASE 28 U/L (12-78); ALBUMIN 2.6 G/DL (3.4-5.0); ALBUMIN/GLOBULIN RATIO 0.6 (1.1-1.5); ALKALINE PHOSPHATASE 120 IU/L (46-116); ANION GAP 8 (8-16); ASPARTATE AMINO TRANSFERASE 42 U/L (10-37); BILIRUBIN,TOTAL 2.1 MG/DL (0.1-1.0); BLOOD UREA NITROGEN 9 MG/DL (7-18); BUN/CREATININE RATIO 7.9 (10.0-20.0); CALCIUM 8.4 MG/DL (8.5-10.1); CHLORIDE 101 MMOL/L (99-107); CREATININE 1.14 MG/DL (0.60-1.10); GLUCOSE 166 MG/DL (70-104); POTASSIUM 3.6 MMOL/L (3.5-5.1); SODIUM 135 MMOL/L (135-145); TOTAL PROTEIN 7.2 G/DL (6.4-8.2); eCRCL 79 ML/MIN; eGFR 66 ML/MIN
[2024-09-15 02:53] LABS: PRO BRAIN NATRIURETIC PEPTIDE 2061 PG/ML (0-125)
[2024-09-15] MEDS: naloxone 2mg/2ml inj IV ONE (03:30)
[2024-09-15] MEDS: naloxone 0.4 mg/ml inj NAS ONE (03:32)
[2024-09-15 03:55] LABS: ETHANOL < 10 MG/DL (<10)
--- NOTE | 2024-09-15 04:47 | RADIOLOGY REPORT ---
CHEST RADIOGRAPH Indication: CP Technique: Single frontal view of the chest was obtained COMPARISON: DI CHEST,SINGLE VIEW on DOS: 08/25/24, DI CHEST,SINGLE VIEW on DOS: 04/24/24, DI CHEST,SING LE VIEW on DOS: 04/11/24, CHEST,SINGLE VIEW on DOS: 11/10/22 FINDINGS: Lines and Tubes: None Lungs: Right lower lobe airspace disease Pleura: Small right pleural effusion No pneumothorax. Cardiomediastinal contours: Unremarkable Bones: Unremarkable IMPRESSION: Right lower lobe airspace disease Small right pleural effusion
--- NOTE | 2024-09-15 04:47 | RADIOLOGY REPORT ---
EXAM: CT CT HEAD INDICATION: ams TECHNIQUE: CT of the head without intravenous contrast. Coronal and sagittal reformatted images are s ubmitted. Radiation Dose : 1. Head: CT Dose: CTDI volume is 50.7 mGy. Dose-length product is 1131.7 mGy*cm The dose indicators for CT are the volume Computed Tomography (CT) Dose Index (CTDIvol) and the Dose Length Product (DLP), and are measured in units of mGy and mGy-cm, respectively. These indicators are not patient dose, but values generated from the CT scanner acquisition factors. The report includes radiation exposure data for exposures received during this examination. All CT scans at this medical facility are performed using dose modulation techniques as appropriate to a performed exam including the following: Automated exposure control was utilized; adjustment of the MA and/or KV according to patient size; and use of iterative reconstruction technique. COMPARISON: CT CT HEAD on DOS: 04/11/24 FINDINGS: There is no evidence of acute intracranial hemorrhage, extra-axial collection, mass effect, midline s hift, herniation or hydrocephalus. Moderate periventricular and subcortical white matter disease. Old lacunar infarct in the silas. The ventricles, sulci and cisterns are age appropriate. The sherman-white differentiation is intact. The visualized paranasal sinuses and mastoid air cells are clear. No depressed calvarial fracture. The surrounding soft tissues are unremarkable. IMPRESSION: 1. No acute intracranial abnormality.
[2024-09-15 04:59] LABS: OXYGEN SATURATION (MIXED VEN) 85.2 % (60-80); PO2 MIXED VENOUS (TEMP COR) 57.4 mmHg (35-46)
[2024-09-15] MEDS: ketorolac trometh 15mg/ml vial 15 MG/ML ML IV ONE (05:00)
--- NOTE | 2024-09-15 05:50 | RADIOLOGY REPORT ---
Exam: CT CT CHEST ABDOMEN PELVIS History: abn cxr, distended abdomen Comparison Study: CT CT ABDOMEN PELVIS on DOS: 08/25/2024 Technique: Multidetector spiral CT of the chest, abdomen and pelvis was performed from lower neck to pubic symphysis without intravenous contrast. Axial, coronal and sagittal multiplanar reformats were performed by the technologist on a separate workstation. Radiation Dose : 1. Chest/Abdomen/Pelvis: CTDIvol 31.0 mGy, DLP 1781.6 mGy*cm. Findings: Lower neck: 5 mm left thyroid nodule. Lungs: Centrilobular emphysema. Right lower lobe consolidation. Volume loss in the right hemithorax. Central airways: Patent. Pleura: Right pleural effusion. No pneumothorax. Heart/Vascular Structures: Cardiomegaly. No pericardial effusion. Coronary artery calcifications. N ormal caliber thoracic aorta and main pulmonary artery. Lymph Nodes: No adenopathy. Chest wall: Bilateral gynecomastia. Liver: The liver is small and nodular in contour. Gallbladder and Biliary Tree: Gallstones. No biliary ductal dilatation. Spleen: The spleen is enlarged measuring 17.4 cm. Pancreas: Unenhanced pancreas is normal in appearance. No peripancreatic inflammatory change. Adrenal Glands: Unremarkable Kidneys: Kidneys are symmetric in size without calculi or hydronephrosis. Urinary bladder: Underdistended with circumferential wall thickening. Gastrointestinal tract: The stomach is grossly normal in appearance. The small bowel is normal in anastacio iber. Sigmoid diverticulosis without acute diverticulitis. The appendix is normal in caliber. Peritoneal cavity: No pneumoperitoneum. Mild diffuse abdominopelvic ascites. Lymphadenopathy: No mesenteric, retroperitoneal or periportal lymphadenopathy. Abdominal Wall and Mesentery: Umbilical hernia containing bowel and ascites. Vasculature: Atherosclerotic calcifications in the abdominal aorta. No abnormal dilatation of the ab dominal aorta. Pelvic Organs: Unremarkable Musculoskeletal: No aggressive focal bony lesions, acute fractures or dislocation. Old right rib frac tures. IMPRESSION: 1. Right lower lobe pneumonia. 2. Subcentimeter left thyroid nodule. 3. Cirrhosis and stigmata of portal hypertension. 4. Mild abdominopelvic ascites. 5. Gallstones. 6. Wall thickening of the urinary bladder may be related to underdistention however cystitis is not e xcluded. 7. Umbilical hernia containing ascites and bowel without obstruction.
[2024-09-15] MEDS: normal saline 1000ml 1,000 ML IV ONE (05:59)
[2024-09-15] MEDS: CefTRIAXone/D5W-Rocephin 1gm 50 ML IV ONE (06:13)
[2024-09-15] MEDS: azithromycin/NS 500mg/250ml 250 ML IV ONE (06:25)
--- NOTE | 2024-09-15 07:48 | HISTORY AND PHYSICAL ---
History & Physical Providers to CC ~ History of Present Illness Reason for Admit\Complaint: LOC History of Present Illness History of Present Illness Patient was a 59-year-old male with history of cirrhosis, secondary to EtOH and drug abuse hypertension and type 2 diabetes who was dropped off by a friend for a LOC. Obtaining a history is challenging, patient has severe somnolence barely opens up his eyes does not answer any questions. Allergies: Coded Allergies: No Known Allergies (Unverified , 08/24/24) Home Medications Home Medications Active Lactulose 20 Gram/30 Ml Solution 30 Ml PO QID Furosemide 20 Mg Tablet 1 Tab PO DAILY 30 Days Aldactone (Spironolactone) 25 Mg Tablet 25 Mg PO DAILY@0830 30 Days Lisinopril 20 Mg Tablet 20 Mg PO DAILY 30 Days Reported Constulose (Lactulose) 10 Gram/15 Ml Solution Past Medical History Past Medical History Cirrhosis, meth induced per patient Hypertension Type 2 diabetes Past Surgical History Surgical History Comment Right arm surgery Exploratory laparotomy, unspecified Family History Family History: FH: diabetes mellitus MOTHER, , Age: 72, Cause: of unknown cause Past Social History Smoking: Cigarettes (6 cigarettes a day for the last several years) Alcohol Use: Sober Drug Use: Marijuana, Methamphetamine Lives In: Homeless Past Social History: History of methamphetamine use, currently sober ROS ROS Unable to be obtained secondary to his a ALOC Allergies: Coded Allergies: No Known Allergies (Unverified , 09/15/24) Home Medications Home Medications Active Lactulose 10 Gram/15 Ml Solution 30 Ml PO Q6H Spironolactone 50 Mg Tablet 100 Mg PO DAILY@0830 Lactulose 20 Gram/30 Ml Solution 30 Ml PO QID Furosemide 20 Mg Tablet 1 Tab PO DAILY 30 Days Lisinopril 20 Mg Tablet 20 Mg PO DAILY 30 Days Family History Family History: FH: diabetes mellitus FATHER (unknown history), MOTHER, , Age: 72, Cause: of unknown cause Exam Vitals: Vital Signs Date Time Temp Pulse Resp B/P (MAP) Pulse Ox O2 Delivery O2 Flow Rate FiO2 09/15/24 07:13 100.7 91 18 148/90 (109) 98 0 General: Patient is alert and oriented times 0 in no acute distress sleeping comfortably easily arousable opens up his eyes but does not verbalize anything HEENT normocephalic nontraumatic head sclerae are anicteric conjunctiva are pink CVS first and second heart sounds are regular rate rhythm there is no murmurs gallops or rubs Respiratory system has decreased breath sounds in right lower lobe with minimal rhonchi Abdomen is soft obese bowel sounds are positive nontender nondistended no fluid thrill no masses appreciated Extremities no clubbing cyanosis or edema Neurological exam unable to assess patient is not able to follow any commands Skin is intact and warm Diagnostic Data Last Recorded Lab Results: 09/15/2422109/15/24 022 Additional Plan Assessment and plan -right lower lobe pneumonia Patient pancultured in the ER Continue IV Rocephin Continue O2 protocol -history of ETOH and methamphetamine and marijuana abuse Substance abuse navigator was consulted Replace multivitamins thiamine and folic acid Monitor for pending DTs -history of cirrhosis secondary to above -history of hepatic encephalopathy though the ammonia level today was noted to be 22 Continue lactulose -continue DVT prophylaxis Date of Service: September 15, 2024 Billing Provider: NORA ARTEAGA MD Common Visit Codes: [id number] INP/OBS CARE (HIGH) NORA ARTEAGA MD September 15, 2024 07:48
[2024-09-15] MEDS ORDERED: HYDROcodone/acetaminophen 5mg/325mg tablet PO PRN (07:50)
[2024-09-15] MEDS ORDERED: acetaminophen 325mg tablet PO PRN (07:50)
[2024-09-15] MEDS ORDERED: magnesium sulf-water 2g/50mL 50 ML IV PRN (07:50)
[2024-09-15] MEDS ORDERED: magnesium hydroxide 30ml (MOM) UD suspension PO PRN (07:50)
[2024-09-15] MEDS ORDERED: magnesium sulf-water 4G/100mL 100 ML IV PRN (07:50)
[2024-09-15] MEDS ORDERED: potassium Cl 20 mEq SR tablet PO PRN ×2 (07:50)
[2024-09-15] MEDS ORDERED: ondansetron/PF 4mg/2ml inj IV PRN (07:50)
[2024-09-15] MEDS ORDERED: magnesium Cl slow-release 64mg tablet PO PRN (07:50)
[2024-09-15] MEDS ORDERED: mag hydrox/Alum hydrox/simeth 30ml oral suspension PO PRN (07:50)
[2024-09-15] MEDS ORDERED: potassium Cl 40MEQ/1/2NS 520ml 520 ML IV PRN (07:50)
[2024-09-15] MEDS: K and/or MAG REPLACEMENT MC SCH (08:00)
[2024-09-15] MEDS: enoxaparin 40mg/0.4ml syringe SUBCUT SCH (08:00)
[2024-09-15] MEDS: docusate sod 100mg capsule PO SCH (08:00)
[2024-09-15 08:06] LABS: URINE AMPHETAMINE SCREEN POSITIVE (Neg); URINE BARBITUATE SCREEN NEGATIVE (Neg); URINE BENZODIAZEPINES SCREEN NEGATIVE (Neg); URINE CANNABINOID SCREEN POSITIVE (Neg); URINE COCAINE SCREEN NEGATIVE (Neg); URINE METHADONE SCREEN NEGATIVE (Neg); URINE OPIATE SCREEN NEGATIVE (Neg); URINE PHENCYCLIDINE SCREEN NEGATIVE (Neg)
[2024-09-15 08:15] LABS: BILIRUBIN,URINE NEGATIVE (Neg); CLARITY,URINE CLEAR (Clear); COLOR,URINE YELLOW (Yellow); GLUCOSE, URINE 100 mg/dl (Neg); KETONES,URINE NEGATIVE (Neg); LEUKOCYTE ESTERASE ,URINE NEGATIVE (Neg); NITRITES, URINE POSITIVE (Neg); OCCULT BLOOD,URINE NEGATIVE (Neg); PROTEIN,URINE NEGATIVE (Neg); UROBILINOGEN,URINE >=8.0 E.U/dL (0.2-1.0)
[2024-09-15] MEDS: CefTRIAXone/D5W-Rocephin 1gm 50 ML IV SCH (08:32)
[2024-09-15 08:35] LABS: UA COLLECTION TYPE STRAIGHT CATH
[2024-09-15 08:38] LABS: BACTERIA,URINE 4+ /HPF (Neg); RBC,URINE 0-2 /HPF (0-2); SQUAMOUS EPITHELIAL CELL,UR NONE SEEN /LPF (FEW)
[2024-09-15] MEDS: thiamine 100mg tablet PO SCH (13:25)
[2024-09-15] MEDS ORDERED: haloperidol lactate 5mg/ml inj IM PRN (13:25)
[2024-09-15] MEDS ORDERED: LORazepam 2 mg/ml vial IV PRN (13:25)
[2024-09-15] MEDS: folic acid 1mg tablet PO SCH (13:25)
[2024-09-15] MEDS ORDERED: haloperidol 5mg tablet PO PRN (13:25)
[2024-09-15] MEDS: lactulose 20gm/30ml cup PO SCH (13:34)
[2024-09-15 15:00] VITALS: BP 138/75; PULSE 69; RESP 16; TEMP 97.4; O2SAT 96
[2024-09-15 18:00] VITALS: BP 129/64; PULSE 66; RESP 18; TEMP 98.1; O2SAT 98
[2024-09-15] MEDS: HYDROcodone/acetaminophen 10/325mg tab PO PRN (18:50)
[2024-09-15 22:00] VITALS: BP 144/73; PULSE 76; RESP 20; TEMP 98.6; O2SAT 96
[2024-09-15] MEDS: LORazepam 1 MG tablet PO PRN (22:54)
[2024-09-16] MEDS: baclofen 10mg tablet PO ONE (00:22)
[2024-09-16 04:56] LABS: BASOPHILS % (AUTO) 0.6 % (0-1); EOSINOPHILS # (AUTO) 0.2 X10'3 (0-0.9); EOSINOPHILS % (AUTO) 4.5 % (0-6); HEMATOCRIT 35.4 % (42.0-52.0); HEMOGLOBIN 12.6 g/dl (14.0-17.9); LYMPHOCYTES # (AUTO) 0.4 X10'3 (1.1-4.8); LYMPHOCYTES % (AUTO) 7.2 % (21-51); MEAN CORPUSCULAR HEMOGLOBIN 32.5 PG (27.0-31.0); MEAN CORPUSCULAR HGB CONC 35.5 g/dL (33.0-36.5); MEAN CORPUSCULAR VOLUME 91.3 FL (78-98); MEAN PLATELET VOLUME 7.5 FL (7.4-10.4); MONOCYTES # (AUTO) 0.8 X10'3 (0-0.9); NEUTROPHILS # (AUTO) 3.8 X10'3 (1.8-7.7); NEUTROPHILS % (AUTO) 72.7 % (42-75); PLATELET COUNT 92 X10'3 (140-440); RED BLOOD COUNT 3.87 X10'6 (4.70-6.10); RED CELL DISTRIBUTION WIDTH 13.8 % (11.5-14.5); WHITE BLOOD COUNT 5.3 X10'3 (4.5-11.0)
[2024-09-16 05:32] LABS: ALANINE AMINOTRANSFERASE 20 U/L (12-78); ALBUMIN/GLOBULIN RATIO 0.5 (1.1-1.5); ALKALINE PHOSPHATASE 94 IU/L (46-116); AMYLASE 32 U/L (25-115); ANION GAP 7 (8-16); ASPARTATE AMINO TRANSFERASE 24 U/L (10-37); BILIRUBIN,TOTAL 1.3 MG/DL (0.1-1.0); BLOOD UREA NITROGEN 12 MG/DL (7-18); CHLORIDE 105 MMOL/L (99-107); CREATININE 0.75 MG/DL (0.60-1.10); GLUCOSE 124 MG/DL (70-104); LIPASE 29 U/L (16-77); MAGNESIUM 1.6 MG/DL (1.5-2.4); POTASSIUM 3.9 MMOL/L (3.5-5.1); SODIUM 138 MMOL/L (135-145); TOTAL CARBON DIOXIDE 26.4 MMOL/L (24-32); TOTAL PROTEIN 5.8 G/DL (6.4-8.2); eCRCL 121 ML/MIN; eGFR > 90 ML/MIN
[2024-09-16 06:00] VITALS: BP 148/82; PULSE 76; RESP 17; TEMP 98.1; O2SAT 94
[2024-09-16] MEDS: multivitamins, therapeutics tablet PO SCH (07:27)
[2024-09-16 10:00] VITALS: BP 150/72; PULSE 78; RESP 16; TEMP 98.2; O2SAT 96
--- NOTE | 2024-09-16 12:04 | PROGRESS NOTE ---
Daily Progress Note Providers to CC ~ Antibiotic Timeout Antibiotic Ordered?: Yes Subjective Chief complaint I really upset nobody seen me for two days we will have been in the hospital I need to be cleaned up nobody seems to care everybody just thinks I am an alcoholic has not had a drink in many years and that does not mean nobody should care about me. I explained to the patient that I did see him in the ER and he was very somnolent and may not have a recollection of me seeing him along with the ER physician that also saw him. At which point patient comes down apologizes for his extremely rude behavior. Denies any other associated symptoms of cough fevers chills he is not sure why he is here he is not sure why he was brought here he says he is homeless and he is upset with the whole system. He is even more upset that people keep calling him an alcoholic because of his cirrhosis Objective Vital Signs Date Time Temp Pulse Resp B/P (MAP) Pulse Ox O2 Delivery O2 Flow Rate FiO2 09/16/24 10:00 98.2 78 16 150/72 (98) 96 Room Air 09/16/24 08:00 0.0 Result Diagram: 09/16/24 0441 09/16/24 0441 Patient is alert and oriented times 3 in no acute distress HEENT normocephalic nontraumatic head sclerae are anicteric conjunctiva are pink CVS first and second heart sounds are regular rate rhythm there is no murmurs gallops or rubs Respiratory system has decreased breath sounds in right lower lobe with minimal rhonchi Abdomen is soft obese bowel sounds are positive nontender nondistended no fluid thrill no masses appreciated Extremities no clubbing cyanosis or edema Problem\Assessment\Plan Assessment and plan -right lower lobe pneumonia Patient pancultured in the ER Continue IV Rocephin Continue O2 protocol -ALOC resolved Probably secondary to the methamphetamines - methamphetamine and marijuana abuse Substance abuse navigator was consulted -history of cirrhosis secondary to above -history of hepatic encephalopathy monitor ammonia level Continue lactulose -continue DVT prophylaxis Patient is a full code per his wishes Date of Service: September 16, 2024 Billing Provider: NORA ARTEAGA MD Common Visit Codes: [id number] INP/OBS CARE(HIGH) NORA ARTEAGA MD September 16, 2024 12:04
[2024-09-16 18:00] VITALS: BP 143/69; PULSE 72; RESP 18; TEMP 98.5; O2SAT 94
[2024-09-17] VITALS (7 sets, daily range): BP systolic 159–177; BP diastolic 67–85; PULSE 74–88; RESP 11–20; TEMP 97.3–98.8; O2SAT 96–99
[2024-09-17] MEDS: HYDROcodone/acetaminophen 5mg/325mg tablet PO ONE (02:07)
[2024-09-17 06:48] LABS: ALANINE AMINOTRANSFERASE 19 U/L (12-78); ALBUMIN/GLOBULIN RATIO 0.5 (1.1-1.5); ALKALINE PHOSPHATASE 104 IU/L (46-116); AMYLASE 42 U/L (25-115); ANION GAP 7 (8-16); ASPARTATE AMINO TRANSFERASE 29 U/L (10-37); BILIRUBIN,TOTAL 1.1 MG/DL (0.1-1.0); BLOOD UREA NITROGEN 10 MG/DL (7-18); BUN/CREATININE RATIO 13.2 (10.0-20.0); CHLORIDE 103 MMOL/L (99-107); CREATININE 0.76 MG/DL (0.60-1.10); GLUCOSE 111 MG/DL (70-104); LIPASE 40 U/L (16-77); MAGNESIUM 1.7 MG/DL (1.5-2.4); POTASSIUM 3.8 MMOL/L (3.5-5.1); SODIUM 137 MMOL/L (135-145); TOTAL CARBON DIOXIDE 26.6 MMOL/L (24-32); TOTAL PROTEIN 6.3 G/DL (6.4-8.2); eCRCL 123 ML/MIN; eGFR > 90 ML/MIN
[2024-09-17 07:14] LABS: BASOPHILS % (AUTO) 0.5 % (0-1); EOSINOPHILS # (AUTO) 0.2 X10'3 (0-0.9); EOSINOPHILS % (AUTO) 5.6 % (0-6); HEMATOCRIT 36.1 % (42.0-52.0); HEMOGLOBIN 12.9 g/dl (14.0-17.9); LYMPHOCYTES # (AUTO) 0.4 X10'3 (1.1-4.8); LYMPHOCYTES % (AUTO) 8.6 % (21-51); MEAN CORPUSCULAR HEMOGLOBIN 32.4 PG (27.0-31.0); MEAN CORPUSCULAR HGB CONC 35.8 g/dL (33.0-36.5); MEAN CORPUSCULAR VOLUME 90.6 FL (78-98); MEAN PLATELET VOLUME 7.8 FL (7.4-10.4); MONOCYTES # (AUTO) 0.5 X10'3 (0-0.9); MONOCYTES % (AUTO) 12.4 % (2-12); NEUTROPHILS # (AUTO) 3.2 X10'3 (1.8-7.7); NEUTROPHILS % (AUTO) 72.9 % (42-75); PLATELET COUNT 103 X10'3 (140-440); RED BLOOD COUNT 3.99 X10'6 (4.70-6.10); RED CELL DISTRIBUTION WIDTH 13.6 % (11.5-14.5); WHITE BLOOD COUNT 4.4 X10'3 (4.5-11.0)
[2024-09-17] MEDS: potassium cl 20mEq in 1/2 NS 1,000 ML IV SCH (13:44)
--- NOTE | 2024-09-17 15:08 | PROGRESS NOTE ---
Daily Progress Note Providers to CC ~ Antibiotic Timeout Antibiotic Ordered?: Yes Subjective Chief complaint none still coughing still short of breath Objective Vital Signs Date Time Temp Pulse Resp B/P (MAP) Pulse Ox O2 Delivery O2 Flow Rate FiO2 09/17/24 10:00 98.8 75 11 167/67 (100) 97 Room Air 09/17/24 07:35 0.0 Result Diagram: 09/17/2442109/17/24421 Patient is alert and oriented times 3 in no acute distress HEENT normocephalic nontraumatic head sclerae are anicteric conjunctiva are pink CVS first and second heart sounds are regular rate rhythm there is no murmurs gallops or rubs Respiratory system has decreased breath sounds in right lower lobe with minimal rhonchi bilateral expiratory wheezing Abdomen is soft obese bowel sounds are positive nontender nondistended no fluid thrill no masses appreciated Extremities no clubbing cyanosis or edema Problem\Assessment\Plan Assessment and plan -right lower lobe pneumonia Patient pancultured in the ER Continue IV Rocephin Continue O2 protocol -COPD with COPD exacerbation start the patient on Solu-Medrol Nebulizer treatments p.r.n. -ALOC resolved Probably secondary to the methamphetamines - methamphetamine and marijuana abuse Substance abuse navigator was consulted -history of cirrhosis secondary to above -history of hepatic encephalopathy monitor ammonia level Continue lactulose -continue DVT prophylaxis Patient is a full code per his wishes Date of Service: September 17, 2024 Billing Provider: NORA ARTEAGA MD Common Visit Codes: [id number] INP/OBS CARE(HIGH) NORA ARTEAGA MD September 17, 2024 15:08
[2024-09-17] MEDS: morphine 2 MG/ML inj. syringe IV PRN (17:15)
[2024-09-17] MEDS: methylPREDNISolone sod succ 125mg/2ml vial IV SCH (20:02)
[2024-09-18] MEDS: lisinopril 20mg tablet PO ONE (00:03)
[2024-09-18 05:46] LABS: BASOPHILS % (AUTO) 0.2 % (0-1); EOSINOPHILS % (AUTO) 0.3 % (0-6); HEMATOCRIT 39.1 % (42.0-52.0); HEMOGLOBIN 13.9 g/dl (14.0-17.9); LYMPHOCYTES # (AUTO) 0.2 X10'3 (1.1-4.8); LYMPHOCYTES % (AUTO) 5.2 % (21-51); MEAN CORPUSCULAR HEMOGLOBIN 32.1 PG (27.0-31.0); MEAN CORPUSCULAR HGB CONC 35.5 g/dL (33.0-36.5); MEAN CORPUSCULAR VOLUME 90.6 FL (78-98); MEAN PLATELET VOLUME 7.8 FL (7.4-10.4); MONOCYTES # (AUTO) 0.1 X10'3 (0-0.9); MONOCYTES % (AUTO) 2.1 % (2-12); NEUTROPHILS # (AUTO) 3.1 X10'3 (1.8-7.7); NEUTROPHILS % (AUTO) 92.2 % (42-75); PLATELET COUNT 107 X10'3 (140-440); RED BLOOD COUNT 4.32 X10'6 (4.70-6.10); RED CELL DISTRIBUTION WIDTH 13.9 % (11.5-14.5); WHITE BLOOD COUNT 3.4 X10'3 (4.5-11.0)
[2024-09-18 06:00] VITALS: BP 185/82; PULSE 68; RESP 19; TEMP 97.8; O2SAT 96
[2024-09-18 06:20] LABS: ALANINE AMINOTRANSFERASE 26 U/L (12-78); ALBUMIN 2.2 G/DL (3.4-5.0); ALBUMIN/GLOBULIN RATIO 0.5 (1.1-1.5); ALKALINE PHOSPHATASE 137 IU/L (46-116); AMYLASE 43 U/L (25-115); ANION GAP 8 (8-16); ASPARTATE AMINO TRANSFERASE 33 U/L (10-37); BILIRUBIN,TOTAL 0.9 MG/DL (0.1-1.0); BLOOD UREA NITROGEN 10 MG/DL (7-18); BUN/CREATININE RATIO 14.7 (10.0-20.0); CALCIUM 8.6 MG/DL (8.5-10.1); CHLORIDE 103 MMOL/L (99-107); CREATININE 0.68 MG/DL (0.60-1.10); GLUCOSE 215 MG/DL (70-104); LIPASE 33 U/L (16-77); MAGNESIUM 1.8 MG/DL (1.5-2.4); POTASSIUM 4.1 MMOL/L (3.5-5.1); SODIUM 136 MMOL/L (135-145); TOTAL CARBON DIOXIDE 25.4 MMOL/L (24-32); eCRCL 138 ML/MIN; eGFR > 90 ML/MIN
[2024-09-18 06:45] VITALS: RESP 19; O2SAT 96
[2024-09-18] MEDS: lisinopril 20mg tablet PO SCH (08:30)
[2024-09-18 11:15] VITALS: BP 178/93; PULSE 75; RESP 20; TEMP 97.9; O2SAT 95
--- NOTE | 2024-09-18 11:47 | PROGRESS NOTE ---
Daily Progress Note Providers to CC ~ Antibiotic Timeout Antibiotic Ordered?: Yes Subjective Chief complaint none but patient very emotional crying excessively but unable to tell me what is wrong. Review of systems negative for all 10 systems reviewed Objective Vital Signs Date Time Temp Pulse Resp B/P (MAP) Pulse Ox O2 Delivery O2 Flow Rate FiO2 09/18/24 11:15 97.9 75 20 178/93 (121) 95 Room Air 09/18/24 06:45 0.0 Result Diagram: 09/18/2442009/18/24420 Patient is alert and oriented times 3 patient crying excessively admits to being emotional HEENT normocephalic nontraumatic head sclerae are anicteric conjunctiva are pink CVS first and second heart sounds are regular rate rhythm there is no murmurs gallops or rubs Respiratory system has decreased breath sounds in right lower lobe with minimal rhonchi bilateral expiratory wheezing Abdomen is soft obese bowel sounds are positive nontender nondistended no fluid thrill no masses appreciated Extremities no clubbing cyanosis or edema Problem\Assessment\Plan Assessment and plan -right lower lobe pneumonia Patient pancultured in the ER Continue IV Rocephin Continue O2 protocol -COPD with COPD exacerbation start the patient on Solu-Medrol Nebulizer treatments p.r.n. -major depression I am going to start the patient on Cymbalta 30 mg p.o. q.day -ALOC resolved Probably secondary to the methamphetamines - methamphetamine and marijuana abuse Substance abuse navigator was consulted -history of cirrhosis secondary to above -history of hepatic encephalopathy monitor ammonia level Continue lactulose -continue DVT prophylaxis Patient is a full code per his wishes Possible DC home in a.m. Date of Service: September 18, 2024 Billing Provider: NORA ARTEAGA MD Common Visit Codes: [id number] INP/OBS CARE(HIGH) NORA ARTEAGA MD September 18, 2024 11:47
[2024-09-18] MEDS ORDERED: cloNIDine 0.1 mg tablet PO PRN (11:50)
[2024-09-18] MEDS: hydrALAZINE 20mg/ml inj. IV PRN (12:57)
--- NOTE | 2024-09-18 13:43 | RADIOLOGY REPORT ---
CHEST RADIOGRAPH Indication: PNA Technique: Single frontal view of the chest was obtained Comparison: DI CHEST,SINGLE VIEW on DOS: 09/15/24, DI CHEST,SINGLE VIEW on DOS: 08/25/24, DI CHEST,SINGL E VIEW on DOS: 04/24/24. CT chest abdomen and pelvis 09/15/2024 FINDINGS: Lines and Tubes: None Lungs: Right lower lung zone opacification with obscuration of the right hemidiaphragm No pneumothorax. Cardiomediastinal contours: Unremarkable Bones: No acute osseous abnormality. IMPRESSION: Lower lung zone opacification with obscuration of the hemidiaphragm which may be from pleural effusio n with associated atelectasis / pneumonia.
[2024-09-18 14:15] VITALS: BP 155/83; TEMP 97.9
[2024-09-18 18:00] VITALS: BP 175/88; PULSE 76; RESP 18; TEMP 98.3; O2SAT 97
[2024-09-18] MEDS: duloxetine 30mg CAPSULE.DR PO SCH (19:37)
[2024-09-18 22:00] VITALS: BP 150/68; PULSE 90; RESP 20; TEMP 96.8; O2SAT 96
[2024-09-19 06:00] VITALS: BP 171/82; PULSE 84; RESP 19; TEMP 97.7; O2SAT 95
[2024-09-19 06:07] LABS: BASOPHILS % (AUTO) 0.1 % (0-1); EOSINOPHILS % (AUTO) 0 % (0-6); HEMATOCRIT 38.6 % (42.0-52.0); HEMOGLOBIN 13.8 g/dl (14.0-17.9); LYMPHOCYTES # (AUTO) 0.2 X10'3 (1.1-4.8); LYMPHOCYTES % (AUTO) 1.8 % (21-51); MEAN CORPUSCULAR HEMOGLOBIN 32.3 PG (27.0-31.0); MEAN CORPUSCULAR HGB CONC 35.7 g/dL (33.0-36.5); MEAN CORPUSCULAR VOLUME 90.3 FL (78-98); MEAN PLATELET VOLUME 7.7 FL (7.4-10.4); MONOCYTES # (AUTO) 0.3 X10'3 (0-0.9); MONOCYTES % (AUTO) 2.5 % (2-12); NEUTROPHILS # (AUTO) 13.1 X10'3 (1.8-7.7); NEUTROPHILS % (AUTO) 95.6 % (42-75); PLATELET COUNT 124 X10'3 (140-440); RED BLOOD COUNT 4.28 X10'6 (4.70-6.10); RED CELL DISTRIBUTION WIDTH 13.9 % (11.5-14.5); WHITE BLOOD COUNT 13.7 X10'3 (4.5-11.0)
[2024-09-19 06:34] LABS: ALANINE AMINOTRANSFERASE 28 U/L (12-78); ALBUMIN 2.3 G/DL (3.4-5.0); ALBUMIN/GLOBULIN RATIO 0.5 (1.1-1.5); ALKALINE PHOSPHATASE 123 IU/L (46-116); AMYLASE 42 U/L (25-115); ANION GAP 6 (8-16); ASPARTATE AMINO TRANSFERASE 30 U/L (10-37); BILIRUBIN,TOTAL 0.7 MG/DL (0.1-1.0); BLOOD UREA NITROGEN 13 MG/DL (7-18); BUN/CREATININE RATIO 21.3 (10.0-20.0); CALCIUM 8.5 MG/DL (8.5-10.1); CHLORIDE 105 MMOL/L (99-107); CREATININE 0.61 MG/DL (0.60-1.10); GLUCOSE 190 MG/DL (70-104); LIPASE 24 U/L (16-77); POTASSIUM 4.3 MMOL/L (3.5-5.1); SODIUM 137 MMOL/L (135-145); eCRCL 153 ML/MIN; eGFR > 90 ML/MIN
[2024-09-19 08:00] VITALS: RESP 19; O2SAT 95
[2024-09-19 10:00] VITALS: BP 186/99; PULSE 89; RESP 18; TEMP 98; O2SAT 97
--- NOTE | 2024-09-19 13:33 | PROGRESS NOTE ---
Daily Progress Note Providers to CC ~ Antibiotic Timeout Antibiotic Ordered?: Yes Subjective Chief complaint my whole abdomen hurts Objective Vital Signs Date Time Temp Pulse Resp B/P (MAP) Pulse Ox O2 Delivery O2 Flow Rate FiO2 09/19/24 11:36 18 09/19/24 11:12 89 09/19/24 10:00 98.0 186/99 (128) 97 Room Air 09/18/24 20:00 0.0 Result Diagram: 09/19/2451209/19/24512 Patient is alert and oriented times 3 in no acute distress HEENT normocephalic nontraumatic head Abdomen is obese plus two tenderness diffusely no voluntary guarding no rigidity bowel sounds are positive no masses or fluid thrill appreciated Problem\Assessment\Plan Assessment and plan -right lower lobe pneumonia Patient pancultured in the ER Continue IV Rocephin Continue O2 protocol -UTI with E coli MRDO Add Cipro -abdominal pain CT from 09/15/2024 shows cirrhosis portal hypertension cholelithiasis -COPD with COPD exacerbation start the patient on Solu-Medrol Improving Nebulizer treatments p.r.n. -major depression I am going to start the patient on Cymbalta 30 mg p.o. q.day -ALOC resolved Probably secondary to the methamphetamines - methamphetamine and marijuana abuse Substance abuse navigator was consulted -history of cirrhosis secondary to above -history of hepatic encephalopathy monitor ammonia level Continue lactulose -depression restarted the patient on Cymbalta yesterday -continue DVT prophylaxis Patient is a full code per his wishes Possible DC home in a.m. Date of Service: September 19, 2024 Billing Provider: NORA ARTEAGA MD Common Visit Codes: [id number] INP/OBS CARE(HIGH) NORA ARTEAGA MD September 19, 2024 13:33
[2024-09-19 18:00] VITALS: BP 150/75; PULSE 60; RESP 16; TEMP 98.2; O2SAT 97
[2024-09-19] MEDS: ciprofloxacin lact 400MG/200ML 200 ML IV SCH (19:40)
[2024-09-19 22:00] VITALS: BP 150/77; PULSE 77; RESP 20; TEMP 98; O2SAT 96
[2024-09-20] VITALS (10 sets, daily range): BP systolic 137–189; BP diastolic 67–90; PULSE 61–85; RESP 15–20; TEMP 98–98.9; O2SAT 95–98
[2024-09-20 06:36] LABS: ALANINE AMINOTRANSFERASE 30 U/L (12-78); ALBUMIN/GLOBULIN RATIO 0.5 (1.1-1.5); ALKALINE PHOSPHATASE 113 IU/L (46-116); AMYLASE 37 U/L (25-115); ANION GAP 6 (8-16); ASPARTATE AMINO TRANSFERASE 37 U/L (10-37); BILIRUBIN,TOTAL 0.6 MG/DL (0.1-1.0); BLOOD UREA NITROGEN 17 MG/DL (7-18); BUN/CREATININE RATIO 24.3 (10.0-20.0); CHLORIDE 105 MMOL/L (99-107); GLUCOSE 197 MG/DL (70-104); LIPASE 25 U/L (16-77); POTASSIUM 4.7 MMOL/L (3.5-5.1); SODIUM 135 MMOL/L (135-145); TOTAL CARBON DIOXIDE 24.2 MMOL/L (24-32); TOTAL PROTEIN 6.4 G/DL (6.4-8.2); eCRCL 134 ML/MIN; eGFR > 90 ML/MIN
[2024-09-20 07:27] LABS: BASOPHILS % (AUTO) 0.1 % (0-1); EOSINOPHILS % (AUTO) 0 % (0-6); HEMATOCRIT 39.3 % (42.0-52.0); HEMOGLOBIN 13.7 g/dl (14.0-17.9); LYMPHOCYTES # (AUTO) 0.2 X10'3 (1.1-4.8); LYMPHOCYTES % (AUTO) 1.8 % (21-51); MEAN CORPUSCULAR HEMOGLOBIN 31.9 PG (27.0-31.0); MEAN CORPUSCULAR HGB CONC 34.8 g/dL (33.0-36.5); MEAN CORPUSCULAR VOLUME 91.7 FL (78-98); MEAN PLATELET VOLUME 7.5 FL (7.4-10.4); MONOCYTES # (AUTO) 0.3 X10'3 (0-0.9); MONOCYTES % (AUTO) 2.4 % (2-12); NEUTROPHILS # (AUTO) 12.4 X10'3 (1.8-7.7); NEUTROPHILS % (AUTO) 95.7 % (42-75); PLATELET COUNT 114 X10'3 (140-440); RED BLOOD COUNT 4.29 X10'6 (4.70-6.10); RED CELL DISTRIBUTION WIDTH 13.7 % (11.5-14.5)
[2024-09-20] MEDS: methylPREDNISolone sod succ/PF 40mg inj. IV SCH (08:38)
[2024-09-20] MEDS ORDERED: DEXTROSE 15 GM of carb/4 tabs (each vial/BOTTLE has 4 tablets) PO PRN ×2 (09:55)
[2024-09-20] MEDS ORDERED: glucagon, human recombinant 1mg kit SUBCUT PRN (09:55)
[2024-09-20] MEDS ORDERED: dextrose 50%-water 50ml dispensing syringe IV PRN ×2 (09:55)
[2024-09-20] MEDS ORDERED: amLODIPine 5mg tablet PO STA (11:19)
[2024-09-20] MEDS ORDERED: hydrALAZINE 20mg/ml inj. IV PRN (11:20)
--- NOTE | 2024-09-20 11:28 | PROGRESS NOTE ---
Daily Progress Note Providers to CC ~ Antibiotic Timeout Antibiotic Ordered?: Yes Subjective No acute events overnight. Patient examined at bedside. No new complaints, not in acute distress. Patient denies chest pain, sob, palpitations, abdominal pain, n/v/d. Labs notable for uptrended white count, steroid tapered down today. Procal negative, no s/s of infection noted. BP profoundly elevated with systolic in 180s. Antihypertensive regimen adjusted. Objective Vital Signs Date Time Temp Pulse Resp B/P (MAP) Pulse Ox O2 Delivery O2 Flow Rate FiO2 09/20/24 11:13 68 09/20/24 06:00 98.1 18 160/78 (105) 95 Room Air 09/18/24 20:00 0.0 Result Diagram: 09/20/24 0656 09/20/24 0542 Physical Exam General: Generalized weakness, A&Ox 3, NAD HEENT: Normocephalic, PERRLA Neck: Supple, trachea midline, no JVD Chest: Clear to auscultation bilaterally Cardiovascular: RRR, S1&S2 GI: Soft and nontender Extremities: No cyanosis/clubbing/or edema MEDICAL OR SURGICAL INSTRUMENT MAKER: CN II-XII intact, no focal deficits Musculoskeletal: No paraspinal muscle tenderness, no muscle spasm Skin: Warm and intact Problem\Assessment\Plan # Acute metabolic encephalopathy likely meth-induced # Methamphetamine abuse # Community-acquired pneumonia -right lower lobe pneumonia -continue Rocephin # UTI -ciprofloxacin # Hypertensive urgency- not POA -09/20: lisinopril dose adjusted, start propranolol, oral hydralazine # Acute COPD exacerbation -09/20: steroid taper down # Cirrhosis # Portal hypertension # Cholelithiasis # MDD -cymbalta # Polysubstance abuse -substance abuse navigator was consult Code Status: Full Code Date of Service: September 20, 2024 Billing Provider: JOSE MANUEL JORDAN Common Visit Codes: [id number] INP/OBS CARE(HIGH) JOSE MANUEL JORDAN September 20, 2024 11:28
[2024-09-20] MEDS: propranolol 10mg tablet PO ONE (11:49)
[2024-09-20] MEDS: hydrALAZINE 20mg/ml inj. IV ONE (11:49)
[2024-09-20] MEDS: CefTRIAXone/D5W-Rocephin 1gm 50 ML IV SCH (11:52)
[2024-09-20 12:26] LABS: INR 1.2 INR
[2024-09-20] MEDS: INSULIN LISPRO 100 UNIT/ML INSULN.PEN MULTI-DOSE SQ SCH (12:57)
[2024-09-20] MEDS: hyDRALAzine 10mg tablet PO SCH (15:44)
[2024-09-20] MEDS: lactose-reduced food (Ensure Enlive) - 237ml bottle PO SCH (18:14)
[2024-09-20] MEDS: propranolol 10mg tablet PO SCH (20:47)
[2024-09-21 05:39] LABS: BASOPHILS # (AUTO) 0.1 X10'3 (0-0.2); BASOPHILS % (AUTO) 0.6 % (0-1); EOSINOPHILS % (AUTO) 0 % (0-6); HEMATOCRIT 42.3 % (42.0-52.0); HEMOGLOBIN 14.6 g/dl (14.0-17.9); LYMPHOCYTES # (AUTO) 0.2 X10'3 (1.1-4.8); LYMPHOCYTES % (AUTO) 1.6 % (21-51); MEAN CORPUSCULAR HEMOGLOBIN 32.2 PG (27.0-31.0); MEAN CORPUSCULAR HGB CONC 34.6 g/dL (33.0-36.5); MEAN PLATELET VOLUME 7.4 FL (7.4-10.4); MONOCYTES # (AUTO) 0.6 X10'3 (0-0.9); MONOCYTES % (AUTO) 4.1 % (2-12); NEUTROPHILS # (AUTO) 13.2 X10'3 (1.8-7.7); NEUTROPHILS % (AUTO) 93.7 % (42-75); PLATELET COUNT 132 X10'3 (140-440); RED BLOOD COUNT 4.55 X10'6 (4.70-6.10); RED CELL DISTRIBUTION WIDTH 13.9 % (11.5-14.5); WHITE BLOOD COUNT 14.1 X10'3 (4.5-11.0)
[2024-09-21 06:00] VITALS: BP 158/72; PULSE 67; RESP 16; TEMP 98.6; O2SAT 98
[2024-09-21 06:02] LABS: ALANINE AMINOTRANSFERASE 55 U/L (12-78); ALBUMIN 2.1 G/DL (3.4-5.0); ALBUMIN/GLOBULIN RATIO 0.5 (1.1-1.5); ALKALINE PHOSPHATASE 117 IU/L (46-116); ANION GAP 5 (8-16); ASPARTATE AMINO TRANSFERASE 62 U/L (10-37); BILIRUBIN,TOTAL 0.6 MG/DL (0.1-1.0); BLOOD UREA NITROGEN 17 MG/DL (7-18); BUN/CREATININE RATIO 24.6 (10.0-20.0); CHLORIDE 105 MMOL/L (99-107); CREATININE 0.69 MG/DL (0.60-1.10); GLUCOSE 180 MG/DL (70-104); POTASSIUM 4.7 MMOL/L (3.5-5.1); SODIUM 135 MMOL/L (135-145); TOTAL CARBON DIOXIDE 25.1 MMOL/L (24-32); TOTAL PROTEIN 6.5 G/DL (6.4-8.2); eCRCL 136 ML/MIN; eGFR > 90 ML/MIN
[2024-09-21 08:00] VITALS: RESP 16; O2SAT 98
[2024-09-21] MEDS ORDERED: amLODIPine 5mg tablet PO SCH (08:00)
[2024-09-21] MEDS ORDERED: azithromycin/NS 500mg/250ml 250 ML IV SCH (08:00)
[2024-09-21] MEDS: levoFLOXACIN-Levaquin 750MG/D5 150 ML IV SCH (08:55)
[2024-09-21] MEDS: lisinopril 20mg tablet PO SCH (09:34)
[2024-09-21 09:35] VITALS: BP_SYST 158; PULSE 67
[2024-09-21] MEDS: amLODIPine 5mg tablet PO SCH (09:35)
[2024-09-21] MEDS: isosorbide dinitrate 30mg tablet PO ONE (13:00)
[2024-09-21] MEDS ORDERED: PROP10TA10 PO (15:40)
[2024-09-21] MEDS ORDERED: methylPREDNISolone sod succ/PF 40mg inj. IV SCH (15:40)
[2024-09-21] MEDS ORDERED: ISOS30TA9 PO (15:40)
[2024-09-21] MEDS ORDERED: hyDRALAzine tablet PO (15:40)
[2024-09-21] MEDS ORDERED: LISI20TA28 PO (15:40)
[2024-09-21] MEDS ORDERED: ASPI81TA52 PO (15:40)
[2024-09-21] MEDS ORDERED: NOR5T PO (15:40)
[2024-09-21] MEDS ORDERED: CIPR-202 PO (15:51)
--- NOTE | 2024-09-21 17:27 | DISCHARGE SUMMARY ---
Discharge Summary Providers to CC ~ Discharge Summary Admission Diagnosis: pna, uti Hospital Course DATE OF ADMISSION: 09/15/24 DATE OF DISCHARGE: 09/21/24 Discharge Diagnosis\\Comment: Acute metabolic encephalopathy likely meth-induced Methamphetamine abuse Community-acquired pneumonia UTI Prerenal FLORA 2/2 vasomotor nephropathy- POA Hypertensive urgency- not POA Acute COPD exacerbation Cirrhosis Portal hypertension Cholelithiasis MDD Polysubstance abuse Operations\\Procedures: None Consultants: None Complications: None Condition on DC: Stable New Medications: Aspirin (Aspirin EC) 81 Mg Tablet.dr 1 TAB PO DAILY for 30 Days, #30 TAB Ciprofloxacin HCl (Ciprofloxacin HCl) 500 Mg Tab 1 TAB PO BID for 5 Days, #10 TAB Amlodipine Besylate (Amlodipine Besylate) 5 Mg Tablet 10 MG PO DAILY for 30 Days, #30 TAB [hyDRALAzine tablet] () 10 MG TABLET 10 MG PO Q8H for 30 Days, #90 Isosorbide Dinitrate* (Isordil*) 30 Mg Tablet 30 MG PO BID for 30 Days, #60 TAB Lisinopril (Lisinopril) 20 Mg Tablet 40 MG PO DAILY for 30 Days, #60 TAB Propranolol Hcl* (Inderal*) 10 Mg Tablet 10 MG PO Q12H for 30 Days, #60 TAB Discharge Summary: History of Present Illness From H&P: "Patient is a 59-year-old male with history of cirrhosis, secondary to alcohol abuse and drug abuse hypertension and type 2 diabetes who was dropped off by a friend for a LOC. Obtaining a history is challenging, patient has severe somnolence barely opens up his eyes does not answer any questions." Hospital Course Diagnostic findings were notable for CT indicating right lower lobe pneumonia, cirrhosis and portal hypertension, cystitis, cholelithiasis without biliary ductal dilation, urinalysis indicating urinary tract infection, hypoxia, transaminitis, procalcitonin >0.25, abnormal renal function, urine drug screen positive for amphetamines, profoundly elevated blood pressure. Pertinent negative findings were negative troponin series, normal lipase, INR 1.2, normal ammonia level. Patient was put on alcohol withdrawal protocol and was treated with empirical antibiotics, antihypertensives, thiamine, folic acid. Patient did not experience further complications throughout the entire hospital stay. Patient was seen and examined on the day of discharge. On day of discharge, vss and labs notable for resolving transaminitis and acute kidney injury. An e levated white count likely due to demargination from steroid which was tapered down. All labs, diagnostic workups, discharge plan discussed with patient in details during visit before discharge. All questions and concerns answered to the best of my professional knowledge. Patient is to be discharged to [place] and to follow-up with PCP within 2 weeks. Physical Exam General: A&Ox 3, NAD HEENT: Normocephalic, PERRLA Neck: Supple, trachea midline, no JVD Chest: Clear to auscultation bilaterally Cardiovascular: RRR, S1&S2 GI: Soft and nontender Extremities: No cyanosis/clubbing/or edema BRAND ANALYST: CN II-XII intact, no focal deficits Musculoskeletal: No paraspinal muscle tenderness, no muscle spasm Skin: Warm and intact *Problems/Diagnosis: (1) Pneumonia Status: Acute Total Time Spent on D/C: > 30 Minutes Date of Service: September 21, 2024 Billing Provider: JOSE MANUEL JORDAN Common Visit Codes: [id number] DISCH DAY >30min JOSE MANUEL JORDAN September 21, 2024 17:26
[2024-09-21] MEDS ORDERED: isosorbide dinitrate 30mg tablet PO SCH (20:00)
== END 2024-09-21 17:20 | disposition home or self-care (01) | DRG 812 ==
LOC: ER 01:51 → ED HOLD 07:52 → ORTHO 4S 14:45
PROVIDERS: ADMIT Internal Medicine; ATTEND Internal Medicine
DX: T43.651A Poisoning by methamphetamines accidental (unintentional), initial encounter (principal); N17.0 Acute kidney failure with tubular necrosis; G93.41 Metabolic encephalopathy; G92.8 Other toxic encephalopathy; K76.6 Portal hypertension; I11.0 Hypertensive heart disease with heart failure; J18.9 Pneumonia, unspecified organism; I50.9 Heart failure, unspecified; Z20.822 Contact with and (suspected) exposure to COVID-19; J44.0 Chronic obstructive pulmonary disease with (acute) lower respiratory infection; N17.9 Acute kidney failure, unspecified; J44.1 Chronic obstructive pulmonary disease with (acute) exacerbation; N30.90 Cystitis, unspecified without hematuria; K74.60 Unspecified cirrhosis of liver; I16.0 Hypertensive urgency; F15.10 Other stimulant abuse, uncomplicated; F32.9 Major depressive disorder, single episode, unspecified; E11.9 Type 2 diabetes mellitus without complications; R74.01 Elevation of levels of liver transaminase levels; F10.10 Alcohol abuse, uncomplicated; F12.10 Cannabis abuse, uncomplicated; Y92.89 Other specified places as the place of occurrence of the external cause; K80.20 Calculus of gallbladder without cholecystitis without obstruction; Z59.00 Homelessness unspecified; Z83.3 Family history of diabetes mellitus; Z87.891 Personal history of nicotine dependence
CPT/HCPCS: 36415; 70450; 71045; 71250; 74176; 80053; 80305; 80320; 81001; 82140; 82150; 82810; 82948; 83690; 83735; 83880; 84145; 84484; 85025; 85610; 87040; 87070; 87077; 87081; 87088; 87186; 87811; 93005; 97116; 97161; 97530; 99285; A4349; A4615; A6258; A6590; C1758; G0378; J0360; J0456; J0696; J0744; J1650; J1815; J1885; J1956; J2270; J2310; J2919; J3480; J7030

== ENCOUNTER 2024-10-20 17:28 | Inpatient (IN) | payer MEDICAID ==
[~2024-10-20] VITALS: Ht 172.7 cm; Wt 81.8 kg
[~2024-10-20 17:28] MED LIST changes: +ASPI81TA52 PO; +CIPR-202 PO; -FURO20TA4 PO; +ISOS30TA9 PO; -LACT10SO7 PO; -LACT10SO78 PO; +NOR5T PO; +PROP10TA10 PO; -SPIR50TA5 PO; +hyDRALAzine tablet PO
--- NOTE | 2024-10-20 17:56 | Physician Documentation ---
History of Present Illness ~ Chief Complaint: Dizziness Stated Complaint: DIZZINESS Time Seen by MD: 18:35 Primary Medical Doctor: [facility] 59-year-old nondomiciled male with history of liver cirrhosis is noncompliant with medications complaining of dizziness lightheadedness feelings of weakness. Patient also has a taped wound to the left lower extremity History as per HPI. Patient reports profound weakness to the point where he can not even walk. He was seen here for similar circumstance recently and found to have pneumonia. He endorses methamphetamine abuse last time yesterday. Medication Reconciliation Allergies: Coded Allergies: No Known Allergies (Unverified , 09/15/24) Scheduled Amlodipine Besylate (Amlodipine Besylate), 10 MG PO DAILY Aspirin (Aspirin EC), 1 TAB PO DAILY Ciprofloxacin HCl (Ciprofloxacin HCl), 1 TAB PO BID Isosorbide Dinitrate* (Isordil*), 30 MG PO BID Lisinopril (Lisinopril), 40 MG PO DAILY Propranolol Hcl* (Inderal*), 10 MG PO Q12H [hyDRALAzine tablet], 10 MG PO Q8H Past Medical History Past Medical History: Congestive Heart Failure, Hypertension, Cirrohsis, Hepatitis C, *HEMATOLOGY*, Liver Disease, Dialysis, Diabetes, Cellulitis, Depression Past Surgical History: orthopedic surgeries, other Other Past Surgical History: 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, herniography Patient History: FH: diabetes mellitus FATHER (unknown history), MOTHER, , Age: 72, Cause: of unknown cause Alcohol Use: Sober Drug Use: marijuana Lives In: Homeless Past Social History: History of methamphetamine use, currently sober Review of Systems All Other Systems at this time: Reviewed and Negative ROS All review of systems negative except as per HPI Constitutional: Reports: see HPI Physical Exam Vital Signs: Temperature: 97.9, Source: Oral, Heart Rate: 85, Respiratory Rate: 18, BP: 176/100, Pulse Oximetry: 95, Weight: 81.820 Oxygen Flow Rate: 0 Physical Exam General: Patient is awake, alert, oriented x4 in no acute distress Head: Normocephalic and atraumatic. Eyes: Conjunctival normal. EOMI. PERRL. ENT: Mucous membranes moist. Neck: Supple, trachea is midline. Chest: Clear to auscultation bilaterally without rales, rhonchi, or wheezes. There is no accessory muscle use or retractions. Cardiac: RRR without murmurs, gallops, or rubs. Abd: Soft, positive distention without tenderness to palpation General Appearance: alert, ill-appearing, mild distress Respiratory: lungs clear, no respiratory distress Chest: no accessory muscle use Skin: other Progress Results/Orders Results/Orders Orders - KARTHIK RODRIGUEZ MD Urinalysis, Cult If Indicated (10/20/24 20:21) Drug Screen, Urine (10/20/24 20:21) Cta Chest Pe (10/20/24 21:20) Ct Abdomen Pelvis (10/20/24 21:25) Page Hospitalist (10/20/24 22:07) Fill Out Med Reconciliation (10/20/24 22:07) Completed Orders - KARTHIK RODRIGUEZ MD Procalcitonin (10/20/24 20:21) Cta Chest Pe (10/20/24 21:20) Iohexol 350mg/Ml 100ml (Omnipaque 350mg/ (10/20/24 20:39) Ct Abdomen Pelvis (10/20/24 21:25) Vital Signs 10/20/24 10/20/24 10/20/24 10/20/24 17:31 18:25 18:31 19:17 Temp 97.9 Pulse 85 75 72 Resp 18 12 12 12 B/P (MAP) 176/100 175/90 (118) 164/85 (111) Pulse Ox 95 95 95 O2 Flow Rate 0 10/20/24 10/20/24 10/20/24 20:36 21:46 23:02 Pulse 72 72 89 Resp 14 16 16 B/P (MAP) 164/84 (110) 157/70 (99) 190/108 (135) Pulse Ox 96 95 96 Laboratory Tests Test 10/20/24 18:11 10/20/24 20:22 10/20/24 23:02 White Blood Count 5.3 Red Blood Count 4.17 L Hemoglobin 13.7 L Hematocrit 38.4 L Mean Corpuscular Volume 92.1 Mean Corpuscular Hemoglobin 32.8 H Mean Corpuscular Hemoglobin Concent 35.6 Red Cell Distribution Width 14.0 Platelet Count 91 L Mean Platelet Volume 7.2 L Neutrophils (%) (Auto) 81.2 H Lymphocytes (%) (Auto) 5.7 L Monocytes (%) (Auto) 11.0 Eosinophils (%) (Auto) 1.2 Basophils (%) (Auto) 0.9 Neutrophils # (Auto) 4.3 Lymphocytes # (Auto) 0.3 L Monocytes # (Auto) 0.6 Eosinophils # (Auto) 0.1 Basophils # (Auto) 0.0 CBC Comment Sodium Level 137 Potassium Level 4.1 Chloride Level 104 Carbon Dioxide Level 27.4 Anion Gap 6 L Blood Urea Nitrogen 11 Creatinine 0.89 Estimated GFR/1.73 m2 88 BUN/Creatinine Ratio 12.4 Glucose Level 109 H Calcium Level 8.6 Magnesium Level 1.8 Ammonia 32 Troponin I High Sensitivity 9 9 Pro-B-Type Natriuretic Peptide 1236 H Albumin 2.7 L Chemistry Comments Troponin I High Sens Percent Delta 0 Troponin I Hi Sens Absolute Change 0 Procalcitonin < 0.05 Urine Comment Drug Screen Comment EKG/XRAY/CT/US/VASC/MRI EKG : Additional Comment EKG interpreted by myself shows time of 1803, rate 77, sinus rhythm, normal axis, no ST changes Chest X-Ray : Additional Comments Exam: CHEST,SINGLE VIEW EXAM: XR Chest, 1 View CLINICAL INDICATION: CP TECHNIQUE: Frontal view of the chest. COMPARISON: No relevant prior studies available. FINDINGS: LUNGS AND PLEURAL SPACES: Bibasilar atelectasis or pneumonia. HEART: Cardiomegaly with pulmonary congestion and edema. Superimposed pneumonia cannot be excluded. MEDIASTINUM: Unremarkable. Normal mediastinal contour. BONES/JOINTS: Unremarkable. No acute fracture. OTHER FINDINGS: Comparison DI CHEST,SINGLE VIEW on DOS: 09/18/24, DI CHEST,SINGLE VIEW on DOS: 09/15/24, DI CHEST,SINGLE VIEW on DOS: 08/25/24, DI CHEST,SINGLE VIEW on DOS: 04/24/24, DI CHEST,SINGLE VIEW on DOS: 04/11/24. . IMPRESSION: 1. Bibasilar atelectasis or pneumonia. 2. Cardiomegaly with pulmonary congestion and edema. Superimposed pneumonia cannot be excluded. Medical Decision Making Findings Patient presents to the emergency room with profound weakness to the point where he can not walk. Differentials include but are not limited to electrolyte disturbances, metabolic encephalopathy, methamphetamine abuse, CHF, pneumonia, urinary tract infection therefore emergent labs and imaging indicated. CT scan concerning for a rim enhancing that has ascites that could possibly represent infectious process. Patient is too weak to walk. We will admit for further investigation Departure Admitted to Inpatient Unit: yes, to hospitalist Impression: Primary Impression: Weakness Additional Impression: Ascites Condition: Guarded Referrals: NO PRIMARY CARE PROVIDER (PCP) Signature Scribe Signature: No scribe Attestation: The note accurately reflects work and decisions made by me.Karthik Rodriguez MD 10/20/24 23:40 ARLETTE HERRMANN NP Oct 20, 2024 17:56 KARTHIK RODRIGUEZ MD Oct 20, 2024 20:35
--- NOTE | 2024-10-20 18:05 | ELECTROCARDIOGRAPH REPORT ---
[facility] Test Date: 2024-10-20 Test Time: 18:03:43 Pat Name: OJ TRAN Department: [facility]- Patient ID: [id number] Room: [place] [address] Gender: M Virtualization Consultant: : 1965 Requested By: ARLETTE HERRMANN Order Number: [id number] Reading MD: Dr. Papito Liu Measurements Intervals [place] Rate: 77 P: 33 RI: 118 QRS: 12 QRSD: 113 T: 85 QT: 453 QTc: 513 Interpretive Statements Sinus rhythm Borderline short RI interval Probable left atrial enlargement Abnormal R-wave progression, early transition Left ventricular hypertrophy Prolonged QT interval Electronically Signed On 10-21-2024 18:22:[address] Papito Liu Please click the below link to view image of tracing.
--- NOTE | 2024-10-20 18:06 | RADIOLOGY REPORT ---
EXAM: XR Chest, 1 View CLINICAL INDICATION: CP TECHNIQUE: Frontal view of the chest. COMPARISON: No relevant prior studies available. FINDINGS: LUNGS AND PLEURAL SPACES: Bibasilar atelectasis or pneumonia. HEART: Cardiomegaly with pulmonary congestion and edema. Superimposed pneumonia cannot be excluded. MEDIASTINUM: Unremarkable. Normal mediastinal contour. BONES/JOINTS: Unremarkable. No acute fracture. OTHER FINDINGS: Comparison DI CHEST,SINGLE VIEW on DOS: 09/18/24, DI CHEST,SINGLE VIEW on DOS: , DI CHEST,SINGLE VIEW on DOS: 08/25/24, DI CHEST,SINGLE VIEW on DOS: 04/24/24, DI CHEST,SINGLE VIEW on DOS: 04/11/24. . IMPRESSION: 1. Bibasilar atelectasis or pneumonia. 2. Cardiomegaly with pulmonary congestion and edema. Superimposed pneumonia cannot be excluded. HS:Y
--- NOTE | 2024-10-20 18:08 | RADIOLOGY REPORT ---
EXAM: CT Head Without Intravenous Contrast CLINICAL INDICATION: dizziness ,r/o encephlopathy or stroke TECHNIQUE: Axial computed tomography images of the head/brain without intravenous contrast. This CT exam was performed using one or more of the following dose reduction techniques: automated exposure control, adjustment of the mA and/or kV according to patient size, and/or use of iterative reconstru ction technique. CONTRAST: COMPARISON: No relevant prior studies available. FINDINGS: BRAIN AND EXTRA-AXIAL SPACES: Hypodense lesions of the left basal ganglia and right caudate, likely remote infarction. This can be further evaluated with MRI.. The cerebral and cerebellar sulci are p rominent consistent with brain atrophy. Areas of decreased attenuation in the deep cerebral white ma tter are consistent with small vessel ischemic/degenerative changes. No acute intracranial hemorrhag e, midline shift or mass effect. If symptoms persist, further evaluation with MRI is recommended. BONES/JOINTS: Unremarkable. No acute fracture. SOFT TISSUES: Unremarkable. SINUSES: Unremarkable as visualized. No acute sinusitis. MASTOID AIR CELLS: Unremarkable as visualized. No mastoid effusion. OTHER FINDINGS: Comparison CT CT HEAD on DOS: 09/15/24, CT CT HEAD on DOS: 04/11/24, CT CT HEAD on D OS: 06/29/23, CT HEAD on DOS: 11/10/22. IMPRESSION: 1. Generalized brain atrophy. 2. Small vessel ischemic/degenerative changes. 3. No acute intracranial hemorrhage, midline shift or mass effect. If symptoms persist, further eval uation with MRI is recommended. HS:Y
[2024-10-20 18:28] LABS: BASOPHILS % (AUTO) 0.9 % (0-1); EOSINOPHILS # (AUTO) 0.1 X10'3 (0-0.9); EOSINOPHILS % (AUTO) 1.2 % (0-6); HEMATOCRIT 38.4 % (42.0-52.0); HEMOGLOBIN 13.7 g/dl (14.0-17.9); LYMPHOCYTES # (AUTO) 0.3 X10'3 (1.1-4.8); LYMPHOCYTES % (AUTO) 5.7 % (21-51); MEAN CORPUSCULAR HEMOGLOBIN 32.8 PG (27.0-31.0); MEAN CORPUSCULAR HGB CONC 35.6 g/dL (33.0-36.5); MEAN CORPUSCULAR VOLUME 92.1 FL (78-98); MEAN PLATELET VOLUME 7.2 FL (7.4-10.4); MONOCYTES # (AUTO) 0.6 X10'3 (0-0.9); NEUTROPHILS # (AUTO) 4.3 X10'3 (1.8-7.7); NEUTROPHILS % (AUTO) 81.2 % (42-75); PLATELET COUNT 91 X10'3 (140-440); RED BLOOD COUNT 4.17 X10'6 (4.70-6.10); WHITE BLOOD COUNT 5.3 X10'3 (4.5-11.0)
[2024-10-20 18:51] LABS: ALBUMIN 2.7 G/DL (3.4-5.0); ANION GAP 6 (8-16); BLOOD UREA NITROGEN 11 MG/DL (7-18); BUN/CREATININE RATIO 12.4 (10.0-20.0); CALCIUM 8.6 MG/DL (8.5-10.1); CHLORIDE 104 MMOL/L (99-107); CREATININE 0.89 MG/DL (0.60-1.10); GLUCOSE 109 MG/DL (70-104); POTASSIUM 4.1 MMOL/L (3.5-5.1); PRO BRAIN NATRIURETIC PEPTIDE 1236 PG/ML (0-125); SODIUM 137 MMOL/L (135-145); TOTAL CARBON DIOXIDE 27.4 MMOL/L (24-32); eCRCL 88 ML/MIN; eGFR 88 ML/MIN
[2024-10-20] MEDS ORDERED: iohexol 350MG/ML 100ml bottle IV ONE (20:39)
--- NOTE | 2024-10-20 21:54 | RADIOLOGY REPORT ---
Exam: CT CT ABDOMEN PELVIS History: ASCITES, ENLARGED SPLEEN Comparison Study: CT CT CHEST ABDOMEN PELVIS on DOS: 09/15/24, CT CT ABDOMEN PELVIS on DOS: 08/24/24 TECHNIQUE: A digital loss control manager image was obtained. During the uneventful, intravenous administration of c ontrast material, multislice data acquisition was obtained through the abdomen and pelvis. The data s et was subsequently reconstructed into multiplanar reformats. RADIATION DOSE: DLP 1627.54 mGy.cm; CTDI vol 28.98 mGy. Findings: Liver: Nodular hepatic contour. Spleen: Splenomegaly measuring up to 18.5 cm. Pancreas: Unremarkable. Gallbladder: Cholelithiasis. The gallbladder is contracted in appearance. Adrenals: Unremarkable Kidneys: No hydronephrosis. Contrast opacifies the ureters. Pelvic Viscera: There is contrast within the urinary bladder. Vasculature: Moderate aortoiliac atherosclerosis. Prominent upper abdominal varices. Retroperitoneum: Small to moderate abdominopelvic ascites with suggestion of rim enhancement. Bowel: No bowel obstruction. Musculoskeletal: Unremarkable. Soft tissues: Right inguinal hernia containing fluid. Diffuse subcutaneous edema. Ventral abdominal w all hernia containing fluid and bowel without evidence of obstruction. Lungs: Small bilateral pleural effusions with adjacent opacity. Redemonstrated right lower lobe mass like density. Please see separately dictated CT chest for additional details. Impression: 1. Cirrhosis with sequela of portal hypertension as detailed. 2. Small to moderate abdominopelvic ascites with suggestion of rim enhancement. An element of perito nitis cannot be excluded in the appropriate clinical setting. 3. Additional findings as detailed.
--- NOTE | 2024-10-20 21:56 | RADIOLOGY REPORT ---
EXAM: CT CTA CHEST PE W/ IV CONTRAST History: Shortness of breath Comparison Study: None TECHNIQUE: A digital truck mechanic apprentice image was obtained. During the uneventful, intravenous administration of c ontrast material, multislice data acquisition was obtained through the chest. 3-D postprocessing is performed by technologist including MIP imaging Radiation Dose : CTDI vol 19.96 mGy, DLP 776.11 mGy*cm. Findings: Lungs: Paraseptal and centrilobular emphysematous changes. Right lower lobe round atelectasis. Pleura: Small left and trace right pleural effusions. Heart/Great vessels: No cardiomegaly or pericardial effusion. No pulmonary embolism, aneurysm, or dis section. Mediastinum: [id number] mediastinal shift. Unremarkable Soft tissues/Bones: Mild multilevel degenerative changes of the thoracic spine. Mild ascites. Cholelithiasis. Splenomegaly. Impression: 1. No evidence of a pulmonary embolism, aneurysm, or dissection. 2. Small left and trace right pleural effusions with right lower lobe round atelectasis. 3. Emphysematous changes.
[2024-10-20 22:25] LABS: MAGNESIUM 1.8 MG/DL (1.5-2.4)
[2024-10-20] MEDS ORDERED: magnesium sulf-water 2g/50mL 50 ML IV PRN (23:40)
[2024-10-20] MEDS ORDERED: acetaminophen 325mg tablet PO PRN (23:40)
[2024-10-20] MEDS ORDERED: potassium Cl 40MEQ/1/2NS 520ml 520 ML IV PRN (23:40)
[2024-10-20] MEDS ORDERED: potassium Cl 20 mEq SR tablet PO PRN ×2 (23:40)
[2024-10-20] MEDS ORDERED: ondansetron/PF 4mg/2ml inj IV PRN (23:40)
[2024-10-20] MEDS ORDERED: magnesium Cl slow-release 64mg tablet PO PRN (23:40)
[2024-10-20] MEDS ORDERED: magnesium sulf-water 4G/100mL 100 ML IV PRN (23:40)
[2024-10-20 23:41] LABS: BILIRUBIN,URINE NEGATIVE (Neg); CLARITY,URINE CLEAR (Clear); COLOR,URINE YELLOW (Yellow); GLUCOSE, URINE NEGATIVE (Neg); KETONES,URINE NEGATIVE (Neg); LEUKOCYTE ESTERASE ,URINE NEGATIVE (Neg); NITRITES, URINE NEGATIVE (Neg); OCCULT BLOOD,URINE NEGATIVE (Neg); PH,URINE 7.5 (4.8-8.0); PROTEIN,URINE NEGATIVE (Neg); UROBILINOGEN,URINE >=8.0 E.U/dL (0.2-1.0)
[2024-10-20 23:47] LABS: UA COLLECTION TYPE URINAL
[2024-10-20 23:52] LABS: URINE AMPHETAMINE SCREEN POSITIVE (Neg); URINE BARBITUATE SCREEN NEGATIVE (Neg); URINE BENZODIAZEPINES SCREEN NEGATIVE (Neg); URINE CANNABINOID SCREEN POSITIVE (Neg); URINE COCAINE SCREEN NEGATIVE (Neg); URINE METHADONE SCREEN NEGATIVE (Neg); URINE OPIATE SCREEN NEGATIVE (Neg); URINE PHENCYCLIDINE SCREEN NEGATIVE (Neg)
[2024-10-21] VITALS (10 sets, daily range): BP systolic 139–153; BP diastolic 69–79; PULSE 57–71; RESP 12–17; TEMP 97.1–97.9; O2SAT 95–100
[2024-10-21 00:15] LABS: THYROID STIMULATING HORMONE 0.81 ulU/ml (0.34-4.50)
[2024-10-21] MEDS: lisinopril 10 MG tablet PO ONE (00:33)
[2024-10-21 00:34] LABS: APTT 31 SECONDS (22-32); INR 1.2 INR; PROTHROMBIN TIME 11.7 SECONDS (9.0-12.0)
[2024-10-21] MEDS: metoprolol tartrate 1mg/ml inj IV ONE (00:34)
--- NOTE | 2024-10-21 00:34 | HISTORY AND PHYSICAL-Residence ---
History & Physical Providers to CC Resident Creating Document: LIZETTE HARP Jr. DO ~ History of Present Illness Primary Medical Doctor: DR. LANCASTER Reason for Admit\Complaint: Dizziness, generalized weakness History of Present Illness 59 years old homeless male with history of cirrhosis and portal hypertension, hepatitis-C, methamphetamine abuse, CHF with preserved ejection fraction, noncompliant with medication presented to the ED due to denies generalized weakness, dizziness and cough. Patient is poor historian and not reliable, denied drinking alcohol or methamphetamine! most of the information gathered from the medical chart. Patient reported dizziness started about two three days ago and explained it as a spinning head around a generalized weakness. Patient also reported increasing productive cough recently. He denied any abdominal pain nausea vomiting. Patient reported to the ED physician, his last dose of amphetamine was yesterday Allergies: Coded Allergies: No Known Allergies (Unverified , 09/15/24) Home Medications Home Medications Active Ciprofloxacin HCl (Ciprofloxacin) 500 Mg Tab 1 Tab PO BID 5 Days [hyDRALAzine tablet] 10 MG Tablet 10 Mg PO Q8H 30 Days Lisinopril 20 Mg Tablet 40 Mg PO DAILY 30 Days Amlodipine Besylate 5 Mg Tablet 10 Mg PO DAILY 30 Days Isordil* (Isosorbide Dinitrate) 30 Mg Tablet 30 Mg PO BID 30 Days Inderal* (Propranolol HCl) 10 Mg Tablet 10 Mg PO Q12H 30 Days Aspirin EC (Aspirin) 81 Mg Tablet.dr 1 Tab PO DAILY 30 Days Past Medical History Past Medical History Cirrhosis and portal hypertension Hepatitis-C Methamphetamine abuse Past Surgical History Surgical History Comment Multiple orthopedic surgery Family History Family History: FH: diabetes mellitus FATHER (unknown history), MOTHER, , Age: 72, Cause: of unknown cause Past Social History Smoking: Cigarettes Alcohol Use: Sober Drug Use: Marijuana, Methamphetamine Lives In: Homeless Past Social History: History of methamphetamine use, currently sober ROS ROS The history of present illness included a review of system, which yielded relevant positives and negatives Constitutional: Reports: see HPI Exam Vitals: Vital Signs Date Time Temp Pulse Resp B/P (MAP) Pulse Ox O2 Delivery O2 Flow Rate FiO2 10/20/24 23:44 99 Room Air* 0 21 10/20/24 23:02 89 16 190/108 (135) 10/20/24 17:31 97.9 General: General: Awake and Alert, no acute distress. HEENT: Conjunctiva pink, Sclera clear, Mucus Membranes moist. Neck: Supple without masses and tenderness. Resp: Lungs clear to auscultation bilaterally. Heart: Regular Rate and rhythm, normal S1 and S2 Abdomen: Distended abdomen, generalized mild tenderness, ventral hernia Extremities: Bilateral lower extremity edema Multiple abrasion/erythema/tenderness in lower extremity Skin: Warm and Dry. Neurological: Speech is clear, alert, and oriented to place and person, mild asterixis Diagnostic Data Last Recorded Lab Results: 10/20/24181010/20/241810 Diagnostic Data: Laboratory Tests Test 10/21/24 00:12 Coagulation Comments Advance Care Planning Advanced Care plannin - 30 Minutes Additional Plan 59 years old homeless male with history of cirrhosis, portal hypertension, hepatitis-C, CHF with preserved ejection fraction presented to the ED due to generalized weakness dizziness and productive cough Generalized weakness, dizziness, mild confusion Drug encephalopathy The setting of methamphetamine abuse Cirrhosis with portal hypertension, asterixis CT scan showed: 1. Cirrhosis with sequela of portal hypertension ( Prominent upper abdominal varices. 2. Small to moderate abdominopelvic ascites with suggestion of rim enhancement. An element of peritonitis cannot be excluded in the appropriate clinical setting. Right inguinal hernia containing fluid. Diffuse subcutaneous edema. Ventral abdominal wall hernia containing fluid and bowel without evidence of obstruction. Started on Carvedilol 625, Lasix 20 mg IV, lactulose daily Ceftriaxone started for SBP prophylaxis CHF with preserved ejection fraction Hypertension emergency Methamphetamine abuse Elevated proBNP Lasix, carvedilol, spironolactone started we will continue monitoring Bilateral lower extremity edema Doppler ultrasounds ordered Social consult COPD exacerbation Patient reported large amount of productive cough Ceftriaxone azithromycin started Code Status: full DVT prophylaxis: Lovenox Analgesia/sedation: None Line/tube: Peripheral GI prophylaxis: Protonix Nutrition: Low-salt Prognosis: Guarded Disposition: Continue monitoring patient in PCU floor with telemetry Ирина Waldrop MD Internal Medicine Resident : 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 Attestation of HP only, care immediately directed to hospitalist team - ? paracentesis - Diet, nutrition consult. Poor protein intake - Social work for homelessness - Alvarez - Unsure sure admission criteria. Patient seen through remote audiovisual assessment through HIPAA compliant setup. All labs, flowsheets, and images reviewed. Date of Service: Oct 21, 2024 Billing Provider: JOSE ABRAHAM MD, ELA[place], RES Oct 21, 2024 00:34 LIZETTE HARP Jr. DO Oct 21, 2024 04:27
[2024-10-21] MEDS: CefTRIAXone/D5W-Rocephin 1gm 50 ML IV SCH (00:44)
[2024-10-21] MEDS: furosemide 10 MG/1 ML 10ml inj IV ONE (00:44)
[2024-10-21] MEDS: azithromycin/NS 500mg/250ml 250 ML IV SCH (00:44)
[2024-10-21] MEDS: lactulose 20gm/30ml cup PO SCH (01:20)
[2024-10-21 07:37] LABS: BASOPHILS # (AUTO) 0.1 X10'3 (0-0.2); BASOPHILS % (AUTO) 1.1 % (0-1); EOSINOPHILS # (AUTO) 0.2 X10'3 (0-0.9); EOSINOPHILS % (AUTO) 3.3 % (0-6); HEMATOCRIT 36.1 % (42.0-52.0); HEMOGLOBIN 12.9 g/dl (14.0-17.9); LYMPHOCYTES # (AUTO) 0.4 X10'3 (1.1-4.8); LYMPHOCYTES % (AUTO) 8.6 % (21-51); MEAN CORPUSCULAR HEMOGLOBIN 32.6 PG (27.0-31.0); MEAN CORPUSCULAR HGB CONC 35.7 g/dL (33.0-36.5); MEAN CORPUSCULAR VOLUME 91.2 FL (78-98); MEAN PLATELET VOLUME 7.4 FL (7.4-10.4); MONOCYTES # (AUTO) 0.7 X10'3 (0-0.9); MONOCYTES % (AUTO) 14.8 % (2-12); NEUTROPHILS # (AUTO) 3.6 X10'3 (1.8-7.7); NEUTROPHILS % (AUTO) 72.2 % (42-75); PLATELET COUNT 83 X10'3 (140-440); RED BLOOD COUNT 3.96 X10'6 (4.70-6.10); RED CELL DISTRIBUTION WIDTH 14.1 % (11.5-14.5); WHITE BLOOD COUNT 5.1 X10'3 (4.5-11.0)
[2024-10-21] MEDS: K and/or MAG REPLACEMENT MC SCH (08:00)
[2024-10-21] MEDS ORDERED: furosemide 10 MG/1 ML 10ml inj IV SCH (08:00)
[2024-10-21 08:02] LABS: ALANINE AMINOTRANSFERASE 21 U/L (12-78); ALBUMIN 2.3 G/DL (3.4-5.0); ALBUMIN/GLOBULIN RATIO 0.7 (1.1-1.5); ALKALINE PHOSPHATASE 114 IU/L (46-116); ANION GAP 9 (8-16); ASPARTATE AMINO TRANSFERASE 32 U/L (10-37); BILIRUBIN,TOTAL 1.1 MG/DL (0.1-1.0); BLOOD UREA NITROGEN 13 MG/DL (7-18); BUN/CREATININE RATIO 16.5 (10.0-20.0); CHLORIDE 106 MMOL/L (99-107); CHOL/HDL RATIO 2.5 (0.00-4.99); CHOLESTEROL 116 MG/DL (0-200); CREATININE 0.79 MG/DL (0.60-1.10); GLUCOSE 94 MG/DL (70-104); HDL CHOLESTEROL 46 MG/DL (35-60); LDL CHOLESTEROL 58 MG/DL (50-100); MAGNESIUM 1.8 MG/DL (1.5-2.4); POTASSIUM 3.5 MMOL/L (3.5-5.1); SODIUM 144 MMOL/L (135-145); TOTAL CARBON DIOXIDE 29.5 MMOL/L (24-32); TOTAL PROTEIN 5.7 G/DL (6.4-8.2); TRIGLYCERIDES 45 MG/DL (20-135); eCRCL 99 ML/MIN; eGFR > 90 ML/MIN
[2024-10-21] MEDS ORDERED: metroNIDAZOLE-Flagyl 500mg/NS 100 ML IV SCH (09:00)
[2024-10-21] MEDS: carvedilol 6.25mg tablet PO SCH (12:19)
[2024-10-21] MEDS: docusate sod 100mg capsule PO SCH (12:19)
[2024-10-21] MEDS ORDERED: propranolol 10mg tablet PO ONE (14:10)
[2024-10-21] MEDS ORDERED: hydrALAZINE 20mg/ml inj. IV PRN (14:15)
--- NOTE | 2024-10-21 14:21 | PROGRESS NOTE ---
Daily Progress Note Providers to CC ~ Antibiotic Timeout Antibiotic Ordered?: Yes If Yes, Indications: sbp prophylaxis, pna Subjective No acute events overnight. Patient examined at bedside. No new complaints, not in acute distress. Patient denies chest pain, sob, palpitations, abdominal pain, n/v/d. Vss, afebrile, labs notable for normal white count, INR <1.5, negative procal. CT abd/pelv shows cirrhosis with sequela of portal hypertension, small to moderate abdominopelvic ascites with suggestion of rim enhancement, an element of peritonitis cannot be excluded in the appropriate clinical setting- no reported abd pain, negative rebound tenderness, wbc wnl, procal neg. CTA shows emphysema. Objective Vital Signs Date Time Temp Pulse Resp B/P (MAP) Pulse Ox O2 Delivery O2 Flow Rate FiO2 10/21/24 11:13 97.1 71 12 149/72 (97) 95 Room Air 10/21/24 08:55 0.0 21 Result Diagram: 10/21/24 0645 10/21/24 0645 Physical Exam General: Generalized weakness, lethargic, awake and alert, NAD HEENT: Normocephalic, PERRLA Neck: Supple, trachea midline, no JVD Chest: Clear to auscultation bilaterally Cardiovascular: RRR, S1&S2 GI: Soft and nontender; negative rebound tenderness Extremities: No cyanosis/clubbing/or edema SPOT WELDER LINE: No focal deficits Musculoskeletal: No paraspinal muscle tenderness, no muscle spasm Skin: Warm and intact Coagulation Studies Laboratory Tests Test 10/21/24 00:12 Prothrombin Time 11.7 SECONDS (9.0-12.0) INR International Normalized Ratio 1.2 INR Activated Partial Thromboplast Time 31 SECONDS (22-32) Coagulation Comments Problem\Assessment\Plan 59 years old homeless male with history of cirrhosis, portal hypertension, hepatitis-C, CHF with preserved ejection fraction presented to the ED due to generalized weakness, dizziness and productive cough. Assessment # Drug encephalopathy # Methamphetamine abuse # Cirrhosis # Portal hypertension # Acute decompensated diastolic heart failure- POA # Hypertensive emergency # Community-acquired pneumonia # COPD, not in acute exacerbation -CT abd/pelv shows cirrhosis with sequela of portal hypertension, small to moderate abdominopelvic ascites with suggestion of rim enhancement, an element of peritonitis cannot be excluded in the appropriate clinical setting- no reported abd pain, negative rebound tenderness, wbc wnl, procal neg -CXR positive pneumonia, CTA shows emphysema -INR 1.2, normal ammonia level, wbc wnl, procal negative Plan -start propranolol, Lasix/spironolactone, ceftriaxone, prn hydralazine, prn bronchodilator, continue abx -follow CT abd/pelv oral contrast Code Status: Full Code DVT/VTE prophylaxis: Lovenox Date of Service: Oct 21, 2024 Billing Provider: JOSE MANUEL JORDAN Common Visit Codes: [id number] INP/OBS CARE(HIGH) JOSE MANUEL JORDAN Oct 21, 2024 14:21
[2024-10-21] MEDS: diatr meglu/diatrizoate 30ml oral sol.-(3 dose) bottle PO SCH (15:10)
[2024-10-21] MEDS ORDERED: albuterol 2.5 MG/3 ML nebule NEB PRN (15:40)
[2024-10-21] MEDS: spironolactone 50 MG tablet PO ONE (16:14)
--- NOTE | 2024-10-21 19:05 | VASCULAR REPORT ---
BILATERAL LOWER EXTREMITY VENOUS DOPPLER ULTRASOUND CLINICAL HISTORY: Bilateral leg swelling and redness. TECHNIQUE: Grayscale ultrasound with compression, color Doppler flow imaging with pulsed duplex sonog ricardo of the bilateral lower extremity deep venous system from the common femoral veins through the p opliteal veins is performed. COMPARISON: None FINDINGS: Right common femoral vein: Negative. Right greater saphenous vein: Negative. Right deep femoral vein: Negative. Right femoral vein: Negative. Right popliteal vein: Negative. Left common femoral vein: Negative. Left greater saphenous vein: Negative. Left deep femoral vein: Negative. Left femoral vein: Negative. Left popliteal vein: Negative. Other: Visualized bilateral posterior tibial veins demonstrate color flow as well. IMPRESSION: No sonographic evidence of deep venous thrombosis in either lower extremity at this time.
[2024-10-21] MEDS ORDERED: enoxaparin 40mg/0.4ml syringe SQ SCH ×2 (20:00)
[2024-10-21] MEDS: ipratropium/albuterol 3ml nebule NEB PRN (20:41)
[2024-10-21] MEDS ORDERED: propranolol 10mg tablet PO SCH (21:00)
[2024-10-21] MEDS: furosemide 20 MG/2 ML vial IV SCH (22:07)
--- NOTE | 2024-10-21 23:48 | RADIOLOGY REPORT ---
Exam: CT CT ABDOMEN PELVIS W/ ORAL CONTRAST History: ascites with suggestion of rim enhancement. An element of peritonitis. Comparison Study: CT CT ABDOMEN PELVIS on DOS: 10/20/24, CT CT ABDOMEN PELVIS on DOS: 08/24/24 TECHNIQUE: Multidetector CT of the abdomen pelvis with oral contrast only. No IV contrast. Axial, co konrad and sagittal multiplanar reformats were obtained from the axial data set by the technologist. Radiation Dose Information: CT Dose: CTDI volume is 30.33 mGy. Dose-length product is 1591.17 mGy*cm FINDINGS: Moderate left with small right-sided pleural effusions and associated atelectasis. Patchy opacity of the right lung base. Borderline cardiomegaly. Normal in size. Questionable subtle micronodular contour of the liver. Splenomegaly with no focal spl enic lesions. Recanalization of the umbilical vein with upper abdominal varices. Multiple gallstones within a decompressed gallbladder with limited evaluation for pericholecystic edema given ascites. Adrenal glands unremarkable. Limited evaluation of the pancreas due to ascites. Mild bilateral hydro ureteral nephrosis with a obstructing calculus noted. Limited evaluation of the urinary bladder due to inadequate distention. Prostate is normal in size. Wall thickening of the distal esophagus. Wall thickening of the stomach. Oral contrast is noted withi n the stomach small and large bowel. Gas-filled mildly distended proximal small bowel measuring up to 3 cm. The remainder of the small bowel loops are contrast filled and nondistended. Appendix appears normal in size with limited evaluation due to adjacent ascites. Large amount of fecal material within the colon with contrast noted within the ascending colon, transverse colon and proximal descending c olon. Moderate sized ascitic fluid and bowel loop containing supraumbilical hernia without distention of th e bowel loops within the bilateral hernia or adjacent bowel loops. No evidence of intraperitoneal free air. No evidence of aortic aneurysm. Moderate atherosclerotic calcification of the aorta and bilateral il iacs. No significant lymphadenopathy. Mild periumbilical fat stranding. Moderate ascitic fluid containing right inguinal hernia. Mild body wall edema. Bilateral inguinal lymphadenopathy which are most likely reactive. No destructive osseou s lesions are noted. IMPRESSION: Moderate left with small right-sided pleural effusion and right basilar atelectasis / pneumonia /mass . Fluid-filled small bowel measuring up to 3 cm within the left hemiabdomen with contrast passage into the large bowel which may be due to ileus/partial obstruction . Mild wall thickening of the distal esophagus and proximal stomach. Correlate for esophagitis and gas tritis respectively versus changes associated with portal hypertension. Cirrhotic appearing liver with findings of portal hypertension. [id number] ascites. Large amount of fecal material within the colon.
[2024-10-22] MEDS: morphine 2 MG/ML inj. syringe IV ONE (00:03)
[2024-10-22 02:00] VITALS: BP 140/63; PULSE 61; RESP 14; TEMP 97.5; O2SAT 99
[2024-10-22 04:35] VITALS: BP 151/75; PULSE 65; RESP 17; TEMP 97.9; O2SAT 96
[2024-10-22 05:58] LABS: BASOPHILS # (AUTO) 0.1 X10'3 (0-0.2); BASOPHILS % (AUTO) 1.2 % (0-1); EOSINOPHILS # (AUTO) 0.2 X10'3 (0-0.9); EOSINOPHILS % (AUTO) 4.1 % (0-6); HEMATOCRIT 36.3 % (42.0-52.0); LYMPHOCYTES # (AUTO) 0.4 X10'3 (1.1-4.8); LYMPHOCYTES % (AUTO) 9.1 % (21-51); MEAN CORPUSCULAR HGB CONC 35.7 g/dL (33.0-36.5); MEAN CORPUSCULAR VOLUME 92.2 FL (78-98); MEAN PLATELET VOLUME 7.4 FL (7.4-10.4); MONOCYTES # (AUTO) 0.6 X10'3 (0-0.9); MONOCYTES % (AUTO) 14.5 % (2-12); NEUTROPHILS # (AUTO) 3.1 X10'3 (1.8-7.7); NEUTROPHILS % (AUTO) 71.1 % (42-75); PLATELET COUNT 86 X10'3 (140-440); RED BLOOD COUNT 3.94 X10'6 (4.70-6.10); RED CELL DISTRIBUTION WIDTH 14.1 % (11.5-14.5); WHITE BLOOD COUNT 4.3 X10'3 (4.5-11.0)
[2024-10-22 06:00] VITALS: BP 163/73; PULSE 63; RESP 10; TEMP 97.3; O2SAT 94
[2024-10-22 06:12] LABS: ALANINE AMINOTRANSFERASE 21 U/L (12-78); ALBUMIN 2.5 G/DL (3.4-5.0); ALBUMIN/GLOBULIN RATIO 0.7 (1.1-1.5); ALKALINE PHOSPHATASE 119 IU/L (46-116); ANION GAP 7 (8-16); ASPARTATE AMINO TRANSFERASE 37 U/L (10-37); BILIRUBIN,TOTAL 1.9 MG/DL (0.1-1.0); BLOOD UREA NITROGEN 13 MG/DL (7-18); BUN/CREATININE RATIO 12.5 (10.0-20.0); CALCIUM 8.6 MG/DL (8.5-10.1); CHLORIDE 105 MMOL/L (99-107); CREATININE 1.04 MG/DL (0.60-1.10); GLUCOSE 123 MG/DL (70-104); MAGNESIUM 1.8 MG/DL (1.5-2.4); POTASSIUM 3.8 MMOL/L (3.5-5.1); SODIUM 144 MMOL/L (135-145); TOTAL CARBON DIOXIDE 32.1 MMOL/L (24-32); TOTAL PROTEIN 6.1 G/DL (6.4-8.2); eCRCL 75 ML/MIN; eGFR 73 ML/MIN
[2024-10-22 07:52] LABS: PRO BRAIN NATRIURETIC PEPTIDE 957 PG/ML (0-125)
[2024-10-22 08:00] VITALS: RESP 18; O2SAT 100
[2024-10-22] MEDS ORDERED: spironolactone 50 MG tablet PO SCH (08:30)
[2024-10-22] MEDS ORDERED: FURO40TA4 PO (09:46)
[2024-10-22] MEDS ORDERED: SPIR50TA5 PO (09:46)
[2024-10-22] MEDS ORDERED: CEFD300C3 PO (09:46)
[2024-10-22] MEDS: propranolol 10mg tablet PO ONE (10:09)
[2024-10-22] MEDS: lisinopril 20mg tablet PO ONE (10:09)
[2024-10-22] MEDS: amLODIPine 5mg tablet PO ONE (10:09)
[2024-10-22 11:00] VITALS: BP 149/69; PULSE 61; RESP 12; TEMP 97.3; O2SAT 100
[2024-10-22] MEDS ORDERED: NOR5T PO (11:28)
[2024-10-22] MEDS ORDERED: LISI40TA13 PO (11:28)
[2024-10-22] MEDS ORDERED: AZIT500T2 PO (12:31)
[2024-10-22] MEDS ORDERED: propranolol 10mg tablet PO SCH (13:00)
--- NOTE | 2024-10-22 13:13 | DISCHARGE SUMMARY ---
Discharge Summary Providers to CC ~ Discharge Summary Admission Diagnosis: pneumonia, HTN urgency, cirrhosis Hospital Course DATE OF ADMISSION: 10/20/24 DATE OF DISCHARGE: 10/22/24 Discharge Diagnosis\\Comment: Drug encephalopathy Methamphetamine abuse Cirrhosis Portal hypertension Acute decompensated diastolic heart failure- POA Hypertensive emergency Community-acquired pneumonia COPD, not in acute exacerbation Operations\\Procedures: Drug-induced encephalopathy Methamphetamine abuse Hypertensive emergency Community-acquired pneumonia, covering for Gram-positive and Gram-negative Cirrhosis Portal hypertension Pleural effusions Ascites Thrombocytopenia Acute decompensated diastolic heart failure COPD, not in acute exacerbation Consultants: None Complications: None Condition on DC: Stable New Medications: Amlodipine Besylate (Amlodipine Besylate) 5 Mg Tablet 1 TAB PO DAILY for 30 Days, #60 TAB 0 Refills Azithromycin (Zithromax Tri-Saurabh) 500 Mg Tablet 500 MG PO DAILY, #1 PACKET Take 500 mg the first day, then 250 mg a day until gone. Cefdinir (Cefdinir) 300 Mg Capsule 1 CAP PO Q12H for 10 Days, #20 CAP 0 Refills Furosemide 40 MG (Lasix) 40 Mg Tablet 1 TAB PO DAILY for 30 Days, #30 TAB Lisinopril* (Lisinopril*) 40 Mg Tablet 1 TAB PO DAILY for 30 Days, #30 TAB Spironolactone (Spironolactone) 50 Mg Tablet 100 MG PO DAILY@0830 for 30 Days, #30 TAB Continued Medications: Amlodipine Besylate (Amlodipine Besylate) 5 Mg Tablet 10 MG PO DAILY for 30 Days, #30 TAB Lisinopril (Lisinopril) 20 Mg Tablet 40 MG PO DAILY for 30 Days, #60 TAB Propranolol Hcl* (Inderal*) 10 Mg Tablet 10 MG PO Q12H for 30 Days, #60 TAB Discontinued Medications: [hyDRALAzine tablet] () 10 MG TABLET 10 MG PO Q8H for 30 Days, #90 Isosorbide Dinitrate* (Isordil*) 30 Mg Tablet 30 MG PO BID for 30 Days, #60 TAB Discharge Summary: History of Present Illness From H&P: "Marcel Houston is a 59 year-old homeless male with history of cirrhosis and portal hypertension, hepatitis-C, methamphetamine abuse, CHF with preserved ejection fraction, noncompliant with medication presented to the ED due to denies generalized weakness, dizziness and cough. Patient is poor h istorian and not reliable, denied drinking alcohol or methamphetamine. Most of the information gathered from the medical chart. Patient reported dizziness started about two three days ago and explained it as a spinning head around a generalized weakness. Patient also reported increasing productive cough recently. He denied any abdominal pain nausea vomiting. Patient reported to the ED physician, his last dose of amphetamine was yesterday." Hospital Course Diagnostic findings were findings were notable for profoundly elevated blood pressure, thrombocytopenia, elevated NT-pBNP, UDS positive for amphetamines, ch est x-ray revealing pneumonia, CTA chest revealing small left and trace right pleural effusions, CT abdomen/pelvis revealing cirrhosis, portal hypertension, small to moderate abdominal pelvic ascites with suggestion of rim enhancement, a subsequent CT abdomen/pelvis revealing [id number] ascites without evidence of peritonitis. Pertinent negative findings were no hypoxia, negative head CT, CTA chest negative for pulmonary embolism and emphysema consistent with medical history, no signs of including including fever, leukocytosis, tachypnea or tachycardia, negative procal, unremarkable urinalysis, INR <1.5, unremarkable serum glucose, negative ammonia level. A recent TTE on 08/25/24 indicated LVEF of 75%, RVSP 26 mmHg, without significant valvular heart disease. Patient remained afebrile, on room air and denied abdominal pain, nausea, vomiting, diarrhea, and had a normal bowel movement. Patient was treated with GDMT including Lasix/spironolactone, also propranolol, empirical antibiotics, and antihypertensives. Patient did not experience further complications throughout the entire hospital stay and made a good recovery. Patient was seen and examined on the day of discharge. On day of discharge, vss and labs unremarkable. All labs, diagnostic workups, discharge plan discussed with patient in details during visit before discharge. All questions and concerns answered to the best of my professional knowledge. Patient is to be discharged with HH and to follow- up with PCP within 2 weeks. Physical Exam General: Generalized weakness, A&Ox 3, NAD HEENT: Normocephalic, PERRLA Neck: Supple, trachea midline, no JVD Chest: Clear to auscultation bilaterally Cardiovascular: RRR, S1&S2 GI: Soft and nontender; negative rebound tenderness Extremities: No cyanosis/clubbing/or edema BIOMEDICAL REPAIR TECHNICIAN: CN II-XII intact, no focal deficits Musculoskeletal: No paraspinal muscle tenderness, no muscle spasm Skin: Warm and intact *Problems/Diagnosis: (1) Amphetamine abuse Status: Acute (2) Acute on chronic congestive heart failure Status: Acute Total Time Spent on D/C: > 30 Minutes Date of Service: Oct 22, 2024 Billing Provider: JOSE MANUEL JORDAN Common Visit Codes: 78037-HWP/OBS DISCH DAY >30min JOSE AMNUEL JORDAN Oct 22, 2024 13:04
[2024-10-23] MEDS ORDERED: amLODIPine 5mg tablet PO SCH (08:00)
[2024-10-23] MEDS ORDERED: lisinopril 20mg tablet PO SCH (08:00)
== END 2024-10-22 13:12 | disposition home or self-care (01) | DRG 194 ==
LOC: ER 17:29 → ED HOLD 23:43 → PCU 3S 10-21 05:02
PROVIDERS: ADMIT Internal Medicine Critical Care Medicine; ATTEND Nurse Practitioner Family
PROC: B32T1ZZ Computerized Tomography (CT Scan) of Left Pulmonary Artery using Low Osmolar Contrast (ICD-10-PCS; principal; 2024-10-20)
PROC: B3201ZZ Computerized Tomography (CT Scan) of Thoracic Aorta using Low Osmolar Contrast (ICD-10-PCS; 2024-10-20)
PROC: B32S1ZZ Computerized Tomography (CT Scan) of Right Pulmonary Artery using Low Osmolar Contrast (ICD-10-PCS; 2024-10-20)
PROC: BW211ZZ Computerized Tomography (CT Scan) of Abdomen and Pelvis using Low Osmolar Contrast (ICD-10-PCS; 2024-10-20)
DX: I11.0 Hypertensive heart disease with heart failure (principal); G92.8 Other toxic encephalopathy; J15.69 Pneumonia due to other Gram-negative bacteria; K76.6 Portal hypertension; J15.9 Unspecified bacterial pneumonia; D69.6 Thrombocytopenia, unspecified; J44.0 Chronic obstructive pulmonary disease with (acute) lower respiratory infection; I50.33 Acute on chronic diastolic (congestive) heart failure; R18.8 Other ascites; E11.9 Type 2 diabetes mellitus without complications; F15.10 Other stimulant abuse, uncomplicated; I16.1 Hypertensive emergency; J43.9 Emphysema, unspecified; K74.60 Unspecified cirrhosis of liver; B19.20 Unspecified viral hepatitis C without hepatic coma; T50.995A Adverse effect of other drugs, medicaments and biological substances, initial encounter; Z59.00 Homelessness unspecified; Z83.3 Family history of diabetes mellitus; Z91.148 Patient's other noncompliance with medication regimen for other reason; Z88.8 Allergy status to other drugs, medicaments and biological substances; Y92.89 Other specified places as the place of occurrence of the external cause
CPT/HCPCS: 36415; 70450; 71045; 71275; 74176; 80048; 80053; 80061; 80305; 81003; 82140; 82948; 83735; 83880; 84132; 84145; 84443; 84484; 85025; 85610; 85730; 87081; 87811; 92508; 92616; 93005; 93970; 94640; 94760; 97116; 97161; 99285; A6590; G0378; J0456; J0696; J1938; J2270; J3490; J7030; J7040; Q9963; Q9967

== ENCOUNTER 2024-11-28 20:31 | Emergency (ER) | payer MEDICAID ==
[~2024-11-28] VITALS: Ht 170.2 cm; Wt 72.6 kg
[~2024-11-28 20:31] MED LIST changes: -ASPI81TA52 PO; +AZIT500T2 PO; +CEFD300C3 PO; -CIPR-202 PO; -ISOS30TA9 PO; +SPIR50TA5 PO; -hyDRALAzine tablet PO
[2024-11-28 20:45] VITALS: BP 187/86; PULSE 91; RESP 15; TEMP 96.8; O2SAT 99
== END 2024-11-28 23:08 | disposition left against medical advice (07) ==
LOC: ER 20:32
DX: Z48.00 Encounter for change or removal of nonsurgical wound dressing (principal); Z53.21 Procedure and treatment not carried out due to patient leaving prior to being seen by health care provider

== ENCOUNTER 2024-12-13 10:08 | Emergency (ER) | payer MEDICAID ==
[~2024-12-13] VITALS: Ht 172.7 cm; Wt 84.0 kg
[~2024-12-13 10:08] MED LIST changes: +CEPH-585 PO; +IBUP600T52 PO
[2024-12-13 10:13] VITALS: BP 136/85; PULSE 87; RESP 16; TEMP 98.2
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
== END 2024-12-13 11:25 | disposition home or self-care (01) ==
LOC: ER 10:09
DX: L03.116 Cellulitis of left lower limb (principal); E11.9 Type 2 diabetes mellitus without complications; I11.0 Hypertensive heart disease with heart failure; I50.9 Heart failure, unspecified; F32.A Depression, unspecified; F12.90 Cannabis use, unspecified, uncomplicated; F15.90 Other stimulant use, unspecified, uncomplicated
CPT/HCPCS: 99283; A6253; A6402; A6449

== ENCOUNTER 2025-01-08 07:40 | Inpatient (IN) | payer MEDICAID ==
[~2025-01-08] VITALS: Ht 172.7 cm; Wt 81.8 kg
[~2025-01-08 07:40] MED LIST changes: -CEPH-585 PO
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
[2025-01-08 09:07] LABS: MEAN PLATELET VOLUME 7.7 FL (7.4-10.4); RED CELL DISTRIBUTION WIDTH 14.1 % (11.5-14.5)
[2025-01-08 09:18] LABS: CREATININE 0.74 MG/DL (0.60-1.10); TOTAL CARBON DIOXIDE 27.1 MMOL/L (24-32); eCRCL 105 ML/MIN; eGFR > 90 ML/MIN
[2025-01-08 09:26] LABS: PRO BRAIN NATRIURETIC PEPTIDE 723 PG/ML (0-125)
[2025-01-08 09:59] LABS: LEUKOCYTE ESTERASE ,URINE NEGATIVE (Neg); NITRITES, URINE NEGATIVE (Neg); OCCULT BLOOD,URINE TRACE-INTACT (Neg)
[2025-01-08 10:01] LABS: UA COLLECTION TYPE CLN CATCH MIDSTREAM
[2025-01-08 10:03] LABS: MUCUS STRANDS MODERATE /LPF (Neg); SQUAMOUS EPITHELIAL CELL,UR FEW /LPF (FEW)
--- NOTE | 2025-01-08 10:05 | ELECTROCARDIOGRAPH REPORT ---
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 Papito Liu Measurements Intervals [place] Rate: 66 P: 60 WI: 143 QRS: 9 QRSD: 113 T: 49 QT: 464 QTc: 487 Interpretive Statements Sinus rhythm Supraventricular bigeminy Abnormal R-wave progression, early transition Probable left ventricular hypertrophy Borderline prolonged QT interval Baseline wander in lead(s) V3 Electronically Signed On 01-11-2025 19:19:[address] Papito Liu Please click the below link to view image of tracing.
--- NOTE | 2025-01-08 10:48 | RADIOLOGY REPORT ---
AP portable chest CLINICAL INDICATION: weakness, volume overload Comparison: 10/20/2024 FINDINGS: Heart size enlarged. Aorta tortuous. Slight prominence of the bronchovascular markings in the right lower lung zone IMPRESSION: 1. Mild congestive changes right lower lung zone
[2025-01-08] MEDS ORDERED: potassium Cl 40MEQ/1/2NS 520ml 520 ML IV PRN (10:50)
[2025-01-08] MEDS ORDERED: ondansetron/PF 4mg/2ml inj IV PRN (10:50)
[2025-01-08] MEDS ORDERED: magnesium sulf-water 2g/50mL 50 ML IV PRN (10:50)
[2025-01-08] MEDS ORDERED: magnesium sulf-water 4G/100mL 100 ML IV PRN (10:50)
[2025-01-08] MEDS ORDERED: potassium Cl 20 mEq SR tablet PO PRN ×2 (10:50)
[2025-01-08] MEDS ORDERED: bisacodyl 10mg suppository rectal RC PRN (10:50)
[2025-01-08] MEDS ORDERED: magnesium Cl slow-release 64mg tablet PO PRN (10:50)
[2025-01-08] MEDS ORDERED: magnesium hydroxide 30ml (MOM) UD suspension PO PRN (10:50)
[2025-01-08] MEDS: normal saline 1000ml 1,000 ML IV SCH (10:57)
[2025-01-08] MEDS: hydrALAZINE 20mg/ml inj. IV PRN (12:27)
[2025-01-08 13:45] VITALS: BP 150/81; PULSE 77; RESP 20; TEMP 97.5; O2SAT 99
[2025-01-08] MEDS: propranolol 10mg tablet PO SCH (13:58)
[2025-01-08 16:31] VITALS: BP 146/86; PULSE 77; RESP 20; TEMP 97.5; O2SAT 99
[2025-01-08] MEDS: morphine 4 MG/ML inj SYRINge IV PRN (17:14)
[2025-01-08] MEDS ORDERED: diazepam inj 5 MG/ML inj. IV PRN (17:25)
[2025-01-08 18:00] VITALS: BP 114/54; PULSE 81; RESP 16; TEMP 99.2; O2SAT 96
[2025-01-08 18:04] VITALS: RESP 20; O2SAT 99
--- NOTE | 2025-01-08 19:36 | HISTORY AND PHYSICAL ---
History & Physical Providers to CC ~ History of Present Illness Reason for Admit\Complaint: Generalized weakness History of Present Illness Patient is 59-year-old male with known history of meth use, cirrhosis of liver, portal hypertension, acute decompensated diastolic heart failure, hypertensive emergency, ascites, thrombocytopenia, history of pleural effusions community- acquired pneumonia, COPD, drug induced encephalopathy. Patient came to ER due to generalized weakness to the point that he was not able to stand up by himself. He also mentioned to ER physician that he had fall a couple of days ago tripped on the curb and fell forward. He mentioned he is homeless currently not taking any of his medications. He does not have any primary care physician in outpatient setting. Hospitalist services contacted for admission and further management of generalized weakness Allergies: Coded Allergies: No Known Allergies (Unverified , 01/08/25) Home Medications Home Medications Active Ibuprofen 600 Mg Tablet 1 Tab PO Q8H 10 Days with food Zithromax Tri-Saurabh (Azithromycin) 500 Mg Tablet 500 Mg PO DAILY Take 500 mg the first day, then 250 mg a day until gone. Amlodipine Besylate 5 Mg Tablet 1 Tab PO DAILY 30 Days Cefdinir 300 Mg Capsule 1 Cap PO Q12H 10 Days Spironolactone 50 Mg Tablet 100 Mg PO DAILY@0830 30 Days Lisinopril 20 Mg Tablet 40 Mg PO DAILY 30 Days Amlodipine Besylate 5 Mg Tablet 10 Mg PO DAILY 30 Days Inderal* (Propranolol HCl) 10 Mg Tablet 10 Mg PO Q12H 30 Days Past Medical History Past Medical History Cirrhosis and portal hypertension Hepatitis-C Methamphetamine abuse Past Surgical History Surgical History Comment Multiple orthopedic surgery Family History Family History: FH: diabetes mellitus FATHER (unknown history), MOTHER, , Age: 72, Cause: of unknown cause Past Social History Social History Comment Smoking: Cigarettes Alcohol Use: Sober Drug Use: Marijuana, Methamphetamine Lives In: Homeless Past Social History: History of methamphetamine use, currently sober ROS ROS Review of system as mentioned above in HPI rest of the review of system unremarkable Exam Vitals: Vital Signs Date Time Temp Pulse Resp B/P (MAP) Pulse Ox O2 Delivery O2 Flow Rate FiO2 01/08/25 18:35 16 01/08/25 18:04 99 Room Air 01/08/25 16:31 97.5 77 146/86 (106) 01/08/25 11:18 0 General: General-patient not in any acute distress, chronically ill-appearing, appear lethargic HEENT-atraumatic normocephalic, neck supple without elevated JVD, no thyromegaly or carotid bruit. No lymphadenopathy bilaterally. Eyes-no icterus or pallor seen in eyes Chest-clear to auscultation bilaterally, breathing nonlabored no tachypnea, no wheezing, no crepitation, no crackles. Heart-S1-S2 normal, regular heart rate no murmur Abdomen bowel sounds positive on auscultation, soft distended, signs of ascites present , subjective tenderness present over abdomen unspecified no guarding, no rigidity Skin no active skin rash, signs of chronic hyperpigmentation present over lower extremity Neurology-grossly intact, nonfocal Extremity- trace pedal edema able to move all 4 extremities Psychiatry - patient seems mildly confused , not agitated cooperated during physical examination Diagnostic Data Last Recorded Lab Results: 01/08/25 0852 01/08/25 0852 Advance Care Planning Advanced Care plannin - 30 Minutes Additional Plan Patient is 59-year-old male with known history of meth use, cirrhosis of liver, portal hypertension, acute decompensated diastolic heart failure, hypertensive emergency, ascites, thrombocytopenia, history of pleural effusions community- acquired pneumonia, COPD, drug induced encephalopathy. Patient is admitted for generalized weakness and hypertensive urgency # intensive urgency patient is started on antihypertensive medications today we will continue to monitor patient's vitals. # cirrhosis of liver, portal hypertension, acute decompensated diastolic heart failure- started on diuretic therapy, ordered echo # COPD not in exacerbation-on room air saturating well ordered albuterol as needed # patient wanted to get pain medication for pain relief, patient needs physical therapy evaluation for generalized weakness. # code status discussed with patient patient wishes to stay full code Current condition is guarded we will continue to follow patient in a.m. Date of Service: Jan 08, 2025 Billing Provider: CHANTEL WING MD Common Visit Codes: [id number] INP/OBS CARE (HIGH) Secondary Visit Codes: 18231-[id number] CARE PLAN 30 MINUTES CHANTEL WING MD Jan 08, 2025 19:35
[2025-01-08] MEDS ORDERED: albuterol 2.5 MG/3 ML nebule NEB PRN (19:40)
[2025-01-08] MEDS: lactulose 20gm/30ml cup PO SCH (20:18)
[2025-01-08 20:22] VITALS: BP 135/60
[2025-01-08] MEDS: diphenhydrAMINE 2%/zinc acetate cream TP SCH (21:46)
[2025-01-08 23:00] VITALS: BP 119/52; PULSE 69; RESP 20; TEMP 98.2; O2SAT 96
[2025-01-09] VITALS (8 sets, daily range): BP systolic 116–162; BP diastolic 61–75; PULSE 55–69; RESP 14–20; TEMP 98.1–98.6; O2SAT 95–100
[2025-01-09 05:47] LABS: MEAN PLATELET VOLUME 7.7 FL (7.4-10.4); RED CELL DISTRIBUTION WIDTH 13.9 % (11.5-14.5)
[2025-01-09 06:15] LABS: CREATININE 0.75 MG/DL (0.60-1.10); TOTAL CARBON DIOXIDE 28.7 MMOL/L (24-32); eCRCL 104 ML/MIN; eGFR > 90 ML/MIN
--- NOTE | 2025-01-09 18:30 | CARDIOLOGY REPORT ---
APPROVED REPORT EXAM: Comprehensive 2D, Doppler, and color-flow Echocardiogram. Patient Location: 341 A Blood Pressure: 116/61 mmHg Heart Rate: 61-77 bpm Rhythm: ATRIAL FIBRILLATION Indications CONGESTIVE HEART FAILURE METHAMPHETAMINE USE HYPERTENSION COPD Measurement Advisor: none Previous echo: 08/25/24 [facility] (EF 75%, trace MR, trace TR) 2D Dimensions LVOT Diameter 2.12 (1.8-2.4cm) Ao Asc Diam. 3.32 cm M-Mode Dimensions Left Atrium(MM) 4.16 (2.5-4.0cm) Aortic Root 2.72 (2.2-3.7cm) Aortic Cusp Exc 2.02 (1.5-2.0cm) Aortic Valve AoV Peak Irvin. 213.2 cm/s AoV VTI 42.0 cm AO Peak GR. 18.2 mmHg AO Mean GR. 11 mmHg LVOT VTI 23.84 cm LVOT Peak Irvin. 121.2 cm/s JOSIAH(VTI)/BSA 2.01 cm2/m2 JOSIAH (VTI) 2.01 cm2 Mitral Valve MV E Velocity 100.4 cm/s MV Peak Gr. 4 mmHg MV PHT 68 ms MVA (PHT) 3.24 cm2 MV VMax 101.8 cm/s Tricuspid Valve TR P. Velocity 283 cm/s RAP ESTIMATE 10 mmHg TR Peak Gr. 32 mmHg RVSP 42 mmHg LEFT VENTRICLE Normal LV size and hyperdynamic function. Mild concentric hypertrophy. LVEF is 70-75%. RIGHT VENTRICLE RV is at least moderately dilated with normal systolic function. RVSP is estimated at 42 mmHg. ATRIA Left atrium is mildly dilated. AORTIC VALVE Trileaflet AV appears mildly sclerotic without significant stenosis or insufficiency. MITRAL VALVE Mild MV annular calcification without stenosis. Trace regurgitation. TRICUSPID VALVE TV appears structurally normal with trace regurgitation. PULMONIC VALVE Normal PV without stenosis, physiologic insufficiency. GREAT VESSELS Aortic root is normal in size. Ascending aorta is normal in size. PERICARDIUM Normal pericardium. No effusion. Other Information Study Quality: Adequate, but difficult due to body habitus. Parasternal images taken from [facility]. Conclusion Normal LV size and hyperdynamic function. Mild concentric hypertrophy. LVEF is 70-75%. RV is at least moderately dilated with normal systolic function. RVSP is estimated at 42 mmHg. Left atrium is mildly dilated. Trileaflet AV appears mildly sclerotic without significant stenosis or insufficiency. Mild MV annular calcification without stenosis. Trace regurgitation. TV appears structurally normal with trace regurgitation. Normal pericardium. No effusion.
--- NOTE | 2025-01-09 19:56 | PROGRESS NOTE ---
Daily Progress Note Providers to CC ~ Antibiotic Timeout Antibiotic Ordered?: No Subjective Patient was seen in his room cooperated during physical examination answered all questions appropriately. Objective Vital Signs Date Time Temp Pulse Resp B/P (MAP) Pulse Ox O2 Delivery O2 Flow Rate FiO2 01/09/25 19:33 60 14 100 Room Air* 0 21 01/09/25 10:36 98.1 116/61 (79) Echo- Conclusion Normal LV size and hyperdynamic function. Mild concentric hypertrophy. LVEF is 70-75%. RV is at least moderately dilated with normal systolic function. RVSP is estimated at 42 mmHg. Left atrium is mildly dilated. Trileaflet AV appears mildly sclerotic without significant stenosis or insufficiency. Mild MV annular calcification without stenosis. Trace regurgitation. TV appears structurally normal with trace regurgitation. Normal pericardium. No effusion. Result Diagram: 01/09/2543501/09/25435 General-patient not in any acute distress, chronically ill-appearing, appear lethargic HEENT-atraumatic normocephalic, neck supple without elevated JVD, no thyromegaly or carotid bruit. No lymphadenopathy bilaterally. Eyes-no icterus or pallor seen in eyes Chest-clear to auscultation bilaterally, breathing nonlabored no tachypnea, no wheezing, no crepitation, no crackles. Heart-S1-S2 normal, regular heart rate no murmur Abdomen bowel sounds positive on auscultation, soft distended, signs of ascites present , subjective tenderness present over abdomen unspecified no guarding, no rigidity Skin no active skin rash, signs of chronic hyperpigmentation present over lower extremity Neurology-grossly intact, nonfocal Extremity- trace pedal edema able to move all 4 extremities Psychiatry - patient seems mildly confused , not agitated cooperated during physical examination Problem\Assessment\Plan Patient is 59-year-old male with known history of meth use, cirrhosis of liver, portal hypertension, acute decompensated diastolic heart failure, hypertensive emergency, ascites, thrombocytopenia, history of pleural effusions community- acquired pneumonia, COPD, drug induced encephalopathy. Patient is admitted for generalized weakness and hypertensive urgency # HTN urgency- resolved , patient is started on antihypertensive medications today we will continue to monitor patient's vitals. # cirrhosis of liver, portal hypertension, acute decompensated diastolic heart failure- started on diuretic therapy, ordered echo and results reviewed # COPD not in exacerbation-on room air saturating well ordered albuterol as needed # patient wanted to get pain medication for pain relief, patient needs physical therapy evaluation for generalized weakness. # code status discussed with patient patient wishes to stay full code Current condition is guarded we will continue to follow patient in a.m. Date of Service: Jan 09, 2025 Billing Provider: CHANTEL WING MD Common Visit Codes: [id number] INP/OBS CARE(HIGH) CHANTEL WING MD Jan 09, 2025 19:56
[2025-01-10 04:28] LABS: MEAN PLATELET VOLUME 7.4 FL (7.4-10.4); RED CELL DISTRIBUTION WIDTH 14.0 % (11.5-14.5)
[2025-01-10 04:43] LABS: CREATININE 0.86 MG/DL (0.60-1.10); TOTAL CARBON DIOXIDE 28.8 MMOL/L (24-32); eCRCL 91 ML/MIN; eGFR > 90 ML/MIN
[2025-01-10 04:57] LABS: EOSINOPHILS % (MANUAL) 6.0 % (0-6); LYMPHOCYTES % (MANUAL) 15.0 % (21-51); MONOCYTES % (MANUAL) 10.0 % (2-12); NEUTROPHILS % (MANUAL) 69.0 % (42-75); PLATELET ESTIMATE DECREASED
[2025-01-10 06:19] VITALS: BP 157/52; PULSE 61; RESP 16; TEMP 97.9; O2SAT 97
[2025-01-10 07:00] VITALS: RESP 16; O2SAT 97
[2025-01-10 07:52] VITALS: BP_SYST 157
[2025-01-10 11:15] VITALS: PULSE 61; RESP 16; O2SAT 97
[2025-01-10] MEDS ORDERED: SPIR25TA5 PO (14:00)
[2025-01-10] MEDS ORDERED: FURO20TA4 PO (14:00)
[2025-01-10] MEDS ORDERED: FOLI1TAB27 PO (14:00)
[2025-01-10] MEDS ORDERED: LISI20TA28 PO (14:00)
[2025-01-10] MEDS ORDERED: THIA50TA10 PO (14:01)
--- NOTE | 2025-01-10 17:00 | DISCHARGE SUMMARY ---
Discharge Summary Providers to CC ~ Discharge Summary Admission Diagnosis: weakness , folic cirrhosis, abnormal LFT, thrombocytopenia Hospital Course DATE OF ADMISSION: January 08, 2025 DATE OF DISCHARGE:January 10, 2025 CBC testing done on January 10 showing WBC 7.3 hemoglobin 13.9 hematocrit 38.9 platelet count 112. Serum chemistry done on January 10, 2025 sodium 141 potassium 3.7 creatinine 0.86 GFR greater than 90 total bilirubin 2.2 AST 46 ALT 36, proBNP 720, TSH 1.48 ECHOCARDIOGRAMConclusion Normal LV size and hyperdynamic function. Mild concentric hypertrophy. LVEF is 70-75%. RV is at least moderately dilated with normal systolic function. RVSP is estimated at 42 mmHg. Left atrium is mildly dilated. Trileaflet AV appears mildly sclerotic without significant stenosis or insufficiency. Mild MV annular calcification without stenosis. Trace regurgitation. TV appears structurally normal with trace regurgitation. Normal pericardium. No effusion. CHEST,SINGLE VIEWIMPRESSION: Mild congestive changes right lower lung zone Discharge Diagnosis\\Comment: history of meth use, cirrhosis of liver, portal hypertension, acute decompensated diastolic heart failure, hypertensive emergency, ascites, thrombocytopenia, history of pleural effusions community-acquired pneumonia, COPD, drug induced encephalopathy, Generalized weakness, improved Operations\\Procedures: None Consultants: None Complications: None Condition on DC: Stable New Medications: Furosemide (Furosemide) 20 Mg Tablet 1 TAB PO DAILY for 30 Days, #30 TAB 0 Refills Spironolactone (Spironolactone) 25 Mg Tablet 12.5 MG PO DAILY for 30 Days, #30 TAB Thiamine HCl (Vitamin B-1) 50 Mg Tablet 2 TAB PO DAILY for 30 Days, #60 TAB 0 Refills Folic Acid* (Folic Acid*) Y Tab 1 MG PO DAILY for 30 Days, #30 TAB Lisinopril (Lisinopril) 20 Mg Tablet 20 MG PO DAILY for 30 Days, #30 TAB Continued Medications: Amlodipine Besylate (Amlodipine Besylate) 5 Mg Tablet 1 TAB PO DAILY for 30 Days, #60 TAB 0 Refills Propranolol Hcl* (Inderal*) 10 Mg Tablet 10 MG PO Q12H for 30 Days, #60 TAB Discontinued Medications: Amlodipine Besylate (Amlodipine Besylate) 5 Mg Tablet 10 MG PO DAILY for 30 Days, #30 TAB Azithromycin (Zithromax Tri-Saurabh) 500 Mg Tablet 500 MG PO DAILY, #1 PACKET Take 500 mg the first day, then 250 mg a day until gone. Cefdinir (Cefdinir) 300 Mg Capsule 1 CAP PO Q12H for 10 Days, #20 CAP 0 Refills Ibuprofen (Ibuprofen) 600 Mg Tablet 1 TAB PO Q8H for pain for 10 Days, #30 TAB 0 Refills with food Lisinopril (Lisinopril) 20 Mg Tablet 40 MG PO DAILY for 30 Days, #60 TAB Spironolactone (Spironolactone) 50 Mg Tablet 100 MG PO DAILY@0830 for 30 Days, #30 TAB Discharge Summary: As per my history and physical note" Patient is 59-year-old male with known history of meth use, cirrhosis of liver, portal hypertension, acute decompensated diastolic heart failure, hypertensive emergency, ascites, thrombocytopenia, history of pleural effusions community-acquired pneumonia, COPD, drug induced encephalopathy. Patient came to ER due to generalized weakness to the point that he was not able to stand up by himself. He also mentioned to ER physician that he had fall a couple of days ago tripped on the curb and fell forward. He mentioned he is homeless currently not taking any of his medications. He does not have any primary care physician in outpatient setting. Hospitalist services contacted for admission and further management of generalized weakness" Patient is 59-year-old male with known history of meth use, cirrhosis of liver, portal hypertension, acute decompensated diastolic heart failure, hypertensive emergency, ascites, thrombocytopenia, history of pleural effusions community- acquired pneumonia, COPD, drug induced encephalopathy. Patient is admitted for generalized weakness and hypertensive urgency # HTN urgency- resolved , patient is started on antihypertensive medications today we will continue to monitor patient's vitals. # cirrhosis of liver, portal hypertension, acute decompensated diastolic heart failure- started on diuretic therapy, ordered echo and results reviewed # COPD not in exacerbation-on room air saturating well ordered albuterol as needed # patient wanted to get pain medication for pain relief, patient needs physical therapy evaluation for generalized weakness. Patient is feeling better he has been afebrile and getting discharged home in stable condition. Passed the stools before discharge. Patient is seen and examined on the day of discharge. All labs, diagnostic workup and discharge plan discussed with patient and family members in detail before her discharge. All questions and queries answered to the best of my professional medical knowledge. I heard patient's concerns and address appropriately. Patient was cleared by Physical therapy team for home discharge . digital community manager involved in patient's discharge plan. Discharge instructions provided to the patient. Please follow-up with primary care physician's/[facility] for further care management. Continue to monitor liver enzymes every 7-10 days in outpatient setting with PCP. Strongly advised to stop recreational drugs and risks explained. Activity as tolerated. Physical therapy to continue in outpatient setting. Please provide fall precautions documents. General-patient not in any acute distress, chronically ill-appearing, appear lethargic HEENT-atraumatic normocephalic, neck supple without elevated JVD, no thyromegaly or carotid bruit. No lymphadenopathy bilaterally. Eyes-no icterus or pallor seen in eyes Chest-clear to auscultation bilaterally, breathing nonlabored no tachypnea, no wheezing, no crepitation, no crackles. Heart-S1-S2 normal, regular heart rate no murmur Abdomen bowel sounds positive on auscultation, soft distended, signs of ascites present , subjective tenderness present over abdomen unspecified no guarding, no rigidity Skin no active skin rash, signs of chronic hyperpigmentation present over lower extremity Neurology-grossly intact, nonfocal Extremity- trace pedal edema able to move all 4 extremities Psychiatry - patient seems mildly confused , not agitated cooperated during physical examination *Problems/Diagnosis: (1) Amphetamine abuse Status: Acute (2) Weakness Status: Acute Total Time Spent on D/C: > 30 Minutes Date of Service: Jan 10, 2025 Billing Provider: CHANTEL WING MD Common Visit Codes: 33643-DVI/OBS DISCH DAY >30min CHANTEL WING MD Jan 10, 2025 16:59
== END 2025-01-10 14:13 | disposition home or self-care (01) | DRG 194 ==
LOC: ER 07:40 → ED HOLD 10:50 → SUR 3N 13:30
PROVIDERS: ADMIT Internal Medicine; ATTEND Internal Medicine
DX: I11.0 Hypertensive heart disease with heart failure (principal); G92.8 Other toxic encephalopathy; D69.6 Thrombocytopenia, unspecified; R18.8 Other ascites; J18.9 Pneumonia, unspecified organism; K74.60 Unspecified cirrhosis of liver; Z59.00 Homelessness unspecified; I16.1 Hypertensive emergency; K76.6 Portal hypertension; F17.210 Nicotine dependence, cigarettes, uncomplicated; I50.33 Acute on chronic diastolic (congestive) heart failure; E11.9 Type 2 diabetes mellitus without complications; F15.10 Other stimulant abuse, uncomplicated; F32.A Depression, unspecified; J44.9 Chronic obstructive pulmonary disease, unspecified
CPT/HCPCS: 36415; 71045; 80053; 81001; 82140; 82550; 82948; 83605; 83735; 83880; 84443; 84484; 85007; 85025; 87081; 93005; 93306; 94760; 96361; 96374; 96375; 97110; 97161; 97530; 97535; 99285; A6212; A6223; A6449; A6590; G0378; J0360; J1938; J2270; J7030

== ENCOUNTER 2025-01-13 01:08 | Emergency (ER) | payer MEDICAID ==
[~2025-01-13] VITALS: Ht 172.7 cm; Wt 81.8 kg
[~2025-01-13 01:08] MED LIST changes: -AZIT500T2 PO; -CEFD300C3 PO; +FOLI1TAB27 PO; +FURO20TA4 PO; -IBUP600T52 PO; +SPIR25TA5 PO; -SPIR50TA5 PO; +THIA50TA10 PO
[2025-01-13 01:11] VITALS: BP 167/91; PULSE 94; RESP 24; TEMP 98; O2SAT 97
--- NOTE | 2025-01-13 01:35 | RADIOLOGY REPORT ---
CHEST RADIOGRAPH Indication: SHORTNESS OF BREATH Technique: AP and lateral views, 3 images Comparison: 01/08/2025 FINDINGS: Lines and Tubes: None Lungs/Pleura: Similar bilateral perihilar interstitial opacities. Small right pleural effusion. No evidence of focal consolidation or pneumothorax. Elevated left hemidiaphragm. Cardiomediastinum: The heart is obscured but appears enlarged. Other: No acute osseous abnormality. IMPRESSION: 1. No significant change from 5 days prior. Mild heart failure pattern including small right pleural effusion.
--- NOTE | 2025-01-13 03:29 | Physician Documentation ---
History of Present Illness ~ Chief Complaint: Shortness of Breath Stated Complaint: SOB M BLS Time Seen by MD: 02:47 Primary Medical Doctor: DR. LANCASTER [facility] Patient presents to the emergency room with chief complaint of shortness of breath. Patient states he is always short of breath. He is concerned as he needs to get back to his sleeping area or somebody might steal it. Medication Reconciliation Allergies: Coded Allergies: No Known Allergies (Unverified , 01/08/25) Scheduled Amlodipine Besylate (Amlodipine Besylate), 1 TAB PO DAILY Folic Acid* (Folic Acid*), 1 MG PO DAILY Furosemide (Furosemide), 1 TAB PO DAILY Lisinopril (Lisinopril), 20 MG PO DAILY Propranolol Hcl* (Inderal*), 10 MG PO Q12H Spironolactone (Spironolactone), 12.5 MG PO DAILY Thiamine HCl (Vitamin B-1), 2 TAB PO DAILY Discontinued Medications Amlodipine Besylate (Amlodipine Besylate), 10 MG PO DAILY Azithromycin (Zithromax Tri-Saurabh), 500 MG PO DAILY Cefdinir (Cefdinir), 1 CAP PO Q12H Ibuprofen (Ibuprofen), 1 TAB PO Q8H Lisinopril (Lisinopril), 40 MG PO DAILY Spironolactone (Spironolactone), 100 MG PO DAILY@0830 Past Medical History Past Medical History: Congestive Heart Failure, Hypertension, Cirrohsis, Hepatitis C, *HEMATOLOGY*, Liver Disease, Dialysis, Diabetes, Cellulitis, Depression Past Surgical History: orthopedic surgeries, other Other Past Surgical History: 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, herniography Patient History: FH: diabetes mellitus FATHER (unknown history), MOTHER, , Age: 72, Cause: of unknown cause Alcohol Use: Sober Drug Use: marijuana, methamphetamine Lives In: Homeless Past Social History: History of methamphetamine use, currently sober Review of Systems ROS All review of systems negative except as per HPI Physical Exam Vital Signs: Temperature: 98.0, Heart Rate: 94, Respiratory Rate: 24, BP: 167/91, Pulse Oximetry: 97, Weight: 81.800 Oxygen Flow Rate: 0 Physical Exam General: Patient is awake, alert, oriented x4 in no acute distress and well appearing.~ Head: Normocephalic and atraumatic. Eyes: Conjunctival normal. EOMI. PERRL. ENT: Mucous membranes moist. Neck: Supple, trachea is midline. Chest: Mild expiratory wheezing bilaterally. There is no accessory muscle use or retractions. Cardiac: RRR without murmurs, gallops, or rubs. Abd: Soft, nondistended, nontender, with normoactive bowel sounds. No guarding, rebound, or rigidity. Progress Results/Orders Results/Orders Orders - KARTHIK RODRIGUEZ MD Chest,Two Views (01/13/25 ) Completed Orders - KARTHIK RODRIGUEZ MD Chest,Two Views (01/13/25 ) Vital Signs 01/13/25 01:11 Temp 98.0 Pulse 94 Resp 24 B/P (MAP) 167/91 Pulse Ox 97 O2 Flow Rate 0 Medical Decision Making Findings Patient presents to the emergency room for evaluation of shortness of breath. Chest x-ray is actually improved compared to previous. I do not believe emergent labs are necessary. Departure Disposition: HOME / SELF CARE / HOMELESS Impression: Primary Impression: Dyspnea Condition: Stable Discharge Instructions: Shortness of Breath, Adult, [id number] Referrals: NO PRIMARY CARE PROVIDER (PCP) Signature Scribe Signature: No scribe Attestation: The note accurately reflects work and decisions made by me.Karthik Rodriguez MD 01/13/25 03:31 KARTHIK RODRIGUEZ MD Jan 13, 2025 03:29
== END 2025-01-13 03:59 | disposition home or self-care (01) ==
LOC: ER 01:09
DX: R06.02 Shortness of breath (principal); I11.0 Hypertensive heart disease with heart failure; I50.9 Heart failure, unspecified; F12.90 Cannabis use, unspecified, uncomplicated; F15.90 Other stimulant use, unspecified, uncomplicated; F32.A Depression, unspecified; E11.9 Type 2 diabetes mellitus without complications; Z86.19 Personal history of other infectious and parasitic diseases; Z79.899 Other long term (current) drug therapy; Z59.00 Homelessness unspecified
CPT/HCPCS: 71046; 99283

== ENCOUNTER 2025-01-13 17:12 | Emergency (ER) | payer MEDICAID ==
[~2025-01-13] VITALS: Ht 170.2 cm; Wt 85.4 kg
[2025-01-13] MEDS: naloxone 2mg/2ml inj IV STA (17:34)
--- NOTE | 2025-01-13 17:40 | Physician Documentation ---
History of Present Illness General Chief Complaint: ALOC Stated Complaint: UNRESPONSIVE Time Seen by MD: 17:39 Primary Medical Doctor: DR. LANCASTER Mode of Arrival: EMS History of Present Illness Initial Comments The patient is a 59-year-old male who was at the [facility] when EMS was summoned because of his unresponsiveness. EMS reports that he had pinpoint pupils, hypoventilation and unresponsiveness. Medication Reconciliation Allergies: Coded Allergies: No Known Allergies (Unverified , 01/08/25) Discontinued Medications Amlodipine Besylate (Amlodipine Besylate), 10 MG PO DAILY Amlodipine Besylate (Amlodipine Besylate), 1 TAB PO DAILY Discontinued Reason: patient no longer taking Azithromycin (Zithromax Tri-Saurabh), 500 MG PO DAILY Cefdinir (Cefdinir), 1 CAP PO Q12H Folic Acid* (Folic Acid*), 1 MG PO DAILY Discontinued Reason: patient no longer taking Furosemide (Furosemide), 1 TAB PO DAILY Discontinued Reason: patient no longer taking Ibuprofen (Ibuprofen), 1 TAB PO Q8H Lisinopril (Lisinopril), 40 MG PO DAILY Lisinopril (Lisinopril), 20 MG PO DAILY Discontinued Reason: patient no longer taking Propranolol Hcl* (Inderal*), 10 MG PO Q12H Discontinued Reason: patient no longer taking Spironolactone (Spironolactone), 100 MG PO DAILY@0830 Spironolactone (Spironolactone), 12.5 MG PO DAILY Discontinued Reason: patient no longer taking Thiamine HCl (Vitamin B-1), 2 TAB PO DAILY Discontinued Reason: patient no longer taking Past Medical History Past Medical History: Congestive Heart Failure, Hypertension, Cirrohsis, Hepatitis C, *HEMATOLOGY*, Liver Disease, Dialysis, Diabetes, Cellulitis, Depression Past Surgical History: orthopedic surgeries, other Other Past Surgical History: 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 Physical Exam Physical Exam Vital Signs: Heart Rate: 88, Respiratory Rate: 11, BP: 128/74, Pulse Oximetry: 98, Weight: 85.400 Physical Exam Physical Exam (after 2 mg Narcan intranasally) Vitals and nursing note reviewed. Constitutional: General: GCS nine HENT: Head: Normocephalic and atraumatic. Mouth/Throat: Mouth: Mucous membranes are moist. Pharynx: Oropharynx is clear. Eyes: General: No scleral icterus. Reported pinpoint by EMS but after Narcan around 3 mm filling Extraocular Movements: Extraocular movements intact. Pupils: Pupils are equal, round, and reactive to light. Neck: Supple, no Kernig or Brudzinski sign. Cardiovascular: Rate and Rhythm: Normal rate and regular rhythm. Heart sounds: No murmur heard. Pulmonary: Effort: No respiratory distress. Breath sounds: No wheezing, rhonchi or rales. Abdominal: General: There is no distension. Palpations: There is no fluid wave, hepatomegaly or mass. Tenderness: There is no abdominal tenderness. There is no guarding. Musculoskeletal: General: No swelling or deformity. Skin: Coloration: Skin is not jaundiced. Findings: No erythema or rash. Neurological: Mental Status: GCS 9. Progress Results/Orders Results/Orders Completed Orders - RYNE BARRIENTOS MD Naloxone 2mg/2ml Inj (Narcan 2mg/2ml Inj (01/13/25 17:22) Vital Signs 01/13/25 01/13/25 01/13/25 01/13/25 17:20 17:24 18:35 19:50 Pulse 88 94 88 Resp 14 11 16 16 B/P (MAP) 128/74 (92) 138/83 (101) 136/86 (103) Pulse Ox 98 94 95 O2 Flow Rate 0 0 01/13/25 01/13/25 19:54 21:08 Pulse 92 Resp 16 16 B/P (MAP) 146/72 Pulse Ox 96 Laboratory Tests Test 01/13/25 17:25 01/13/25 17:28 Procalcitonin 0.19 White Blood Count 6.3 Red Blood Count 4.86 Hemoglobin 15.8 Hematocrit 44.6 Mean Corpuscular Volume 91.8 Mean Corpuscular Hemoglobin 32.5 H Mean Corpuscular Hemoglobin Concent 35.4 Red Cell Distribution Width 14.5 Platelet Count 183 Mean Platelet Volume 7.8 Neutrophils (%) (Auto) 76.5 H Lymphocytes (%) (Auto) 13.2 L Monocytes (%) (Auto) 7.7 Eosinophils (%) (Auto) 1.6 Basophils (%) (Auto) 1.0 Neutrophils # (Auto) 4.8 Lymphocytes # (Auto) 0.8 L Monocytes # (Auto) 0.5 Eosinophils # (Auto) 0.1 Basophils # (Auto) 0.1 CBC Comment Urine Specimen Description Straight cath Urine Color Yellow Urine Clarity Clear Urine pH 5.5 Urine Specific [place] >=1.030 Urine Protein 30 H Urine Glucose (UA) Negative Urine Ketones Negative Urine Occult Blood Trace-intact Urine Nitrite Negative Urine Bilirubin Small Urine Urobilinogen 4.0 H Urine Leukocyte Esterase Negative Urine RBC 3-10 Urine WBC 0-4 Urine Squamous Epithelial Cells Few Urine Bacteria Few Urine Mucus Few Urine Culture Indicated Not ind Volume Urine Centrifuged 10 ml Urine Comment Sodium Level 142 Potassium Level 3.9 Chloride Level 107 Carbon Dioxide Level 20.9 L Anion Gap 14 Blood Urea Nitrogen 28 H Creatinine 1.75 H Estimated GFR/1.73 m2 40 BUN/Creatinine Ratio 16.0 Glucose Level 182 H Calcium Level 8.6 Magnesium Level 1.9 Albumin 2.7 L Chemistry Comments Urine Opiates Screen Negative Urine Methadone Screen Negative Urine Fentanyl Screen Positive H Urine Barbiturates Screen Negative Urine Phencyclidine Screen Negative Urine Amphetamines Screen Positive Urine Benzodiazepines Screen Negative Urine Cocaine Screen Negative Urine Cannabinoids Screen Negative Drug Screen Comment Ethyl Alcohol Level < 10 Medical Decision Making Findings This 59-year-old male was found unresponsive at the [place] when EMS responded. They administered Narcan 2 mg intranasally with partial response. An IO was established in in the emergency department I gave the patient an additional 2 mg Narcan through the IO which increased his response. Currently, his oxygen saturation is in the high 90s, heart rate and blood pressure within normal limits. We are currently observing him. Departure Time of Disposition: 20:39 Disposition: 01 HOME / SELF CARE / HOMELESS Impression: Primary Impression: Overdose of fentanyl Condition: Stable Discharge Instructions: Overdose, Adult Referrals: NO PRIMARY CARE PROVIDER (PCP) Additional Comment Additional Comment patient is signed out to me patient with an overdose patient was unresponsive and given Narcan with improvement of his symptoms he does have a history of polypharmacy he was recently admitted to the hospital is clinically dehydrated he was hydrated in the emergency room he has remained clinically stable and responsive in the emergency room for 2 hours of observation patient has been advised to stop using fentanyl as well as amphetamines which he has been using in the past in his positive on his tox screen. He has prior hospitalizations has been reviewed patient's pulse oximetry was interpreted as normal and adequate on the cardiac cath tech was interpreted as a sinus rhythm patient will be discharged. Signature Scribe Signature: . Attestation: . RYNE BARRIENTOS MD Jan 13, 2025 17:40 OHLFSNITEHS MD Jan 13, 2025 20:41
--- NOTE | 2025-01-13 18:07 | ELECTROCARDIOGRAPH REPORT ---
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
[2025-01-13 18:18] LABS: MEAN PLATELET VOLUME 7.8 FL (7.4-10.4); RED CELL DISTRIBUTION WIDTH 14.5 % (11.5-14.5)
[2025-01-13 18:23] LABS: CREATININE 1.75 MG/DL (0.60-1.10); TOTAL CARBON DIOXIDE 20.9 MMOL/L (24-32); eCRCL 43 ML/MIN; eGFR 40 ML/MIN
[2025-01-13 18:27] LABS: LEUKOCYTE ESTERASE ,URINE NEGATIVE (Neg); NITRITES, URINE NEGATIVE (Neg); OCCULT BLOOD,URINE TRACE-INTACT (Neg)
[2025-01-13] MEDS: normal saline 1000ML IV soln IVB ONE ×2 (18:30→19:04)
[2025-01-13 18:32] LABS: ETHANOL < 10 MG/DL (<10)
[2025-01-13 18:37] LABS: UA COLLECTION TYPE STRAIGHT CATH
[2025-01-13 18:38] LABS: MUCUS STRANDS FEW /LPF (Neg); SQUAMOUS EPITHELIAL CELL,UR FEW /LPF (FEW)
[2025-01-13 18:41] LABS: URINE AMPHETAMINE SCREEN POSITIVE (Neg); URINE BARBITUATE SCREEN NEGATIVE (Neg); URINE BENZODIAZEPINES SCREEN NEGATIVE (Neg); URINE CANNABINOID SCREEN NEGATIVE (Neg); URINE COCAINE SCREEN NEGATIVE (Neg); URINE METHADONE SCREEN NEGATIVE (Neg); URINE OPIATE SCREEN NEGATIVE (Neg); URINE PHENCYCLIDINE SCREEN NEGATIVE (Neg)
--- NOTE | 2025-01-13 19:48 | RADIOLOGY REPORT ---
EXAM: DI CHEST,SINGLE VIEW HISTORY: aloc TECHNIQUE: 1 view of the chest COMPARISON: DI CHEST,TWO VIEWS on DOS: 01/13/25 FINDINGS/IMPRESSION: LUNGS: Trace possible right-sided pleural effusion.. Peripheral interstitial edema. MEDIASTINUM: Normal cardiac size. Overlying trace hepatic. BONES: No acute osseous abnormality OTHER: Surgical clips along the right axilla
[2025-01-13 21:08] VITALS: BP 146/72; PULSE 92; RESP 16; O2SAT 96
== END 2025-01-13 21:12 | disposition home or self-care (01) ==
LOC: ER 17:12
DX: T40.411A Poisoning by fentanyl or fentanyl analogs, accidental (unintentional), initial encounter (principal); R40.4 Transient alteration of awareness; I11.0 Hypertensive heart disease with heart failure; F32.A Depression, unspecified; F17.210 Nicotine dependence, cigarettes, uncomplicated; F15.90 Other stimulant use, unspecified, uncomplicated; I50.9 Heart failure, unspecified; F12.90 Cannabis use, unspecified, uncomplicated; Z86.19 Personal history of other infectious and parasitic diseases; Z59.00 Homelessness unspecified; Z79.899 Other long term (current) drug therapy; Y92.89 Other specified places as the place of occurrence of the external cause
CPT/HCPCS: 36415; 71045; 80048; 80305; 80320; 81001; 83735; 84145; 85025; 93005; 96374; 99285; J2312; J7030; C1758